=== PATIENT | male | born 1950 | race African-American/Black ===

== ENCOUNTER 2022-03-29 02:35 | Inpatient (IN) ==
[2022-03-29 03:00] VITALS: BMI 19.9
--- NOTE | 2022-03-29 03:08 | DR.SOBA ---
HPI Time Seen Time Seen by Provider: 03/29/22 03:04 Primary Care Physician Primary Care Physician: KEI Complaints Chief Complaint Doctors Comments: 72 y/o male presents with recurrent hiccups over the past 2-3 weeks. Pt ast seen here 01/2022, by me, diagnosed with a left lung mass. Pt has since undergone radiation therapy, scheduled for chemotherapy. WAs on steroids for awhile. Was on pantoprazole, taken off. Npo significant reflux. Pt was on baclofan, helped for a bit, but stopped helping past 2 days. Pt now with non stop hiccups over the past two days. Associated with sensation of dyspnea. Denies cough, fever, vomiting, diarrhea. Chief Complaint:: HICCUPS FOR 2-3 WEEKS. PT STATES PCP HAD PRESCRIBED MEDS FOR CONDITION BUT THAT THEY STOPPED WORKING THIS WEEKEND AND HE STARTED FEELING LIKE HE WAS IN RESPIRATORY DISTRESS THIS AM. COVID-19 Coronavirus risk:travel/contact w/high risk person: No Has patient experienced Coronavirus symptoms: No Reviewed Nurses Notes Reviewed: Yes Source History Provided: Patient and EMS Mode of Arrival Mode of Arrival: Stretcher Timing Onset of Chief Complaint: 03/29/22 PMH PMH Past Medical History: Yes Past Medical History: Hypertension and Hypothyroidism Past Medical History Comment: LUNG CA Past Surgical History: Yes Surgical History: No History Family History History of Family Medical Conditions: Yes Family Medical History: [place], Coronary Artery Disease and Hypertension Social History Does patient currently use any type of tobacco product: No Have you used tobacco products in the last 12 months: No Type of Tobacco Use: None Does any household member use tobacco: No Alcohol Use: None Do you use any recreational Drugs:: Yes (MARIJUANA) Lives With: Spouse Lives Where: Home Travel Risk Coronavirus risk:travel/contact w/high risk person: No Has patient experienced Coronavirus symptoms: No Infectious screening In the last 2 months have you had wt loss of >10#?: NO Have you had fever, night sweats or hemotysis?: No Have you traveled outside the country in the last 6 months?: No Isolation: Standard ROS Review of Systems Constitutional: Weakness Eyes: No Symptoms Reported ENTM: No Symptoms Reported Respiratoy: Other (hiccups) Cardiovascular: No Symptoms Reported Gastrointestinal/Abdominal: No Symptoms Reported Genitourinary: No Symptoms Reported Neurological: Weakness Musculoskeletal: No Symptoms Reported Integumentary: No Symptoms Reported Hematologic/Lymphatic: No Symptoms Reported Psychiatric: No Symptoms Reported All Other Systems: Reviewed and Negative PE Vital Signs Vitals: Temperature 98.4 F Pulse Rate 76 Respiratory Rate 20 Blood Pressure [Right Arm] 152/68 Blood Pressure 115/55 O2 Sat by Pulse Oximetry 97 General General Appearance: Alert and Other (cachectic, + persistent hiccups) Eyes Eye exam: PERRL and EOMI ENT ENT Exam: Normal Exam and Mucous Membranes Moist Neck Neck Exam: Normal Inspection and Full ROM; negative Tenderness Respiratory Respiratory Exam: Normal Lung Sounds Bilat; negative Accessory Muscle Use or Respiratory Distress Cardiovascular Cardiovascular Exam: Regular Rate, Normal Rhythm and Normal Heart Sounds Abdominal Exam Abdominal Exam: Normal Bowel Sounds; negative Tenderness, Guarding or Rebound Extremities Extremities Exam: Normal Inspection; negative Edema Neurologic Neurological Exam: Alert, Oriented X3 and CN II-XII Intact; negative Motor Sensory Deficit Skin Skin Exam: Warm, Dry and Other (+ chronic sacral decubitus) COURSE Treatment Treatment: Pt with recurrent hiccups past 2-3 weeks. W/u initiated. Given IV fluids, IV protonix/PO carafate to start. 0439 - hiccups doing better. Labs show elevated WBC at 32k, sodium low at 126. No report of fever. Does have a chronic sacral decubitus, though leukocytosis possibly related to recent radiation treatments. Will check lactic acid, obtain blood cultures and cover with IV antibiotic for his sacral decubitus. Discussed with Dr Hart, covering for Dr Wolff. [facility] Labs Reviewed Laboratory Results Reviewed?: Yes Result Diagrams: 03/29/22 03:25 03/29/22 03:25 Laboratory: WBC 32.3 X10^3/uL (3.6-10.0) H* 03/29/22 03:25 RBC 3.25 X10^6/uL (4.7-6.0) L 03/29/22 03:25 Hgb 9.4 g/dL (13.5-18.0) L 03/29/22 03:25 Hct 27.4 % (42.0-54.0) L 03/29/22 03:25 MCV 84.5 fL (80.0-100.0) 03/29/22 03:25 MCH 28.9 pg (27.0-34.0) 03/29/22 03:25 MCHC 34.3 g/dL (33.0-35.0) 03/29/22 03:25 RDW 15.0 % (11.6-16.5) 03/29/22 03:25 Plt Count 403 X10^3/uL (150.0-450.0) 03/29/22 03:25 Plt Count Comment Adequate (ADEQUATE) 03/29/22 03:25 MPV 7.2 fL (7.4-11.0) L 03/29/22 03:25 Neut % (Auto) 90.6 % (42.0-75.0) H 03/29/22 03:25 Lymph % (Auto) 3.0 % (21.0-51.0) L 03/29/22 03:25 Alexander % (Auto) 5.9 % (0.0-13.0) 03/29/22 03:25 Eos % (Auto) 0.2 % (0.9-2.9) L 03/29/22 03:25 Baso % (Auto) 0.3 % (0.2-1.0) 03/29/22 03:25 Neut # (Auto) 29.3 x10^3/uL (2.2-4.8) H 03/29/22 03:25 Lymph # (Auto) 1.0 X10^3/uL (1.3-2.9) L 03/29/22 03:25 Alexander # (Auto) 1.9 x10^3/uL (0.3-0.8) H 03/29/22 03:25 Eos # (Auto) 0.1 x10^3/uL (0.0-0.2) 03/29/22 03:25 Baso # (Auto) 0.1 X10^3/uL (0.0-0.1) 03/29/22 03:25 Absolute Nucleated RBC 0.0 /100WBC 03/29/22 03:25 Total Counted 100 03/29/22 03:25 Neutrophils % (Manual) 87 % (39-76) H 03/29/22 03:25 Band Neutrophils % 4 % (0-10) 03/29/22 03:25 Lymphocytes % (Manual) 5 % (13-43) L 03/29/22 03:25 Monocytes % (Manual) 3 % (4-9) L 03/29/22 03:25 Metamyelocytes % 1 03/29/22 03:25 Plt Morphology Comment Normal (NORMAL) 03/29/22 03:25 RBC Morphology Abnormal (NORMAL) 03/29/22 03:25 Hypochromasia Slight A 03/29/22 03:25 Sodium 126 mmol/L (136-145) L 03/29/22 03:25 Corrected Sodium TNP 03/29/22 03:25 Potassium 4.3 mmol/L (3.5-5.1) 03/29/22 03:25 Chloride 93 mmol/L (98-107) L 03/29/22 03:25 Carbon Dioxide 26.2 mmol/L (21-32) 03/29/22 03:25 BUN 35 mg/dL (7-18) H 03/29/22 03:25 Creatinine 1.00 mg/dL (0.70-1.30) 03/29/22 03:25 Est GFR (MDRD) Af Amer > 60 (>60) 03/29/22 03:25 Est GFR (MDRD) Non-Af > 60 (>60) 03/29/22 03:25 Glucose 102 mg/dL (65-99) H 03/29/22 03:25 Calcium 8.5 mg/dL (8.5-10.1) 03/29/22 03:25 Corrected Calcium 10.7 mg/dL (8.5-10.1) H 03/29/22 03:25 Total Bilirubin 0.50 mg/dL (0.2-1.0) 03/29/22 03:25 AST 32 Units/L (15-37) 03/29/22 03:25 ALT 35 Units/L (12-78) 03/29/22 03:25 Alkaline Phosphatase 193 Units/L (46-116) H 03/29/22 03:25 Troponin I High Sens 5.4 ng/L (4.0-60.0) 03/29/22 03:25 B-Natriuretic Peptide 19.7 pg/mL (0-79) 03/29/22 03:25 Total Protein 5.9 g/dL (6.4-8.2) L 03/29/22 03:25 Albumin 1.3 g/dL (3.4-5.0) L 03/29/22 03:25 Globulin 4.6 g/dL (2.5-4.5) H 03/29/22 03:25 Albumin/Globulin Ratio 0.3 Ratio (1.1-2.1) L 03/29/22 03:25 WBC 32K, + degree of anemia. Sodium low at 126. Opioid Opioid Risk Tool Age (Tino box if 16-45): No History of Preadolescent Sexual Abuse: No Total: 0 Total Score Risk Category: Low Risk Copyright: Mykel KERR predicting aberrant behaviors Discharge Plan Diagnosis Discharge Problem: Acute hyponatremia, Leukocytosis, Hiccups Discharge Plan Patient Disposition: ADMITTED INPATIENT Condition: Stable
[2022-03-29] MEDS ORDERED: PROTONIX INJ 40 MG VIAL IVP ONE (03:15)
[2022-03-29] MEDS ORDERED: NS 500 ML IV 500 ML IV ONE ×2 (03:16→03:20)
[2022-03-29] MEDS ORDERED: CARAFATE ORAL SUSP PO ONE ×3 (03:17→08:10)
[2022-03-29] MEDS ORDERED: PROTONIX INJ 40 MG VIAL ONE (03:20)
[2022-03-29 03:46] LABS: BASOPHILS # (AUTO) 0.1 X10^3/uL (0.0-0.1); BASOPHILS % (AUTO) 0.3 % (0.2-1.0); EOSINOPHILS # (AUTO) 0.1 x10^3/uL (0.0-0.2); EOSINOPHILS % (AUTO) 0.2 % (0.9-2.9); HEMATOCRIT 27.4 % (42.0-54.0); HEMOGLOBIN 9.4 g/dL (13.5-18.0); MEAN CORPUSCULAR HEMOGLOBIN 28.9 pg (27.0-34.0); MEAN CORPUSCULAR HGB CONC 34.3 g/dL (33.0-35.0); MEAN CORPUSCULAR VOLUME 84.5 fL (80.0-100.0); MEAN PLATELET VOLUME 7.2 fL (7.4-11.0); MONOCYTES # (AUTO) 1.9 x10^3/uL (0.3-0.8); MONOCYTES % (AUTO) 5.9 % (0.0-13.0); NEUTROPHILS # (AUTO) 29.3 x10^3/uL (2.2-4.8); NEUTROPHILS % (AUTO) 90.6 % (42.0-75.0); RED BLOOD COUNT 3.25 X10^6/uL (4.7-6.0)
[2022-03-29 03:47] LABS: ALANINE AMINOTRANSFERASE 35 Units/L (12-78); ALBUMIN 1.3 g/dL (3.4-5.0); ALKALINE PHOSPHATASE 193 Units/L (46-116); ASPARTATE AMINO TRANSFERASE 32 Units/L (15-37); BLOOD UREA NITROGEN 35 mg/dL (7-18); CALCIUM 8.5 mg/dL (8.5-10.1); CARBON DIOXIDE 26.2 mmol/L (21-32); CHLORIDE 93 mmol/L (98-107); COR CA(FOR HYPOALB) 10.7 mg/dL (8.5-10.1); SODIUM 126 mmol/L (136-145); TOTAL PROTEIN 5.9 g/dL (6.4-8.2); eGFR NON BLACK RACES > 60 (>60)
[2022-03-29 03:53] LABS: WHITE BLOOD COUNT 32.3 X10^3/uL (3.6-10.0)
--- NOTE | 2022-03-29 03:55 | RAD ---
STUDY: FRONTAL VIEW CHESTCOMPARISON: 02/02/2022HISTORY: SOB, HICCUPSFINDINGS:Subsegmental atelectasis is noted.No focal consolidation is seen.The heart size is within normal limits.The mediastinum is unremarkable.There is no evidence of pleural effusion or gross pneumothorax.The trachea is midline.IMPRESSION:1. No focal consolidation is seen.2. The heart size is normal.Electronically signed by: Pawel Sousa (Mar 29, 2022 03:54:18)
[2022-03-29 03:58] LABS: BAND NEUTROPHILS % 4 % (0-10); HYPOCHROMASIA SLIGHT; METAMYELOCYTES % 1; PLATELET MORPHOLOGY COMMENT NORMAL (NORMAL)
[2022-03-29] MEDS ORDERED: NS 100 ML IV 100 ML ONE (05:03)
[2022-03-29] MEDS ORDERED: ZOSYN VIAL 2.25 GRAMS ONE (05:03)
[2022-03-29] MEDS: ZOSYN VIAL 2.25 GRAMS 2.25 G in NS 100 ML IV 100 ML IV SCH ×4 (05:15→22:17)
[2022-03-29] MEDS ORDERED: ZOFRAN INJ 4 MG VIAL IVP PRN (05:44)
[2022-03-29] MEDS ORDERED: PROTONIX TAB 40 MG PO ONE (08:10)
[2022-03-29] MEDS ORDERED: NORVASC TAB 5 MG ONE (08:10)
[2022-03-29] MEDS ORDERED: NS 1,000 ML IV 1,000 ML ONE (08:11)
[2022-03-29] MEDS: NS 1,000 ML IV 1,000 ML IV SCH ×2 (08:16→14:50)
[2022-03-29] MEDS: PROTONIX TAB 40 MG PO SCH (08:17)
[2022-03-29] MEDS: NORVASC TAB 10 MG PO SCH ×2 (08:17→10:35)
[2022-03-29] MEDS: CARAFATE ORAL SUSP PO SCH ×4 (08:18→20:33)
[2022-03-29] MEDS ORDERED: PHARMACY CONSULT - TPN XX SCH (10:00)
[2022-03-29] MEDS: SYNTHROID 50 mcg TAB PO SCH (10:35)
[2022-03-29] MEDS: COZAAR PO SCH (10:36)
[2022-03-29] MEDS: ALBUMIN HUMAN 25%- 100 ML 100 ML IV SCH (10:37)
[2022-03-29] MEDS: LOVENOX INJ 40 MG SYR SC SCH (10:40)
[2022-03-29 11:05] LABS: BILIRUBIN,URINE NEGATIVE (NEGATIVE); BLOOD/HEMOGLOBIN,URINE NEGATIVE (NEGATIVE); GLUCOSE, URINE NEGATIVE (NEGATIVE); KETONES,URINE NEGATIVE (NEGATIVE); LEUKOCYTE ESTERASE ,URINE 1+ (NEGATIVE); NITRITES,URINE NEGATIVE (NEGATIVE); PROTEIN,URINE 1+ (NEGATIVE); UROBILINOGEN,URINE NORMAL (NORMAL)
[2022-03-29 11:16] LABS: APPEARANCE,URINE CLEAR (CLEAR); COLOR,URINE YELLOW (YELLOW); RBC,URINE NONE SEEN /HPF (0-3); SQUAMOUS EPITHELIAL CELL,UR RARE /HPF (NEGATIVE)
[2022-03-29 11:17] LABS: BACTERIA,URINE NEGATIVE /HPF (NEGATIVE)
[2022-03-29] MEDS: TPN ELECTROLYTES IV SCH ×2 (12:40)
[2022-03-29] MEDS: CLINIMIX IV SCH ×2 (12:40)
[2022-03-29] MEDS: OSIMERTINIB 80 MG PO SCH (12:41)
[2022-03-29] MEDS: PERCOCET TAB 5/325 MG PO PRN (18:21)
[2022-03-29] MEDS: COLACE CAP 100 MG PO SCH (20:33)
[2022-03-29] MEDS: MILK OF MAGNESIA PO SCH (20:33)
[2022-03-30] MEDS: NS 1,000 ML IV 1,000 ML IV SCH ×4 (00:49→23:09)
[2022-03-30] MEDS: ZOSYN VIAL 2.25 GRAMS 2.25 G in NS 100 ML IV 100 ML IV SCH ×3 (06:04→21:50)
[2022-03-30] MEDS: CARAFATE ORAL SUSP PO SCH ×4 (06:04→21:44)
[2022-03-30 06:19] LABS: BASOPHILS # (AUTO) 0.1 X10^3/uL (0.0-0.1); BASOPHILS % (AUTO) 0.3 % (0.2-1.0); EOSINOPHILS # (AUTO) 0.1 x10^3/uL (0.0-0.2); EOSINOPHILS % (AUTO) 0.6 % (0.9-2.9); HEMATOCRIT 24.5 % (42.0-54.0); HEMOGLOBIN 8.5 g/dL (13.5-18.0); LYMPHOCYTES # (AUTO) 1.4 X10^3/uL (1.3-2.9); LYMPHOCYTES % (AUTO) 5.7 % (21.0-51.0); MEAN CORPUSCULAR HEMOGLOBIN 29.6 pg (27.0-34.0); MEAN CORPUSCULAR HGB CONC 34.5 g/dL (33.0-35.0); MEAN CORPUSCULAR VOLUME 85.7 fL (80.0-100.0); MEAN PLATELET VOLUME 7.4 fL (7.4-11.0); MONOCYTES # (AUTO) 1.5 x10^3/uL (0.3-0.8); MONOCYTES % (AUTO) 6.3 % (0.0-13.0); NEUTROPHILS # (AUTO) 21.2 x10^3/uL (2.2-4.8); NEUTROPHILS % (AUTO) 87.1 % (42.0-75.0); RED BLOOD COUNT 2.86 X10^6/uL (4.7-6.0); RED CELL DISTRIBUTION WIDTH 14.9 % (11.6-16.5); WHITE BLOOD COUNT 24.3 X10^3/uL (3.6-10.0)
[2022-03-30 06:30] LABS: ALANINE AMINOTRANSFERASE 30 Units/L (12-78); ALBUMIN 1.4 g/dL (3.4-5.0); ALKALINE PHOSPHATASE 173 Units/L (46-116); ASPARTATE AMINO TRANSFERASE 30 Units/L (15-37); BLOOD UREA NITROGEN 23 mg/dL (7-18); CALCIUM 8.2 mg/dL (8.5-10.1); CHLORIDE 101 mmol/L (98-107); COR CA(FOR HYPOALB) 10.3 mg/dL (8.5-10.1); COR NA(FOR HYPERGLY) 134 mmol/L (136-145); CREATININE 0.81 mg/dL (0.70-1.30); SODIUM 133 mmol/L (136-145); TOTAL PROTEIN 5.5 g/dL (6.4-8.2); eGFR NON BLACK RACES > 60 (>60)
[2022-03-30 06:47] LABS: BAND NEUTROPHILS % 7 % (0-10)
[2022-03-30 06:48] LABS: PLATELET MORPHOLOGY COMMENT NORMAL (NORMAL)
[2022-03-30] MEDS: PROTONIX TAB 40 MG PO SCH (09:27)
[2022-03-30] MEDS: ALBUMIN HUMAN 25%- 100 ML 100 ML IV SCH (09:27)
[2022-03-30] MEDS: COZAAR PO SCH (09:27)
[2022-03-30] MEDS: SYNTHROID 50 mcg TAB PO SCH (09:28)
[2022-03-30] MEDS: NORVASC TAB 10 MG PO SCH (09:28)
[2022-03-30] MEDS: LOVENOX INJ 40 MG SYR SC SCH (09:31)
[2022-03-30] MEDS: OSIMERTINIB 80 MG PO SCH (09:33)
--- NOTE | 2022-03-30 09:59 | DR.H&P ---
H&P - History & Physical for Day of: H&P Date: 03/29/22 - Chief Complaint Chief Complaint: INTRACTABLE HICCUPS, SOB - History of Present Illness History of Present Illness: IS A 72 YEAR OLD PATIENT OF OURS. HE PRESENTED TO THE ER WITH COMPLAINTS OF INTRACTABLE HICCUPS OVER THE PAST 2-3 WEEKS. PATIENT WAS ON BACLOFAN FOR A WHILE. HE REPORTS THAT THE BACLOFAN HELPED WITH THE HICCUPS FOR A BIT, HOWEVER, IT HAS PROGRESSIVELY GOTTEN WORSE FOR THE PAST 2-3 DAYS. HE HAS ASSOCIATED DYSPNEA, BUT DENIES COUGH, FEVER, VOMITING, OR DIARRHEA. PATIENT WAS DIAGNOSED WITH A LEFT LUNG MASS IN JANUARY OF 2022. HE HAS SINCE UNDERGONE RADIATION THERAPY AND WILL START A CHEMOTHERAPY PILL SOON. OTHER PMH INCLUDES: HTN, HYPOTHYROIDISM, AND GERD. PATIENTS SPOUSE REPORTS THAT PATIENT IS NON-AMBULATORY. EXAMINATION REVEALED MULTIPLE WOUNDS TO THE SACRUM, BUTTOCK, AND UPPER LEGS (SEE WOUND ASSESSMENT). ON ARRIVAL TO THE ER, HIS VITALS WERE: 98.4-85-20-95%-115/56. LABS WERE OBTAINED. WBC 32.3, RBC 3.25, HGB 9.4, HCT 27.4, PLT COUNT 403, SODIUM 126, POTASSIUM 4.3, CHLORIDE 93, CARBON DIOXIDE 26.2, BUN 35, CREATININE 1.00, GLUCOSE 102, CALCIUM 8.5, TOTAL BILI 0.50, AST 32, ALT 35, ALK PHOS 193, TROPONIN 5.4, BNP 19.7, TOTAL PROTEIN 5.9, ALBUMIN 1.3. A URINALYSIS WAS OBTAINED AND WAS UNREMARKABLE. BLOOD AND URINE CULTURES WERE SET UP. WOUND CULTURES OF PRESSURE ULCER OR THE BUTTOCK WERE ALSO SET UP. A CHEST XRAY WAS OBTAINED AND REVEALED: Subsegmental atelectasis is noted. No focal consolidation is seen. The heart size is within normal limits. The mediastinum is unremarkable. There is no evidence of pleural effusion or gross pneumothorax. The trachea is midline. IN THE ER, HE WAS GIVEN PROTONIX 40MG IV X 1 DOSE, A NORMAL SALINE BOLUS, CARAFATE 1G PO X 1. HE WAS ADMITTED TO THE HOSPITAL INPATIENT STATUS FOR FURTHER EVALUATION AND TREATMENT OF LEUKOCYTOSIS, ACUTE HYPONATREMIA, INTRACTABLE HICCUPS, MULTIPLE DECUBITUS ULCERS, ANEMIA, PROTEIN-CALORIE MALNUTRITION, AND LEFT LUNG MASS. HE WAS STARTED ON NORMAL SALINE AT 80 ML/HR, ZOSYN 2.25G IV TID, TPN, ALBUMIN 25% IV DAILY, ZOFRAN 4MG IV Q6H PRN, LOVENOX 40MG SC DAILY, MILK OF MAGNESIA 30ML HS, COLACE 100MG PO HS, CARAFATE 1G PO ACHS, AND HEIS HOME MEDICATIONS WERE RESUMED. HOME MEDICATIONS INCLUDE: NORVASC, DURAGESIC PATCH, TAGRISSO, SYNTHROID, COZAAR, PERCOCET, PROTONIX. WE WILL HAVE CONSULT WITH PATIENT FOR POSSIBLE DEBRIDEMENT OF DECUBITUS ULCERS. OTHERWISE, WE WILL FOLLOW-UP WITH AM LABS AND CONTINUE TO MONITOR. TIME SPENT ON CLINICAL ASSESSMENT, REVIWING LABS AND IMAGING, DECISION MAKING, AND DOCUMENTATION GREATER THAN 75 MINUTES. - Past Medical History Past Medical History: Hypertension, Hypothyroidism Additional Medical History: LEFT LUNG MASS - Past Surgical History Surgical History: No History - Family History Family Medical History: [place], Coronary Artery Disease, Hypertension - Social History Does patient currently use any type of tobacco product: No Have you used tobacco products in the last 12 months: No Type of Tobacco Use: None Does any household member use tobacco: No Alcohol Use: None Drug Use: Marijuana - Medications Home Medications: No Known Allergies Allergy (Verified 03/29/22 03:04) CONTINUE taking the following medications baclofen 10 mg tablet 1 tab PO TID PRN hiccoughs 03/29/22 [History] fentanyl 25 mcg/hr transdermal patch 1 patch Q3D 03/29/22 [History] ondansetron HCl 8 mg tablet 1 tab PO BID PRN 03/29/22 [History] oxycodone-acetaminophen 10 mg-325 mg tablet 1 tab PO TID PRN 03/29/22 [History] - Review of Systems Constitutional: Weakness Eyes: No Symptoms Reported ENT: No Symptoms Reported Respiratory: Shortness of Breath Cardiovascular: No Symptoms Reported Gastrointestinal: No Symptoms Reported Genitourinary: No Symptoms Reported Skin: Wound (SACRAL, BUTTOCK, AND UPPER LEG DECUBITUS ULCERS ) Neurological: Weakness - Physical Exam Vital Signs: Temperature 98.2 F Pulse Rate [Left] 74 Pulse Rate 71 Respiratory Rate 19 Blood Pressure [Right Arm] 120/58 Blood Pressure 110/53 O2 Sat by Pulse Oximetry 97 Oriented: Normal Eyes: Normal Ear: Normal Nose: Normal Throat: Normal Respiratory: Diminished Throughout Cardiovascular: Normal : Normal Auscultation: Bowel Sounds: Normal Palpation: Normal Tenderness: Normal Skin: Wound Musculoskeletal: Normal Psychiatric: Normal Mood Description: Calm Affect: Normal Speech Pattern: Clear - Assessment/Plan (1) Leukocytosis Qualifiers: Leukocytosis type: unspecified Qualified Code(s): D72.829 - Elevated white blood cell count, unspecified Status: Acute Plan: ADMIT, NORMAL SALINE AT 80 ML/HR, ZOSYN 2.25G IV TID, TPN, ALBUMIN 25% IV DAILY, ZOFRAN 4MG IV Q6H PRN, LOVENOX 40MG SC DAILY, MILK OF MAGNESIA 30ML HS, COLACE 100MG PO HS, CARAFATE 1G PO ACHS, AND HEIS HOME MEDICATIONS WERE RESUMED. HOME MEDICATIONS INCLUDE: NORVASC, DURAGESIC PATCH, TAGRISSO, SYNTHROID, COZAAR, PERCOCET, PROTONIX. SURGICAL CONSULT FOR DEBRIDEMENT OF WOUNDS (2) Acute hyponatremia Status: Acute (3) Protein-calorie malnutrition, moderate Status: Acute (4) Decubitus ulcer Qualifiers: Pressure injury location: sacral region Status: Acute (5) Hiccups Status: Acute (6) Anemia Qualifiers: Anemia type: unspecified type Qualified Code(s): D64.9 - Anemia, unspecified Status: Acute (7) Mass of left lung Status: Acute (8) HTN (hypertension) Qualifiers: Hypertension type: primary hypertension Qualified Code(s): I10 - Essential (primary) hypertension Status: Chronic (9) GERD (gastroesophageal reflux disease) Qualifiers: Esophagitis presence: esophagitis presence not specified Qualified Code(s): K21.9 - Gastro-esophageal reflux disease without esophagitis Status: Chronic (10) Hypothyroidism Qualifiers: Hypothyroidism type: acquired Qualified Code(s): E03.9 - Hypothyroidism, unspecified Status: Chronic - Allergies Allergies/Adverse Reactions: Allergies Allergy/AdvReac Type Severity Reaction Status Date / Time No Known Allergies Allergy Verified 03/29/22 03:04
[2022-03-30] MEDS: CLINIMIX IV SCH ×2 (11:26)
[2022-03-30] MEDS: TPN ELECTROLYTES IV SCH ×2 (11:26)
[2022-03-30] MEDS: BENTYL CAP 10 MG PO SCH ×4 (11:31→21:45)
[2022-03-30] MEDS: LEVSIN/MAALOX/LIDOC VISC PO SCH ×4 (11:32→21:45)
[2022-03-30] MEDS: PERCOCET TAB 5/325 MG PO PRN ×2 (15:10→23:29)
[2022-03-30] MEDS: THORAZINE TAB 25 MG PO SCH (21:44)
[2022-03-30] MEDS: MILK OF MAGNESIA PO SCH (21:44)
[2022-03-30] MEDS: COLACE CAP 100 MG PO SCH (21:44)
[2022-03-31] MEDS ORDERED: NS 100 ML IV 100 ML ONE ×2 (04:37→11:53)
[2022-03-31] MEDS: ZOSYN VIAL 2.25 GRAMS 2.25 G in NS 100 ML IV 100 ML IV SCH ×3 (05:10→21:08)
[2022-03-31] MEDS: CARAFATE ORAL SUSP PO SCH ×4 (05:33→21:08)
[2022-03-31] MEDS: NS 1,000 ML IV 1,000 ML IV SCH ×4 (05:33→21:05)
[2022-03-31] MEDS: THORAZINE TAB 25 MG PO SCH ×3 (05:33→21:06)
[2022-03-31 05:46] LABS: BASOPHILS # (AUTO) 0.1 X10^3/uL (0.0-0.1); BASOPHILS % (AUTO) 0.7 % (0.2-1.0); EOSINOPHILS # (AUTO) 0.2 x10^3/uL (0.0-0.2); EOSINOPHILS % (AUTO) 0.9 % (0.9-2.9); HEMATOCRIT 23.6 % (42.0-54.0); HEMOGLOBIN 8.1 g/dL (13.5-18.0); LYMPHOCYTES # (AUTO) 1.7 X10^3/uL (1.3-2.9); LYMPHOCYTES % (AUTO) 7.6 % (21.0-51.0); MEAN CORPUSCULAR HEMOGLOBIN 29.2 pg (27.0-34.0); MEAN CORPUSCULAR HGB CONC 34.2 g/dL (33.0-35.0); MEAN CORPUSCULAR VOLUME 85.5 fL (80.0-100.0); MONOCYTES # (AUTO) 1.3 x10^3/uL (0.3-0.8); MONOCYTES % (AUTO) 6.1 % (0.0-13.0); NEUTROPHILS # (AUTO) 18.8 x10^3/uL (2.2-4.8); NEUTROPHILS % (AUTO) 84.7 % (42.0-75.0); RED BLOOD COUNT 2.76 X10^6/uL (4.7-6.0); RED CELL DISTRIBUTION WIDTH 14.7 % (11.6-16.5); WHITE BLOOD COUNT 22.2 X10^3/uL (3.6-10.0)
[2022-03-31 05:58] LABS: ALANINE AMINOTRANSFERASE 31 Units/L (12-78); ALBUMIN 1.6 g/dL (3.4-5.0); ALKALINE PHOSPHATASE 254 Units/L (46-116); ASPARTATE AMINO TRANSFERASE 29 Units/L (15-37); BLOOD UREA NITROGEN 20 mg/dL (7-18); CALCIUM 8.4 mg/dL (8.5-10.1); CARBON DIOXIDE 28.1 mmol/L (21-32); CHLORIDE 101 mmol/L (98-107); COR CA(FOR HYPOALB) 10.3 mg/dL (8.5-10.1); CREATININE 0.81 mg/dL (0.70-1.30); SODIUM 133 mmol/L (136-145); TOTAL PROTEIN 5.4 g/dL (6.4-8.2); eGFR NON BLACK RACES > 60 (>60)
[2022-03-31 06:10] LABS: BAND NEUTROPHILS % 3 % (0-10); METAMYELOCYTES % 1
[2022-03-31 06:11] LABS: PLATELET MORPHOLOGY COMMENT NORMAL (NORMAL)
[2022-03-31] MEDS: ALBUMIN HUMAN 25%- 100 ML 100 ML IV SCH (08:35)
[2022-03-31] MEDS: LOVENOX INJ 40 MG SYR SC SCH (09:00)
[2022-03-31] MEDS: TPN ELECTROLYTES IV SCH ×4 (09:00→14:39)
[2022-03-31] MEDS: CLINIMIX IV SCH ×4 (09:00→14:39)
[2022-03-31] MEDS: LEVSIN/MAALOX/LIDOC VISC PO SCH ×4 (09:00→21:07)
[2022-03-31] MEDS: LEVAQUIN PREMIX IV 500 MG 500 MG/100 ML BAG IV SCH (10:00)
--- NOTE | 2022-03-31 10:28 | PCM.PROG ---
Progress Note - Progress Note for Day of Date of Exam: 03/30/22 - Subjective Subjective: IS CURRENTLY INPATIENT STATUS FOR TREATMENT OF LEUKOCYTOSIS, ACUTE HYPONATREMIA, PROTEIN-CALORIE MALNUTRITION, MULTIPLE NONHEALING DECUBITUS ULCERS, INTRACTABLE HICCUPS, ANEMIA. HE HAS A PRESENT HISTORY OF LEFT LUNG MASS, HTN, GERD, AND HYPOTHYROIDISM. TODAY, HE IS ALERT AND ORIENTED, LYING IN BED ON MORNING ROUNDS. HE CONTINUES TO COMPLAIN OF INTRACTABLE HICCUPS, OCCASIONAL SHORTNESS OF BREATH, AND GENERALIZED WEAKNESS. HE REPORTS DISCOMFORT TO BUTTOCKS FROM WOUNDS. ON EXAMINATION TODAY, HEART IS REGULAR IN RATE AND RHYTHM. BILATERAL LUNGS ARE NOTED WITH DIMINISHED LUNG SOUND S THROUGHOUT. ABDOMEN IS ROUND, SOFT, AND NON-TENDER WITH NORMAL BOWEL SOUNDS NOTED IN ALL QUADRANTS. THERE ARE MULTIPLE WOUNDS TO THE BUTTOCKS, SACRUM, AND UPPER THIGH AREA. ALL ARE NOTED WITH DRESSINGS TO BE DRY AND INTACT. HAS BEEN CONSULTED FOR POSSIBLE DEBRIDEMENT OF WOUNDS. DECREASED MOVEMENT AND WEAKNESS NOTED TO LOWER EXTREMITIES. NO UPPER OR LOWER EXTREMITY EDEMA NOTED. HIS VITALS THIS MORNING ARE: 98.5-72-18-95%-116/56. LABS WERE OBTAINED. WBC 24.3, RBC 2.86, HGB 8.5, HCT 24.5, PLT COUNT 289, SODIUM 133, POTASSIUM 4.4, CHLORIDE 101, BUN 23, CREATININE 0.81, GLUCOSE 124, CALCIUM 8.2, AST 30, ALT 30, ALK PHOS 173, TOTAL PROTEIN 5.5, ALBUMIN 1.4. BLOOD, URINE, AND WOUND CULTURES ARE PENDING. HE IS CURRENTLY RECEIVING NORMAL SALINE AT 80 ML/HR, ZOSYN 2.25G IV TID, TPN, ALBUMIN 25% IV DAILY, ZOFRAN 4MG IV Q6H PRN, LOVENOX 40MG SC DAILY, MILK OF MAGNESIA 30ML HS, COLACE 100MG PO HS, CARAFATE 1G PO ACHS, AND HIS HOME MEDICATIONS WERE RESUMED. HOME MEDICATIONS INCLUDE: NORVASC, DURAGESIC PATCH, TAGRISSO, SYNTHROID, COZAAR, PERCOCET, PROTONIX. TODAY, WE WILL ADD BENTYL 20MG QID, GI COCKTAIL 15ML QID, AND THORAZINE 25MG PO TID FOR HICCUPS. PLANS FOR DEBRIDEMENT OF WOUNDS TOMORROW. WE ARE IN AGREEMENT WITH PLANS. WE WILL CONTINUE WITH WOUND CARE TODAY AND HAVE PHYSICAL THERAPY WORK WITH HIM. OTHERWISE, WE WILL FOLLOW-UP WITH AM LABS AND CONTINUE TO MONITOR. TIME SPENT ON CLINICAL ASSESSMENT, REVIWING LABS AND IMAGING, DECISION MAKING, AND DOCUMENTATION GREATER THAN 75 MINUTES. - Past Medical Family Social History Past Med/Fam/Surg Hx: No changes since H&P Allergies: Allergies No Known Allergies Allergy (Verified 03/29/22 03:04) - Review of Systems ROS: No change since H&P - Vital Signs and I&O's Vital Signs: Temperature 99.0 F Pulse Rate [Left] 67 Pulse Rate 71 Respiratory Rate 18 Blood Pressure [Right Arm] 120/58 Blood Pressure 110/53 O2 Sat by Pulse Oximetry 94 Intake and Output: Intake & Output 03/28/22 03/29/22 03/30/22 03/31/22 11:59 11:59 11:59 11:59 Intake Total 630 / 630 3122 / 3122 4011 / 4011 Output Total 400 / 400 2990 / 2990 2175 / 2175 Balance 230 / 230 132 / 132 1836 / 1836 - Physical Exam Oriented: Normal Eyes: Normal Ear: Normal Nose: Normal Throat: Normal Respiratory: Generalized, Diminished Cardiovascular: Normal : Normal Auscultation: Bowel Sounds: Normal Palpation: Normal Tenderness: Normal Skin: Wound Musculoskeletal: Normal, Instability (WEAKESS OF LOWER EXTREMITIES. PATIENT IS NON-AMBULATORY ) Psychiatric: Normal Mood Description: Calm Affect: Normal Speech Pattern: Clear, Appropriate - Laboratory and Diagnostics Result Diagrams: 03/31/22 05:23 03/31/22 05:23 Labs: 03/29/22 17:30 Buttock Wound Gram Stain - Final 03/29/22 17:30 Buttock Wound Culture - Preliminary 03/29/22 10:51 Urine,Clean Catch Urine Culture - Final Enterococcus Faecalis Laboratory WBC 22.2 X10^3/uL (3.6-10.0) H 03/31/22 05: RBC 2.76 X10^6/uL (4.7-6.0) L 03/31/22 05:23 Hgb 8.1 g/dL (13.5-18.0) L 03/31/22 05: Hct 23.6 % (42.0-54.0) L 03/31/22 05:23 MCV 85.5 fL (80.0-100.0) 03/31/22 05:23 MCH 29.2 pg (27.0-34.0) 03/31/22 05: MCHC 34.2 g/dL (33.0-35.0) 03/31/22 05: RDW 14.7 % (11.6-16.5) 03/31/22 05:23 Plt Count 378 X10^3/uL (150.0-450.0) 03/31/22 05:23 Plt Count Comment Adequate (ADEQUATE) 03/31/22 05:23 MPV 7.0 fL (7.4-11.0) L 03/31/22 05:23 Neut % (Auto) 84.7 % (42.0-75.0) H 03/31/22 05:23 Lymph % (Auto) 7.6 % (21.0-51.0) L 03/31/22 05:23 [place] % (Auto) 6.1 % (0.0-13.0) 03/31/22 05:23 Eos % (Auto) 0.9 % (0.9-2.9) 03/31/22 05:23 Baso % (Auto) 0.7 % (0.2-1.0) 03/31/22 05:23 Neut # (Auto) 18.8 x10^3/uL (2.2-4.8) H 03/31/22 05:23 Lymph # (Auto) 1.7 X10^3/uL (1.3-2.9) 03/31/22 05:23 [place] # (Auto) 1.3 x10^3/uL (0.3-0.8) H 03/31/22 05:23 Eos # (Auto) 0.2 x10^3/uL (0.0-0.2) 03/31/22 05:23 Baso # (Auto) 0.1 X10^3/uL (0.0-0.1) 03/31/22 05:23 Absolute Nucleated RBC 0.0 /100WBC 03/31/22 05:23 Total Counted 100 03/31/22 05:23 Neutrophils % (Manual) 80 % (39-76) H 03/31/22 05:23 Band Neutrophils % 3 % (0-10) 03/31/22 05:23 Lymphocytes % (Manual) 5 % (13-43) L 03/31/22 05:23 Monocytes % (Manual) 10 % (4-9) H 03/31/22 05:23 Eosinophils % (Manual) 1 % (0-6) 03/31/22 05:23 Metamyelocytes % 1 03/31/22 05:23 Plt Morphology Comment Normal (NORMAL) 03/31/22 05:23 RBC Morphology Normal (NORMAL) 03/31/22 05:23 Hypochromasia Slight A 03/29/22 03:25 Sodium 133 mmol/L (136-145) L 03/31/22 05:23 Corrected Sodium TNP 03/31/22 05:23 Potassium 4.7 mmol/L (3.5-5.1) 03/31/22 05:23 Chloride 101 mmol/L (98-107) 03/31/22 05:23 Carbon Dioxide 28.1 mmol/L (21-32) 03/31/22 05:23 BUN 20 mg/dL (7-18) H 03/31/22 05:23 Creatinine 0.81 mg/dL (0.70-1.30) 03/31/22 05:23 Est GFR (MDRD) Af Amer > 60 (>60) 03/31/22 05:23 Est GFR (MDRD) Non-Af > 60 (>60) 03/31/22 05:23 Glucose 104 mg/dL (65-99) H 03/31/22 05:23 POC Glucose (mg/dL) 156 mg/dL (65-99) H 03/30/22 19:25 Lactic Acid 1.2 mmol/L (0.4-2.0) 03/29/22 04:55 Calcium 8.4 mg/dL (8.5-10.1) L 03/31/22 05:23 Corrected Calcium 10.3 mg/dL (8.5-10.1) H 03/31/22 05:23 Total Bilirubin 0.30 mg/dL (0.2-1.0) 03/31/22 05:23 AST 29 Units/L (15-37) 03/31/22 05:23 ALT 31 Units/L (12-78) 03/31/22 05:23 Alkaline Phosphatase 254 Units/L (46-116) H 03/31/22 05:23 Troponin I High Sens 5.4 ng/L (4.0-60.0) 03/29/22 03:25 C-Reactive Protein 96.20 mg/L (0-3.0) H 03/31/22 05:23 B-Natriuretic Peptide 19.7 pg/mL (0-79) 03/29/22 03:25 Total Protein 5.4 g/dL (6.4-8.2) L 03/31/22 05:23 Albumin 1.6 g/dL (3.4-5.0) L 03/31/22 05:23 Globulin 3.8 g/dL (2.5-4.5) 03/31/22 05: Albumin/Globulin Ratio 0.4 Ratio (1.1-2.1) L 03/31/22 05:23 Specimen Type Random urine 03/29/22 10:51 Urine Color Yellow (YELLOW) 03/29/22 10:51 Urine Appearance Clear (CLEAR) 03/29/22 10:51 Urine pH 5.0 (5.0 - 8.0) 03/29/22 10:51 Ur Specific [place] 1.010 (1.000-1.030) 03/29/22 10:51 Urine Protein 1+ (NEGATIVE) 03/29/22 10:51 Urine Glucose (UA) Negative (NEGATIVE) 03/29/22 10:51 Urine Ketones Negative (NEGATIVE) 03/29/22 10:51 Urine Blood Negative (NEGATIVE) 03/29/22 10:51 Urine Nitrite Negative (NEGATIVE) 03/29/22 10:51 Urine Bilirubin Negative (NEGATIVE) 03/29/22 10:51 Urine Urobilinogen Normal (NORMAL) 03/29/22 10:51 Ur Leukocyte Esterase 1+ (NEGATIVE) 03/29/22 10:51 Urine RBC None seen /HPF (0-3) 03/29/22 10:51 Urine WBC 0-2 /HPF (0-5) 03/29/22 10:51 Ur Squamous Epith Cells Rare /HPF (NEGATIVE) 03/29/22 10:51 Amorphous Sediment Trace /HPF (NEGATIVE) 03/29/22 10:51 Urine Bacteria Negative /HPF (NEGATIVE) 03/29/22 10:51 Ur Culture Indicated? No/not indicated 03/29/22 10:51 - Plan (1) Leukocytosis Status: Acute Qualifiers: Leukocytosis type: unspecified Qualified Code(s): D72.829 - Elevated white blood cell count, unspecified Plan: NORMAL SALINE AT 80 ML/HR, ZOSYN 2.25G IV TID, TPN, ALBUMIN 25% IV DAILY, ZOFRAN 4MG IV Q6H PRN, LOVENOX 40MG SC DAILY, MILK OF MAGNESIA 30ML HS, COLACE 100MG PO HS, CARAFATE 1G PO ACHS, GI COCKTAIL QID, THORAZINE 25MG TID, BENTYL 20MG QID, AND HIS HOME MEDICATIONS WERE RESUMED. HOME MEDICATIONS INCLUDE: NORVASC, DURAGESIC PATCH, TAGRISSO, SYNTHROID, COZAAR, PERCOCET, PROTONIX. SURGICAL CONSULT FOR DEBRIDEMENT OF WOUNDS (2) Acute hyponatremia Status: Acute (3) Protein-calorie malnutrition, moderate Status: Acute (4) Decubitus ulcer Status: Acute Qualifiers: Pressure injury location: sacral region Pressure injury stage: unspecified pressure injury stage Qualified Code(s): L89.159 - Pressure ulcer of sacral region, unspecified stage Plan: DEBRIDEMENT OF WOUNDS (5) Hiccups Status: Acute (6) Anemia Status: Acute Qualifiers: Anemia type: unspecified type Qualified Code(s): D64.9 - Anemia, unspecified (7) Mass of left lung Status: Acute (8) HTN (hypertension) Status: Chronic Qualifiers: Hypertension type: primary hypertension Qualified Code(s): I10 - Essential (primary) hypertension (9) GERD (gastroesophageal reflux disease) Status: Chronic Qualifiers: Esophagitis presence: esophagitis presence not specified Qualified Code(s): K21.9 - Gastro-esophageal reflux disease without esophagitis (10) Hypothyroidism Status: Chronic Qualifiers: Hypothyroidism type: acquired Qualified Code(s): E03.9 - Hypothyroidism, unspecified
[2022-03-31] MEDS: BENTYL CAP 10 MG PO SCH ×4 (11:36→21:07)
[2022-03-31] MEDS: PROTONIX TAB 40 MG PO SCH (11:38)
[2022-03-31] MEDS: SYNTHROID 50 mcg TAB PO SCH (11:39)
[2022-03-31] MEDS ORDERED: ANCEF VIAL 1 GRAM ONE (11:53)
[2022-03-31] MEDS ORDERED: LR 1,000 ML IV 1,000 ML IV ONE (11:53)
--- NOTE | 2022-03-31 12:37 | PCM.PROG ---
Progress Note - Progress Note for Day of Date of Exam: 03/31/22 - Subjective Subjective: IS CURRENTLY INPATIENT STATUS FOR TREATMENT OF LEUKOCYTOSIS, ACUTE HYPONATREMIA, PROTEIN-CALORIE MALNUTRITION, MULTIPLE NONHEALING DECUBITUS ULCERS, INTRACTABLE HICCUPS, ANEMIA. HE HAS A PRESENT HISTORY OF LEFT LUNG MASS, HTN, GERD, AND HYPOTHYROIDISM. TODAY, HE IS ALERT AND ORIENTED, LYING IN BED ON MORNING ROUNDS. HE CONTINUES TO COMPLAIN OF GENERALIZED WEAKNESS AND PAIN TO THE BUTTOCKS. HE REPORTS IMPROVEMENT IN HICCUPS SINCE YESTERDAY. ON EXAMINATION TODAY, HEART IS REGULAR IN RATE AND RHYTHM. BILATERAL LUNGS ARE NOTED WITH DIMINISHED LUNG SOUNDS THROUGHOUT. ABDOMEN IS ROU ND, SOFT, AND NON-TENDER WITH NORMAL BOWEL SOUNDS NOTED IN ALL QUADRANTS. THERE ARE MULTIPLE WOUNDS TO THE BUTTOCKS, SACRUM, AND UPPER THIGH AREA. ALL ARE NOTED WITH DRESSINGS TO BE DRY AND INTACT. HAS BEEN CONSULTED FOR POSSIBLE DEBRIDEMENT OF WOUNDS. DECREASED MOVEMENT AND WEAKNESS NOTED TO LOWER EXTREMITIES. NO UPPER OR LOWER EXTREMITY EDEMA NOTED. HIS VITALS THIS MORNING ARE: 98.8-70-18-94%-125/58. LABS WERE OBTAINED. WBC 22.2, RBC 2.76, HGB 8.1, HCT 23.6, PLT COUNT 378, SODIUM 133, POTASSIUM 4.7, CHLORIDE 101, CARBON DIOXIDE 28.1, BUN 20, CREATININE 0.81, GLUCOSE 104, CALCIUM 8.4, AST 29, ALT 31, ALK PHOS 254, CRP 96.20, TOTAL PROTEIN 5.4, ALBUMIN 1.6. BLOOD AND WOUND CULTURES ARE PENDING. URINE CULTURE IS POSITIVE FOR GROWTH OF ENTEROCOCCUS FAECALIS. HE IS CURRENTLY RECEIVING NORMAL SALINE AT 80 ML/HR, ZOSYN 2.25G IV TID, TPN, ALBUMIN 25% IV DAILY, ZOFRAN 4MG IV Q6H PRN, LOVENOX 40MG SC DAILY, MILK OF MAGNESIA 30ML HS, COLACE 100MG PO HS, CARAFATE 1G PO ACHS, BENTYL 20MG QID, GI COCKTAIL 15ML QID, THORAZINE 25MG PO TID FOR HICCUPS AND HIS HOME MEDICATIONS WERE RESUMED. HOME MEDICATIONS INCLUDE: NORVASC, DURAGESIC PATCH, TAGRISSO, SYNTHROID, COZAAR, PERCOCET, PROTONIX. PLANS FOR DEBRIDEMENT OF WOUNDS TODAY. WE ARE IN AGREEMENT WITH PLANS. WE WILL ADD LEVAQUIN 500MG IV DAILY. WE WILL ALSO CONTINUE WITH WOUND CARE TODAY AND HAVE PHYSICAL THERAPY WORK WITH HIM. OTHERWISE, WE WILL FOLLOW-UP WITH AM LABS AND CONTINUE TO MONITOR. TIME SPENT ON CLINICAL ASSESSMENT, REVIWING LABS AND IMAGING, DECISION MAKING, AND DOCUMENTATION GREATER THAN 45 MINUTES. - Past Medical Family Social History Past Med/Fam/Surg Hx: No changes since H&P Allergies: Allergies No Known Allergies Allergy (Verified 03/29/22 03:04) - Review of Systems ROS: No change since H&P - Vital Signs and I&O's Vital Signs: Temperature 98.8 F Pulse Rate [Left] 70 Pulse Rate 71 Respiratory Rate 18 Blood Pressure [Right Arm] 125/58 Blood Pressure 110/53 O2 Sat by Pulse Oximetry 94 Intake and Output: Intake & Output 03/29/22 03/30/22 03/31/22 04/01/22 11:59 11:59 11:59 11:59 Intake Total 630 / 630 3122 / 3122 4011 / 4011 Output Total 400 / 400 2990 / 2990 2175 / 2175 Balance 230 / 230 132 / 132 1836 / 1836 - Physical Exam Oriented: Normal Eyes: Normal Ear: Normal Nose: Normal Throat: Normal Respiratory: Generalized, Diminished Cardiovascular: Normal : Normal Auscultation: Bowel Sounds: Normal Palpation: Normal Tenderness: Normal Skin: Wound Musculoskeletal: Normal, Instability (WEAKESS OF LOWER EXTREMITIES. PATIENT IS NON-AMBULATORY ) Psychiatric: Normal Mood Description: Calm Affect: Normal Speech Pattern: Clear, Appropriate - Laboratory and Diagnostics Result Diagrams: 03/31/22 05:23 03/31/22 05:23 Labs: 03/29/22 04:55 Blood Blood Culture - Preliminary 03/29/22 04:50 Blood Blood Culture - Preliminary 03/29/22 17:30 Buttock Wound Gram Stain - Final 03/29/22 17:30 Buttock Wound Culture - Preliminary 03/29/22 10:51 Urine,Clean Catch Urine Culture - Final Enterococcus Faecalis Laboratory WBC 22.2 X10^3/uL (3.6-10.0) H 03/31/22 05:23 RBC 2.76 X10^6/uL (4.7-6.0) L 03/31/22 05:23 Hgb 8.1 g/dL (13.5-18.0) L 03/31/22 05:23 Hct 23.6 % (42.0-54.0) L 03/31/22 05:23 MCV 85.5 fL (80.0-100.0) 03/31/22 05: MCH 29.2 pg (27.0-34.0) 03/31/22 05: MCHC 34.2 g/dL (33.0-35.0) 03/31/22 05: RDW 14.7 % (11.6-16.5) 03/31/22 05: Plt Count 378 X10^3/uL (150.0-450.0) 03/31/22 05: Plt Count Comment Adequate (ADEQUATE) 03/31/22 05: MPV 7.0 fL (7.4-11.0) L 03/31/22 05:23 Neut % (Auto) 84.7 % (42.0-75.0) H 03/31/22 05:23 Lymph % (Auto) 7.6 % (21.0-51.0) L 03/31/22 05:23 [place] % (Auto) 6.1 % (0.0-13.0) 03/31/22 05: Eos % (Auto) 0.9 % (0.9-2.9) 03/31/22 05: Baso % (Auto) 0.7 % (0.2-1.0) 03/31/22 05:23 Neut # (Auto) 18.8 x10^3/uL (2.2-4.8) H 03/31/22 05:23 Lymph # (Auto) 1.7 X10^3/uL (1.3-2.9) 03/31/22 05:23 [place] # (Auto) 1.3 x10^3/uL (0.3-0.8) H 03/31/22 05:23 Eos # (Auto) 0.2 x10^3/uL (0.0-0.2) 03/31/22 05: Baso # (Auto) 0.1 X10^3/uL (0.0-0.1) 03/31/22 05:23 Absolute Nucleated RBC 0.0 /100WBC 03/31/22 05:23 Total Counted 100 03/31/22 05:23 Neutrophils % (Manual) 80 % (39-76) H 03/31/22 05:23 Band Neutrophils % 3 % (0-10) 03/31/22 05:23 Lymphocytes % (Manual) 5 % (13-43) L 03/31/22 05:23 Monocytes % (Manual) 10 % (4-9) H 03/31/22 05:23 Eosinophils % (Manual) 1 % (0-6) 03/31/22 05:23 Metamyelocytes % 1 03/31/22 05:23 Plt Morphology Comment Normal (NORMAL) 03/31/22 05:23 RBC Morphology Normal (NORMAL) 03/31/22 05:23 Hypochromasia Slight A 03/29/22 03:25 Sodium 133 mmol/L (136-145) L 03/31/22 05:23 Corrected Sodium TNP 03/31/22 05:23 Potassium 4.7 mmol/L (3.5-5.1) 03/31/22 05:23 Chloride 101 mmol/L (98-107) 03/31/22 05:23 Carbon Dioxide 28.1 mmol/L (21-32) 03/31/22 05:23 BUN 20 mg/dL (7-18) H 03/31/22 05:23 Creatinine 0.81 mg/dL (0.70-1.30) 03/31/22 05:23 Est GFR (MDRD) Af Amer > 60 (>60) 03/31/22 05:23 Est GFR (MDRD) Non-Af > 60 (>60) 03/31/22 05:23 Glucose 104 mg/dL (65-99) H 03/31/22 05:23 POC Glucose (mg/dL) 156 mg/dL (65-99) H 03/30/22 19:25 Lactic Acid 1.2 mmol/L (0.4-2.0) 03/29/22 04:55 Calcium 8.4 mg/dL (8.5-10.1) L 03/31/22 05:23 Corrected Calcium 10.3 mg/dL (8.5-10.1) H 03/31/22 05:23 Total Bilirubin 0.30 mg/dL (0.2-1.0) 03/31/22 05:23 AST 29 Units/L (15-37) 03/31/22 05:23 ALT 31 Units/L (12-78) 03/31/22 05:23 Alkaline Phosphatase 254 Units/L (46-116) H 03/31/22 05:23 Troponin I High Sens 5.4 ng/L (4.0-60.0) 03/29/22 03:25 C-Reactive Protein 96.20 mg/L (0-3.0) H 03/31/22 05:23 B-Natriuretic Peptide 19.7 pg/mL (0-79) 03/29/22 03:25 Total Protein 5.4 g/dL (6.4-8.2) L 03/31/22 05: Albumin 1.6 g/dL (3.4-5.0) L 03/31/22 05: Globulin 3.8 g/dL (2.5-4.5) 03/31/22 05: Albumin/Globulin Ratio 0.4 Ratio (1.1-2.1) L 03/31/22 05:23 Specimen Type Random urine 03/29/22 10:51 Urine Color Yellow (YELLOW) 03/29/22 10:51 Urine Appearance Clear (CLEAR) 03/29/22 10:51 Urine pH 5.0 (5.0 - 8.0) 03/29/22 10:51 Ur Specific [place] 1.010 (1.000-1.030) 03/29/22 10:51 Urine Protein 1+ (NEGATIVE) 03/29/22 10:51 Urine Glucose (UA) Negative (NEGATIVE) 03/29/22 10:51 Urine Ketones Negative (NEGATIVE) 03/29/22 10:51 Urine Blood Negative (NEGATIVE) 03/29/22 10:51 Urine Nitrite Negative (NEGATIVE) 03/29/22 10:51 Urine Bilirubin Negative (NEGATIVE) 03/29/22 10:51 Urine Urobilinogen Normal (NORMAL) 03/29/22 10:51 Ur Leukocyte Esterase 1+ (NEGATIVE) 03/29/22 10:51 Urine RBC None seen /HPF (0-3) 03/29/22 10:51 Urine WBC 0-2 /HPF (0-5) 03/29/22 10:51 Ur Squamous Epith Cells Rare /HPF (NEGATIVE) 03/29/22 10:51 Amorphous Sediment Trace /HPF (NEGATIVE) 03/29/22 10:51 Urine Bacteria Negative /HPF (NEGATIVE) 03/29/22 10:51 Ur Culture Indicated? No/not indicated 03/29/22 10:51 - Plan (1) Leukocytosis Status: Acute Qualifiers: Leukocytosis type: unspecified Qualified Code(s): D72.829 - Elevated white blood cell count, unspecified Plan: NORMAL SALINE AT 80 ML/HR, ZOSYN 2.25G IV TID, TPN, LEVAQUIN 500MG IV DAILY, ALBUMIN 25% IV DAILY, ZOFRAN 4MG IV Q6H PRN, LOVENOX 40MG SC DAILY, MILK OF MAGNESIA 30ML HS, COLACE 100MG PO HS, CARAFATE 1G PO ACHS, GI COCKTAIL QID, THORAZINE 25MG TID, BENTYL 20MG QID, AND HIS HOME MEDICATIONS WERE RESUMED. HOME MEDICATIONS INCLUDE: NORVASC, DURAGESIC PATCH, TAGRISSO, SYNTHROID, COZAAR, PERCOCET, PROTONIX. DEBRIDEMENT OF WOUNDS (2) Acute hyponatremia Status: Acute (3) Protein-calorie malnutrition, moderate Status: Acute (4) Decubitus ulcer Status: Acute Qualifiers: Pressure injury location: sacral region Pressure injury stage: unspecified pressure injury stage Qualified Code(s): L89.159 - Pressure ulcer of sacral region, unspecified stage Plan: DEBRIDEMENT OF WOUNDS (5) Hiccups Status: Acute (6) Anemia Status: Acute Qualifiers: Anemia type: unspecified type Qualified Code(s): D64.9 - Anemia, unspeci fied (7) Mass of left lung Status: Acute (8) HTN (hypertension) Status: Chronic Qualifiers: Hypertension type: primary hypertension Qualified Code(s): I10 - Essential (primary) hypertension (9) GERD (gastroesophageal reflux disease) Status: Chronic Qualifiers: Esophagitis presence: esophagitis presence not specified Qualified Code(s): K21.9 - Gastro-esophageal reflux disease without esophagitis (10) Hypothyroidism Status: Chronic Qualifiers: Hypothyroidism type: acquired Qualified Code(s): E03.9 - Hypothyroidism, unspecified
[2022-03-31] MEDS ORDERED: BETADINE SOLN ONE ×2 (12:39→12:59)
[2022-03-31] MEDS ORDERED: VERSED ONE (12:48)
[2022-03-31] MEDS ORDERED: DIPRIVAN VIAL 20 ML ONE (12:48)
[2022-03-31] MEDS ORDERED: FENTANYL VIAL INJ 250 mcg ONE (12:48)
[2022-03-31] MEDS ORDERED: FENTANYL VIAL INJ 100 mcg ONE (12:50)
[2022-03-31] MEDS ORDERED: XYLOCAINE 1 % (PLAIN) ONE (13:03)
[2022-03-31] MEDS ORDERED: POLYMYXIN B SULFATE IR ONE (13:43)
[2022-03-31 14:19] LABS: EOSINOPHILS # (AUTO) 0.2 x10^3/uL (0.0-0.2); EOSINOPHILS % (AUTO) 0.9 % (0.9-2.9); RED BLOOD COUNT 2.91 X10^6/uL (4.7-6.0)
[2022-03-31 14:22] LABS: BASOPHILS # (AUTO) 0.1 X10^3/uL (0.0-0.1); BASOPHILS % (AUTO) 0.4 % (0.2-1.0); HEMATOCRIT 25.2 % (42.0-54.0); HEMOGLOBIN 8.6 g/dL (13.5-18.0); LYMPHOCYTES # (AUTO) 1.5 X10^3/uL (1.3-2.9); LYMPHOCYTES % (AUTO) 7.9 % (21.0-51.0); MEAN CORPUSCULAR HEMOGLOBIN 29.4 pg (27.0-34.0); MEAN CORPUSCULAR VOLUME 86.7 fL (80.0-100.0); MEAN PLATELET VOLUME 6.8 fL (7.4-11.0); MONOCYTES # (AUTO) 1.2 x10^3/uL (0.3-0.8); MONOCYTES % (AUTO) 6.2 % (0.0-13.0); NEUTROPHILS # (AUTO) 15.7 x10^3/uL (2.2-4.8); NEUTROPHILS % (AUTO) 84.6 % (42.0-75.0); RED CELL DISTRIBUTION WIDTH 14.8 % (11.6-16.5); WHITE BLOOD COUNT 18.6 X10^3/uL (3.6-10.0)
[2022-03-31 14:34] LABS: METAMYELOCYTES % 2; MYELOCYTES % 1; PLATELET MORPHOLOGY COMMENT NORMAL (NORMAL)
[2022-03-31] MEDS: NORVASC TAB 10 MG PO SCH (15:41)
[2022-03-31] MEDS: COZAAR PO SCH (15:41)
[2022-03-31] MEDS: PERCOCET TAB 5/325 MG PO PRN (16:47)
[2022-03-31] MEDS: COLACE CAP 100 MG PO SCH (21:06)
[2022-03-31] MEDS: MILK OF MAGNESIA PO SCH (21:07)
[2022-04-01] MEDS: ZOSYN VIAL 2.25 GRAMS 2.25 G in NS 100 ML IV 100 ML IV SCH ×3 (05:53→21:16)
[2022-04-01] MEDS: NS 1,000 ML IV 1,000 ML IV SCH ×2 (05:53→16:22)
[2022-04-01] MEDS: THORAZINE TAB 25 MG PO SCH ×3 (05:53→21:15)
[2022-04-01] MEDS: CARAFATE ORAL SUSP PO SCH ×5 (05:54→21:15)
[2022-04-01 06:25] LABS: BASOPHILS # (AUTO) 0.1 X10^3/uL (0.0-0.1); BASOPHILS % (AUTO) 0.5 % (0.2-1.0); EOSINOPHILS # (AUTO) 0.2 x10^3/uL (0.0-0.2); EOSINOPHILS % (AUTO) 1.3 % (0.9-2.9); HEMATOCRIT 21.6 % (42.0-54.0); HEMOGLOBIN 7.4 g/dL (13.5-18.0); LYMPHOCYTES # (AUTO) 1.7 X10^3/uL (1.3-2.9); LYMPHOCYTES % (AUTO) 9.6 % (21.0-51.0); MEAN CORPUSCULAR HEMOGLOBIN 29.5 pg (27.0-34.0); MEAN CORPUSCULAR HGB CONC 34.3 g/dL (33.0-35.0); MEAN PLATELET VOLUME 7.2 fL (7.4-11.0); MONOCYTES # (AUTO) 1.1 x10^3/uL (0.3-0.8); MONOCYTES % (AUTO) 6.4 % (0.0-13.0); NEUTROPHILS # (AUTO) 14.3 x10^3/uL (2.2-4.8); NEUTROPHILS % (AUTO) 82.2 % (42.0-75.0); RED BLOOD COUNT 2.51 X10^6/uL (4.7-6.0); RED CELL DISTRIBUTION WIDTH 15.3 % (11.6-16.5); WHITE BLOOD COUNT 17.4 X10^3/uL (3.6-10.0)
[2022-04-01 06:55] LABS: BAND NEUTROPHILS % 5 % (0-10); PLATELET MORPHOLOGY COMMENT NORMAL (NORMAL)
[2022-04-01 07:14] LABS: ALANINE AMINOTRANSFERASE 36 Units/L (12-78); ALBUMIN 1.8 g/dL (3.4-5.0); ALKALINE PHOSPHATASE 157 Units/L (46-116); ASPARTATE AMINO TRANSFERASE 38 Units/L (15-37); BLOOD UREA NITROGEN 18 mg/dL (7-18); CALCIUM 8.8 mg/dL (8.5-10.1); CARBON DIOXIDE 27.6 mmol/L (21-32); CHLORIDE 102 mmol/L (98-107); COR CA(FOR HYPOALB) 10.6 mg/dL (8.5-10.1); CREATININE 0.72 mg/dL (0.70-1.30); SODIUM 137 mmol/L (136-145); TOTAL PROTEIN 5.5 g/dL (6.4-8.2); eGFR NON BLACK RACES > 60 (>60)
[2022-04-01] MEDS: ALBUMIN HUMAN 25%- 100 ML 100 ML IV SCH (08:33)
--- NOTE | 2022-04-01 08:51 | DR.PROGNOT ---
HOSPITAL PROGRESS NOTE Progress Note for Day of: Progress Note Date: 04/01/22 Chief Complaint Chief Complaint: po excisional debridement of large ulcers bot legs and Lt upper thigh . Hgb 7.4 . WBC 17.4 afebrile Past Medical Family Social History Past Med/Fam/Surg Hx: No changes since H&P Allergies: Allergies No Known Allergies Allergy (Verified 03/29/22 03:04) Review Of Systems ROS: No change since H&P Vital Signs Vital Signs: Temperature 98.5 F Pulse Rate [Left] 88 Pulse Rate 95 Respiratory Rate 18 Blood Pressure [Right Arm] 133/62 Blood Pressure 110/53 O2 Sat by Pulse Oximetry 94 Physical Exam Oriented: Normal Eyes: Normal Ear: Normal Nose: Normal Throat: Normal Respiratory: Generalized and Diminished Cardiovascular: Normal : Normal GI:Auscultation: Normal GI:Palpation: Normal GI: Tenderness: Normal Skin: Wound Musculoskeletal: Normal and Instability (WEAKESS OF LOWER EXTREMITIES. PATIENT IS NON-AMBULATORY ) Psychiatric: Normal Mood Description: Calm Affect: Normal Speech Pattern: Clear and Appropriate Laboratory and Diagnostics Result Diagrams: 04/01/22 05:34 04/01/22 05:34 Labs: 03/31/22 13:24 Thigh - Left Wound Gram Stain - Final 03/29/22 04:55 Blood Blood Culture - Preliminary 03/29/22 04:50 Blood Blood Culture - Preliminary 03/29/22 17:30 Buttock Wound Gram Stain - Final 03/29/22 17:30 Buttock Wound Culture - Preliminary 03/29/22 10:51 Urine,Clean Catch Urine Culture - Final Enterococcus Faecalis Laboratory WBC 17.4 X10^3/uL (3.6-10.0) H 04/01/22 05:34 RBC 2.51 X10^6/uL (4.7-6.0) L 04/01/22 05:34 Hgb 7.4 g/dL (13.5-18.0) L 04/01/22 05:34 Hct 21.6 % (42.0-54.0) L 04/01/22 05:34 MCV 86.0 fL (80.0-100.0) 04/01/22 05:34 MCH 29.5 pg (27.0-34.0) 04/01/22 05:34 MCHC 34.3 g/dL (33.0-35.0) 04/01/22 05:34 RDW 15.3 % (11.6-16.5) 04/01/22 05:34 Plt Count 361 X10^3/uL (150.0-450.0) 04/01/22 05:34 Plt Count Comment Adequate (ADEQUATE) 04/01/22 05:34 MPV 7.2 fL (7.4-11.0) L 04/01/22 05:34 Neut % (Auto) 82.2 % (42.0-75.0) H 04/01/22 05:34 Lymph % (Auto) 9.6 % (21.0-51.0) L 04/01/22 05:34 [place] % (Auto) 6.4 % (0.0-13.0) 04/01/22 05:34 Eos % (Auto) 1.3 % (0.9-2.9) 04/01/22 05:34 Baso % (Auto) 0.5 % (0.2-1.0) 04/01/22 05:34 Neut # (Auto) 14.3 x10^3/uL (2.2-4.8) H 04/01/22 05:34 Lymph # (Auto) 1.7 X10^3/uL (1.3-2.9) 04/01/22 05:34 [place] # (Auto) 1.1 x10^3/uL (0.3-0.8) H 04/01/22 05:34 Eos # (Auto) 0.2 x10^3/uL (0.0-0.2) 04/01/22 05:34 Baso # (Auto) 0.1 X10^3/uL (0.0-0.1) 04/01/22 05:34 Absolute Nucleated RBC 0.0 /100WBC 04/01/22 05:34 Total Counted 100 04/01/22 05:34 Neutrophils % (Manual) 74 % (39-76) 04/01/22 05:34 Band Neutrophils % 5 % (0-10) 04/01/22 05:34 Lymphocytes % (Manual) 12 % (13-43) L 04/01/22 05:34 Monocytes % (Manual) 8 % (4-9) 04/01/22 05:34 Eosinophils % (Manual) 1 % (0-6) 04/01/22 05:34 Metamyelocytes % 2 03/31/22 14:07 Myelocytes % 1 03/31/22 14:07 Plt Morphology Comment Normal (NORMAL) 04/01/22 05:34 RBC Morphology Normal (NORMAL) 04/01/22 05:34 Hypochromasia Slight A 03/29/22 03:25 Sodium 137 mmol/L (136-145) 04/01/22 05:34 Corrected Sodium TNP 04/01/22 05:34 Potassium 4.6 mmol/L (3.5-5.1) 04/01/22 05:34 Chloride 102 mmol/L (98-107) 04/01/22 05:34 Carbon Dioxide 27.6 mmol/L (21-32) 04/01/22 05:34 BUN 18 mg/dL (7-18) 04/01/22 05:34 Creatinine 0.72 mg/dL (0.70-1.30) 04/01/22 05:34 Est GFR (MDRD) Af Amer > 60 (>60) 04/01/22 05:34 Est GFR (MDRD) Non-Af > 60 (>60) 04/01/22 05:34 Glucose 102 mg/dL (65-99) H 04/01/22 05:34 POC Glucose (mg/dL) 156 mg/dL (65-99) H 03/30/22 19:25 Lactic Acid 1.2 mmol/L (0.4-2.0) 03/29/22 04:55 Calcium 8.8 mg/dL (8.5-10.1) 04/01/22 05:34 Corrected Calcium 10.6 mg/dL (8.5-10.1) H 04/01/22 05:34 Total Bilirubin 0.20 mg/dL (0.2-1.0) 04/01/22 05:34 AST 38 Units/L (15-37) H 04/01/22 05:34 ALT 36 Units/L (12-78) 04/01/22 05:34 Alkaline Phosphatase 157 Units/L (46-116) H 04/01/22 05:34 Troponin I High Sens 5.4 ng/L (4.0-60.0) 03/29/22 03:25 C-Reactive Protein 92.90 mg/L (0-3.0) H 04/01/22 05:34 B-Natriuretic Peptide 19.7 pg/mL (0-79) 03/29/22 03:25 Total Protein 5.5 g/dL (6.4-8.2) L 04/01/22 05:34 Albumin 1.8 g/dL (3.4-5.0) L 04/01/22 05:34 Globulin 3.7 g/dL (2.5-4.5) 04/01/22 05:34 Albumin/Globulin Ratio 0.5 Ratio (1.1-2.1) L 04/01/22 05:34 Specimen Type Random urine 03/29/22 10:51 Urine Color Yellow (YELLOW) 03/29/22 10:51 Urine Appearance Clear (CLEAR) 03/29/22 10:51 Urine pH 5.0 (5.0 - 8.0) 03/29/22 10:51 Ur Specific [place] 1.010 (1.000-1.030) 03/29/22 10:51 Urine Protein 1+ (NEGATIVE) 03/29/22 10:51 Urine Glucose (UA) Negative (NEGATIVE) 03/29/22 10:51 Urine Ketones Negative (NEGATIVE) 03/29/22 10:51 Urine Blood Negative (NEGATIVE) 03/29/22 10:51 Urine Nitrite Negative (NEGATIVE) 03/29/22 10:51 Urine Bilirubin Negative (NEGATIVE) 03/29/22 10:51 Urine Urobilinogen Normal (NORMAL) 03/29/22 10:51 Ur Leukocyte Esterase 1+ (NEGATIVE) 03/29/22 10:51 Urine RBC None seen /HPF (0-3) 03/29/22 10:51 Urine WBC 0-2 /HPF (0-5) 03/29/22 10:51 Ur Squamous Epith Cells Rare /HPF (NEGATIVE) 03/29/22 10:51 Amorphous Sediment Trace /HPF (NEGATIVE) 03/29/22 10:51 Urine Bacteria Negative /HPF (NEGATIVE) 03/29/22 10:51 Ur Culture Indicated? No/not indicated 03/29/22 10:51 Tissue Pathology To follow 03/31/22 13:24 Assessment and Plan 1: multiple large infected leg ulcers with necrosis and abscess formation both legs and upper thigh 2: s/p excisional debridement 3: lung ca 4: confinement to bed . same local care , IV ABT . transfusion as needed . poor prognosis .. Problem Patient Problems: Patient Problems (Updated 03/31/22 @ 10:28 by Shiva Wolff) Hypothyroidism (Chronic) E03.9 Mass of left lung (Acute) R91.8 Acute hyponatremia (Acute) E87.1 Leukocytosis (Acute) D72.829 Hiccups (Acute) R06.6 Anemia (Acute) D64.9 Protein-calorie malnutrition, moderate (Acute) E44.0 Decubitus ulcer (Acute) L89.90 HTN (hypertension) (Chronic) I10 GERD (gastroesophageal reflux disease) (Chronic) K21.9
[2022-04-01] MEDS: BENTYL CAP 10 MG PO SCH ×5 (08:59→21:14)
[2022-04-01] MEDS: SYNTHROID 50 mcg TAB PO SCH (09:00)
[2022-04-01] MEDS: PROTONIX TAB 40 MG PO SCH (09:00)
[2022-04-01] MEDS: COZAAR PO SCH (09:01)
[2022-04-01] MEDS: LEVAQUIN PREMIX IV 500 MG 500 MG/100 ML BAG IV SCH (09:01)
[2022-04-01] MEDS: NORVASC TAB 10 MG PO SCH (09:02)
[2022-04-01] MEDS: PERCOCET TAB 5/325 MG PO PRN ×2 (09:03→19:23)
[2022-04-01] MEDS: LOVENOX INJ 40 MG SYR SC SCH (09:04)
[2022-04-01] MEDS: LEVSIN/MAALOX/LIDOC VISC PO SCH ×4 (09:04→21:15)
[2022-04-01] MEDS ORDERED: DRUG FILTER EXTENSION SET ONE (15:15)
[2022-04-01] MEDS: CLINIMIX 4.25%-5% 1,000 ML IV SCH (15:30)
[2022-04-01] MEDS: COLACE CAP 100 MG PO SCH (21:15)
[2022-04-01] MEDS: MILK OF MAGNESIA PO SCH (21:15)
[2022-04-02] MEDS: NS 1,000 ML IV 1,000 ML IV SCH ×4 (01:16→23:03)
[2022-04-02] MEDS: THORAZINE TAB 25 MG PO SCH ×3 (05:14→21:23)
[2022-04-02] MEDS: ZOSYN VIAL 2.25 GRAMS 2.25 G in NS 100 ML IV 100 ML IV SCH ×3 (05:15→21:23)
[2022-04-02] MEDS: CARAFATE ORAL SUSP PO SCH ×4 (05:44→20:47)
[2022-04-02 06:23] LABS: BASOPHILS # (AUTO) 0.1 X10^3/uL (0.0-0.1); BASOPHILS % (AUTO) 0.7 % (0.2-1.0); EOSINOPHILS # (AUTO) 0.3 x10^3/uL (0.0-0.2); EOSINOPHILS % (AUTO) 1.9 % (0.9-2.9); HEMATOCRIT 21.5 % (42.0-54.0); HEMOGLOBIN 7.4 g/dL (13.5-18.0); LYMPHOCYTES # (AUTO) 1.8 X10^3/uL (1.3-2.9); LYMPHOCYTES % (AUTO) 11.6 % (21.0-51.0); MEAN CORPUSCULAR HEMOGLOBIN 29.5 pg (27.0-34.0); MEAN CORPUSCULAR HGB CONC 34.2 g/dL (33.0-35.0); MEAN CORPUSCULAR VOLUME 86.3 fL (80.0-100.0); MEAN PLATELET VOLUME 7.3 fL (7.4-11.0); MONOCYTES # (AUTO) 0.8 x10^3/uL (0.3-0.8); MONOCYTES % (AUTO) 4.8 % (0.0-13.0); NEUTROPHILS # (AUTO) 12.6 x10^3/uL (2.2-4.8); RED CELL DISTRIBUTION WIDTH 15.2 % (11.6-16.5); WHITE BLOOD COUNT 15.5 X10^3/uL (3.6-10.0)
[2022-04-02 06:37] LABS: ALANINE AMINOTRANSFERASE 43 Units/L (12-78); ALBUMIN 1.9 g/dL (3.4-5.0); ALKALINE PHOSPHATASE 162 Units/L (46-116); ASPARTATE AMINO TRANSFERASE 43 Units/L (15-37); BLOOD UREA NITROGEN 14 mg/dL (7-18); CALCIUM 8.7 mg/dL (8.5-10.1); CARBON DIOXIDE 26.3 mmol/L (21-32); CHLORIDE 101 mmol/L (98-107); COR CA(FOR HYPOALB) 10.4 mg/dL (8.5-10.1); CREATININE 0.78 mg/dL (0.70-1.30); SODIUM 135 mmol/L (136-145); TOTAL PROTEIN 5.6 g/dL (6.4-8.2); eGFR NON BLACK RACES > 60 (>60)
[2022-04-02 07:21] LABS: BAND NEUTROPHILS % 3 % (0-10)
[2022-04-02 07:23] LABS: PLATELET MORPHOLOGY COMMENT NORMAL (NORMAL)
[2022-04-02] MEDS: LEVAQUIN PREMIX IV 500 MG 500 MG/100 ML BAG IV SCH (08:54)
[2022-04-02] MEDS: LOVENOX INJ 40 MG SYR SC SCH (08:54)
[2022-04-02] MEDS: ALBUMIN HUMAN 25%- 100 ML 100 ML IV SCH (08:54)
[2022-04-02] MEDS: COZAAR PO SCH (08:55)
[2022-04-02] MEDS: LEVSIN/MAALOX/LIDOC VISC PO SCH ×4 (08:55→20:47)
[2022-04-02] MEDS: CLINIMIX 4.25%-5% 1,000 ML IV SCH ×2 (08:56→14:11)
[2022-04-02] MEDS: BENTYL CAP 10 MG PO SCH ×4 (08:56→20:48)
[2022-04-02] MEDS: SYNTHROID 50 mcg TAB PO SCH (08:56)
[2022-04-02] MEDS: PROTONIX TAB 40 MG PO SCH (08:56)
[2022-04-02] MEDS: NORVASC TAB 10 MG PO SCH (08:56)
[2022-04-02] MEDS: MILK OF MAGNESIA PO SCH (20:48)
[2022-04-02] MEDS: COLACE CAP 100 MG PO SCH (20:49)
[2022-04-02] MEDS: PERCOCET TAB 5/325 MG PO PRN (23:00)
[2022-04-03] MEDS: ZOSYN VIAL 2.25 GRAMS 2.25 G in NS 100 ML IV 100 ML IV SCH ×3 (05:48→21:10)
[2022-04-03] MEDS: CARAFATE ORAL SUSP PO SCH ×4 (05:48→21:09)
[2022-04-03] MEDS: THORAZINE TAB 25 MG PO SCH ×3 (05:48→21:08)
[2022-04-03 05:56] LABS: BASOPHILS # (AUTO) 0.1 X10^3/uL (0.0-0.1); BASOPHILS % (AUTO) 0.5 % (0.2-1.0); EOSINOPHILS # (AUTO) 0.2 x10^3/uL (0.0-0.2); EOSINOPHILS % (AUTO) 1.7 % (0.9-2.9); HEMATOCRIT 21.4 % (42.0-54.0); HEMOGLOBIN 7.4 g/dL (13.5-18.0); LYMPHOCYTES # (AUTO) 1.6 X10^3/uL (1.3-2.9); LYMPHOCYTES % (AUTO) 11.9 % (21.0-51.0); MEAN CORPUSCULAR HEMOGLOBIN 29.5 pg (27.0-34.0); MEAN CORPUSCULAR HGB CONC 34.5 g/dL (33.0-35.0); MEAN CORPUSCULAR VOLUME 85.6 fL (80.0-100.0); MEAN PLATELET VOLUME 6.9 fL (7.4-11.0); MONOCYTES % (AUTO) 7.5 % (0.0-13.0); NEUTROPHILS # (AUTO) 10.4 x10^3/uL (2.2-4.8); NEUTROPHILS % (AUTO) 78.4 % (42.0-75.0); WHITE BLOOD COUNT 13.2 X10^3/uL (3.6-10.0)
[2022-04-03] MEDS: NS 1,000 ML IV 1,000 ML IV SCH ×3 (06:10→22:00)
[2022-04-03 06:17] LABS: ALANINE AMINOTRANSFERASE 39 Units/L (12-78); ALKALINE PHOSPHATASE 159 Units/L (46-116); ASPARTATE AMINO TRANSFERASE 37 Units/L (15-37); BLOOD UREA NITROGEN 17 mg/dL (7-18); CALCIUM 8.7 mg/dL (8.5-10.1); CARBON DIOXIDE 26.5 mmol/L (21-32); CHLORIDE 103 mmol/L (98-107); COR CA(FOR HYPOALB) 10.3 mg/dL (8.5-10.1); CREATININE 0.81 mg/dL (0.70-1.30); SODIUM 136 mmol/L (136-145); TOTAL PROTEIN 5.7 g/dL (6.4-8.2); eGFR NON BLACK RACES > 60 (>60)
--- NOTE | 2022-04-03 08:55 | DR.PROGNOT ---
HOSPITAL PROGRESS NOTE Progress Note for Day of: Progress Note Date: 04/03/22 Chief Complaint Chief Complaint: po excisional debridement of large ulcers bot legs and Lt upper thigh . Hgb 7.4 . WBC 17.4 afebrile Past Medical Family Social History Past Med/Fam/Surg Hx: No changes since H&P Allergies: Allergies No Known Allergies Allergy (Verified 03/29/22 03:04) Review Of Systems ROS: No change since H&P Vital Signs Vital Signs: Temperature 97.8 F Pulse Rate [Left] 68 Pulse Rate 95 Respiratory Rate 20 Blood Pressure [Right Arm] 95/50 Blood Pressure 110/53 O2 Sat by Pulse Oximetry 95 Physical Exam Oriented: Normal Eyes: Normal Ear: Normal Nose: Normal Throat: Normal Respiratory: Generalized and Diminished Cardiovascular: Normal : Normal GI:Auscultation: Normal GI:Palpation: Normal GI: Tenderness: Normal Skin: Wound Musculoskeletal: Normal and Instability (WEAKESS OF LOWER EXTREMITIES. PATIENT IS NON-AMBULATORY ) Psychiatric: Normal Mood Description: Calm Affect: Normal Speech Pattern: Clear and Appropriate Laboratory and Diagnostics Result Diagrams: 04/03/22 05:36 04/03/22 05:36 Labs: 03/29/22 17:30 Buttock Wound Gram Stain - Final 03/29/22 17:30 Buttock Wound Culture - Final Morganella Morganii Strep Agalactiae - (Group B) Acinetobacter Baumanii/Haemoly 03/31/22 13:24 Thigh - Left Wound Gram Stain - Final 03/31/22 13:24 Thigh - Left Wound Culture - Preliminary Morganella Morganii 03/29/22 04:55 Blood Blood Culture - Preliminary 03/29/22 04:50 Blood Blood Culture - Preliminary 03/29/22 10:51 Urine,Clean Catch Urine Culture - Final Enterococcus Faecalis Laboratory WBC 13.2 X10^3/uL (3.6-10.0) H 04/03/22 05:36 RBC 2.50 X10^6/uL (4.7-6.0) L 04/03/22 05:36 Hgb 7.4 g/dL (13.5-18.0) L 04/03/22 05:36 Hct 21.4 % (42.0-54.0) L 04/03/22 05:36 MCV 85.6 fL (80.0-100.0) 04/03/22 05:36 MCH 29.5 pg (27.0-34.0) 04/03/22 05:36 MCHC 34.5 g/dL (33.0-35.0) 04/03/22 05:36 RDW 15.0 % (11.6-16.5) 04/03/22 05:36 Plt Count 367 X10^3/uL (150.0-450.0) 04/03/22 05:36 Plt Count Comment Adequate (ADEQUATE) 04/02/22 05:16 MPV 6.9 fL (7.4-11.0) L 04/03/22 05:36 Neut % (Auto) 78.4 % (42.0-75.0) H 04/03/22 05:36 Lymph % (Auto) 11.9 % (21.0-51.0) L 04/03/22 05:36 [place] % (Auto) 7.5 % (0.0-13.0) 04/03/22 05:36 Eos % (Auto) 1.7 % (0.9-2.9) 04/03/22 05:36 Baso % (Auto) 0.5 % (0.2-1.0) 04/03/22 05:36 Neut # (Auto) 10.4 x10^3/uL (2.2-4.8) H 04/03/22 05:36 Lymph # (Auto) 1.6 X10^3/uL (1.3-2.9) 04/03/22 05:36 [place] # (Auto) 1.0 x10^3/uL (0.3-0.8) H 04/03/22 05:36 Eos # (Auto) 0.2 x10^3/uL (0.0-0.2) 04/03/22 05:36 Baso # (Auto) 0.1 X10^3/uL (0.0-0.1) 04/03/22 05:36 Absolute Nucleated RBC 0.0 /100WBC 04/03/22 05:36 Total Counted 100 04/02/22 05:16 Neutrophils % (Manual) 83 % (39-76) H 04/02/22 05:16 Band Neutrophils % 3 % (0-10) 04/02/22 05:16 Lymphocytes % (Manual) 8 % (13-43) L 04/02/22 05:16 Monocytes % (Manual) 6 % (4-9) 04/02/22 05:16 Eosinophils % (Manual) 1 % (0-6) 04/01/22 05:34 Metamyelocytes % 2 03/31/22 14:07 Myelocytes % 1 03/31/22 14:07 Plt Morphology Comment Normal (NORMAL) 04/02/22 05:16 RBC Morphology Normal (NORMAL) 04/02/22 05:16 Hypochromasia Slight A 03/29/22 03:25 Sodium 136 mmol/L (136-145) 04/03/22 05:36 Corrected Sodium TNP 04/03/22 05:36 Potassium 4.1 mmol/L (3.5-5.1) 04/03/22 05:36 Chloride 103 mmol/L (98-107) 04/03/22 05:36 Carbon Dioxide 26.5 mmol/L (21-32) 04/03/22 05:36 BUN 17 mg/dL (7-18) 04/03/22 05:36 Creatinine 0.81 mg/dL (0.70-1.30) 04/03/22 05:36 Est GFR (MDRD) Af Amer > 60 (>60) 04/03/22 05:36 Est GFR (MDRD) Non-Af > 60 (>60) 04/03/22 05:36 Glucose 103 mg/dL (65-99) H 04/03/22 05:36 POC Glucose (mg/dL) 109 mg/dL (65-99) H 04/03/22 06:42 Lactic Acid 1.2 mmol/L (0.4-2.0) 03/29/22 04:55 Calcium 8.7 mg/dL (8.5-10.1) 04/03/22 05:36 Corrected Calcium 10.3 mg/dL (8.5-10.1) H 04/03/22 05:36 Total Bilirubin 0.20 mg/dL (0.2-1.0) 04/03/22 05:36 AST 37 Units/L (15-37) 04/03/22 05:36 ALT 39 Units/L (12-78) 04/03/22 05:36 Alkaline Phosphatase 159 Units/L (46-116) H 04/03/22 05:36 Troponin I High Sens 5.4 ng/L (4.0-60.0) 03/29/22 03:25 C-Reactive Protein 73.00 mg/L (0-3.0) H 04/03/22 05:36 B-Natriuretic Peptide 19.7 pg/mL (0-79) 03/29/22 03:25 Total Protein 5.7 g/dL (6.4-8.2) L 04/03/22 05:36 Albumin 2.0 g/dL (3.4-5.0) L 04/03/22 05:36 Globulin 3.7 g/dL (2.5-4.5) 04/03/22 05:36 Albumin/Globulin Ratio 0.5 Ratio (1.1-2.1) L 04/03/22 05:36 Specimen Type Random urine 03/29/22 10:51 Urine Color Yellow (YELLOW) 03/29/22 10:51 Urine Appearance Clear (CLEAR) 03/29/22 10:51 Urine pH 5.0 (5.0 - 8.0) 03/29/22 10:51 Ur Specific [place] 1.010 (1.000-1.030) 03/29/22 10:51 Urine Protein 1+ (NEGATIVE) 03/29/22 10:51 Urine Glucose (UA) Negative (NEGATIVE) 03/29/22 10:51 Urine Ketones Negative (NEGATIVE) 03/29/22 10:51 Urine Blood Negative (NEGATIVE) 03/29/22 10:51 Urine Nitrite Negative (NEGATIVE) 03/29/22 10:51 Urine Bilirubin Negative (NEGATIVE) 03/29/22 10:51 Urine Urobilinogen Normal (NORMAL) 03/29/22 10:51 Ur Leukocyte Esterase 1+ (NEGATIVE) 03/29/22 10:51 Urine RBC None seen /HPF (0-3) 03/29/22 10:51 Urine WBC 0-2 /HPF (0-5) 03/29/22 10:51 Ur Squamous Epith Cells Rare /HPF (NEGATIVE) 03/29/22 10:51 Amorphous Sediment Trace /HPF (NEGATIVE) 03/29/22 10:51 Urine Bacteria Negative /HPF (NEGATIVE) 03/29/22 10:51 Ur Culture Indicated? No/not indicated 03/29/22 10:51 Tissue Pathology To follow 03/31/22 13:24 Assessment and Plan 1: multiple large infected leg ulcers with necrosis and abscess formation both legs and upper thigh 2: s/p excisional debridement 3: lung ca 4: confinement to bed . same local care , IV ABT . transfusion as needed . poor prognosis .. Problem Patient Problems: Patient Problems (Updated 03/31/22 @ 10:28 by Shiva Wolff) Hypothyroidism (Chronic) E03.9 Mass of left lung (Acute) R91.8 Acute hyponatremia (Acute) E87.1 Leukocytosis (Acute) D72.829 Hiccups (Acute) R06.6 Anemia (Acute) D64.9 Protein-calorie malnutrition, moderate (Acute) E44.0 Decubitus ulcer (Acute) L89.90 HTN (hypertension) (Chronic) I10 GERD (gastroesophageal reflux disease) (Chronic) K21.9
[2022-04-03] MEDS: BENTYL CAP 10 MG PO SCH ×4 (09:43→21:08)
[2022-04-03] MEDS: ALBUMIN HUMAN 25%- 100 ML 100 ML IV SCH (09:43)
[2022-04-03] MEDS: COZAAR PO SCH (09:43)
[2022-04-03] MEDS: LEVSIN/MAALOX/LIDOC VISC PO SCH ×4 (09:44→21:07)
[2022-04-03] MEDS: LEVAQUIN PREMIX IV 500 MG 500 MG/100 ML BAG IV SCH (11:04)
[2022-04-03] MEDS: PROTONIX TAB 40 MG PO SCH (11:04)
[2022-04-03] MEDS: NORVASC TAB 10 MG PO SCH (11:05)
[2022-04-03] MEDS: SYNTHROID 50 mcg TAB PO SCH (11:05)
[2022-04-03] MEDS: LOVENOX INJ 40 MG SYR SC SCH (11:05)
[2022-04-03] MEDS ORDERED: DRUG FILTER EXTENSION SET ONE (11:12)
[2022-04-03] MEDS: CLINIMIX 4.25%-5% 1,000 ML IV SCH (13:47)
[2022-04-03] MEDS: PERCOCET TAB 5/325 MG PO PRN (15:03)
[2022-04-03] MEDS: COLACE CAP 100 MG PO SCH (21:08)
[2022-04-03] MEDS: MILK OF MAGNESIA PO SCH (21:09)
[2022-04-04] MEDS: NS 1,000 ML IV 1,000 ML IV SCH ×3 (05:41→22:51)
[2022-04-04] MEDS: CARAFATE ORAL SUSP PO SCH ×4 (05:41→21:35)
[2022-04-04] MEDS: THORAZINE TAB 25 MG PO SCH ×3 (05:41→21:36)
[2022-04-04] MEDS: ZOSYN VIAL 2.25 GRAMS 2.25 G in NS 100 ML IV 100 ML IV SCH ×3 (05:41→21:36)
[2022-04-04 06:29] LABS: BASOPHILS # (AUTO) 0.1 X10^3/uL (0.0-0.1); BASOPHILS % (AUTO) 0.7 % (0.2-1.0); EOSINOPHILS # (AUTO) 0.2 x10^3/uL (0.0-0.2); EOSINOPHILS % (AUTO) 1.8 % (0.9-2.9); HEMATOCRIT 22.1 % (42.0-54.0); HEMOGLOBIN 7.3 g/dL (13.5-18.0); LYMPHOCYTES # (AUTO) 1.9 X10^3/uL (1.3-2.9); LYMPHOCYTES % (AUTO) 15.5 % (21.0-51.0); MEAN CORPUSCULAR HGB CONC 33.3 g/dL (33.0-35.0); MEAN PLATELET VOLUME 6.7 fL (7.4-11.0); MONOCYTES # (AUTO) 0.8 x10^3/uL (0.3-0.8); MONOCYTES % (AUTO) 6.4 % (0.0-13.0); NEUTROPHILS # (AUTO) 9.2 x10^3/uL (2.2-4.8); NEUTROPHILS % (AUTO) 75.6 % (42.0-75.0); RED BLOOD COUNT 2.54 X10^6/uL (4.7-6.0); RED CELL DISTRIBUTION WIDTH 15.4 % (11.6-16.5); WHITE BLOOD COUNT 12.1 X10^3/uL (3.6-10.0)
[2022-04-04 06:44] LABS: ALANINE AMINOTRANSFERASE 37 Units/L (12-78); ALBUMIN 2.1 g/dL (3.4-5.0); ALKALINE PHOSPHATASE 150 Units/L (46-116); ASPARTATE AMINO TRANSFERASE 33 Units/L (15-37); BLOOD UREA NITROGEN 17 mg/dL (7-18); CALCIUM 8.8 mg/dL (8.5-10.1); CARBON DIOXIDE 26.7 mmol/L (21-32); CHLORIDE 103 mmol/L (98-107); COR CA(FOR HYPOALB) 10.3 mg/dL (8.5-10.1); CREATININE 0.76 mg/dL (0.70-1.30); SODIUM 137 mmol/L (136-145); TOTAL PROTEIN 5.6 g/dL (6.4-8.2); eGFR NON BLACK RACES > 60 (>60)
[2022-04-04] MEDS: LOVENOX INJ 40 MG SYR SC SCH (09:10)
[2022-04-04] MEDS: ALBUMIN HUMAN 25%- 100 ML 100 ML IV SCH (09:10)
[2022-04-04] MEDS: COZAAR PO SCH (09:26)
[2022-04-04] MEDS: BENTYL CAP 10 MG PO SCH ×4 (09:26→21:36)
[2022-04-04] MEDS: PROTONIX TAB 40 MG PO SCH (09:26)
[2022-04-04] MEDS: SYNTHROID 50 mcg TAB PO SCH (09:26)
[2022-04-04] MEDS: NORVASC TAB 10 MG PO SCH (09:27)
--- NOTE | 2022-04-04 10:37 | PCM.PROG ---
Progress Note Progress Note for Day of Date of Exam: 04/03/22 Subjective Subjective: PT IS A 72 YEAR OLD MALE ADMITTED FOR TREATMENT OF LEUKOCYTOSIS, ACUTE HYPONATREMIA, PROTEIN-CALORIE MALNUTRITION, MULTIPLE NONHEALING DECUBITUS ULCERS, INTRACTABLE HICCUPS, ANEMIA. HE HAS A PRESENT HISTORY OF LEFT LUNG MASS, HTN, GERD, AND HYPOTHYROIDISM. GENERAL SURGERY DR. TATE HAS BEEN FOLLOWING AND PATIENT IS S/P EXCISIONAL DEBRIDEMENT OF LARGE ULCERS BOTH LEGS AND LEFT UPPER THIGH. LABS WERE OBTAINED. WBC 13.2, HGB 7.4, PLT 367, NA 136, K 4.1, CREATININE 0.81, GLUCOSE 103, URINE CULTURE IS POSITIVE FOR GROWTH OF ENTEROCOCCUS FAECALIS. HE IS CURRENTLY RECEIVING NORMAL SALINE AT 80 ML/HR, ZOSYN 2.25G IV TID, LEVAQUIN 500MG IV DAILY, TPN, ALBUMIN 25% IV DAILY, ZOFRAN 4MG IV Q6H PRN, LOVENOX 40MG SC DAILY, MILK OF MAGNESIA 30ML HS, COLACE 100MG PO HS, CARAFATE 1G PO ACHS, BENTYL 20MG QID, GI COCKTAIL 15ML QID, THORAZINE 25MG PO TID FOR HICCUPS AND HIS HOME MEDICATIONS WERE RESUMED. HOME MEDICATIONS INCLUDE: NORVASC, DURAGESIC PATCH, TAGRISSO, SYNTHROID, COZAAR, PERCOCET, P ROTONIX. WE WILL ALSO CONTINUE WITH WOUND CARE TODAY AND HAVE PHYSICAL THERAPY WORK WITH HIM. PT HAS BEEN CONSTIPATED, WILL ORDER SOAP SUDS ENEMA. OTHERWISE, WE WILL FOLLOW-UP WITH AM LABS AND CONTINUE TO MONITOR. Past Medical Family Social History Past Med/Fam/Surg Hx: No changes since H&P Allergies: Allergies No Known Allergies Allergy (Verified 03/29/22 03:04) Review of Systems ROS: No change since H&P ROS changes noted: SEE HPI Vital Signs and I&O's Vital Signs: Temperature 98.6 F Pulse Rate [Left] 74 Pulse Rate 95 Respiratory Rate 20 Blood Pressure [Right Arm] 110/58 Blood Pressure 110/53 O2 Sat by Pulse Oximetry 95 Intake and Output: Intake & Output 04/01/22 04/02/22 04/03/22 04/04/22 23:59 23:59 23:59 23:59 Intake Total 1700 / 1700 5132 / 5132 3854 / 3854 935 / 935 Output Total 2100 / 2099 2550 / 2550 3625 / 3625 1500 / 1500 Balance -400 / -400 2582 / 2582 229 / 229 -565 / -565 Physical Exam Oriented: Normal Eyes: Normal Ear: Normal Nose: Normal Throat: Normal Respiratory: Generalized and Diminished Cardiovascular: Normal : Normal Auscultation: Bowel Sounds: Normal Tenderness: Normal Skin: Wound Musculoskeletal: Normal and Instability (WEAKESS OF LOWER EXTREMITIES. PATIENT IS NON-AMBULATORY ) Psychiatric: Normal Mood Description: Calm Affect: Normal Speech Pattern: Clear and Appropriate Laboratory and Diagnostics Result Diagrams: 04/04/22 06:06 04/04/22 06:06 Labs: 03/29/22 04:55 Blood Blood Culture - Final 03/29/22 04:50 Blood Blood Culture - Final 03/31/22 13:24 Thigh - Left Wound Gram Stain - Final 03/31/22 13:24 Thigh - Left Wound Culture - Final Morganella Morganii Strep Agalactiae - (Group B) 03/29/22 17:30 Buttock Wound Gram Stain - Final 03/29/22 17:30 Buttock Wound Culture - Final Morganella Morganii Strep Agalactiae - (Group B) Acinetobacter Baumanii/Haemoly 03/29/22 10:51 Urine,Clean Catch Urine Culture - Final Enterococcus Faecalis Laboratory WBC 12.1 X10^3/uL (3.6-10.0) H 04/04/22 06:06 RBC 2.54 X10^6/uL (4.7-6.0) L 04/04/22 06:06 Hgb 7.3 g/dL (13.5-18.0) L 04/04/22 06:06 Hct 22.1 % (42.0-54.0) L 04/04/22 06:06 MCV 87.0 fL (80.0-100.0) 04/04/22 06:06 MCH 29.0 pg (27.0-34.0) 04/04/22 06:06 MCHC 33.3 g/dL (33.0-35.0) 04/04/22 06:06 RDW 15.4 % (11.6-16.5) 04/04/22 06:06 Plt Count 362 X10^3/uL (150.0-450.0) 04/04/22 06:06 Plt Count Comment Adequate (ADEQUATE) 04/02/22 05:16 MPV 6.7 fL (7.4-11.0) L 04/04/22 06:06 Neut % (Auto) 75.6 % (42.0-75.0) H 04/04/22 06:06 Lymph % (Auto) 15.5 % (21.0-51.0) L 04/04/22 06:06 [place] % (Auto) 6.4 % (0.0-13.0) 04/04/22 06:06 Eos % (Auto) 1.8 % (0.9-2.9) 04/04/22 06:06 Baso % (Auto) 0.7 % (0.2-1.0) 04/04/22 06:06 Neut # (Auto) 9.2 x10^3/uL (2.2-4.8) H 04/04/22 06:06 Lymph # (Auto) 1.9 X10^3/uL (1.3-2.9) 04/04/22 06:06 [place] # (Auto) 0.8 x10^3/uL (0.3-0.8) 04/04/22 06:06 Eos # (Auto) 0.2 x10^3/uL (0.0-0.2) 04/04/22 06:06 Baso # (Auto) 0.1 X10^3/uL (0.0-0.1) 04/04/22 06:06 Absolute Nucleated RBC 0.0 /100WBC 04/04/22 06:06 Total Counted 100 04/02/22 05:16 Neutrophils % (Manual) 83 % (39-76) H 04/02/22 05:16 Band Neutrophils % 3 % (0-10) 04/02/22 05:16 Lymphocytes % (Manual) 8 % (13-43) L 04/02/22 05:16 Monocytes % (Manual) 6 % (4-9) 04/02/22 05:16 Eosinophils % (Manual) 1 % (0-6) 04/01/22 05:34 Metamyelocytes % 2 03/31/22 14:07 Myelocytes % 1 03/31/22 14:07 Plt Morphology Comment Normal (NORMAL) 04/02/22 05:16 RBC Morphology Normal (NORMAL) 04/02/22 05:16 Hypochromasia Slight A 03/29/22 03:25 Sodium 137 mmol/L (136-145) 04/04/22 06:06 Corrected Sodium TNP 04/04/22 06:06 Potassium 3.9 mmol/L (3.5-5.1) 04/04/22 06:06 Chloride 103 mmol/L (98-107) 04/04/22 06:06 Carbon Dioxide 26.7 mmol/L (21-32) 04/04/22 06:06 BUN 17 mg/dL (7-18) 04/04/22 06:06 Creatinine 0.76 mg/dL (0.70-1.30) 04/04/22 06:06 Est GFR (MDRD) Af Amer > 60 (>60) 04/04/22 06:06 Est GFR (MDRD) Non-Af > 60 (>60) 04/04/22 06:06 Glucose 110 mg/dL (65-99) H 04/04/22 06:06 POC Glucose (mg/dL) 109 mg/dL (65-99) H 04/03/22 06:42 Lactic Acid 1.2 mmol/L (0.4-2.0) 03/29/22 04:55 Calcium 8.8 mg/dL (8.5-10.1) 04/04/22 06:06 Corrected Calcium 10.3 mg/dL (8.5-10.1) H 04/04/22 06:06 Total Bilirubin 0.20 mg/dL (0.2-1.0) 04/04/22 06:06 AST 33 Units/L (15-37) 04/04/22 06:06 ALT 37 Units/L (12-78) 04/04/22 06:06 Alkaline Phosphatase 150 Units/L (46-116) H 04/04/22 06:06 Troponin I High Sens 5.4 ng/L (4.0-60.0) 03/29/22 03:25 C-Reactive Protein 69.20 mg/L (0-3.0) H 04/04/22 06:06 B-Natriuretic Peptide 19.7 pg/mL (0-79) 03/29/22 03:25 Total Protein 5.6 g/dL (6.4-8.2) L 04/04/22 06:06 Albumin 2.1 g/dL (3.4-5.0) L 04/04/22 06:06 Globulin 3.5 g/dL (2.5-4.5) 04/04/22 06:06 Albumin/Globulin Ratio 0.6 Ratio (1.1-2.1) L 04/04/22 06:06 Specimen Type Random urine 03/29/22 10:51 Urine Color Yellow (YELLOW) 03/29/22 10:51 Urine Appearance Clear (CLEAR) 03/29/22 10:51 Urine pH 5.0 (5.0 - 8.0) 03/29/22 10:51 Ur Specific [place] 1.010 (1.000-1.030) 03/29/22 10:51 Urine Protein 1+ (NEGATIVE) 03/29/22 10:51 Urine Glucose (UA) Negative (NEGATIVE) 03/29/22 10:51 Urine Ketones Negative (NEGATIVE) 03/29/22 10:51 Urine Blood Negative (NEGATIVE) 03/29/22 10:51 Urine Nitrite Negative (NEGATIVE) 03/29/22 10:51 Urine Bilirubin Negative (NEGATIVE) 03/29/22 10:51 Urine Urobilinogen Normal (NORMAL) 03/29/22 10:51 Ur Leukocyte Esterase 1+ (NEGATIVE) 03/29/22 10:51 Urine RBC None seen /HPF (0-3) 03/29/22 10:51 Urine WBC 0-2 /HPF (0-5) 03/29/22 10:51 Ur Squamous Epith Cells Rare /HPF (NEGATIVE) 03/29/22 10:51 Amorphous Sediment Trace /HPF (NEGATIVE) 03/29/22 10:51 Urine Bacteria Negative /HPF (NEGATIVE) 03/29/22 10:51 Ur Culture Indicated? No/not indicated 03/29/22 10:51 Tissue Pathology To follow 03/31/22 13:24 Plan (1) Leukocytosis: Status: Acute Qualifiers: Leukocytosis type: unspecified Qualified Code(s): D72.829 - Elevated white blood cell count, unspecified Plan: NORMAL SALINE AT 80 ML/HR, ZOSYN 2.25G IV TID, TPN, LEVAQUIN 500MG IV DAILY, ALBUMIN 25% IV DAILY, ZOFRAN 4MG IV Q6H PRN, LOVENOX 40MG SC DAILY, MILK OF MAGNESIA 30ML HS, COLACE 100MG PO HS, CARAFATE 1G PO ACHS, GI COCKTAIL QID, THORAZINE 25MG TID, BENTYL 20MG QID, AND HIS HOME MEDICATIONS WERE RESUMED. HOME MEDICATIONS INCLUDE: NORVASC, DURAGESIC PATCH, TAGRISSO, SYNTHROID, COZAAR, PERCOCET, PROTONIX. DEBRIDEMENT OF WOUNDS (2) Acute hyponatremia: Status: Acute (3) Protein-calorie malnutrition, moderate: Status: Acute (4) Decubitus ulcer: Status: Acute Qualifiers: Pressure injury location: sacral region Pressure injury stage: unspecified pressure injury stage Qualified Code(s): L89.159 - Pressure ulcer of sacral region, unspecified stage Plan: DEBRIDEMENT OF WOUNDS (5) Hiccups: Status: Acute (6) Anemia: Status: Acute Qualifiers: Anemia type: unspecified type Qualified Code(s): D64.9 - Anemia, unspecified (7) Mass of left lung: Status: Acute (8) HTN (hypertension): Status: Chronic Qualifiers: Hypertension type: primary hypertension Qualified Code(s): I10 - Essential (primary) hypertension (9) GERD (gastroesophageal reflux disease): Status: Chronic Qualifiers: Esophagitis presence: esophagitis presence not specified Qualified Code(s): K21.9 - Gastro-esophageal reflux disease without esophagitis (10) Hypothyroidism: Status: Chronic Qualifiers: Hypothyroidism type: acquired Qualified Code(s): E03.9 - Hypothyroidism, unspecified
[2022-04-04] MEDS: LEVSIN/MAALOX/LIDOC VISC PO SCH ×4 (10:53→21:33)
[2022-04-04] MEDS: LEVAQUIN PREMIX IV 500 MG 500 MG/100 ML BAG IV SCH (10:54)
--- NOTE | 2022-04-04 12:11 | PCM.PROG ---
Progress Note Progress Note for Day of Date of Exam: 04/04/22 Subjective Subjective: PT IS A 72 YEAR OLD MALE ADMITTED FOR TREATMENT OF LEUKOCYTOSIS, ACUTE HYPONATREMIA, PROTEIN-CALORIE MALNUTRITION, MULTIPLE NONHEALING DECUBITUS ULCERS, INTRACTABLE HICCUPS, ANEMIA. HE HAS A PRESENT HISTORY OF LEFT LUNG MASS, HTN, GERD, AND HYPOTHYROIDISM. GENERAL SURGERY DR. TATE HAS BEEN FOLLOWING AND PATIENT IS S/P EXCISIONAL DEBRIDEMENT OF LARGE ULCERS BOTH LEGS AND LEFT UPPER THIGH. PT IS RESTING COMFORTABLY IN BED THIS MORNING. NO ACUTE EVENTS OVERNIGHT. LABS WERE OBTAINED. WBC 12.1, HGB 7.3, PLT 362, NA 137, K 3.9, CREATININE 0.76, GLUCOSE 110, URINE CULTURE IS POSITIVE FOR GROWTH OF ENTEROCOCCUS FAECALIS. HE IS CURRENTLY RECEIVING NORMAL SALINE AT 80 ML/HR, ZOSYN 2.25G IV TID, LEVAQUIN 500MG IV DAILY, TPN, ALBUMIN 25% IV DAILY, ZOFRAN 4MG IV Q6H PRN, LOVENOX 40MG SC DAILY, MILK OF MAGNESIA 30ML HS, COLACE 100MG PO HS, CARAFATE 1G PO ACHS, BENTYL 20MG QID, GI COCKTAIL 15ML QID, THORAZINE 25MG PO TID FOR HICCUPS AND HIS HOME MEDICATIONS WERE RESUMED. HOME MEDICATIONS INCLUDE: NORVASC, DURAGESIC PATCH, TAGRISSO, SYNTHROID, COZAAR, PERCOCET, PROTONIX. WE WILL ALSO CONTINUE WITH WOUND CARE TODAY AND HAVE PHYSICAL THERAPY WORK WITH HIM. OTHERWISE, WE WILL CONTINUE WITH CURRENT TREATMENT PLAN. CONTINUE TO MONITOR AND FOLLOW-UP WITH AM LABS. Past Medical Family Social History Past Med/Fam/Surg Hx: No changes since H&P Allergies: Allergies No Known Allergies Allergy (Verified 03/29/22 03:04) Review of Systems ROS: No change since H&P Vital Signs and I&O's Vital Signs: Temperature 98.3 F Pulse Rate [Left] 73 Pulse Rate 95 Respiratory Rate 20 Blood Pressure [Right Arm] 122/58 Blood Pressure 110/53 O2 Sat by Pulse Oximetry 98 Intake and Output: Intake & Output 04/01/22 04/02/22 04/03/22 04/04/22 23:59 23:59 23:59 23:59 Intake Total 1700 / 1700 5132 / 5132 3854 / 3854 935 / 935 Output Total 2100 / 2100 2550 / 2550 3625 / 3625 1500 / 1500 Balance -400 / -400 2582 / 2582 229 / 229 -565 / -565 Physical Exam Oriented: Normal Eyes: Normal Ear: Normal Nose: Normal Throat: Normal Respiratory: Generalized and Diminished Cardiovascular: Normal : Normal Auscultation: Bowel Sounds: Normal Tenderness: Normal Skin: Wound Musculoskeletal: Normal and Instability (WEAKESS OF LOWER EXTREMITIES. PATIENT IS NON-AMBULATORY ) Psychiatric: Normal Mood Description: Calm Affect: Normal Speech Pattern: Clear and Appropriate Laboratory and Diagnostics Result Diagrams: 04/04/22 06:06 04/04/22 06:06 Labs: 03/29/22 04:55 Blood Blood Culture - Final 03/29/22 04:50 Blood Blood Culture - Final 03/31/22 13:24 Thigh - Left Wound Gram Stain - Final 03/31/22 13:24 Thigh - Left Wound Culture - Final Morganella Morganii Strep Agalactiae - (Group B) 03/29/22 17:30 Buttock Wound Gram Stain - Final 03/29/22 17:30 Buttock Wound Culture - Final Morganella Morganii Strep Agalactiae - (Group B) Acinetobacter Baumanii/Haemoly 03/29/22 10:51 Urine,Clean Catch Urine Culture - Final Enterococcus Faecalis Laboratory WBC 12.1 X10^3/uL (3.6-10.0) H 04/04/22 06:06 RBC 2.54 X10^6/uL (4.7-6.0) L 04/04/22 06:06 Hgb 7.3 g/dL (13.5-18.0) L 04/04/22 06:06 Hct 22.1 % (42.0-54.0) L 04/04/22 06:06 MCV 87.0 fL (80.0-100.0) 04/04/22 06:06 MCH 29.0 pg (27.0-34.0) 04/04/22 06:06 MCHC 33.3 g/dL (33.0-35.0) 04/04/22 06:06 RDW 15.4 % (11.6-16.5) 04/04/22 06:06 Plt Count 362 X10^3/uL (150.0-450.0) 04/04/22 06:06 Plt Count Comment Adequate (ADEQUATE) 04/02/22 05:16 MPV 6.7 fL (7.4-11.0) L 04/04/22 06:06 Neut % (Auto) 75.6 % (42.0-75.0) H 04/04/22 06:06 Lymph % (Auto) 15.5 % (21.0-51.0) L 04/04/22 06:06 [place] % (Auto) 6.4 % (0.0-13.0) 04/04/22 06:06 Eos % (Auto) 1.8 % (0.9-2.9) 04/04/22 06:06 Baso % (Auto) 0.7 % (0.2-1.0) 04/04/22 06:06 Neut # (Auto) 9.2 x10^3/uL (2.2-4.8) H 04/04/22 06:06 Lymph # (Auto) 1.9 X10^3/uL (1.3-2.9) 04/04/22 06:06 [place] # (Auto) 0.8 x10^3/uL (0.3-0.8) 04/04/22 06:06 Eos # (Auto) 0.2 x10^3/uL (0.0-0.2) 04/04/22 06:06 Baso # (Auto) 0.1 X10^3/uL (0.0-0.1) 04/04/22 06:06 Absolute Nucleated RBC 0.0 /100WBC 04/04/22 06:06 Total Counted 100 04/02/22 05:16 Neutrophils % (Manual) 83 % (39-76) H 04/02/22 05:16 Band Neutrophils % 3 % (0-10) 04/02/22 05:16 Lymphocytes % (Manual) 8 % (13-43) L 04/02/22 05:16 Monocytes % (Manual) 6 % (4-9) 04/02/22 05:16 Eosinophils % (Manual) 1 % (0-6) 04/01/22 05:34 Metamyelocytes % 2 03/31/22 14:07 Myelocytes % 1 03/31/22 14:07 Plt Morphology Comment Normal (NORMAL) 04/02/22 05:16 RBC Morphology Normal (NORMAL) 04/02/22 05:16 Hypochromasia Slight A 03/29/22 03:25 Sodium 137 mmol/L (136-145) 04/04/22 06:06 Corrected Sodium TNP 04/04/22 06:06 Potassium 3.9 mmol/L (3.5-5.1) 04/04/22 06:06 Chloride 103 mmol/L (98-107) 04/04/22 06:06 Carbon Dioxide 26.7 mmol/L (21-32) 04/04/22 06:06 BUN 17 mg/dL (7-18) 04/04/22 06:06 Creatinine 0.76 mg/dL (0.70-1.30) 04/04/22 06:06 Est GFR (MDRD) Af Amer > 60 (>60) 04/04/22 06:06 Est GFR (MDRD) Non-Af > 60 (>60) 04/04/22 06:06 Glucose 110 mg/dL (65-99) H 04/04/22 06:06 POC Glucose (mg/dL) 109 mg/dL (65-99) H 04/03/22 06:42 Lactic Acid 1.2 mmol/L (0.4-2.0) 03/29/22 04:55 Calcium 8.8 mg/dL (8.5-10.1) 04/04/22 06:06 Corrected Calcium 10.3 mg/dL (8.5-10.1) H 04/04/22 06:06 Total Bilirubin 0.20 mg/dL (0.2-1.0) 04/04/22 06:06 AST 33 Units/L (15-37) 04/04/22 06:06 ALT 37 Units/L (12-78) 04/04/22 06:06 Alkaline Phosphatase 150 Units/L (46-116) H 04/04/22 06:06 Troponin I High Sens 5.4 ng/L (4.0-60.0) 03/29/22 03:25 C-Reactive Protein 69.20 mg/L (0-3.0) H 04/04/22 06:06 B-Natriuretic Peptide 19.7 pg/mL (0-79) 03/29/22 03:25 Total Protein 5.6 g/dL (6.4-8.2) L 04/04/22 06:06 Albumin 2.1 g/dL (3.4-5.0) L 04/04/22 06:06 Globulin 3.5 g/dL (2.5-4.5) 04/04/22 06:06 Albumin/Globulin Ratio 0.6 Ratio (1.1-2.1) L 04/04/22 06:06 Specimen Type Random urine 03/29/22 10:51 Urine Color Yellow (YELLOW) 03/29/22 10:51 Urine Appearance Clear (CLEAR) 03/29/22 10:51 Urine pH 5.0 (5.0 - 8.0) 03/29/22 10:51 Ur Specific [place] 1.010 (1.000-1.030) 03/29/22 10:51 Urine Protein 1+ (NEGATIVE) 03/29/22 10:51 Urine Glucose (UA) Negative (NEGATIVE) 03/29/22 10:51 Urine Ketones Negative (NEGATIVE) 03/29/22 10:51 Urine Blood Negative (NEGATIVE) 03/29/22 10:51 Urine Nitrite Negative (NEGATIVE) 03/29/22 10:51 Urine Bilirubin Negative (NEGATIVE) 03/29/22 10:51 Urine Urobilinogen Normal (NORMAL) 03/29/22 10:51 Ur Leukocyte Esterase 1+ (NEGATIVE) 03/29/22 10:51 Urine RBC None seen /HPF (0-3) 03/29/22 10:51 Urine WBC 0-2 /HPF (0-5) 03/29/22 10:51 Ur Squamous Epith Cells Rare /HPF (NEGATIVE) 03/29/22 10:51 Amorphous Sediment Trace /HPF (NEGATIVE) 03/29/22 10:51 Urine Bacteria Negative /HPF (NEGATIVE) 03/29/22 10:51 Ur Culture Indicated? No/not indicated 03/29/22 10:51 Tissue Pathology To follow 03/31/22 13:24 Plan (1) Leukocytosis: Status: Acute Qualifiers: Leukocytosis type: unspecified Qualified Code(s): D72.829 - Elevated white blood cell count, unspecified Plan: NORMAL SALINE AT 80 ML/HR, ZOSYN 2.25G IV TID, TPN, LEVAQUIN 500MG IV DAILY, ALBUMIN 25% IV DAILY, ZOFRAN 4MG IV Q6H PRN, LOVENOX 40MG SC DAILY, MILK OF MAGNESIA 30ML HS, COLACE 100MG PO HS, CARAFATE 1G PO ACHS, GI COCKTAIL QID, THORAZINE 25MG TID, BENTYL 20MG QID, AND HIS HOME MEDICATIONS WERE RESUMED. HOME MEDICATIONS INCLUDE: NORVASC, DURAGESIC PATCH, TAGRISSO, SYNTHROID, COZAAR, PERCOCET, PROTONIX. DEBRIDEMENT OF WOUNDS (2) Acute hyponatremia: Status: Acute (3) Protein-calorie malnutrition, moderate: Status: Acute (4) Decubitus ulcer: Status: Acute Qualifiers: Pressure injury location: sacral region Pressure injury stage: unspecified pressure injury stage Qualified Code(s): L89.159 - Pressure ulcer of sacral region, unspecified stage Plan: DEBRIDEMENT OF WOUNDS (5) Hiccups: Status: Acute (6) Anemia: Status: Acute Qualifiers: Anemia type: unspecified type Qualified Code(s): D64.9 - Anemia, unspecified (7) Mass of left lung: Status: Acute (8) HTN (hypertension): Status: Chronic Qualifiers: Hypertension type: primary hypertension Qualified Code(s): I10 - Essential (primary) hypertension (9) GERD (gastroesophageal reflux disease): Status: Chronic Qualifiers: Esophagitis presence: esophagitis presence not specified Qualified Code(s): K21.9 - Gastro-esophageal reflux disease without esophagitis (10) Hypothyroidism: Status: Chronic Qualifiers: Hypothyroidism type: acquired Qualified Code(s): E03.9 - Hypothyroidis m, unspecified
[2022-04-04] MEDS: CLINIMIX 4.25%-5% 1,000 ML IV SCH (15:00)
[2022-04-04] MEDS ORDERED: DRUG FILTER EXTENSION SET ONE (15:02)
[2022-04-04] MEDS: PERCOCET TAB 5/325 MG PO PRN (17:51)
[2022-04-04] MEDS: TPN ELECTROLYTES IV SCH ×2 (21:29)
[2022-04-04] MEDS: CLINIMIX IV SCH ×2 (21:29)
[2022-04-04] MEDS: MILK OF MAGNESIA PO SCH (21:34)
[2022-04-04] MEDS: COLACE CAP 100 MG PO SCH (21:36)
[2022-04-05] MEDS: ZOSYN VIAL 2.25 GRAMS 2.25 G in NS 100 ML IV 100 ML IV SCH ×3 (05:36→21:34)
[2022-04-05] MEDS: THORAZINE TAB 25 MG PO SCH ×3 (05:36→21:35)
[2022-04-05] MEDS: CARAFATE ORAL SUSP PO SCH ×4 (05:37→21:35)
[2022-04-05] MEDS: NS 1,000 ML IV 1,000 ML IV SCH ×3 (05:59→23:17)
[2022-04-05 06:14] LABS: BASOPHILS # (AUTO) 0.1 X10^3/uL (0.0-0.1); BASOPHILS % (AUTO) 0.5 % (0.2-1.0); EOSINOPHILS # (AUTO) 0.2 x10^3/uL (0.0-0.2); HEMATOCRIT 22.4 % (42.0-54.0); HEMOGLOBIN 7.7 g/dL (13.5-18.0); LYMPHOCYTES # (AUTO) 1.5 X10^3/uL (1.3-2.9); MEAN CORPUSCULAR HGB CONC 34.6 g/dL (33.0-35.0); MEAN CORPUSCULAR VOLUME 86.6 fL (80.0-100.0); MEAN PLATELET VOLUME 7.2 fL (7.4-11.0); MONOCYTES # (AUTO) 0.6 x10^3/uL (0.3-0.8); MONOCYTES % (AUTO) 5.6 % (0.0-13.0); NEUTROPHILS # (AUTO) 8.5 x10^3/uL (2.2-4.8); NEUTROPHILS % (AUTO) 77.9 % (42.0-75.0); RED BLOOD COUNT 2.58 X10^6/uL (4.7-6.0); RED CELL DISTRIBUTION WIDTH 15.4 % (11.6-16.5); WHITE BLOOD COUNT 10.9 X10^3/uL (3.6-10.0)
[2022-04-05 06:19] LABS: ALANINE AMINOTRANSFERASE 42 Units/L (12-78); ALBUMIN 2.3 g/dL (3.4-5.0); ALKALINE PHOSPHATASE 158 Units/L (46-116); ASPARTATE AMINO TRANSFERASE 37 Units/L (15-37); BLOOD UREA NITROGEN 16 mg/dL (7-18); CALCIUM 8.8 mg/dL (8.5-10.1); CARBON DIOXIDE 27.1 mmol/L (21-32); CHLORIDE 104 mmol/L (98-107); COR CA(FOR HYPOALB) 10.2 mg/dL (8.5-10.1); CREATININE 0.77 mg/dL (0.70-1.30); SODIUM 138 mmol/L (136-145); TOTAL PROTEIN 5.9 g/dL (6.4-8.2); eGFR NON BLACK RACES > 60 (>60)
[2022-04-05] MEDS: CLINIMIX 4.25%-5% 1,000 ML IV SCH (08:54)
[2022-04-05] MEDS: LEVAQUIN PREMIX IV 500 MG 500 MG/100 ML BAG IV SCH (09:18)
[2022-04-05] MEDS: ALBUMIN HUMAN 25%- 100 ML 100 ML IV SCH (09:18)
[2022-04-05] MEDS: LOVENOX INJ 40 MG SYR SC SCH (09:23)
[2022-04-05] MEDS: BENTYL CAP 10 MG PO SCH ×4 (09:24→21:35)
[2022-04-05] MEDS: NORVASC TAB 10 MG PO SCH (09:25)
[2022-04-05] MEDS: COZAAR PO SCH (09:25)
[2022-04-05] MEDS: SYNTHROID 50 mcg TAB PO SCH (09:26)
[2022-04-05] MEDS: PROTONIX TAB 40 MG PO SCH (09:26)
[2022-04-05] MEDS: LEVSIN/MAALOX/LIDOC VISC PO SCH ×4 (09:29→21:35)
--- NOTE | 2022-04-05 12:19 | PCM.PROG ---
Progress Note - Progress Note for Day of Date of Exam: 04/01/22 - Subjective Subjective: IS CURRENTLY INPATIENT STATUS FOR TREATMENT OF LEUKOCYTOSIS, ACUTE HYPONATREMIA, URINARY TRACT INFECTION, PROTEIN-CALORIE MALNUTRITION, MULTIPLE NONHEALING DECUBITUS ULCERS, INTRACTABLE HICCUPS, AND ANEMIA. HE HAS A PRESENT/PAST HISTORY OF CURRENT LEFT LUNG MASS (RECENT RADIATION AND NOW ON CHEMO), HTN, GERD, AND HYPOTHYROIDISM. TODAY, HE IS ALERT AND ORIENTED, LYING IN BED ON MORNING ROUNDS. HE CONTINUES TO COMPLAIN OF GENERALIZED WEAKNESS AND PAIN TO THE BUTTOCKS. PAIN IS DESCRIBED DULL AND INTERMITTENT. HE RATES PAIN A 2/10 AT THE PRESENT TIME AND REPORTS THAT IT IS TOLERABLE. HE REPORTS IMPROVEMENT IN HICCUPS SINCE STARTING THE THORAZINE. PATIENT IS POST OP DEBRIDEMENT OF WOUNDS OF THE LEGS AND LEFT UPPER THIGH BY . ON EXAMINATION TODAY, HEART IS REGULAR IN RATE AND RHYTHM. BILATERAL LUNGS ARE NOTED WITH DIMINISHED LUNG SOUNDS THROUGHOUT. ABDOMEN IS ROUND, SOFT, AND NON-TENDER WITH NORMAL BOWEL SOUNDS NOTED IN ALL QUADRANTS. THERE ARE MULTIPLE WOUNDS TO THE BUTTOCKS, SACRUM, BILATERAL LEGS AND LEFT UPPER THIGH AREA. ALL ARE NOTED WITH DRESSINGS TO BE DRY AND INTACT. DECREASED MOVEMENT AND WEAKNESS NOTED TO LOWER EXTREMITIES. NO UPPER OR LOWER EXTREMITY EDEMA NOTED. PATIENT IS NON-AMBULATORY. HIS VITALS THIS MORNING ARE: 98.5-88-18-94%-133/62. HE IS ON ROOM AIR. LABS WERE OBTAINED. WBC 17.4, RBC 2.51, HGB 7.4, HCT 21.6, PLT COUNT 361, SODIUM 137, POTASSIUM 4.6, CHLORIDE 102, BUN 18, CREATININE 0.72, CALCIUM 8.8, TOTAL BILI 0.20, AST 38, ALT 36, ALK PHOS 157, CRP 92.90, TOTAL PROTEIN 5.5, ALBUMIN 1.8. LEFT THIGH WOUND CULTURE IS POSITIVE FOR GROWTH OF MORGANELLA MORGANII AND STREP AGALACTIAE (GROUP B). WOUND CULTURE OF THE BUTTOCK IS POSITIVE FOR GROWTH OF MORGANELLA MORGANII, STREP AGALACTIAE (GROUP B), AND ACINETOBACTER BAUMANII/HAEMOLY. URINE CULTURE IS POSITIVE FOR GROWTH OF ENTEROCOCCUS FAECALIS. HE IS CURRENTLY RECEIVING NORMAL SALINE AT 80 ML/HR, ZOSYN 2.25G IV TID, TPN, LEVAQUIN 500MG IV DAILY, ALBUMIN 25% IV DAILY, ZOFRAN 4MG IV Q6H PRN, LOVENOX 40MG SC DAILY, MILK OF MAGNESIA 30ML HS, COLACE 100MG PO HS, CARAFATE 1G PO ACHS, BENTYL 20MG QID, GI COCKTAIL 15ML QID, THORAZINE 25MG PO TID FOR HICCUPS AND HIS HOME MEDICATIONS WERE RESUMED. HOME MEDICATIONS INCLUDE: NORVASC, DURAGESIC PATCH, TAGRISSO, SYNTHROID, COZAAR, PERCOCET, PROTONIX. WILL CONTINUE TO FOLLOW PATIENT FOR WOUND CARE. PHYSICAL THERAPY WILL CONTINUE TO WORK WITH HIM WELL. OTHERWISE, WE WILL FOLLOW-UP WITH AM LABS AND CONTINUE TO MONITOR. TIME SPENT ON CLINICAL ASSESSMENT, REVIWING LABS AND IMAGING, DECISION MAKING, AND DOCUMENTATION GREATER THAN 45 MINUTES. - Past Medical Family Social History Past Med/Fam/Surg Hx: No changes since H&P Allergies: Allergies No Known Allergies Allergy (Verified 03/29/22 03:04) - Review of Systems ROS: No change since H&P - Vital Signs and I&O's Vital Signs: Temperature 98.6 F Pulse Rate [Left] 69 Pulse Rate 73 Respiratory Rate 20 Blood Pressure [Left Arm] 125/59 Blood Pressure [Right Arm] 122/58 Blood Pressure 110/53 O2 Sat by Pulse Oximetry 97 Intake and Output: Intake & Output 04/03/22 04/04/22 04/05/22 04/06/22 11:59 11:59 11:59 11:59 Intake Total 3948 / 3948 4569 / 4569 2843 / 2843 Output Total 3425 / 3425 3750 / 3750 1480 / 1480 Balance 523 / 523 819 / 819 1363 / 1363 - Physical Exam Oriented: Normal Eyes: Normal Ear: Normal Nose: Normal Throat: Normal Respiratory: Generalized, Diminished Cardiovascular: Normal : Normal Auscultation: Bowel Sounds: Normal Palpation: Normal Tenderness: Normal Skin: Wound (SEE WOUND ASSESSMENT ) Musculoskeletal: Normal, Back:Lumbar, Tender, Instability (WEAKESS OF LOWER EXTREMITIES. PATIENT IS NON-AMBULATORY) Psychiatric: Normal Mood Description: Calm Affect: Normal Speech Pattern: Clear, Appropriate - Laboratory and Diagnostics Result Diagrams: 04/05/22 05:22 04/05/22 05:22 Labs: 03/29/22 04:55 Blood Blood Culture - Final 03/29/22 04:50 Blood Blood Culture - Final 03/31/22 13:24 Thigh - Left Wound Gram Stain - Final 03/31/22 13:24 Thigh - Left Wound Culture - Final Morganella Morganii Strep Agalactiae - (Group B) 03/29/22 17:30 Buttock Wound Gram Stain - Final 03/29/22 17:30 Buttock Wound Culture - Final Morganella Morganii Strep Agalactiae - (Group B) Acinetobacter Baumanii/Haemoly 03/29/22 10:51 Urine,Clean Catch Urine Culture - Final Enterococcus Faecalis Laboratory WBC 10.9 X10^3/uL (3.6-10.0) H 04/05/22 05:22 RBC 2.58 X10^6/uL (4.7-6.0) L 04/05/22 05:22 Hgb 7.7 g/dL (13.5-18.0) L 04/05/22 05:22 Hct 22.4 % (42.0-54.0) L 04/05/22 05:22 MCV 86.6 fL (80.0-100.0) 04/05/22 05:22 MCH 30.0 pg (27.0-34.0) 04/05/22 05:22 MCHC 34.6 g/dL (33.0-35.0) 04/05/22 05:22 RDW 15.4 % (11.6-16.5) 04/05/22 05:22 Plt Count 416 X10^3/uL (150.0-450.0) 04/05/22 05:22 Plt Count Comment Adequate (ADEQUATE) 04/02/22 05:16 MPV 7.2 fL (7.4-11.0) L 04/05/22 05:22 Neut % (Auto) 77.9 % (42.0-75.0) H 04/05/22 05:22 Lymph % (Auto) 14.0 % (21.0-51.0) L 04/05/22 05:22 [place] % (Auto) 5.6 % (0.0-13.0) 04/05/22 05:22 Eos % (Auto) 2.0 % (0.9-2.9) 04/05/22 05:22 Baso % (Auto) 0.5 % (0.2-1.0) 04/05/22 05:22 Neut # (Auto) 8.5 x10^3/uL (2.2-4.8) H 04/05/22 05:22 Lymph # (Auto) 1.5 X10^3/uL (1.3-2.9) 04/05/22 05:22 [place] # (Auto) 0.6 x10^3/uL (0.3-0.8) 04/05/22 05:22 Eos # (Auto) 0.2 x10^3/uL (0.0-0.2) 04/05/22 05:22 Baso # (Auto) 0.1 X10^3/uL (0.0-0.1) 04/05/22 05:22 Absolute Nucleated RBC 0.1 /100WBC 04/05/22 05:22 Total Counted 100 04/02/22 05:16 Neutrophils % (Manual) 83 % (39-76) H 04/02/22 05:16 Band Neutrophils % 3 % (0-10) 04/02/22 05:16 Lymphocytes % (Manual) 8 % (13-43) L 04/02/22 05:16 Monocytes % (Manual) 6 % (4-9) 04/02/22 05:16 Eosinophils % (Manual) 1 % (0-6) 04/01/22 05:34 Metamyelocytes % 2 03/31/22 14:07 Myelocytes % 1 03/31/22 14:07 Plt Morphology Comment Normal (NORMAL) 04/02/22 05:16 RBC Morphology Normal (NORMAL) 04/02/22 05:16 Hypochromasia Slight A 03/29/22 03:25 Sodium 138 mmol/L (136-145) 04/05/22 05:22 Corrected Sodium TNP 04/05/22 05:22 Potassium 3.8 mmol/L (3.5-5.1) 04/05/22 05:22 Chloride 104 mmol/L (98-107) 04/05/22 05:22 Carbon Dioxide 27.1 mmol/L (21-32) 04/05/22 05:22 BUN 16 mg/dL (7-18) 04/05/22 05:22 Creatinine 0.77 mg/dL (0.70-1.30) 04/05/22 05:22 Est GFR (MDRD) Af Amer > 60 (>60) 04/05/22 05:22 Est GFR (MDRD) Non-Af > 60 (>60) 04/05/22 05:22 Glucose 102 mg/dL (65-99) H 04/05/22 05:22 POC Glucose (mg/dL) 125 mg/dL (65-99) H 04/05/22 11:03 Lactic Acid 1.2 mmol/L (0.4-2.0) 03/29/22 04:55 Calcium 8.8 mg/dL (8.5-10.1) 04/05/22 05:22 Corrected Calcium 10.2 mg/dL (8.5-10.1) H 04/05/22 05:22 Total Bilirubin 0.20 mg/dL (0.2-1.0) 04/05/22 05:22 AST 37 Units/L (15-37) 04/05/22 05:22 ALT 42 Units/L (12-78) 04/05/22 05:22 Alkaline Phosphatase 158 Units/L (46-116) H 04/05/22 05:22 Troponin I High Sens 5.4 ng/L (4.0-60.0) 03/29/22 03:25 C-Reactive Protein 69.20 mg/L (0-3.0) H 04/04/22 06:06 B-Natriuretic Peptide 19.7 pg/mL (0-79) 03/29/22 03:25 Total Protein 5.9 g/dL (6.4-8.2) L 04/05/22 05:22 Albumin 2.3 g/dL (3.4-5.0) L 04/05/22 05:22 Globulin 3.6 g/dL (2.5-4.5) 04/05/22 05:22 Albumin/Globulin Ratio 0.6 Ratio (1.1-2.1) L 04/05/22 05:22 Specimen Type Random urine 03/29/22 10:51 Urine Color Yellow (YELLOW) 03/29/22 10:51 Urine Appearance Clear (CLEAR) 03/29/22 10:51 Urine pH 5.0 (5.0 - 8.0) 03/29/22 10:51 Ur Specific [place] 1.010 (1.000-1.030) 03/29/22 10:51 Urine Protein 1+ (NEGATIVE) 03/29/22 10:51 Urine Glucose (UA) Negative (NEGATIVE) 03/29/22 10:51 Urine Ketones Negative (NEGATIVE) 03/29/22 10:51 Urine Blood Negative (NEGATIVE) 03/29/22 10:51 Urine Nitrite Negative (NEGATIVE) 03/29/22 10:51 Urine Bilirubin Negative (NEGATIVE) 03/29/22 10:51 Urine Urobilinogen Normal (NORMAL) 03/29/22 10:51 Ur Leukocyte Esterase 1+ (NEGATIVE) 03/29/22 10:51 Urine RBC None seen /HPF (0-3) 03/29/22 10:51 Urine WBC 0-2 /HPF (0-5) 03/29/22 10:51 Ur Squamous Epith Cells Rare /HPF (NEGATIVE) 03/29/22 10:51 Amorphous Sediment Trace /HPF (NEGATIVE) 03/29/22 10:51 Urine Bacteria Negative /HPF (NEGATIVE) 03/29/22 10:51 Ur Culture Indicated? No/not indicated 03/29/22 10:51 Tissue Pathology To follow 03/31/22 13:24 - Plan (1) Leukocytosis Status: Acute Qualifiers: Leukocytosis type: unspecified Qualified Code(s): D72.829 - Elevated white blood cell count, unspecified Plan: NORMAL SALINE AT 80 ML/HR, ZOSYN 2.25G IV TID, TPN, LEVAQUIN 500MG IV DAILY, ALBUMIN 25% IV DAILY, ZOFRAN 4MG IV Q6H PRN, LOVENOX 40MG SC DAILY, MILK OF MAGNESIA 30ML HS, COLACE 100MG PO HS, CARAFATE 1G PO ACHS, GI COCKTAIL QID, THORAZINE 25MG TID, BENTYL 20MG QID, AND HIS HOME MEDICATIONS WERE RESUMED. HOME MEDICATIONS INCLUDE: NORVASC, DURAGESIC PATCH, TAGRISSO, SYNTHROID, COZAAR, PERCOCET, PROTONIX. DEBRIDEMENT OF WOUNDS (2) Acute hyponatremia Status: Acute (3) Protein-calorie malnutrition, moderate Status: Acute (4) Decubitus ulcer Status: Acute Qualifiers: Pressure injury location: other site Pressure injury stage: unspecified pressure injury stage Qualified Code(s): L89.899 - Pressure ulcer of other site, unspecified stage Plan: S/P DEBRIDEMENT OF WOUNDS, DAILY WOUND CARE (5) Hiccups Status: Acute Plan: IMPROVING. CONTINUE THORAZINE (6) Anemia Status: Acute Qualifiers: Anemia type: unspecified type Qualified Code(s): D64.9 - Anemia, unspecified Plan: CONTINUE TO MONITOR (7) Mass of left lung Status: Acute Plan: CONTINUE CHEMO PILL (8) HTN (hypertension) Status: Chronic Qualifiers: Hypertension type: primary hypertension Qualified Code(s): I10 - Essential (primary) hypertension Plan: CONTINUE HOME MEDS (9) GERD (gastroesophageal reflux disease) Status: Chronic Qualifiers: Esophagitis presence: esophagitis presence not specified Qualified Code(s): K21.9 - Gastro-esophageal reflux disease without esophagitis Plan: CONTINUE HOME MEDS (10) Hypothyroidism Status: Chronic Qualifiers: Hypothyroidism type: acquired Qualified Code(s): E03.9 - Hypothyroidism, unspecified Plan: CONTINUE HOME MEDS
--- NOTE | 2022-04-05 12:33 | PCM.PROG ---
Progress Note - Progress Note for Day of Date of Exam: 04/02/22 - Subjective Subjective: IS CURRENTLY INPATIENT STATUS FOR TREATMENT OF LEUKOCYTOSIS, ACUTE HYPONATREMIA, URINARY TRACT INFECTION, PROTEIN-CALORIE MALNUTRITION, MULTIPLE NONHEALING DECUBITUS ULCERS, INTRACTABLE HICCUPS, AND ANEMIA. HE HAS A PRESENT/PAST HISTORY OF CURRENT LEFT LUNG MASS (RECENT RADIATION AND NOW ON CHEMO), HTN, GERD, AND HYPOTHYROIDISM. TODAY, HE IS ALERT AND ORIENTED, LYING IN BED ON MORNING ROUNDS. HE CONTINUES TO COMPLAIN OF GENERALIZED WEAKNESS AND PAIN TO THE BUTTOCKS. PAIN IS DESCRIBED DULL AND INTERMITTENT. HE RATES PAIN A 2/10 AT THE PRESENT TIME AND REPORTS THAT IT IS TOLERABLE. HE REPORTS IMPROVEMENT IN HICCUPS SINCE STARTING THE THORAZINE. PATIENT IS POST OP DEBRIDEMENT OF WOUNDS OF THE LEGS AND LEFT UPPER THIGH BY . ON EXAMINATION TODAY, HEART IS REGULAR IN RATE AND RHYTHM. BILATERAL LUNGS ARE NOTED WITH DIMINISHED LUNG SOUNDS THROUGHOUT. ABDOMEN IS ROUND, SOFT, AND NON-TENDER WITH NORMAL BOWEL SOUNDS NOTED IN ALL QUADRANTS. THERE ARE MULTIPLE WOUNDS TO THE BUTTOCKS, SACRUM, BILATERAL LEGS AND LEFT UPPER THIGH AREA. ALL ARE NOTED WITH DRESSINGS TO BE DRY AND INTACT. DECREASED MOVEMENT AND WEAKNESS NOTED TO LOWER EXTREMITIES. NO UPPER OR LOWER EXTREMITY EDEMA NOTED. PATIENT IS NON-AMBULATORY. HIS VITALS THIS MORNING ARE: 98.7-88-20-93%-130/63. HE IS ON ROOM AIR. LABS WERE OBTAINED. WBC 15.5, RBC 2.50, HGB 7.4, HCT 21.5, PLT COUNT 365, SODIUM 135, POTASSIUM 4.2, CHLORIDE 101, BUN 14, CREATININE 0.78, BUN 14, CREATININE 0.78, GLUCOSE 98, CALCIUM 8.7, AST 43, ALT 43, ALK PHOS 162, CRP 72.10, TOTAL PROTEIN 5.6, ALBUMIN 1.9. LEFT THIGH WOUND CULTURE IS POSITIVE FOR GROWTH OF MORGANELLA MORGANII AND STREP AGALACTIAE (GROUP B). WOUND CULTURE OF THE BUTTOCK IS POSITIVE FOR GROWTH OF MORGANELLA MORGANII, STREP AGALACTIAE (GROUP B), AND ACINETOBACTER BAUMANII/HAEMOLY. URINE CULTURE IS POSITIVE FOR GROWTH OF ENTEROCOCCUS FAECALIS. HE IS CURRENTLY RECEIVING NORMAL SALINE AT 80 ML/HR, ZOSYN 2.25G IV TID, TPN, LEVAQUIN 500MG IV DAILY, ALBUMIN 25% IV DAILY, ZOFRAN 4MG IV Q6H PRN, LOVENOX 40MG SC DAILY, MILK OF MAGNESIA 30ML HS, COLACE 100MG PO HS, CARAFATE 1G PO ACHS, BENTYL 20MG QID, GI COCKTAIL 15ML QID, THORAZINE 25MG PO TID FOR HICCUPS AND HIS HOME MEDICATIONS WERE RESUMED. HOME MEDICATIONS INCLUDE: NORVASC, DURAGESIC PATCH, TAGRISSO, SYNTHROID, COZAAR, PERCOCET, PROTONIX. WILL CONTINUE TO FOLLOW PATIENT FOR WOUND CARE. PHYSICAL THERAPY WILL CONTINUE TO WORK WITH HIM WELL. OTHERWISE, WE WILL FOLLOW-UP WITH AM LABS AND CONTINUE TO MONITOR. TIME SPENT ON CLINICAL ASSESSMENT, REVIWING LABS AND IMAGING, DECISION MAKING, AND DOCUMENTATION GREATER THAN 45 MINUTES. - Past Medical Family Social History Past Med/Fam/Surg Hx: No changes since H&P Allergies: Allergies No Known Allergies Allergy (Verified 03/29/22 03:04) - Review of Systems ROS: No change since H&P - Vital Signs and I&O's Vital Signs: Temperature 98.6 F Pulse Rate [Left] 69 Pulse Rate 73 Respiratory Rate 20 Blood Pressure [Left Arm] 125/59 Blood Pressure [Right Arm] 122/58 Blood Pressure 110/53 O2 Sat by Pulse Oximetry 97 Intake and Output: Intake & Output 04/03/22 04/04/22 04/05/22 04/06/22 11:59 11:59 11:59 11:59 Intake Total 3948 / 3948 4569 / 4569 2843 / 2843 Output Total 3425 / 3425 3750 / 3750 1480 / 1480 Balance 523 / 523 819 / 819 1363 / 1363 - Physical Exam Oriented: Normal Eyes: Normal Ear: Normal Nose: Normal Throat: Normal Respiratory: Generalized, Diminished Cardiovascular: Normal : Normal Auscultation: Bowel Sounds: Normal Tenderness: Normal Skin: Wound (SEE WOUND ASSESSMENT ) Musculoskeletal: Normal, Back:Lumbar, Tender, Instability (WEAKESS OF LOWER EXTREMITIES. PATIENT IS NON-AMBULATORY) Psychiatric: Normal Mood Description: Calm Affect: Normal Speech Pattern: Clear, Appropriate - Laboratory and Diagnostics Result Diagrams: 04/05/22 05:22 04/05/22 05:22 Labs: 03/29/22 04:55 Blood Blood Culture - Final 03/29/22 04:50 Blood Blood Culture - Final 03/31/22 13:24 Thigh - Left Wound Gram Stain - Final 03/31/22 13:24 Thigh - Left Wound Culture - Final Morganella Morganii Strep Agalactiae - (Group B) 03/29/22 17:30 Buttock Wound Gram Stain - Final 03/29/22 17:30 Buttock Wound Culture - Final Morganella Morganii Strep Agalactiae - (Group B) Acinetobacter Baumanii/Haemoly 03/29/22 10:51 Urine,Clean Catch Urine Culture - Final Enterococcus Faecalis Laboratory WBC 10.9 X10^3/uL (3.6-10.0) H 04/05/22 05:22 RBC 2.58 X10^6/uL (4.7-6.0) L 04/05/22 05:22 Hgb 7.7 g/dL (13.5-18.0) L 04/05/22 05:22 Hct 22.4 % (42.0-54.0) L 04/05/22 05:22 MCV 86.6 fL (80.0-100.0) 04/05/22 05:22 MCH 30.0 pg (27.0-34.0) 04/05/22 05:22 MCHC 34.6 g/dL (33.0-35.0) 04/05/22 05:22 RDW 15.4 % (11.6-16.5) 04/05/22 05:22 Plt Count 416 X10^3/uL (150.0-450.0) 04/05/22 05:22 Plt Count Comment Adequate (ADEQUATE) 04/02/22 05:16 MPV 7.2 fL (7.4-11.0) L 04/05/22 05:22 Neut % (Auto) 77.9 % (42.0-75.0) H 04/05/22 05:22 Lymph % (Auto) 14.0 % (21.0-51.0) L 04/05/22 05:22 [place] % (Auto) 5.6 % (0.0-13.0) 04/05/22 05:22 Eos % (Auto) 2.0 % (0.9-2.9) 04/05/22 05:22 Baso % (Auto) 0.5 % (0.2-1.0) 04/05/22 05:22 Neut # (Auto) 8.5 x10^3/uL (2.2-4.8) H 04/05/22 05:22 Lymph # (Auto) 1.5 X10^3/uL (1.3-2.9) 04/05/22 05:22 [place] # (Auto) 0.6 x10^3/uL (0.3-0.8) 04/05/22 05:22 Eos # (Auto) 0.2 x10^3/uL (0.0-0.2) 04/05/22 05:22 Baso # (Auto) 0.1 X10^3/uL (0.0-0.1) 04/05/22 05:22 Absolute Nucleated RBC 0.1 /100WBC 04/05/22 05:22 Total Counted 100 04/02/22 05:16 Neutrophils % (Manual) 83 % (39-76) H 04/02/22 05:16 Band Neutrophils % 3 % (0-10) 04/02/22 05:16 Lymphocytes % (Manual) 8 % (13-43) L 04/02/22 05:16 Monocytes % (Manual) 6 % (4-9) 04/02/22 05:16 Eosinophils % (Manual) 1 % (0-6) 04/01/22 05:34 Metamyelocytes % 2 03/31/22 14:07 Myelocytes % 1 03/31/22 14:07 Plt Morphology Comment Normal (NORMAL) 04/02/22 05:16 RBC Morphology Normal (NORMAL) 04/02/22 05:16 Hypochromasia Slight A 03/29/22 03:25 Sodium 138 mmol/L (136-145) 04/05/22 05:22 Corrected Sodium TNP 04/05/22 05:22 Potassium 3.8 mmol/L (3.5-5.1) 04/05/22 05:22 Chloride 104 mmol/L (98-107) 04/05/22 05:22 Carbon Dioxide 27.1 mmol/L (21-32) 04/05/22 05:22 BUN 16 mg/dL (7-18) 04/05/22 05:22 Creatinine 0.77 mg/dL (0.70-1.30) 04/05/22 05:22 Est GFR (MDRD) Af Amer > 60 (>60) 04/05/22 05:22 Est GFR (MDRD) Non-Af > 60 (>60) 04/05/22 05:22 Glucose 102 mg/dL (65-99) H 04/05/22 05:22 POC Glucose (mg/dL) 125 mg/dL (65-99) H 04/05/22 11:03 Lactic Acid 1.2 mmol/L (0.4-2.0) 03/29/22 04:55 Calcium 8.8 mg/dL (8.5-10.1) 04/05/22 05:22 Corrected Calcium 10.2 mg/dL (8.5-10.1) H 04/05/22 05:22 Total Bilirubin 0.20 mg/dL (0.2-1.0) 04/05/22 05:22 AST 37 Units/L (15-37) 04/05/22 05:22 ALT 42 Units/L (12-78) 04/05/22 05:22 Alkaline Phosphatase 158 Units/L (46-116) H 04/05/22 05:22 Troponin I High Sens 5.4 ng/L (4.0-60.0) 03/29/22 03:25 C-Reactive Protein 69.20 mg/L (0-3.0) H 04/04/22 06:06 B-Natriuretic Peptide 19.7 pg/mL (0-79) 03/29/22 03:25 Total Protein 5.9 g/dL (6.4-8.2) L 04/05/22 05:22 Albumin 2.3 g/dL (3.4-5.0) L 04/05/22 05:22 Globulin 3.6 g/dL (2.5-4.5) 04/05/22 05:22 Albumin/Globulin Ratio 0.6 Ratio (1.1-2.1) L 04/05/22 05:22 Specimen Type Random urine 03/29/22 10:51 Urine Color Yellow (YELLOW) 03/29/22 10:51 Urine Appearance Clear (CLEAR) 03/29/22 10:51 Urine pH 5.0 (5.0 - 8.0) 03/29/22 10:51 Ur Specific [place] 1.010 (1.000-1.030) 03/29/22 10:51 Urine Protein 1+ (NEGATIVE) 03/29/22 10:51 Urine Glucose (UA) Negative (NEGATIVE) 03/29/22 10:51 Urine Ketones Negative (NEGATIVE) 03/29/22 10:51 Urine Blood Negative (NEGATIVE) 03/29/22 10:51 Urine Nitrite Negative (NEGATIVE) 03/29/22 10:51 Urine Bilirubin Negative (NEGATIVE) 03/29/22 10:51 Urine Urobilinogen Normal (NORMAL) 03/29/22 10:51 Ur Leukocyte Esterase 1+ (NEGATIVE) 03/29/22 10:51 Urine RBC None seen /HPF (0-3) 03/29/22 10:51 Urine WBC 0-2 /HPF (0-5) 03/29/22 10:51 Ur Squamous Epith Cells Rare /HPF (NEGATIVE) 03/29/22 10:51 Amorphous Sediment Trace /HPF (NEGATIVE) 03/29/22 10:51 Urine Bacteria Negative /HPF (NEGATIVE) 03/29/22 10:51 Ur Culture Indicated? No/not indicated 03/29/22 10:51 Tissue Pathology To follow 03/31/22 13:24 - Plan (1) Leukocytosis Status: Acute Qualifiers: Leukocytosis type: unspecified Qualified Code(s): D72.829 - Elevated white blood cell count, unspecified Plan: NORMAL SALINE AT 80 ML/HR, ZOSYN 2.25G IV TID, TPN, LEVAQUIN 500MG IV DAILY, ALBUMIN 25% IV DAILY, ZOFRAN 4MG IV Q6H PRN, LOVENOX 40MG SC DAILY, MILK OF MAGNESIA 30ML HS, COLACE 100MG PO HS, CARAFATE 1G PO ACHS, GI COCKTAIL QID, THORAZINE 25MG TID, BENTYL 20MG QID, AND HIS HOME MEDICATIONS WERE RESUMED. HOME MEDICATIONS INCLUDE: NORVASC, DURAGESIC PATCH, TAGRISSO, SYNTHROID, COZAAR, PERCOCET, PROTONIX. DEBRIDEMENT OF WOUNDS (2) Acute hyponatremia Status: Acute (3) Protein-calorie malnutrition, moderate Status: Acute (4) Decubitus ulcer Status: Acute Qualifiers: Pressure injury location: other site Pressure injury stage: unspecified pressure injury stage Qualified Code(s): L89.899 - Pressure ulcer of other site, unspecified stage Plan: S/P DEBRIDEMENT OF WOUNDS, DAILY WOUND CARE (5) Hiccups Status: Acute Plan: IMPROVING. CONTINUE THORAZINE (6) Anemia Status: Acute Qualifiers: Anemia type: unspecified type Qualified Code(s): D64.9 - Anemia, unspecified Plan: CONTINUE TO MONITOR (7) Mass of left lung Status: Acute Plan: CONTINUE CHEMO PILL (8) HTN (hypertension) Status: Chronic Qualifiers: Hypertension type: primary hypertension Qualified Code(s): I10 - Essential (primary) hypertension Plan: CONTINUE HOME MEDS (9) GERD (gastroesophageal reflux disease) Status: Chronic Qualifiers: Esophagitis presence: esophagitis presence not specified Qualified Code(s): K21.9 - Gastro-esophageal reflux disease without esophagitis Plan: CONTINUE HOME MEDS (10) Hypothyroidism Status: Chronic Qualifiers: Hypothyroidism type: acquired Qualified Code(s): E03.9 - Hypothyroidism, unspecified Plan: CONTINUE HOME MEDS
--- NOTE | 2022-04-05 12:46 | PCM.PROG ---
Progress Note - Progress Note for Day of Date of Exam: 04/05/22 - Subjective Subjective: IS CURRENTLY INPATIENT STATUS FOR TREATMENT OF LEUKOCYTOSIS, ACUTE HYPONATREMIA, URINARY TRACT INFECTION, PROTEIN-CALORIE MALNUTRITION, MULTIPLE NONHEALING DECUBITUS ULCERS, INTRACTABLE HICCUPS, AND ANEMIA. HE HAS A PRESENT/PAST HISTORY OF CURRENT LEFT LUNG MASS (RECENT RADIATION AND NOW ON CHEMO), HTN, GERD, AND HYPOTHYROIDISM. TODAY, HE IS ALERT AND ORIENTED, LYING IN BED ON MORNING ROUNDS. HE CONTINUES TO COMPLAIN OF GENERALIZED WEAKNESS AND PAIN TO THE BUTTOCKS. PAIN IS DESCRIBED DULL AND INTERMITTENT. HE RATES PAIN A 2/10 AT THE PRESENT TIME AND REPORTS THAT IT IS TOLERABLE. ADDITIONALLY, HE COMPLAINS OF INTERMITTENT SHORTNESS OF BREATH. PATIENT IS POST OP DEBRIDEMENT OF WOUNDS OF THE LEGS AND LEFT UPPER THIGH BY . ON EXAMINATION TODAY, HEART IS REGULAR IN RATE AND RHYTHM. BILATERAL LUNGS ARE NOTED WITH DIMINISHED LUNG SOUNDS THROUGHOUT. ABDOMEN IS ROUND, SOFT, AND NON-TENDER WITH NORMAL BOWEL SOUNDS NOTED IN ALL QUADRANTS. THERE ARE MULTIPLE WOUNDS TO THE BUTTOCKS, SACRUM, BILATERAL LEGS AND LEFT UPPER THIGH AREA. ALL ARE NOTED WITH DRESSINGS TO BE DRY AND INTACT. DECREASED MOVEMENT AND WEAKNESS NOTED TO LOWER EXTREMITIES. NO UPPER OR LOWER EXTREMITY EDEMA NOTED. PATIENT IS NON-AMBULATORY. HIS VITALS THIS MORNING ARE: 98.6-69-16-97%-125/59. HE IS ON NASAL CANNULA AT 2 LPM. NURSING STAFF REPORTS THAT HIS OXYGEN SATURATIONS DROP INTO THE 80s WHEN HIS OXYGEN IS REMOVED. LABS WERE OBTAINED. WBC 10.9, RBC 2.58, HGB 7.7, HCT 22.4, PLT COUNT 416, SODIUM 138, POTASSIUM 3.8, CHLORIDE 104, BUN 16, CREATININE 0.77, GLUCOSE 102, CALCIUM 8.8, TOTAL BILI 0.20, AST 37, ALT 42, ALK PHOS 158, TOTAL PROTEIN 5.9, ALBUMIN 2.3. LEFT THIGH WOUND CULTURE IS POSITIVE FOR GROWTH OF MORGANELLA MORGANII AND STREP AGALACTIAE (GROUP B). WOUND CULTURE OF THE BUTTOCK IS POSITIVE FOR GROWTH OF MORGANELLA MORGANII, STREP AGALACTIAE (GROUP B), AND ACINETOBACTER BAUMANII/HAEMOLY. URINE CULTURE IS POSITIVE FOR GROWTH OF ENTEROCOCCUS FAECALIS. HE IS CURRENTLY RECEIVI NG NORMAL SALINE AT 80 ML/HR, ZOSYN 2.25G IV TID, TPN, LEVAQUIN 500MG IV DAILY, ALBUMIN 25% IV DAILY, ZOFRAN 4MG IV Q6H PRN, LOVENOX 40MG SC DAILY, MILK OF MAGNESIA 30ML HS, COLACE 100MG PO HS, CARAFATE 1G PO ACHS, BENTYL 20MG QID, GI COCKTAIL 15ML QID, THORAZINE 25MG PO TID FOR HICCUPS AND HIS HOME MEDICATIONS WERE RESUMED. HOME MEDICATIONS INCLUDE: NORVASC, DURAGESIC PATCH, TAGRISSO, SYNTHROID, COZAAR, PERCOCET, PROTONIX. WILL CONTINUE TO FOLLOW PATIENT FOR WOUND CARE. PHYSICAL THERAPY WILL CONTINUE TO WORK WITH HIM WELL. CASE MANAGEMENT WILL WORK ON ARRANGING HOME HEALTH FOR AFTER DISCHARGE. OTHERWISE, WE WILL FOLLOW-UP WITH AM LABS AND CONTINUE TO MONITOR. TIME SPENT ON CLINICAL ASSESSMENT, REVIWING LABS AND IMAGING, DECISION MAKING, AND DOCUMENTATION GREATER THAN 45 MINUTES. - Past Medical Family Social History Past Med/Fam/Surg Hx: No changes since H&P Allergies: Allergies No Known Allergies Allergy (Verified 03/29/22 03:04) - Review of Systems ROS: No change since H&P - Vital Signs and I&O's Vital Signs: Temperature 98.6 F Pulse Rate [Left] 69 Pulse Rate 73 Respiratory Rate 20 Blood Pressure [Left Arm] 125/59 Blood Pressure [Right Arm] 122/58 Blood Pressure 110/53 O2 Sat by Pulse Oximetry 97 Intake and Output: Intake & Output 04/03/22 04/04/22 04/05/22 04/06/22 11:59 11:59 11:59 11:59 Intake Total 3948 / 3948 4569 / 4569 2843 / 2843 Output Total 3425 / 3425 3750 / 3750 1480 / 1480 Balance 523 / 523 819 / 819 1363 / 1363 - Physical Exam Oriented: Normal Eyes: Normal Ear: Normal Nose: Normal Throat: Normal Respiratory: Generalized, Diminished Cardiovascular: Normal : Normal Auscultation: Bowel Sounds: Normal Palpation: Normal Tenderness: Normal Skin: Wound (SEE WOUND ASSESSMENT ) Musculoskeletal: Normal, Back:Lumbar, Tender, Instability (WEAKESS OF LOWER EXTREMITIES. PATIENT IS NON-AMBULATORY) Psychiatric: Normal Mood Description: Calm Affect: Normal Speech Pattern: Clear, Appropriate - Laboratory and Diagnostics Result Diagrams: 04/05/22 05:22 04/05/22 05:22 Labs: 03/29/22 04:55 Blood Blood Culture - Final 03/29/22 04:50 Blood Blood Culture - Final 03/31/22 13:24 Thigh - Left Wound Gram Stain - Final 03/31/22 13:24 Thigh - Left Wound Culture - Final Morganella Morganii Strep Agalactiae - (Group B) 03/29/22 17:30 Buttock Wound Gram Stain - Final 03/29/22 17:30 Buttock Wound Culture - Final Morganella Morganii Strep Agalactiae - (Group B) Acinetobacter Baumanii/Haemoly 03/29/22 10:51 Urine,Clean Catch Urine Culture - Final Enterococcus Faecalis Laboratory WBC 10.9 X10^3/uL (3.6-10.0) H 04/05/22 05:22 RBC 2.58 X10^6/uL (4.7-6.0) L 04/05/22 05:22 Hgb 7.7 g/dL (13.5-18.0) L 04/05/22 05:22 Hct 22.4 % (42.0-54.0) L 04/05/22 05:22 MCV 86.6 fL (80.0-100.0) 04/05/22 05:22 MCH 30.0 pg (27.0-34.0) 04/05/22 05:22 MCHC 34.6 g/dL (33.0-35.0) 04/05/22 05:22 RDW 15.4 % (11.6-16.5) 04/05/22 05:22 Plt Count 416 X10^3/uL (150.0-450.0) 04/05/22 05:22 Plt Count Comment Adequate (ADEQUATE) 04/02/22 05:16 MPV 7.2 fL (7.4-11.0) L 04/05/22 05:22 Neut % (Auto) 77.9 % (42.0-75.0) H 04/05/22 05:22 Lymph % (Auto) 14.0 % (21.0-51.0) L 04/05/22 05:22 [place] % (Auto) 5.6 % (0.0-13.0) 04/05/22 05:22 Eos % (Auto) 2.0 % (0.9-2.9) 04/05/22 05:22 Baso % (Auto) 0.5 % (0.2-1.0) 04/05/22 05:22 Neut # (Auto) 8.5 x10^3/uL (2.2-4.8) H 04/05/22 05:22 Lymph # (Auto) 1.5 X10^3/uL (1.3-2.9) 04/05/22 05:22 [place] # (Auto) 0.6 x10^3/uL (0.3-0.8) 04/05/22 05:22 Eos # (Auto) 0.2 x10^3/uL (0.0-0.2) 04/05/22 05:22 Baso # (Auto) 0.1 X10^3/uL (0.0-0.1) 04/05/22 05:22 Absolute Nucleated RBC 0.1 /100WBC 04/05/22 05:22 Total Counted 100 04/02/22 05:16 Neutrophils % (Manual) 83 % (39-76) H 04/02/22 05:16 Band Neutrophils % 3 % (0-10) 04/02/22 05:16 Lymphocytes % (Manual) 8 % (13-43) L 04/02/22 05:16 Monocytes % (Manual) 6 % (4-9) 04/02/22 05:16 Eosinophils % (Manual) 1 % (0-6) 04/01/22 05:34 Metamyelocytes % 2 03/31/22 14:07 Myelocytes % 1 03/31/22 14:07 Plt Morphology Comment Normal (NORMAL) 04/02/22 05:16 RBC Morphology Normal (NORMAL) 04/02/22 05:16 Hypochromasia Slight A 03/29/22 03:25 Sodium 138 mmol/L (136-145) 04/05/22 05:22 Corrected Sodium TNP 04/05/22 05:22 Potassium 3.8 mmol/L (3.5-5.1) 04/05/22 05:22 Chloride 104 mmol/L (98-107) 04/05/22 05:22 Carbon Dioxide 27.1 mmol/L (21-32) 04/05/22 05:22 BUN 16 mg/dL (7-18) 04/05/22 05:22 Creatinine 0.77 mg/dL (0.70-1.30) 04/05/22 05:22 Est GFR (MDRD) Af Amer > 60 (>60) 04/05/22 05:22 Est GFR (MDRD) Non-Af > 60 (>60) 04/05/22 05:22 Glucose 102 mg/dL (65-99) H 04/05/22 05:22 POC Glucose (mg/dL) 125 mg/dL (65-99) H 04/05/22 11:03 Lactic Acid 1.2 mmol/L (0.4-2.0) 03/29/22 04:55 Calcium 8.8 mg/dL (8.5-10.1) 04/05/22 05:22 Corrected Calcium 10.2 mg/dL (8.5-10.1) H 04/05/22 05:22 Total Bilirubin 0.20 mg/dL (0.2-1.0) 04/05/22 05:22 AST 37 Units/L (15-37) 04/05/22 05:22 ALT 42 Units/L (12-78) 04/05/22 05:22 Alkaline Phosphatase 158 Units/L (46-116) H 04/05/22 05:22 Troponin I High Sens 5.4 ng/L (4.0-60.0) 03/29/22 03:25 C-Reactive Protein 69.20 mg/L (0-3.0) H 04/04/22 06:06 B-Natriuretic Peptide 19.7 pg/mL (0-79) 03/29/22 03:25 Total Protein 5.9 g/dL (6.4-8.2) L 04/05/22 05:22 Albumin 2.3 g/dL (3.4-5.0) L 04/05/22 05:22 Globulin 3.6 g/dL (2.5-4.5) 04/05/22 05:22 Albumin/Globulin Ratio 0.6 Ratio (1.1-2.1) L 04/05/22 05:22 Specimen Type Random urine 03/29/22 10:51 Urine Color Yellow (YELLOW) 03/29/22 10:51 Urine Appearance Clear (CLEAR) 03/29/22 10:51 Urine pH 5.0 (5.0 - 8.0) 03/29/22 10:51 Ur Specific [place] 1.010 (1.000-1.030) 03/29/22 10:51 Urine Protein 1+ (NEGATIVE) 03/29/22 10:51 Urine Glucose (UA) Negative (NEGATIVE) 03/29/22 10:51 Urine Ketones Negative (NEGATIVE) 03/29/22 10:51 Urine Blood Negative (NEGATIVE) 03/29/22 10:51 Urine Nitrite Negative (NEGATIVE) 03/29/22 10:51 Urine Bilirubin Negative (NEGATIVE) 03/29/22 10:51 Urine Urobilinogen Normal (NORMAL) 03/29/22 10:51 Ur Leukocyte Esterase 1+ (NEGATIVE) 03/29/22 10:51 Urine RBC None seen /HPF (0-3) 03/29/22 10:51 Urine WBC 0-2 /HPF (0-5) 03/29/22 10:51 Ur Squamous Epith Cells Rare /HPF (NEGATIVE) 03/29/22 10:51 Amorphous Sediment Trace /HPF (NEGATIVE) 03/29/22 10:51 Urine Bacteria Negative /HPF (NEGATIVE) 03/29/22 10:51 Ur Culture Indicated? No/not indicated 03/29/22 10:51 Tissue Pathology To follow 03/31/22 13:24 - Plan (1) Leukocytosis Status: Acute Qualifiers: Leukocytosis type: unspecified Qualified Code(s): D72.829 - Elevated white blood cell count, unspecified Plan: NORMAL SALINE AT 80 ML/HR, ZOSYN 2.25G IV TID, TPN, LEVAQUIN 500MG IV DAILY, ALBUMIN 25% IV DAILY, ZOFRAN 4MG IV Q6H PRN, LOVENOX 40MG SC DAILY, MILK OF MAGNESIA 30ML HS, COLACE 100MG PO HS, CARAFATE 1G PO ACHS, GI COCKTAIL QID, THORAZINE 25MG TID, BENTYL 20MG QID, AND HIS HOME MEDICATIONS WERE RESUMED. HOME MEDICATIONS INCLUDE: NORVASC, DURAGESIC PATCH, TAGRISSO, SYNTHROID, COZAAR, PERCOCET, PROTONIX. DEBRIDEMENT OF WOUNDS (2) Acute hyponatremia Status: Acute (3) Protein-calorie malnutrition, moderate Status: Acute (4) Decubitus ulcer Status: Acute Qualifiers: Pressure injury location: other site Pressure injury stage: unspecified pressure injury stage Qualified Code(s): L89.899 - Pressure ulcer of other site, unspecified stage Plan: S/P DEBRIDEMENT OF WOUNDS, DAILY WOUND CARE (5) Hiccups Status: Acute Plan: IMPROVING. CONTINUE THORAZINE (6) Anemia Status: Acute Qualifiers: Anemia type: unspecified type Qualified Code(s): D64.9 - Anemia, unspecified Plan: CONTINUE TO MONITOR (7) Mass of left lung Status: Acute Plan: CONTINUE CHEMO PILL (8) HTN (hypertension) Status: Chronic Qualifiers: Hypertension type: primary hypertension Qualified Code(s): I10 - Essential (primary) hypertension Plan: CONTINUE HOME MEDS (9) GERD (gastroesophageal reflux disease) Status: Chronic Qualifiers: Esophagitis presence: esophagitis presence not specified Qualified Code(s): K21.9 - Gastro-esophageal reflux disease without esophagitis Plan: CONTINUE HOME MEDS (10) Hypothyroidism Status: Chronic Qualifiers: Hypothyroidism type: acquired Qualified Code(s): E03.9 - Hypothyroidism, unspecified Plan: CONTINUE HOME MEDS
[2022-04-05] MEDS: PERCOCET TAB 5/325 MG PO PRN (18:12)
[2022-04-05] MEDS: COLACE CAP 100 MG PO SCH (21:35)
[2022-04-05] MEDS: MILK OF MAGNESIA PO SCH (21:35)
[2022-04-06] MEDS: NS 1,000 ML IV 1,000 ML IV SCH ×4 (04:29→22:28)
[2022-04-06] MEDS: THORAZINE TAB 25 MG PO SCH ×3 (05:28→21:42)
[2022-04-06] MEDS: CARAFATE ORAL SUSP PO SCH ×4 (05:38→21:42)
[2022-04-06 05:56] LABS: BASOPHILS # (AUTO) 0.1 X10^3/uL (0.0-0.1); BASOPHILS % (AUTO) 0.6 % (0.2-1.0); EOSINOPHILS # (AUTO) 0.3 x10^3/uL (0.0-0.2); EOSINOPHILS % (AUTO) 2.1 % (0.9-2.9); HEMATOCRIT 21.6 % (42.0-54.0); HEMOGLOBIN 7.3 g/dL (13.5-18.0); LYMPHOCYTES # (AUTO) 1.6 X10^3/uL (1.3-2.9); LYMPHOCYTES % (AUTO) 12.8 % (21.0-51.0); MEAN CORPUSCULAR HEMOGLOBIN 29.2 pg (27.0-34.0); MEAN CORPUSCULAR HGB CONC 33.6 g/dL (33.0-35.0); MEAN CORPUSCULAR VOLUME 87.1 fL (80.0-100.0); MEAN PLATELET VOLUME 7.1 fL (7.4-11.0); MONOCYTES # (AUTO) 0.7 x10^3/uL (0.3-0.8); MONOCYTES % (AUTO) 5.6 % (0.0-13.0); NEUTROPHILS # (AUTO) 9.6 x10^3/uL (2.2-4.8); NEUTROPHILS % (AUTO) 78.9 % (42.0-75.0); RED BLOOD COUNT 2.48 X10^6/uL (4.7-6.0); RED CELL DISTRIBUTION WIDTH 15.6 % (11.6-16.5); WHITE BLOOD COUNT 12.2 X10^3/uL (3.6-10.0)
[2022-04-06] MEDS: ZOSYN VIAL 2.25 GRAMS 2.25 G in NS 100 ML IV 100 ML IV SCH ×3 (06:06→21:41)
[2022-04-06 06:11] LABS: ALANINE AMINOTRANSFERASE 39 Units/L (12-78); ALBUMIN 2.3 g/dL (3.4-5.0); ALKALINE PHOSPHATASE 145 Units/L (46-116); ASPARTATE AMINO TRANSFERASE 32 Units/L (15-37); BLOOD UREA NITROGEN 19 mg/dL (7-18); CALCIUM 8.6 mg/dL (8.5-10.1); CARBON DIOXIDE 28.3 mmol/L (21-32); CHLORIDE 103 mmol/L (98-107); CREATININE 0.76 mg/dL (0.70-1.30); SODIUM 137 mmol/L (136-145); TOTAL PROTEIN 5.6 g/dL (6.4-8.2); eGFR NON BLACK RACES > 60 (>60)
--- NOTE | 2022-04-06 07:54 | RAD ---
HISTORYShortness of breathSTUDYChest AP [id number]/23FINDINGSThe heart is enlarged. No definite congestive heart failure is noted. Diffuse interstitial lung changes are present not significantly different from the prior examination and likely chronic. No acute alveolar infiltrates or areas of consolidation are identified. A small right pleural effusion is likely present. Now visible is a nodular density in the right upper lobe measuring approximately [address] with contrast is recommended for further evaluation.IMPRESSIONNodular density projected over the right upper lung field possibly a parenchymal nodule. Chest CT with contrast is recommended for further evaluationStable chronic interstitial lung changesLikely small right pleural effusionElectronically signed by: SANTOSH NIKC (Apr 06, 2022 07:53:32)
[2022-04-06] MEDS: ALBUMIN HUMAN 25%- 100 ML 100 ML IV SCH (08:30)
[2022-04-06] MEDS: BENTYL CAP 10 MG PO SCH ×4 (09:51→21:42)
[2022-04-06] MEDS: CLINIMIX 4.25%-5% 1,000 ML IV SCH (09:52)
[2022-04-06] MEDS: COZAAR PO SCH (09:52)
[2022-04-06] MEDS: LEVSIN/MAALOX/LIDOC VISC PO SCH ×4 (09:53→21:43)
[2022-04-06] MEDS: LEVAQUIN PREMIX IV 500 MG 500 MG/100 ML BAG IV SCH (09:53)
[2022-04-06] MEDS: LOVENOX INJ 40 MG SYR SC SCH (09:54)
[2022-04-06] MEDS: NORVASC TAB 10 MG PO SCH (09:54)
[2022-04-06] MEDS: PROTONIX TAB 40 MG PO SCH (09:54)
[2022-04-06] MEDS: SYNTHROID 50 mcg TAB PO SCH (09:55)
[2022-04-06] MEDS: PERCOCET TAB 5/325 MG PO PRN (19:29)
[2022-04-06] MEDS: MILK OF MAGNESIA PO SCH (21:42)
[2022-04-06] MEDS: COLACE CAP 100 MG PO SCH (21:42)
--- NOTE | 2022-04-07 05:18 | RAD ---
PROCEDURE: Chest X-ray 1 View .HISTORY: Dyspnea.TECHNIQUE: AP portable done at 4:41 a.m..COMPARISON: 04/06/2022.TECHNICAL QUALITY: Satisfactory .FINDINGS:Normal size heart .Mediastinum and hilar regions show no masses or lymphadenopathy .Normal central vascularity .Mild increase in patchy pneumonia lung bases. Continued pleural fluid right base.No acute bony abnormality .IMPRESSION:Mild increase pneumonia bilaterally with small right pleural effusion.Electronically signed by: Triston Soto (Apr 07, 2022 05:17:09)
[2022-04-07] MEDS: NS 1,000 ML IV 1,000 ML IV SCH ×2 (05:19→13:10)
[2022-04-07] MEDS: THORAZINE TAB 25 MG PO SCH ×2 (05:39→14:41)
[2022-04-07] MEDS: CARAFATE ORAL SUSP PO SCH ×3 (05:39→17:11)
[2022-04-07] MEDS: ZOSYN VIAL 2.25 GRAMS 2.25 G in NS 100 ML IV 100 ML IV SCH ×2 (05:39→14:33)
[2022-04-07 06:55] LABS: BASOPHILS # (AUTO) 0.1 X10^3/uL (0.0-0.1); BASOPHILS % (AUTO) 1.2 % (0.2-1.0); EOSINOPHILS # (AUTO) 0.2 x10^3/uL (0.0-0.2); HEMATOCRIT 20.9 % (42.0-54.0); HEMOGLOBIN 7.1 g/dL (13.5-18.0); LYMPHOCYTES # (AUTO) 1.7 X10^3/uL (1.3-2.9); LYMPHOCYTES % (AUTO) 17.4 % (21.0-51.0); MEAN CORPUSCULAR HEMOGLOBIN 29.6 pg (27.0-34.0); MEAN CORPUSCULAR HGB CONC 34.2 g/dL (33.0-35.0); MEAN CORPUSCULAR VOLUME 86.5 fL (80.0-100.0); MONOCYTES # (AUTO) 0.7 x10^3/uL (0.3-0.8); MONOCYTES % (AUTO) 6.8 % (0.0-13.0); NEUTROPHILS # (AUTO) 7.1 x10^3/uL (2.2-4.8); NEUTROPHILS % (AUTO) 72.6 % (42.0-75.0); RED BLOOD COUNT 2.42 X10^6/uL (4.7-6.0); RED CELL DISTRIBUTION WIDTH 15.5 % (11.6-16.5); WHITE BLOOD COUNT 9.7 X10^3/uL (3.6-10.0)
[2022-04-07 07:14] LABS: ALANINE AMINOTRANSFERASE 37 Units/L (12-78); ALBUMIN 2.3 g/dL (3.4-5.0); ALKALINE PHOSPHATASE 139 Units/L (46-116); ASPARTATE AMINO TRANSFERASE 33 Units/L (15-37); BLOOD UREA NITROGEN 14 mg/dL (7-18); CALCIUM 8.8 mg/dL (8.5-10.1); CARBON DIOXIDE 27.2 mmol/L (21-32); CHLORIDE 105 mmol/L (98-107); COR CA(FOR HYPOALB) 10.2 mg/dL (8.5-10.1); CREATININE 0.71 mg/dL (0.70-1.30); SODIUM 139 mmol/L (136-145); TOTAL PROTEIN 5.6 g/dL (6.4-8.2); eGFR NON BLACK RACES > 60 (>60)
[2022-04-07] MEDS: LEVAQUIN PREMIX IV 500 MG 500 MG/100 ML BAG IV SCH (08:29)
[2022-04-07] MEDS: COZAAR PO SCH (08:30)
[2022-04-07] MEDS: ALBUMIN HUMAN 25%- 100 ML 100 ML IV SCH (08:30)
[2022-04-07] MEDS: NORVASC TAB 10 MG PO SCH (08:31)
[2022-04-07] MEDS: LOVENOX INJ 40 MG SYR SC SCH (08:31)
[2022-04-07] MEDS: SYNTHROID 50 mcg TAB PO SCH (08:31)
[2022-04-07] MEDS: PROTONIX TAB 40 MG PO SCH (08:31)
[2022-04-07] MEDS: BENTYL CAP 10 MG PO SCH ×3 (08:31→17:11)
[2022-04-07] MEDS: LEVSIN/MAALOX/LIDOC VISC PO SCH ×3 (08:33→17:11)
[2022-04-07] MEDS: CLINIMIX 4.25%-5% 1,000 ML IV SCH (08:33)
[2022-04-07] MEDS ORDERED: PROCRIT or EPOGEN VIAL 10,000 UNITS SC ONE (10:34)
[2022-04-07] MEDS ORDERED: BETADINE SOLN ONE (10:52)
[2022-04-07 12:13] VITALS: BP 126/59
== END 2022-04-07 17:13 | disposition home health service (06) | DRG 571 ==
LOC: ER 02:35 → MED/SURG 04:51
PROVIDERS: ADMIT Obstetrics & Gynecology Obstetrics; ATTEND Internal Medicine
DX: R06.02 Shortness of breath; K21.9 Gastro-esophageal reflux disease without esophagitis; D64.9 Anemia, unspecified; L89.152 Pressure ulcer of sacral region, stage 2; N39.0 Urinary tract infection, site not specified; E03.8 Other specified hypothyroidism; E87.1 Hypo-osmolality and hyponatremia; B96.89 Other specified bacterial agents as the cause of diseases classified elsewhere; L89.323 Pressure ulcer of left buttock, stage 3; B95.2 Enterococcus as the cause of diseases classified elsewhere; L89.313 Pressure ulcer of right buttock, stage 3; I10 Essential (primary) hypertension; R06.6 Hiccough; Z92.21 Personal history of antineoplastic chemotherapy; R26.89 Other abnormalities of gait and mobility; C34.90 Malignant neoplasm of unspecified part of unspecified bronchus or lung; R79.82 Elevated C-reactive protein (CRP); L89.893 Pressure ulcer of other site, stage 3; B95.1 Streptococcus, group B, as the cause of diseases classified elsewhere; B96.1 Klebsiella pneumoniae [K. pneumoniae] as the cause of diseases classified elsewhere

== ENCOUNTER 2022-08-25 20:29 | Inpatient (IN) ==
--- NOTE | 2022-08-25 21:46 | DR.EXTPAIN ---
HPI Time seen Time Seen by Provider: 08/25/22 21:46 PCP Primary Care Physician: KEI Complaint/Symptoms Chief Complaint Doctor Comments: Patient has lung cancer and stasis ulcers ( decubitus and on his Ble).The picc line was inserted on 08/13/2022.Patient received Invanz ( in am) and Vancomycin (8am -8pm) from 08/15/22 to 08/23/2022 for treatment of infection of his stasis ulcers. On 08/23/22 A nurse atempted to draw blood from the picc line for labs and no blood could be drawn. Daughter and spouse state that the LUE has been slowly swelling since the picc line was placed. Patient was scheduled for a doppler u/s of the LUE that was performed on 08/25/22 that was pos for Left subclavian and left axillary vein DVT. The Patient was called to go to the [facility] ED for further evaluation. Patient denies: headache,dizziness,extremity pain,extremity paresthesias,fever. Chief Complaint:: PT IN ED VIA WHEELCHAIR PER REQUEST FROM DR. LUCAS TO COME TO ER FOR ABNORMAL RADIOLOGY RESULTS. PT HAD OUTPT BILATERAL VENOUS DOPPLER OF UPPER EXTREMITIES TODAY. COVID-19 Coronavirus risk:travel/contact w/high risk person: No Has patient experienced Coronavirus symptoms: No Source History Provided: Patient Mode of arrival Mode of Arrival: Wheelchair Timing Onset of Chief Complaint: 08/25/22 PMH PMH Past Medical History: Yes Past Medical History: Anemia, GERD, Hypertension and Hypothyroidism Past Surgical History: No Surgical History: No History Family History History of Family Medical Conditions: Yes Family Medical History: Diabetes Mellitus, Cancer and Hypertension Social History Does patient currently use any type of tobacco product: No Have you used tobacco products in the last 12 months: No Type of Tobacco Use: None Does any household member use tobacco: No Alcohol Use: Occasionally Do you use any recreational Drugs:: Yes (MARIJUANA) Lives With: Spouse Lives Where: Home Travel Risk Coronavirus risk:travel/contact w/high risk person: No Has patient experienced Coronavirus symptoms: No Infectious screening In the last 2 months have you had wt loss of >10#?: NO Have you had fever, night sweats or hemotysis?: No Have you traveled outside the country in the last 6 months?: No Isolation: Standard ROS Review of Systems Constitutional: No Symptoms Reported Eyes: No Symptoms Reported ENTM: No Symptoms Reported Respiratoy: No Symptoms Reported Cardiovascular: negative Chest Pain, Palpitations or Syncope Gastrointestinal/Abdominal: No Symptoms Reported Genitourinary: No Symptoms Reported Neurological: No Symptoms Reported Musculoskeletal: No Symptoms Reported, Left, Arm (Edema), Forearm (Edema) and Hand (edema) Integumentary: No Symptoms Reported Hematologic/Lymphatic: Blood Clots (:Left subcklavian and axillary veins) Endocrine: No Symptoms Reported Psychiatric: No Symptoms Reported All Other Systems: Reviewed and Negative PE Vital Signs Vitals: Vital Signs Temperature 98.1 F Pulse Rate 80 Pulse Rate 66 Pulse Rate 71 Pulse Rate 75 Pulse Rate 69 Pulse Rate 70 Pulse Rate 66 Pulse Rate 65 Pulse Rate 66 Pulse Rate 66 Pulse Rate 66 Pulse Rate 64 Pulse Rate 67 Pulse Rate 65 Pulse Rate 65 Pulse Rate 69 Pulse Rate 68 Pulse Rate 67 Pulse Rate 71 Pulse Rate 72 Pulse Rate 79 Respiratory Rate 20 Blood Pressure 126/59 Blood Pressure 106/57 O2 Sat by Pulse Oximetry 100 O2 Sat by Pulse Oximetry 100 O2 Sat by Pulse Oximetry 100 O2 Sat by Pulse Oximetry 100 O2 Sat by Pulse Oximetry 100 O2 Sat by Pulse Oximetry 100 O2 Sat by Pulse Oximetry 95 O2 Sat by Pulse Oximetry 96 O2 Sat by Pulse Oximetry 98 O2 Sat by Pulse Oximetry 99 O2 Sat by Pulse Oximetry 100 O2 Sat by Pulse Oximetry 98 O2 Sat by Pulse Oximetry 99 O2 Sat by Pulse Oximetry 100 O2 Sat by Pulse Oximetry 99 O2 Sat by Pulse Oximetry 97 O2 Sat by Pulse Oximetry 100 O2 Sat by Pulse Oximetry 99 O2 Sat by Pulse Oximetry 99 O2 Sat by Pulse Oximetry 99 O2 Sat by Pulse Oximetry 97 General Limitations: No Limitations General Appearance: Alert and In No Apparent Distress Head Head Exam: Normal Inspection Eyes Eye exam: Normal Appearance ENT ENT Exam: Normal Exam Neck Neck Exam: Normal Inspection Chest Chest Inspection: Normal Inspection Respiratory Respiratory Exam: Normal Lung Sounds Bilat Respiratory Exam: Bilateral: Clear to Auscultation Cardiovascular Cardiovascular Exam: Regular Rate and Normal Rhythm Abdominal Exam Abdominal Exam: Normal Inspection, Normal Bowel Sounds and Soft Extremities Extremities Exam: Edema (Marked edema LUE( arm/forearm/hand)) Upper Extremities Shoulder Exam: Swelling ( Marked (Left Arm/forearm/hand)) Arm Exam: Swelling (left arm) Elbow Exam: Swelling (left elbow) Forearm Exam: Swelling (left forearm) Hand Exam: Swelling (left hand) Back Back Exam: Normal Inspection Neurological Neurological Exam: Alert, Oriented X3 and CN II-XII Intact Psychiatric Psychiatric Exam: Normal Affect and Normal Mood Skin Skin Exam: Warm, Dry, Intact and Normal Color MDM Differential Diagnosis Differential Diagnosis: Other (DVT left UE,CHF,Pneumonia,Extension of lung Ca,electrolyte abnormality) COURSE Treatment Treatment: Patient was brought to a monitored room and labs were drawn Chest CT w/ contrast was ordered because patient has a left lung malignancy and he states that he has intermittent chest pain.Chest CT revealed new RUL lesion,bilateral lowere lobe effusions,previously seen cavitary lesion. 23:[address] Lucas who states that he will admit the patient to his service. He would like the patient placed on heparin protocol. Patient has been stable in the ED. 01:45 Dr Mckeon inserted a Rt subclavian CVP line and Patient will be admitted inpatient to the ICU.Patient has been stabel in the Ed. and daughter have been updated.Patient has K 3.3 and was given Kdur 40meq po.Patient has a nml wbc and h/o anemia. ROR Labs Reviewed Laboratory Results Reviewed?: Yes Result Diagrams: 08/25/22 22:00 08/25/22 22:00 Laboratory: WBC 7.9 X10^3/uL (3.6-10.0) 08/25/22 22:00 RBC 3.70 X10^6/uL (4.7-6.0) L 08/25/22 22:00 Hgb 8.7 g/dL (13.5-18.0) L 08/25/22 22:00 Hct 27.4 % (42.0-54.0) L 08/25/22 22:00 MCV 73.9 fL (80.0-100.0) L 08/25/22 22:00 MCH 23.6 pg (27.0-34.0) L 08/25/22 22:00 MCHC 31.9 g/dL (33.0-35.0) L 08/25/22 22:00 RDW 23.0 % (11.6-16.5) H 08/25/22 22:00 Plt Count 149 X10^3/uL (150.0-450.0) L 08/25/22 22:00 Plt Count Comment Decreased (ADEQUATE) 08/25/22 22:00 MPV 7.7 fL (7.4-11.0) 08/25/22 22:00 Neut % (Auto) 72.0 % (42.0-75.0) 08/25/22 22:00 Lymph % (Auto) 21.8 % (21.0-51.0) 08/25/22 22:00 [place] % (Auto) 5.9 % (0.0-13.0) 08/25/22 22:00 Eos % (Auto) 0.2 % (0.9-2.9) L 08/25/22 22:00 Baso % (Auto) 0.1 % (0.2-1.0) L 08/25/22 22:00 Neut # (Auto) 5.7 x10^3/uL (2.2-4.8) H 08/25/22 22:00 Lymph # (Auto) 1.7 X10^3/uL (1.3-2.9) 08/25/22 22:00 [place] # (Auto) 0.5 x10^3/uL (0.3-0.8) 08/25/22 22:00 Eos # (Auto) 0.0 x10^3/uL (0.0-0.2) 08/25/22 22:00 Baso # (Auto) 0.0 X10^3/uL (0.0-0.1) 08/25/22 22:00 Absolute Nucleated RBC 0.0 /100WBC 08/25/22 22:00 Plt Morphology Comment Normal (NORMAL) 08/25/22 22:00 RBC Morphology Abnormal (NORMAL) 08/25/22 22:00 Hypochromasia 1+ A 08/25/22 22:00 Anisocytosis 2+ A 08/25/22 22:00 Microcytosis Slight A 08/25/22 22:00 Tear Drop Cells Present 08/25/22 22:00 Ovalocytes Present 08/25/22 22:00 PT 14.9 SECONDS (11.8-14.3) 08/25/22 22:00 INR Target Range - 08/25/22 22:00 INR 1.19 (0.8-1.3) 08/25/22 22:00 APTT 35.7 SECONDS (22.9-36.5) 08/25/22 22:00 PTT Comment - 08/25/22 22:00 Sodium 137 mmol/L (136-145) 08/25/22 22:00 Corrected Sodium 137 mmol/L (136-145) 08/25/22 22:00 Potassium 3.3 mmol/L (3.5-5.1) L 08/25/22 22:00 Chloride 99 mmol/L (98-107) 08/25/22 22:00 Carbon Dioxide 33.2 mmol/L (21-32) H 08/25/22 22:00 BUN 11 mg/dL (7-18) 08/25/22 22:00 Creatinine 0.74 mg/dL (0.70-1.30) 08/25/22 22:00 Est GFR (MDRD) Af Amer > 60 (>60) 08/25/22 22:00 Est GFR (MDRD) Non-Af > 60 (>60) 08/25/22 22:00 Glucose 117 mg/dL (65-99) H 08/25/22 22:00 Calcium 7.9 mg/dL (8.5-10.1) L 08/25/22 22:00 Corrected Calcium 10.1 mg/dL (8.5-10.1) 08/25/22 22:00 Total Bilirubin 0.20 mg/dL (0.2-1.0) 08/25/22 22:00 AST 15 Units/L (15-37) 08/25/22 22:00 ALT 7 Units/L (12-78) L 08/25/22 22:00 Alkaline Phosphatase 145 Units/L (46-116) H 08/25/22 22:00 Total Protein 6.0 g/dL (6.4-8.2) L 08/25/22 22:00 Albumin 1.3 g/dL (3.4-5.0) L 08/25/22 22:00 Globulin 4.7 g/dL (2.5-4.5) H 08/25/22 22:00 Albumin/Globulin Ratio 0.3 Ratio (1.1-2.1) L 08/25/22 22:00 XRAY XRAY Interpreted by: Radiologist Opioid Opioid Risk Tool Age (Tino box if 16-45): No History of Preadolescent Sexual Abuse: No Total: 0 Total Score Risk Category: Low Risk Copyright: Mykel KERR predicting aberrant behaviors Discharge Plan Diagnosis Discharge Problem: DVT of axillary vein, acute left Discharge Plan Patient Disposition: 09 ADMITTED INPATIENT Condition: Stable Prescriptions: No Action oxycodone-acetaminophen 10-325 mg tablet 1 tab PO TID PRN fentanyl 25 mcg/hr patch 72 hour 1 patch transdermal Q3D ascorbic acid (vitamin C) [Vitamin C With Geovanna Hips] 500 mg tablet 1 tab PO BID levothyroxine 50 mcg tablet 1 tab PO QDAY zinc sulfate 50 mg zinc (220 mg) capsule 1 cap PO QDAY Eliquis 5 mg tablet 2 tab PO BID Dakin's Solution 0.25 % solution 10 ml topical DIRECTED losartan 25 mg Tablet 25 mg PO QDAY Health Concerns: Post Hospitalization: new medications and changes needed to prevent readmission or further decline. Pt educated and given instructions on all concerns. Plan of Treatment: Continue with present treatment and follow up plan. Pt is to keep follow up appointment as instructed and take medications as ordered. Follow ups/Referrals Follow ups/Referrals: Shiva Wolff [Primary Care Provider] - 3 days
[2022-08-25 22:17] LABS: INR 1.19 (0.8-1.3)
[2022-08-25 22:22] LABS: ALANINE AMINOTRANSFERASE 7 Units/L (12-78); ALBUMIN 1.3 g/dL (3.4-5.0); ALKALINE PHOSPHATASE 145 Units/L (46-116); ASPARTATE AMINO TRANSFERASE 15 Units/L (15-37); BLOOD UREA NITROGEN 11 mg/dL (7-18); CALCIUM 7.9 mg/dL (8.5-10.1); CARBON DIOXIDE 33.2 mmol/L (21-32); CHLORIDE 99 mmol/L (98-107); COR CA(FOR HYPOALB) 10.1 mg/dL (8.5-10.1); COR NA(FOR HYPERGLY) 137 mmol/L (136-145); CREATININE 0.74 mg/dL (0.70-1.30); GLUCOSE 117 mg/dL (65-99); POTASSIUM 3.3 mmol/L (3.5-5.1); SODIUM 137 mmol/L (136-145); eGFR NON BLACK RACES > 60 (>60)
[2022-08-25 22:31] LABS: BASOPHILS % (AUTO) 0.1 % (0.2-1.0); EOSINOPHILS % (AUTO) 0.2 % (0.9-2.9); HEMATOCRIT 27.4 % (42.0-54.0); HEMOGLOBIN 8.7 g/dL (13.5-18.0); LYMPHOCYTES # (AUTO) 1.7 X10^3/uL (1.3-2.9); LYMPHOCYTES % (AUTO) 21.8 % (21.0-51.0); MEAN CORPUSCULAR HEMOGLOBIN 23.6 pg (27.0-34.0); MEAN CORPUSCULAR HGB CONC 31.9 g/dL (33.0-35.0); MEAN CORPUSCULAR VOLUME 73.9 fL (80.0-100.0); MEAN PLATELET VOLUME 7.7 fL (7.4-11.0); MONOCYTES # (AUTO) 0.5 x10^3/uL (0.3-0.8); MONOCYTES % (AUTO) 5.9 % (0.0-13.0); NEUTROPHILS # (AUTO) 5.7 x10^3/uL (2.2-4.8); PLATELET COUNT 149 X10^3/uL (150.0-450.0); WHITE BLOOD COUNT 7.9 X10^3/uL (3.6-10.0)
[2022-08-25 22:46] LABS: ANISOCYTOSIS 2+; HYPOCHROMASIA 1+; MICROCYTOSIS SLIGHT; OVALOCYTES PRESENT; PLATELET MORPHOLOGY COMMENT NORMAL (NORMAL); TEAR DROP CELLS PRESENT
--- NOTE | 2022-08-25 23:19 | CT ---
HISTORYPT HAD OUTPT BILATERAL VENOUS DOPPLER OF UPPER EXTREMITIES TODAY.STUDYCHEST W/O [id number]/27/2022.TECHNIQUEMultipl e axial images of the chest were obtained from the thoracic inlet to the upper abdomen without the administration of IV contrast. Dose reduction techniques including Automated Exposure Control (AEC) and adjustment of mA and kV were utilized.FINDINGSThere is a right apical pleural based soft tissue mass measuring 2.8 x 3.5 cm axial plane by 3.1 cm coronal plane. The appearance is suggestive of malignancy although it could simply be apical pleural parenchymal scarring. There is a spiculated lesion in the left upper lobe which measures 1.2 x 1.4 x 1.7 cm. This is also worrisome for malignancy. There is emphysema in the upper lobes bilaterally. There is stranding in the bilateral lower lobes and in the lingula suggestive of atelectasis. There is a small cavitation the left lower this was also present on earlier study from 02/03/2020. There is a small left pleural effusion and trace right effusion. The heart size is enlarged. The ascending aorta measures 4.1 cm in diameter. There are large renal cysts bilaterally. There are multiple blastic lesions the spine suggestive of metastases.IMPRESSION1. Right apical soft tissue mass measuring 2.8 x 3.5 x 3.1 cm.2. Left upper lobe 1.2 x 1.4 x 1.7 cm mass.3. Biapical emphysema and bibasilar atelectasis.4. Persistent cavitation in the left lower lobe.5. Small left and trace right pleural effusion.6. Fairly severe cardiomegaly.7. Metastatic bone disease.Electronically signed by: Flex Quiros (Aug 25, 2022 23:18:50)
[2022-08-26] MEDS ORDERED: HEPARIN SODIUM INJ 5000 UNITS IVP ONE (00:18)
[2022-08-26] MEDS ORDERED: HEPARIN SODIUM IN D5W 25,000 UNITS/500 ML BAG IV PRN (00:19)
[2022-08-26] MEDS ORDERED: HEPARIN SODIUM INJ 5000 UNITS ONE (00:21)
[2022-08-26] MEDS ORDERED: HEPARIN SODIUM IN D5W 25,000 UNITS/500 ML BAG ONE (00:21)
[2022-08-26] MEDS ORDERED: K-DUR TAB 20 MEQ PO ONE ×2 (01:55→01:59)
--- NOTE | 2022-08-26 02:10 | OR.IMMED ---
IMMEDIATE POST-OP NOTE Immediate Post-Op Note Pre-Op Diagnosis: Metastatic lung cancer, deep Venous Thrombosis left axillary a nd subclavian veins Post-Op Diagnosis: same Procedure: right subclavian vein triple Lumen catheter placement Description of Procedure: look at operative summary Surgeon/Hospital Attendant: Linda Findings: as above ,no IV access Estimated Blood Loss: minimal Complications: none Progress Notes: patient to be admitted to the ICU for Heparin drip. I will see you in consultation to consider thrombolysis of the clot of the left axillary and left subclavian veins. Post-procedure chest x-ray shows was good placement in the right innominate vein and no pneumothorax . Condition: Stable
--- NOTE | 2022-08-26 02:14 | RAD ---
HISTORYCENTRAL LINE PLACEMENT GERD, HTN, ANEMIASTUDYCHEST, 1 [id number] trachea is midline. Right central line tip in distal SVC. The cardiac silhouette is unremarkable. The lungs are clear without focal infiltrate or effusion. No pneumothorax. The bony thorax is unremarkable.IMPRESSIONRight central line tip in distal SVC.No active cardiopulmonary disease .Electronically signed by: Roman Woods (Aug 26, 2022 02:12:57)
--- NOTE | 2022-08-26 02:24 | DR.OPNOTE ---
OP NOTE Pre-Op Diagnosis: left axillary vein and left subclavian vein deep Venous Thrombosis Post-Op Diagnosis: same ,need for central venous access Procedure Date Date Of Procedure: 08/26/22 Procedure: PROCEDURE: right subclavian vein triple Lumen catheter placement NARRATIVE : Patient placed in Trendelenburg position and the right neck and right chest prepped and draped in sterile fashion. The skin underlying the right clavicle and the skin of the right chest infiltrated with 1% Xylocaine . 16 gauge needle used to puncture the right subclavian vein with aspiration of blood and placement of a 0.035 inch guidewire .incision made over the guide wire at the skin edge with a number 11 knife blade and a dilator placed over the wire into the right subclavian vein. The guide wire removed and the triple Lumen catheter placed over the guide wire into the right subclavian Vein. The wire removed. All ports were aspirated of blood and flushed with heparinized saline . The catheter secured to the Skin with interrupted 2-0 silk suture and biopatch placed around the catheter and dressing applied. Post-procedure chest x-ray showed good placement in the innominate vein and no pneumothorax. Type of Anesthesia: Local (1% Xylocaine ) Findings: as above. Post-procedure chest x-ray shows good placement in the innominate vein of the catheter with no pneumothorax Type of Fluids Used:: Normal Saline Total Amount of Fluid Infused:: minimal EBL: minimal Complications:: none ,post Labette chest x-ray shows good placement but no pneumothorax of the right subclavian vein catheter Needle/Sponge Count:: correct Disposition/Condition: Pt. tolerated procedure without difficulty. Patient to be taken to the ICU in stable condition for Heparin drip
[2022-08-26] MEDS ORDERED: STERILE WATER IRRIGATION IR ONE (04:21)
[2022-08-26 07:38] LABS: ALANINE AMINOTRANSFERASE < 6 Units/L (12-78); ALKALINE PHOSPHATASE 124 Units/L (46-116); ASPARTATE AMINO TRANSFERASE 13 Units/L (15-37); BLOOD UREA NITROGEN 10 mg/dL (7-18); CALCIUM 7.5 mg/dL (8.5-10.1); CARBON DIOXIDE 31.1 mmol/L (21-32); CHLORIDE 102 mmol/L (98-107); COR CA(FOR HYPOALB) 9.9 mg/dL (8.5-10.1); COR NA(FOR HYPERGLY) 137 mmol/L (136-145); CREATININE 0.56 mg/dL (0.70-1.30); GLUCOSE 114 mg/dL (65-99); POTASSIUM 3.4 mmol/L (3.5-5.1); SODIUM 137 mmol/L (136-145); TOTAL PROTEIN 5.1 g/dL (6.4-8.2); eGFR NON BLACK RACES > 60 (>60)
[2022-08-26 07:40] LABS: BASOPHILS % (AUTO) 0 % (0.2-1.0); EOSINOPHILS % (AUTO) 0.1 % (0.9-2.9); HEMATOCRIT 23.4 % (42.0-54.0); HEMOGLOBIN 7.5 g/dL (13.5-18.0); LYMPHOCYTES # (AUTO) 1.1 X10^3/uL (1.3-2.9); MEAN CORPUSCULAR HEMOGLOBIN 23.7 pg (27.0-34.0); MEAN CORPUSCULAR HGB CONC 32.1 g/dL (33.0-35.0); MEAN CORPUSCULAR VOLUME 73.9 fL (80.0-100.0); MEAN PLATELET VOLUME 7.6 fL (7.4-11.0); MONOCYTES # (AUTO) 0.5 x10^3/uL (0.3-0.8); MONOCYTES % (AUTO) 5.4 % (0.0-13.0); NEUTROPHILS # (AUTO) 7.6 x10^3/uL (2.2-4.8); NEUTROPHILS % (AUTO) 82.5 % (42.0-75.0); PLATELET COUNT 136 X10^3/uL (150.0-450.0); RED BLOOD COUNT 3.17 X10^6/uL (4.7-6.0); RED CELL DISTRIBUTION WIDTH 23.4 % (11.6-16.5); WHITE BLOOD COUNT 9.2 X10^3/uL (3.6-10.0)
[2022-08-26] MEDS ORDERED: CONSULT PHARMACY - POTASSIUM & MAGNESIUM XX SCH ×3 (07:52→09:00)
[2022-08-26] MEDS ORDERED: DAKINS SOLUTION HALF STRENGTH 0.25% EXT PRN (07:52)
[2022-08-26 08:10] LABS: ANISOCYTOSIS 2+; MICROCYTOSIS SLIGHT; PLATELET MORPHOLOGY COMMENT NORMAL (NORMAL)
--- NOTE | 2022-08-26 08:56 | EKG ---
Test Reason : SURGICAL PROCEDURE Blood Pressure : */* mmHG Vent. Rate : 69 BPM Atrial Rate : 69 BPM P-R Int : 140 ms QRS Dur : 94 ms QT Int : 454 ms P-R-T Axes : -31 -49 -8 degrees QTc Int : 486 ms Unusual P axis, possible ectopic atrial rhythm with occasional premature ventricular complexes Left anterior fascicular block Prolonged QT Abnormal ECG When compared with ECG of 02-FEB-2022 14:09, Ectopic atrial rhythm has replaced Sinus rhythm Left anterior fascicular block is now present Non-specific change in ST segment in Anterior leads Nonspecific T wave abnormality now evident in Inferior leads Nonspecific T wave abnormality no longer evident in Lateral leads Confirmed by Hakeem Cash ([id number]) on 08/28/2022 7:37:05 AM Referred By: Confirmed By: Hakeem Cash
[2022-08-26] MEDS ORDERED: K-DUR TAB 20 MEQ PO SCH (09:00)
[2022-08-26] MEDS: SYNTHROID 50 mcg TAB PO SCH (09:08)
[2022-08-26] MEDS: COZAAR PO SCH (09:08)
[2022-08-26] MEDS: PERCOCET TAB 5/325 MG PO PRN (17:30)
--- NOTE | 2022-08-26 20:33 | DR.H&P ---
H&P - History & Physical for Day of: H&P Date: 08/26/22 - Chief Complaint Chief Complaint: LEFT ARM PAIN AND SWELLING - History of Present Illness History of Present Illness: IS A 72 YEAR OLD PATIENT OF OURS. 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 OTHER PMH INCLUDES ANEMIA, GARCIA, HTN, AND HYPOTHYROIDISM. 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 PATIENTS SPOUSE REPORTS THAT HE HAD BEEN RECEIVING IV ANTIBIOTICS THROUGH A LEFT ARM PICC LINE FOR TREATMENT OF INFECTED ULCERS OF THE SACRUM AND BILATERAL LOWER EXTREMITIES. HIS SPOUSE REPORTS THAT THE HOME VISITING NURSE ATTEMPTED TO DRAW BLOOD FROM THE PICC LINE BUT WAS UNSUCCESSFUL. SHE REPORTS THAT SHE HAS NOTED SWELLING OF THE LEFT ARM FOR THE PAST SEVERAL DAYS. PATIENT DENIES HEADACHE, DIZZINESS, PAIN, PARESTHESIA, OR FEVER. HE WAS SEEN IN THE OFFICE ON 08/25/22 FOR EVALUATION. AN OUTPATIENT VENOUS DOPPLER WAS OBTAINED AND REVEALED: Extensive occlusive deep venous thrombosis of the left subclavian vein and left axillary vein. PATIENT WAS THEN SENT TO THE ER FOR FURTHER EVALUATION AND TREATMENT. ON ARRIVAL TO THE ER, HIS VITALS WERE: 98.1-79-20-97%-106/57. LABS WERE OBTAINED. WBC 7.9. RBC 3.70, HGB 8.7, HCT 27.4, PLT COUNT 149, PT 14.9, INR 1.19, SODIUM 137, POTASSIUM 3.3, CHLORIDE 99, BUN 11, CREATININE 0.74, GLUCOSE 117, CALCIUM 7.9, AST 15, ALT 7, ALK PHOS 145, TOTAL PROTEIN 6.0, ALBUMIN 1.3. BLOOD AND WOUND CULTURES OF THE SACRUM AND LOWER EXTREMITIES WERE SET UP. A CHEST CT WITHOUT CONTRAST WAS OBTAINED AND REVEALED: 1. Right apical soft tissue mass measuring 2.8 x 3.5 x 3.1 cm. 2. Left upper lobe 1.2 x 1.4 x 1.7 cm mass. 3. Biapical emphysema and bibasilar atelectasis. 4. Persistent cavitation in the left lower lobe. 5. Small left and trace right pleural effusion. 6. Fairly severe cardiomegaly. 7. Metastatic bone disease. A CHEST XRAY WAS OBTAINED AND REVEALED: Right central line tip in distal SVC. No active cardiopulmonary disease. PICC LINE WAS REMOVED AND A CENTRAL LINE WAS INSERTED BY . HE WAS GIVEN HEPARIN 4100 UNITS IV X 1 DOSE AND K-DUR 40MEQ PO X 1. HE WAS ADMITTED TO THE HOSPITAL FOR FURTHER EVALUATION AND TREATMENT OF DVT OF THE LEFT SUBCLAVIAN VEIN AND LEFT AXILLARY VEIN. HE WAS STARTED ON A HEPARIN DRIP, DURAGESIC 25MCG/HR PATCH, SYNTHROID 50MCG DAILY, COZAAR 25MG DAILY, PERCOCET 1 TAB TID PRN. WE WILL PROVIDE WOUND CARE TO WOUNDS OF THE SACRUM AND THE UPPER AND LOWER EXTREMITIES. OTHERWISE, WE WILL FOLLOW-UP WITH AM LABS AND CONTINUE TO MONITOR. TIME SPENT ON CLINICAL ASSESSMENT, REVIEWING LABS AND IMAGING, DECISION MAKING, AND DOCUMENTATION GREATER THAN 75 MINUTES. - Past Medical History Past Medical History: Hypertension, Hypothyroidism, Anemia, GERD Additional Medical History: LUNG CANCER WITH METS TO BONES - Past Surgical History Surgical History: No History - Family History Family Medical History: Cancer, Coronary Artery Disease, Hypertension - Social History Does patient currently use any type of tobacco product: No Have you used tobacco products in the last 12 months: Yes Type of Tobacco Use: None Does any household member use tobacco: No Alcohol Use: None Drug Use: Marijuana - Review of Systems Constitutional: Weakness Eyes: No Symptoms Reported ENT: No Symptoms Reported Respiratory: Shortness of Breath Cardiovascular: No Symptoms Reported Gastrointestinal: No Symptoms Reported Genitourinary: No Symptoms Reported Musculoskeletal: Arm Pain (LEFT ARM PAIN ) Skin: No Symptoms Reported Neurological: Weakness - Physical Exam Vital Signs: Vital Signs Pulse Rate 65 Pulse Rate 66 Pulse Rate 70 Pulse Rate 75 Pulse Rate 69 Pulse Rate 70 Pulse Rate 76 Pulse Rate 70 Pulse Rate 74 Pulse Rate 75 Pulse Rate 74 Pulse Rate 66 Pulse Rate 68 Pulse Rate 74 Pulse Rate 85 Pulse Rate 69 Pulse Rate 71 Pulse Rate 68 Pulse Rate 68 Pulse Rate 69 Pulse Rate 69 Pulse Rate 68 Pulse Rate 69 Pulse Rate 69 Pulse Rate 69 Respiratory Rate 20 Respiratory Rate 20 Respiratory Rate 24 Respiratory Rate 23 Respiratory Rate 20 Respiratory Rate 17 Respiratory Rate 18 Respiratory Rate 17 Respiratory Rate 19 Respiratory Rate 16 Respiratory Rate 20 Respiratory Rate 23 Respiratory Rate 16 Respiratory Rate 19 Respiratory Rate 16 Respiratory Rate 24 Respiratory Rate 24 Respiratory Rate 17 Respiratory Rate 16 Respiratory Rate 18 Respiratory Rate 15 Respiratory Rate 16 Respiratory Rate 17 Respiratory Rate 18 Respiratory Rate 19 Respiratory Rate 19 Respiratory Rate 20 Blood Pressure 114/68 Blood Pressure 110/59 Blood Pressure 113/55 Blood Pressure 116/61 Blood Pressure 115/60 O2 Sat by Pulse Oximetry 96 O2 Sat by Pulse Oximetry 99 O2 Sat by Pulse Oximetry 100 O2 Sat by Pulse Oximetry 99 O2 Sat by Pulse Oximetry 98 O2 Sat by Pulse Oximetry 98 O2 Sat by Pulse Oximetry 99 O2 Sat by Pulse Oximetry 95 O2 Sat by Pulse Oximetry 96 O2 Sat by Pulse Oximetry 94 O2 Sat by Pulse Oximetry 99 O2 Sat by Pulse Oximetry 97 O2 Sat by Pulse Oximetry 98 O2 Sat by Pulse Oximetry 98 O2 Sat by Pulse Oximetry 100 O2 Sat by Pulse Oximetry 80 O2 Sat by Pulse Oximetry 96 O2 Sat by Pulse Oximetry 98 O2 Sat by Pulse Oximetry 97 O2 Sat by Pulse Oximetry 97 O2 Sat by Pulse Oximetry 98 O2 Sat by Pulse Oximetry 98 O2 Sat by Pulse Oximetry 98 O2 Sat by Pulse Oximetry 98 O2 Sat by Pulse Oximetry 99 Oriented: Normal Eyes: Normal Ear: Normal Nose: Normal Throat: Normal Respiratory: Diminished Throughout Cardiovascular: Normal : Normal Auscultation: Bowel Sounds: Normal Palpation: Normal Tenderness: Normal Skin: Normal Musculoskeletal: Left, Arm, Swelling, Tender Psychiatric: Normal Mood Description: Calm Affect: Normal Speech Pattern: Clear - Assessment/Plan (1) DVT of axillary vein, acute left Status: Acute Plan: ADMIT, HEPARIN DRIP, CONTINUE HOME MEDS (2) Lung cancer metastatic to bone Status: Acute Plan: CONTINUE TIGRASSO (3) Anemia Qualifiers: Anemia type: unspecified type Qualified Code(s): D64.9 - Anemia, unspecified Status: Acute Plan: MONITOR H&H (4) Infected decubitus ulcer Qualifiers: Pressure injury stage: stage 4 Qualified Code(s): L89.94 - Pressure ulcer of unspecified site, stage 4; L08.9 - Local infection of the skin and subcutaneous tissue, unspecified Status: Acute Plan: WOUND CARE (5) Wounds, multiple open, lower extremity Qualifiers: Encounter type: subsequent encounter Laterality: unspecified laterality Qualified Code(s): S81.809D - Unspecified open wound, unspecified lower leg, subsequent encounter Status: Acute Plan: WOUND CARE (6) Hypothyroidism Qualifiers: Hypothyroidism type: acquired Qualified Code(s): E03.9 - Hypothyroidism, unspecified Status: Chronic Plan: CONTINUE SYNTHROID (7) HTN (hypertension) Qualifiers: Hypertension type: primary hypertension Qualified Code(s): I10 - Essential (primary) hypertension Status: Chronic Plan: CONTINUE COZAAR - Allergies Allergies/Adverse Reactions: Allergies Allergy/AdvReac Type Severity Reaction Status Date / Time No Known Allergies Allergy Verified 07/21/22 07:17 - Medications Home Medications: Home Medications Medication Instructions Recorded Confirmed losartan 25 mg tablet 25 mg PO QDAY 01/20/22 08/25/22 fentanyl 25 mcg/hr transdermal 1 patch transdermal Q3D 03/29/22 08/25/22 patch oxycodone-acetaminophen 10 mg-325 1 tab PO TID PRN 03/29/22 08/25/22 mg tablet apixaban 5 mg tablet (Eliquis) 2 tab PO BID 08/25/22 08/25/22 ascorbic acid (vitamin C) 500 mg 1 tab PO BID 08/25/22 08/25/22 tablet (Vitamin C With Geovanna Hips) levothyroxine 50 mcg tablet 1 tab PO QDAY 08/25/22 08/25/22 sodium hypochlorite 0.25 % 10 ml topical DIRECTED 08/25/22 08/25/22 solution (Dakin's Solution) zinc sulfate 50 mg zinc (220 mg) 1 cap PO QDAY 08/25/22 08/25/22 capsule
[2022-08-26] MEDS: ELIQUIS PO SCH (22:02)
[2022-08-27 05:37] LABS: BASOPHILS % (AUTO) 0.1 % (0.2-1.0); EOSINOPHILS % (AUTO) 0.2 % (0.9-2.9); LYMPHOCYTES # (AUTO) 1.1 X10^3/uL (1.3-2.9); LYMPHOCYTES % (AUTO) 15.5 % (21.0-51.0); MEAN CORPUSCULAR HEMOGLOBIN 23.4 pg (27.0-34.0); MEAN CORPUSCULAR VOLUME 73.2 fL (80.0-100.0); MEAN PLATELET VOLUME 7.6 fL (7.4-11.0); MONOCYTES # (AUTO) 0.4 x10^3/uL (0.3-0.8); MONOCYTES % (AUTO) 6.3 % (0.0-13.0); NEUTROPHILS # (AUTO) 5.5 x10^3/uL (2.2-4.8); NEUTROPHILS % (AUTO) 77.9 % (42.0-75.0); PLATELET COUNT 152 X10^3/uL (150.0-450.0); RED CELL DISTRIBUTION WIDTH 23.1 % (11.6-16.5); WHITE BLOOD COUNT 7.1 X10^3/uL (3.6-10.0)
[2022-08-27 05:39] LABS: ALANINE AMINOTRANSFERASE < 6 Units/L (12-78); ALBUMIN 1.1 g/dL (3.4-5.0); ALKALINE PHOSPHATASE 117 Units/L (46-116); ASPARTATE AMINO TRANSFERASE 13 Units/L (15-37); BLOOD UREA NITROGEN 8 mg/dL (7-18); CALCIUM 7.3 mg/dL (8.5-10.1); CARBON DIOXIDE 31.6 mmol/L (21-32); CHLORIDE 103 mmol/L (98-107); COR CA(FOR HYPOALB) 9.6 mg/dL (8.5-10.1); CREATININE 0.54 mg/dL (0.70-1.30); GLUCOSE 99 mg/dL (65-99); POTASSIUM 3.2 mmol/L (3.5-5.1); SODIUM 138 mmol/L (136-145); TOTAL PROTEIN 4.9 g/dL (6.4-8.2); eGFR NON BLACK RACES > 60 (>60)
[2022-08-27] MEDS ORDERED: CONSULT PHARMACY - POTASSIUM & MAGNESIUM XX SCH (06:00)
[2022-08-27 06:26] LABS: ANISOCYTOSIS 2+; HYPOCHROMASIA 1+; MICROCYTOSIS SLIGHT; OVALOCYTES SLIGHT; PLATELET MORPHOLOGY COMMENT NORMAL (NORMAL); SCHISTOCYTES SLIGHT; TARGET CELLS SLIGHT
[2022-08-27] MEDS: COZAAR PO SCH (09:12)
[2022-08-27] MEDS: ELIQUIS PO SCH ×2 (09:29→20:44)
[2022-08-27] MEDS: K-DUR TAB 20 MEQ PO SCH ×2 (09:29→09:30)
[2022-08-27] MEDS: SYNTHROID 50 mcg TAB PO SCH (09:30)
[2022-08-27] MEDS: MAG-OX TAB PO SCH (09:30)
[2022-08-27] MEDS: PERCOCET TAB 5/325 MG PO PRN ×2 (09:32→20:43)
[2022-08-27] MEDS ORDERED: BENADRYL INJ 50 MG VIAL IVP ONE (10:00)
[2022-08-27] MEDS ORDERED: TYLENOL 325 MG TAB PO PRN (10:00)
[2022-08-27 12:11] VITALS: BMI 22.6
[2022-08-27] MEDS ORDERED: BENADRYL INJ 50 MG VIAL ONE (13:18)
[2022-08-27] MEDS ORDERED: NS 250 ML IV 250 ML IV ONE ×2 (13:26→17:53)
--- NOTE | 2022-08-27 18:10 | PCM.PROG ---
Progress Note - Progress Note for Day of Date of Exam: 08/27/22 - Subjective Subjective: IS CURRENTLY INPATIENT STATUS FOR TREATMENT OF ACUTE DVT OF THE LEFT AXILLARY VEIN, ANEMIA, AND MULTIPLE INFECTED WOUNDS. 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 HE HAS A PMH OF HYPOTHYROIDISM AND HTN. TODAY, HE IS ALERT AND ORIENTED, LYING IN BED ON MORNING ROUNDS. HE CONTINUES TO COMPLAIN OF TENDERNESS OF THE LEFT ARM, BUT REPORTS SLIGHT IMPROVEMENT SINCE ADMISSION. HE HAS HAD AN UNEVENTFUL NIGHT AND DENIES ANY OTHER COMPLAINTS. ON EXAMINATION, HEART IS REGULAR IN RATE AND RHYTHM. BILATERAL LUNGS ARE NOTED WITH DIMINISHED LUNG SOUNDS THROUGHOUT. ABDOMEN IS ROUND, SOFT, AND NON-TENDER WITH NORMAL BOWEL SOUNDS NOTED IN ALL QUADRANTS. NO UPPER OR LOWER EXTREMITY EDEMA NOTED THIS MORNING. HIS VITALS THIS MORNING ARE: 97.7-72-14-95%-102/55. LABS WERE OBTAINED. WBC 7.1, RBC 3.00, HGB 7.0, HCT 22.0, PLT COUNT 152, SODIUM 138, POTASSIUM 3.2, CHLORIDE 103, BUN 8, CREATININE 0.54, GLUCOSE 99, CALCIUM 7.3, MAGNESIUM 1.7, TOTAL BILI 0.20, AST 13, ALT <6, ALK PHOS 117, TOTAL PROTEIN 4.9, ALBUMIN 1.1. BLOOD CULUTRES AND MULTIPLE WOUND CULTURES ARE PENDING. HE IS CURRENTLY RECEIVING ELIQUIS 50MG BID, DURAGESIC 25MCG/HR PATCH, SYNTHROID 50MCG DAILY, COZAAR 25MG DAILY, PERCOCET 1 TAB TID PRN. WE DISCONTINUED HIS HEPARIN LAST NIGHT DUE TO PATIENT REFUSING BLOOD DRAWS FOR PT/INR AND PTT. TODAY, WE WILL TYPE AND SCREEN, CROSSMATCH, AND TRANSFUSE TWO UNITS OF PACKED RED BLOOD CELLS. OTHERWISE, WE WILL CONTINUE WITH CURRENT PLAN OF CARE. WE PLAN TO FOLLOW-UP WITH AM LABS AND CONTINUE TO MONITOR. TIME SPENT ON CLINICAL ASSESSMENT, REVIEWING LABS AND IMAGING, DECISION MAKING, AND DOCUMENTATION GREATER THAN 45 MINUTES. - Past Medical Family Social History Past Med/Fam/Surg Hx: No changes since H&P Allergies: Allergies No Known Allergies Allergy (Verified 07/21/22 07:17) - Review of Systems ROS: No change since H&P - Vital Signs and I&O's Vital Signs: Vital Signs Temperature 97.2 F Temperature 97.5 F Pulse Rate 83 Pulse Rate 80 Pulse Rate 78 Pulse Rate 86 Pulse Rate 80 Pulse Rate 68 Pulse Rate 65 Pulse Rate 71 Pulse Rate 67 Pulse Rate 69 Pulse Rate 72 Pulse Rate 73 Pulse Rate 75 Respiratory Rate 15 Respiratory Rate 21 Respiratory Rate 20 Respiratory Rate 22 Respiratory Rate 18 Respiratory Rate 16 Respiratory Rate 17 Respiratory Rate 22 Respiratory Rate 14 Respiratory Rate 23 Respiratory Rate 15 Respiratory Rate 16 Respiratory Rate 16 Respiratory Rate 18 Blood Pressure 128/65 Blood Pressure 118/63 Blood Pressure 116/60 Blood Pressure 109/63 Blood Pressure 110/60 Blood Pressure 120/64 Blood Pressure 117/71 O2 Sat by Pulse Oximetry 100 O2 Sat by Pulse Oximetry 97 O2 Sat by Pulse Oximetry 98 O2 Sat by Pulse Oximetry 97 O2 Sat by Pulse Oximetry 97 O2 Sat by Pulse Oximetry 97 O2 Sat by Pulse Oximetry 97 O2 Sat by Pulse Oximetry 95 O2 Sat by Pulse Oximetry 97 O2 Sat by Pulse Oximetry 96 O2 Sat by Pulse Oximetry 95 O2 Sat by Pulse Oximetry 95 O2 Sat by Pulse Oximetry 97 Intake and Output: Intake & Output 08/25/22 08/26/22 08/27/22 08/28/22 11:59 11:59 11:59 11:59 Intake Total 69 / 69 856 / 856 947 / 947 Output Total 200 / 200 275 / 275 Balance -131 / -131 856 / 856 672 / 672 - Physical Exam Oriented: Normal Eyes: Normal Ear: Normal Nose: Normal Throat: Normal Respiratory: Generalized, Diminished Cardiovascular: Normal : Normal Auscultation: Bowel Sounds: Normal Palpation: Normal Tenderness: Normal Skin: Normal Musculoskeletal: Left, Arm, Swelling, Tender Psychiatric: Normal Mood Description: Calm Affect: Normal Speech Pattern: Clear, Appropriate - Laboratory and Diagnostics Result Diagrams: 08/27/22 04:58 08/27/22 04:58 Labs: 08/26/22 15:00 Sacral - Preliminary 08/26/22 15:00 Sacral Wound Gram Stain - Final 08/26/22 15:00 Sacral Wound Culture - Preliminary 08/26/22 15:00 Foot - Left Wound Gram Stain - Final 08/26/22 15:00 Foot - Left Wound Culture - Preliminary 08/26/22 15:00 Leg - Left Wound Gram Stain - Final 08/26/22 15:00 Leg - Left Wound Culture - Preliminary 08/26/22 15:00 Leg - Right Wound Gram Stain - Final 08/26/22 15:00 Leg - Right Wound Culture - Preliminary 08/26/22 15:00 Sacral Gram Stain - Final 08/26/22 15:00 Sacral Gram Stain - Final Laboratory WBC 7.1 X10^3/uL (3.6-10.0) 08/27/22 04:58 RBC 3.00 X10^6/uL (4.7-6.0) L 08/27/22 04:58 Hgb 7.0 g/dL (13.5-18.0) L* 08/27/22 04:58 Hct 22.0 % (42.0-54.0) L 08/27/22 04:58 MCV 73.2 fL (80.0-100.0) L 08/27/22 04:58 MCH 23.4 pg (27.0-34.0) L 08/27/22 04:58 MCHC 32.0 g/dL (33.0-35.0) L 08/27/22 04:58 RDW 23.1 % (11.6-16.5) H 08/27/22 04:58 Plt Count 152 X10^3/uL (150.0-450.0) 08/27/22 04:58 Plt Count Comment Adequate (ADEQUATE) 08/27/22 04:58 MPV 7.6 fL (7.4-11.0) 08/27/22 04:58 Neut % (Auto) 77.9 % (42.0-75.0) H 08/27/22 04:58 Lymph % (Auto) 15.5 % (21.0-51.0) L 08/27/22 04:58 Charlton % (Auto) 6.3 % (0.0-13.0) 08/27/22 04:58 Eos % (Auto) 0.2 % (0.9-2.9) L 08/27/22 04:58 Baso % (Auto) 0.1 % (0.2-1.0) L 08/27/22 04:58 Neut # (Auto) 5.5 x10^3/uL (2.2-4.8) H 08/27/22 04:58 Lymph # (Auto) 1.1 X10^3/uL (1.3-2.9) L 08/27/22 04:58 Charlton # (Auto) 0.4 x10^3/uL (0.3-0.8) 08/27/22 04:58 Eos # (Auto) 0.0 x10^3/uL (0.0-0.2) 08/27/22 04:58 Baso # (Auto) 0.0 X10^3/uL (0.0-0.1) 08/27/22 04:58 Absolute Nucleated RBC 0.0 /100WBC 08/27/22 04:58 Plt Morphology Comment Normal (NORMAL) 08/27/22 04:58 RBC Morphology Abnormal (NORMAL) 08/27/22 04:58 Hypochromasia 1+ A 08/27/22 04:58 Anisocytosis 2+ A 08/27/22 04:58 Microcytosis Slight A 08/27/22 04:58 Target Cells Slight A 08/27/22 04:58 Tear Drop Cells Present 08/25/22 22:00 Ovalocytes Slight A 08/27/22 04:58 Schistocytes Slight A 08/27/22 04:58 PT 14.9 SECONDS (11.8-14.3) 08/25/22 22:00 INR Target Range - 08/25/22 22:00 INR 1.19 (0.8-1.3) 08/25/22 22:00 APTT 40.3 SECONDS (22.9-36.5) H 08/26/22 16:10 PTT Comment - 08/26/22 16:10 Sodium 138 mmol/L (136-145) 08/27/22 04:58 Corrected Sodium TNP 08/27/22 04:58 Potassium 3.2 mmol/L (3.5-5.1) L 08/27/22 04:58 Chloride 103 mmol/L (98-107) 08/27/22 04:58 Carbon Dioxide 31.6 mmol/L (21-32) 08/27/22 04:58 BUN 8 mg/dL (7-18) 08/27/22 04:58 Creatinine 0.54 mg/dL (0.70-1.30) L 08/27/22 04:58 Est GFR (MDRD) Af Amer > 60 (>60) 08/27/22 04:58 Est GFR (MDRD) Non-Af > 60 (>60) 08/27/22 04:58 Glucose 99 mg/dL (65-99) 08/27/22 04:58 Calcium 7.3 mg/dL (8.5-10.1) L 08/27/22 04:58 Corrected Calcium 9.6 mg/dL (8.5-10.1) 08/27/22 04:58 Magnesium 1.7 mg/dL (2.0-2.9) L 08/27/22 04:58 Total Bilirubin 0.20 mg/dL (0.2-1.0) 08/27/22 04:58 AST 13 Units/L (15-37) L 08/27/22 04:58 ALT < 6 Units/L (12-78) L 08/27/22 04:58 Alkaline Phosphatase 117 Units/L (46-116) H 08/27/22 04:58 Total Protein 4.9 g/dL (6.4-8.2) L 08/27/22 04:58 Albumin 1.1 g/dL (3.4-5.0) L 08/27/22 04:58 Globulin 3.8 g/dL (2.5-4.5) 08/27/22 04:58 Albumin/Globulin Ratio 0.3 Ratio (1.1-2.1) L 08/27/22 04:58 Blood Type AB POSITIVE 08/27/22 10:14 Antibody Screen Negative 08/27/22 10:14 Crossmatch See Detail 08/27/22 10:14 - Plan (1) DVT of axillary vein, acute left Status: Acute Plan: ELIQUIS 5MG BID, CONTINUE HOME MEDS (2) Lung cancer metastatic to bone Status: Acute Plan: CONTINUE TIGRASSO (3) Anemia Status: Acute Qualifiers: Anemia type: unspecified type Qualified Code(s): D64.9 - Anemia, unspecified Plan: MONITOR H&H (4) Infected decubitus ulcer Status: Acute Qualifiers: Pressure injury stage: stage 4 Qualified Code(s): L89.94 - Pressure ulcer of unspecified site, stage 4; L08.9 - Local infection of the skin and subcutaneous tissue, unspecified Plan: WOUND CARE (5) Wounds, multiple open, lower extremity Status: Acute Qualifiers: Encounter type: subsequent encounter Laterality: unspecified laterality Qualified Code(s): S81.809D - Unspecified open wound, unspecified lower leg, subsequent encounter Plan: WOUND CARE (6) Hypothyroidism Status: Chronic Qualifiers: Hypothyroidism type: acquired Qualified Code(s): E03.9 - Hypothyroidism, unspecified Plan: CONTINUE SYNTHROID (7) HTN (hypertension) Status: Chronic Qualifiers: Hypertension type: primary hypertension Qualified Code(s): I10 - Essential (primary) hypertension Plan: CONTINUE COZAAR
[2022-08-27] MEDS ORDERED: COLACE CAP 100 MG PO PRN (19:42)
[2022-08-27] MEDS ORDERED: MILK OF MAGNESIA PO PRN (19:42)
[2022-08-27 22:00] LABS: HEMOGLOBIN 10.3 g/dL (13.5-18.0)
[2022-08-28 05:11] LABS: BASOPHILS % (AUTO) 0.1 % (0.2-1.0); EOSINOPHILS % (AUTO) 0.1 % (0.9-2.9); HEMATOCRIT 28.5 % (42.0-54.0); HEMOGLOBIN 9.6 g/dL (13.5-18.0); LYMPHOCYTES # (AUTO) 1.5 X10^3/uL (1.3-2.9); LYMPHOCYTES % (AUTO) 16.8 % (21.0-51.0); MEAN CORPUSCULAR HEMOGLOBIN 25.5 pg (27.0-34.0); MEAN CORPUSCULAR HGB CONC 33.7 g/dL (33.0-35.0); MEAN CORPUSCULAR VOLUME 75.5 fL (80.0-100.0); MEAN PLATELET VOLUME 7.6 fL (7.4-11.0); MONOCYTES # (AUTO) 0.5 x10^3/uL (0.3-0.8); MONOCYTES % (AUTO) 5.5 % (0.0-13.0); NEUTROPHILS # (AUTO) 6.9 x10^3/uL (2.2-4.8); NEUTROPHILS % (AUTO) 77.5 % (42.0-75.0); PLATELET COUNT 141 X10^3/uL (150.0-450.0); RED BLOOD COUNT 3.77 X10^6/uL (4.7-6.0); RED CELL DISTRIBUTION WIDTH 20.9 % (11.6-16.5); WHITE BLOOD COUNT 8.9 X10^3/uL (3.6-10.0)
[2022-08-28 05:25] LABS: ALANINE AMINOTRANSFERASE 6 Units/L (12-78); ALBUMIN 1.1 g/dL (3.4-5.0); ALKALINE PHOSPHATASE 111 Units/L (46-116); ASPARTATE AMINO TRANSFERASE 14 Units/L (15-37); BLOOD UREA NITROGEN 7 mg/dL (7-18); CALCIUM 7.2 mg/dL (8.5-10.1); CHLORIDE 102 mmol/L (98-107); COR CA(FOR HYPOALB) 9.5 mg/dL (8.5-10.1); CREATININE 0.58 mg/dL (0.70-1.30); GLUCOSE 91 mg/dL (65-99); MAGNESIUM 1.9 mg/dL (2.0-2.9); POTASSIUM 3.5 mmol/L (3.5-5.1); SODIUM 139 mmol/L (136-145); TOTAL PROTEIN 4.8 g/dL (6.4-8.2); eGFR NON BLACK RACES > 60 (>60)
[2022-08-28] MEDS ORDERED: CONSULT PHARMACY - POTASSIUM & MAGNESIUM XX SCH (06:00)
[2022-08-28 06:15] LABS: ANISOCYTOSIS 1+; HYPOCHROMASIA SLIGHT; MICROCYTOSIS SLIGHT; OVALOCYTES SLIGHT; SCHISTOCYTES SLIGHT; TARGET CELLS SLIGHT
[2022-08-28 06:16] LABS: PLATELET MORPHOLOGY COMMENT NORMAL (NORMAL)
[2022-08-28] MEDS ORDERED: K-DUR TAB 20 MEQ PO SCH (07:00)
[2022-08-28] MEDS: COZAAR PO SCH (08:26)
[2022-08-28] MEDS: JUVEN PO SCH ×2 (09:00→20:28)
[2022-08-28] MEDS: MAG-OX TAB PO SCH ×2 (09:02→09:03)
[2022-08-28] MEDS: ELIQUIS PO SCH ×2 (09:02→20:20)
[2022-08-28] MEDS: SYNTHROID 50 mcg TAB PO SCH (09:03)
[2022-08-28] MEDS: PATIENT'S HOME MEDICATION PO SCH (10:40)
[2022-08-28] MEDS: PERCOCET TAB 5/325 MG PO PRN ×2 (12:50→20:43)
--- NOTE | 2022-08-28 17:33 | PCM.PROG ---
Progress Note - Progress Note for Day of Date of Exam: 08/28/22 - Subjective Subjective: IS CURRENTLY INPATIENT STATUS FOR TREATMENT OF ACUTE DVT OF THE LEFT AXILLARY VEIN, ANEMIA, AND MULTIPLE INFECTED WOUNDS. 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 HE HAS A PMH OF HYPOTHYROIDISM AND HTN. HE RECEIVED TWO UNITS OF PACKED RED BLOOD CELLS YESTERDAY. TODAY, HE IS ALERT AND ORIENTED, LYING IN BED ON MORNING ROUNDS. HE CONTINUES TO COMPLAIN OF TENDERNESS OF THE LEFT ARM, BUT REPORTS SLIGHT IMPROVEMENT SINCE ADMISSION. HE HAS HAD AN UNEVENTFUL NIGHT AND DENIES ANY OTHER COMPLAINTS. ON EXAMINATION, HEART IS REGULAR IN RATE AND RHYTHM. BILATERAL LUNGS ARE NOTED WITH DIMINISHED LUNG SOUNDS THROUGHOUT. ABDOMEN IS ROUND, SOFT, AND NON-TENDER WITH NORMAL BOWEL SOUNDS NOTED IN ALL QUADRANTS. NO UPPER OR LOWER EXTREMITY EDEMA NOTED THIS MORNING. HIS VITALS THIS MORNING ARE: 97.8-92-25-94%-102/56. LABS WERE OBTAINED. WBC 8.9, RBC 3.77, HGB 9.6, HCT 28.5, PLT COUNT 141, SODIUM 139, POTASSIUM 3.5, CHLORIDE 102, CARBON DIOXIDE 0.58, BUN 7, CREATININE 0.58, GLUCOSE 91, CALCIUM 7.2, MAGNESIUM 1.9, AST 14, ALT 6, ALK PHOS 111, TOTAL PROTEIN 4.8, ALBUMIN 1.1. BLOOD CULUTRES AND MULTIPLE WOUND CULTURES ARE PENDING. HE IS CURRENTLY RECEIVING ELIQUIS 50MG BID, DURAGESIC 25MCG/HR PATCH, SYNTHROID 50MCG DAILY, COZAAR 25MG DAILY, PERCOCET 1 TAB TID PRN. WE WILL ADD THE POTASSIUM AND MAGNESIUM PROTOCOL TODAY. OTHERWISE, WILL CONTINUE WITH CURRENT PLAN OF CARE TODAY. WE PLAN TO FOLLOW-UP WITH AM LABS AND CONTINUE TO MONITOR. TIME SPENT ON CLINICAL ASSESSMENT, REVIEWING LABS AND IMAGING, DECISION MAKING, AND DOCUMENTATION GREATER THAN 45 MINUTES. - Past Medical Family Social History Past Med/Fam/Surg Hx: No changes since H&P Allergies: Allergies No Known Allergies Allergy (Verified 07/21/22 07:17) - Review of Systems ROS: No change since H&P - Vital Signs and I&O's Vital Signs: Vital Signs Pulse Rate 73 Pulse Rate 78 Pulse Rate 86 Pulse Rate 80 Pulse Rate 82 Pulse Rate 84 Pulse Rate 77 Pulse Rate 79 Pulse Rate 72 Pulse Rate 78 Pulse Rate 72 Pulse Rate 87 Pulse Rate 84 Pulse Rate 79 Pulse Rate 83 Pulse Rate 70 Pulse Rate 70 Pulse Rate 73 Pulse Rate 74 Pulse Rate 72 Pulse Rate 73 Pulse Rate 74 Pulse Rate 81 Pulse Rate 82 Pulse Rate 75 Pulse Rate 74 Respiratory Rate 19 Respiratory Rate 27 Respiratory Rate 33 Respiratory Rate 39 Respiratory Rate 32 Respiratory Rate 33 Respiratory Rate 24 Respiratory Rate 18 Respiratory Rate 25 Respiratory Rate 27 Respiratory Rate 20 Respiratory Rate 26 Respiratory Rate 20 Respiratory Rate 19 Respiratory Rate 18 Respiratory Rate 16 Respiratory Rate 14 Respiratory Rate 14 Respiratory Rate 13 Respiratory Rate 14 Respiratory Rate 14 Respiratory Rate 14 Respiratory Rate 15 Respiratory Rate 16 Respiratory Rate 14 Respiratory Rate 16 Blood Pressure 105/58 Blood Pressure 110/63 Blood Pressure 109/59 Blood Pressure 106/61 Blood Pressure 106/58 Blood Pressure 104/57 Blood Pressure 102/58 O2 Sat by Pulse Oximetry 92 O2 Sat by Pulse Oximetry 94 O2 Sat by Pulse Oximetry 94 O2 Sat by Pulse Oximetry 94 O2 Sat by Pulse Oximetry 95 O2 Sat by Pulse Oximetry 95 O2 Sat by Pulse Oximetry 94 O2 Sat by Pulse Oximetry 95 O2 Sat by Pulse Oximetry 94 O2 Sat by Pulse Oximetry 94 O2 Sat by Pulse Oximetry 93 O2 Sat by Pulse Oximetry 93 O2 Sat by Pulse Oximetry 93 O2 Sat by Pulse Oximetry 96 O2 Sat by Pulse Oximetry 96 O2 Sat by Pulse Oximetry 94 O2 Sat by Pulse Oximetry 95 O2 Sat by Pulse Oximetry 95 O2 Sat by Pulse Oximetry 95 O2 Sat by Pulse Oximetry 95 O2 Sat by Pulse Oximetry 95 O2 Sat by Pulse Oximetry 96 O2 Sat by Pulse Oximetry 95 O2 Sat by Pulse Oximetry 96 O2 Sat by Pulse Oximetry 95 Intake and Output: Intake & Output 08/26/22 08/27/22 08/28/22 08/29/22 11:59 11:59 11:59 11:59 Intake Total 69 / 69 856 / 856 1936 / 1936 510 / 510 Output Total 200 / 200 625 / 625 300 / 300 Balance -131 / -131 856 / 856 1311 / 1311 210 / 210 - Physical Exam Oriented: Normal Eyes: Normal Ear: Normal Nose: Normal Throat: Normal Respiratory: Generalized, Diminished Cardiovascular: Normal : Normal Auscultation: Bowel Sounds: Normal Palpation: Normal Tenderness: Normal Skin: Normal Musculoskeletal: Left, Arm, Swelling, Tender Psychiatric: Normal Mood Description: Calm Affect: Normal Speech Pattern: Clear, Appropriate - Laboratory and Diagnostics Result Diagrams: 08/28/22 04:30 08/28/22 04:30 Labs: 08/26/22 16:10 Blood Blood Culture - Preliminary 08/26/22 10:34 Blood Blood Culture - Preliminary 08/26/22 15:00 Sacral - Preliminary 08/26/22 15:00 Sacral - Preliminary 08/26/22 15:00 Sacral Wound Gram Stain - Final 08/26/22 15:00 Sacral Wound Culture - Preliminary 08/26/22 15:00 Foot - Left Wound Gram Stain - Final 08/26/22 15:00 Foot - Left Wound Culture - Preliminary 08/26/22 15:00 Leg - Left Wound Gram Stain - Final 08/26/22 15:00 Leg - Left Wound Culture - Preliminary 08/26/22 15:00 Leg - Right Wound Gram Stain - Final 08/26/22 15:00 Leg - Right Wound Culture - Preliminary 08/26/22 15:00 Sacral Gram Stain - Final 08/26/22 15:00 Sacral Gram Stain - Final Laboratory WBC 8.9 X10^3/uL (3.6-10.0) 08/28/22 04:30 RBC 3.77 X10^6/uL (4.7-6.0) L 08/28/22 04:30 Hgb 9.6 g/dL (13.5-18.0) L 08/28/22 04:30 Hct 28.5 % (42.0-54.0) L 08/28/22 04:30 MCV 75.5 fL (80.0-100.0) L 08/28/22 04:30 MCH 25.5 pg (27.0-34.0) L 08/28/22 04:30 MCHC 33.7 g/dL (33.0-35.0) 08/28/22 04:30 RDW 20.9 % (11.6-16.5) H 08/28/22 04:30 Plt Count 141 X10^3/uL (150.0-450.0) L 08/28/22 04:30 Plt Count Comment Decreased (ADEQUATE) 08/28/22 04:30 MPV 7.6 fL (7.4-11.0) 08/28/22 04:30 Neut % (Auto) 77.5 % (42.0-75.0) H 08/28/22 04:30 Lymph % (Auto) 16.8 % (21.0-51.0) L 08/28/22 04:30 Douglas % (Auto) 5.5 % (0.0-13.0) 08/28/22 04:30 Eos % (Auto) 0.1 % (0.9-2.9) L 08/28/22 04:30 Baso % (Auto) 0.1 % (0.2-1.0) L 08/28/22 04:30 Neut # (Auto) 6.9 x10^3/uL (2.2-4.8) H 08/28/22 04:30 Lymph # (Auto) 1.5 X10^3/uL (1.3-2.9) 08/28/22 04:30 Douglas # (Auto) 0.5 x10^3/uL (0.3-0.8) 08/28/22 04:30 Eos # (Auto) 0.0 x10^3/uL (0.0-0.2) 08/28/22 04:30 Baso # (Auto) 0.0 X10^3/uL (0.0-0.1) 08/28/22 04:30 Absolute Nucleated RBC 0.0 /100WBC 08/28/22 04:30 Plt Morphology Comment Normal (NORMAL) 08/28/22 04:30 RBC Morphology Abnormal (NORMAL) 08/28/22 04:30 Hypochromasia Slight A 08/28/22 04:30 Anisocytosis 1+ A 08/28/22 04:30 Microcytosis Slight A 08/28/22 04:30 Target Cells Slight A 08/28/22 04:30 Tear Drop Cells Present 08/25/22 22:00 Ovalocytes Slight A 08/28/22 04:30 Schistocytes Slight A 08/28/22 04:30 PT 14.9 SECONDS (11.8-14.3) 08/25/22 22:00 INR Target Range - 08/25/22 22:00 INR 1.19 (0.8-1.3) 08/25/22 22:00 APTT 40.3 SECONDS (22.9-36.5) H 08/26/22 16:10 PTT Comment - 08/26/22 16:10 Sodium 139 mmol/L (136-145) 08/28/22 04:30 Corrected Sodium TNP 08/28/22 04:30 Potassium 3.5 mmol/L (3.5-5.1) 08/28/22 04:30 Chloride 102 mmol/L (98-107) 08/28/22 04:30 Carbon Dioxide 34.0 mmol/L (21-32) H 08/28/22 04:30 BUN 7 mg/dL (7-18) 08/28/22 04:30 Creatinine 0.58 mg/dL (0.70-1.30) L 08/28/22 04:30 Est GFR (MDRD) Af Amer > 60 (>60) 08/28/22 04:30 Est GFR (MDRD) Non-Af > 60 (>60) 08/28/22 04:30 Glucose 91 mg/dL (65-99) 08/28/22 04:30 Calcium 7.2 mg/dL (8.5-10.1) L 08/28/22 04:30 Corrected Calcium 9.5 mg/dL (8.5-10.1) 08/28/22 04:30 Magnesium 1.9 mg/dL (2.0-2.9) L 08/28/22 04:30 Total Bilirubin 0.30 mg/dL (0.2-1.0) 08/28/22 04:30 AST 14 Units/L (15-37) L 08/28/22 04:30 ALT 6 Units/L (12-78) L 08/28/22 04:30 Alkaline Phosphatase 111 Units/L (46-116) 08/28/22 04:30 Total Protein 4.8 g/dL (6.4-8.2) L 08/28/22 04:30 Albumin 1.1 g/dL (3.4-5.0) L 08/28/22 04:30 Globulin 3.7 g/dL (2.5-4.5) 08/28/22 04:30 Albumin/Globulin Ratio 0.3 Ratio (1.1-2.1) L 08/28/22 04:30 Blood Type AB POSITIVE 08/27/22 10:14 Antibody Screen Negative 08/27/22 10:14 Crossmatch See Detail 08/27/22 10:14 - Plan (1) DVT of axillary vein, acute left Status: Acute Plan: ELIQUIS 5MG BID, CONTINUE HOME MEDS (2) Lung cancer metastatic to bone Status: Acute Plan: CONTINUE TIGRASSO (3) Anemia Status: Acute Qualifiers: Anemia type: unspecified type Qualified Code(s): D64.9 - Anemia, unspecified Plan: MONITOR H&H (4) Infected decubitus ulcer Status: Acute Qualifiers: Pressure injury stage: stage 4 Qualified Code(s): L89.94 - Pressure ulcer of unspecified site, stage 4; L08.9 - Local infection of the skin and subcutaneous tissue, unspecified Plan: WOUND CARE (5) Wounds, multiple open, lower extremity Status: Acute Qualifiers: Encounter type: subsequent encounter Laterality: unspecified laterality Qualified Code(s): S81.809D - Unspecified open wound, unspecified lower leg, subsequent encounter Plan: WOUND CARE (6) Hypothyroidism Status: Chronic Qualifiers: Hypothyroidism type: acquired Qualified Code(s): E03.9 - Hypothyroidism, unspecified Plan: CONTINUE SYNTHROID (7) HTN (hypertension) Status: Chronic Qualifiers: Hypertension type: primary hypertension Qualified Code(s): I10 - Essential (primary) hypertension Plan: CONTINUE COZAAR (8) Hypomagnesemia Status: Acute Plan: MAGNESIUM PROTOCOL (9) Hypokalemia Status: Acute Plan: POTASSIUM PROTOCOL
[2022-08-28] MEDS ORDERED: STERILE WATER IRRIGATION IR ONE (19:33)
[2022-08-29 05:21] LABS: BASOPHILS % (AUTO) 0.1 % (0.2-1.0); EOSINOPHILS % (AUTO) 0.3 % (0.9-2.9); HEMATOCRIT 28.4 % (42.0-54.0); HEMOGLOBIN 9.7 g/dL (13.5-18.0); LYMPHOCYTES # (AUTO) 1.9 X10^3/uL (1.3-2.9); LYMPHOCYTES % (AUTO) 17.3 % (21.0-51.0); MEAN CORPUSCULAR HEMOGLOBIN 25.8 pg (27.0-34.0); MEAN CORPUSCULAR VOLUME 75.9 fL (80.0-100.0); MEAN PLATELET VOLUME 7.9 fL (7.4-11.0); MONOCYTES # (AUTO) 0.5 x10^3/uL (0.3-0.8); MONOCYTES % (AUTO) 4.6 % (0.0-13.0); NEUTROPHILS # (AUTO) 8.5 x10^3/uL (2.2-4.8); NEUTROPHILS % (AUTO) 77.7 % (42.0-75.0); PLATELET COUNT 131 X10^3/uL (150.0-450.0); RED BLOOD COUNT 3.74 X10^6/uL (4.7-6.0); RED CELL DISTRIBUTION WIDTH 21.6 % (11.6-16.5)
[2022-08-29 05:28] LABS: ALANINE AMINOTRANSFERASE < 6 Units/L (12-78); ALKALINE PHOSPHATASE 116 Units/L (46-116); ASPARTATE AMINO TRANSFERASE 16 Units/L (15-37); BLOOD UREA NITROGEN 10 mg/dL (7-18); CALCIUM 7.3 mg/dL (8.5-10.1); CARBON DIOXIDE 33.2 mmol/L (21-32); CHLORIDE 100 mmol/L (98-107); COR CA(FOR HYPOALB) 9.7 mg/dL (8.5-10.1); CREATININE 0.62 mg/dL (0.70-1.30); GLUCOSE 78 mg/dL (65-99); POTASSIUM 3.9 mmol/L (3.5-5.1); SODIUM 136 mmol/L (136-145); TOTAL PROTEIN 4.7 g/dL (6.4-8.2); eGFR NON BLACK RACES > 60 (>60)
[2022-08-29 05:52] LABS: ANISOCYTOSIS 1+; HYPOCHROMASIA SLIGHT; MICROCYTOSIS SLIGHT; OVALOCYTES SLIGHT; PLATELET MORPHOLOGY COMMENT NORMAL (NORMAL); SCHISTOCYTES SLIGHT
[2022-08-29] MEDS ORDERED: CONSULT PHARMACY - POTASSIUM & MAGNESIUM XX SCH (07:00)
[2022-08-29] MEDS ORDERED: MAG-OX TAB PO SCH (07:00)
[2022-08-29] MEDS: PATIENT'S HOME MEDICATION PO SCH ×2 (09:08→10:59)
[2022-08-29] MEDS: SYNTHROID 50 mcg TAB PO SCH (09:09)
[2022-08-29] MEDS: ELIQUIS PO SCH (09:10)
[2022-08-29] MEDS: JUVEN PO SCH (09:46)
[2022-08-29 10:06] VITALS: PULSE 77; RESP 18; TEMP 97.2; O2SAT 96
[2022-08-29] MEDS: COZAAR PO SCH (11:00)
[2022-08-29 11:05] VITALS: BP 115/58
== END 2022-08-29 13:55 | disposition home health service (06) | DRG 299 ==
LOC: ER 20:29 → ICU 08-26 02:14
PROVIDERS: ADMIT Family Medicine; ATTEND Internal Medicine

== ENCOUNTER 2022-09-04 18:36 | Inpatient (IN) ==
--- NOTE | 2022-09-04 21:19 | DR.EXTPAIN ---
HPI Time seen Time Seen by Provider: 09/04/22 21:19 PCP Primary Care Physician: KEI Complaint/Symptoms Chief Complaint Doctor Comments: 72 y/o male presents for evaluation. Pt with chronic sacral/decubitus wounds. Having increased low back pain. Denies fevr, chills, lightheadedness. No nausea, vomiting, diarrhea. Pt with recent hospitalization for L subclavian DVT. Had cultures of the wounds then, grew out multiple infective organisms.. Pt with h/o metastatic lung ca, to the bones, dx'd 7 months ago. Chief Complaint:: PATIENT RECOMMENDED TO ER BY DR. MANDEL NURSE DUE TO NEW ONSET FOUL SMELL OF CHRONIC SACRAL WOUNDS. PT STATES HIS BILATERAL LOWER EXTREMITY WOUNDS HAVE BEEN BLEEDING. PT NOTED TO BE ON BLOOD THINNERS DUE TO BLOOD CLOTS. COVID-19 Coronavirus risk:travel/contact w/high risk person: No Has patient experienced Coronavirus symptoms: No Nurses notes reviewed Nurses Notes Review: Yes Source History Provided: Patient and Significant Other Mode of arrival Mode of Arrival: Wheelchair Timing Onset of Chief Complaint: 09/03/22 PMH PMH Past Medical History: Yes Past Medical History: Anemia, GERD, Hypertension and Hypothyroidism Past Surgical History: Yes Surgical History: No History Family History History of Family Medical Conditions: Yes Family Medical History: Cancer, Coronary Artery Disease and Hypertension Social History Does patient currently use any type of tobacco product: No Have you used tobacco products in the last 12 months: No Type of Tobacco Use: None Does any household member use tobacco: No Alcohol Use: None Do you use any recreational Drugs:: No Lives With: Spouse Lives Where: Home Travel Risk Coronavirus risk:travel/contact w/high risk person: No Has patient experienced Coronavirus symptoms: No Infectious screening Have you traveled outside the country in the last 6 months?: No Isolation: Standard ROS Review of Systems Constitutional: No Symptoms Reported Eyes: No Symptoms Reported ENTM: No Symptoms Reported Respiratoy: No Symptoms Reported Cardiovascular: No Symptoms Reported Gastrointestinal/Abdominal: No Symptoms Reported Genitourinary: No Symptoms Reported Neurological: No Symptoms Reported Musculoskeletal: See HPI Integumentary: See HPI All Other Systems: Reviewed and Negative PE Vital Signs Vitals: Vital Signs Temperature 99.1 F Pulse Rate 88 Pulse Rate 88 Pulse Rate 88 Pulse Rate 88 Pulse Rate 85 Pulse Rate 83 Pulse Rate 102 Respiratory Rate 16 Respiratory Rate 20 Blood Pressure 113/57 Blood Pressure 98/56 O2 Sat by Pulse Oximetry 99 O2 Sat by Pulse Oximetry 99 O2 Sat by Pulse Oximetry 100 O2 Sat by Pulse Oximetry 97 O2 Sat by Pulse Oximetry 100 O2 Sat by Pulse Oximetry 99 O2 Sat by Pulse Oximetry 98 General General Appearance: Alert and In No Apparent Distress Eyes Eye exam: PERRL and EOMI ENT ENT Exam: Mucous Membranes Moist Neck Neck Exam: Normal Inspection Respiratory Respiratory Exam: Normal Lung Sounds Bilat; negative Accessory Muscle Use or Respiratory Distress Cardiovascular Cardiovascular Exam: Regular Rate, Normal Rhythm and Normal Heart Sounds Back Back Exam: Other (+ large, deep sacral deubitus, extended up thoracic region, + wounds contaminated with feces. St 4) Skin Skin Exam: Warm, Dry and Other (+ large deep L hip decubitus, st 4) COURSE Treatment Treatment: 72 y/o with worsening chroinc decubiti, with stool in sacral/lumbar wound. BP low on arrival, concerning for developing sepsis, W/u initiated. Pt given IV fluids, IV Zosyn after blood cultures obtained (multiple bacteria grew out of wounds recently, all seem sensitive to Zosyn). BP coming up. Labs overall acceptable. Recommend admission, discussed with Dr Shankar, accepts the admission. Will consult with surgery for his wounds. [facility] Labs Reviewed Laboratory Results Reviewed?: Yes 09/04/22 22:26 09/04/22 22: Laboratory: WBC 9.9 X10^3/uL (3.6-10.0) 09/04/22 22: RBC 4.30 X10^6/uL (4.7-6.0) L 09/04/22 22: Hgb 11.0 g/dL (13.5-18.0) L 09/04/22 22: Hct 33.7 % (42.0-54.0) L 09/04/22 22: MCV 78.4 fL (80.0-100.0) L 09/04/22 22: MCH 25.5 pg (27.0-34.0) L 09/04/22 22: MCHC 32.6 g/dL (33.0-35.0) L 09/04/22 22: RDW 22.0 % (11.6-16.5) H 09/04/22 22: Plt Count 180 X10^3/uL (150.0-450.0) 09/04/22 22: Plt Count Comment Adequate (ADEQUATE) 09/04/22 22: MPV 8.4 fL (7.4-11.0) 09/04/22 22: Neut % (Auto) 86.5 % (42.0-75.0) H 09/04/22 22: Lymph % (Auto) 9.1 % (21.0-51.0) L 09/04/22 22: [place] % (Auto) 4.2 % (0.0-13.0) 09/04/22 22: Eos % (Auto) 0.0 % (0.9-2.9) L 09/04/22 22: Baso % (Auto) 0.2 % (0.2-1.0) 09/04/22 22: Neut # (Auto) 8.6 x10^3/uL (2.2-4.8) H 09/04/22 22: Lymph # (Auto) 0.9 X10^3/uL (1.3-2.9) L 09/04/22 22: [place] # (Auto) 0.4 x10^3/uL (0.3-0.8) 09/04/22 22: Eos # (Auto) 0.0 x10^3/uL (0.0-0.2) 09/04/22 22: Baso # (Auto) 0.0 X10^3/uL (0.0-0.1) 09/04/22 22: Absolute Nucleated RBC 0.0 /100WBC 09/04/22 22: Plt Morphology Comment Normal (NORMAL) 09/04/22 22: RBC Morphology Abnormal (NORMAL) 09/04/22 22: Hypochromasia Slight A 09/04/22 22: Anisocytosis 1+ A 09/04/22 22: Microcytosis Slight A 09/04/22 22: Ovalocytes Present 09/04/22 22: Sodium 134 mmol/L (136-145) L 09/04/22 22: Corrected Sodium 135 mmol/L (136-145) L 09/04/22: Potassium 4.1 mmol/L (3.5-5.1) 09/04/22 22:26 Chloride 97 mmol/L (98-107) L 09/04/22 22:26 Carbon Dioxide 32.4 mmol/L (21-32) H 09/04/22 22:26 BUN 14 mg/dL (7-18) 09/04/22 22:26 Creatinine 0.90 mg/dL (0.70-1.30) 09/04/22 22:26 Est GFR (MDRD) Af Amer > 60 (>60) 09/04/22 22:26 Est GFR (MDRD) Non-Af > 60 (>60) 09/04/22 22:26 Glucose 127 mg/dL (65-99) H 09/04/22 22:26 Lactic Acid 2.5 mmol/L (0.4-2.0) H 09/04/22 22:26 Calcium 7.7 mg/dL (8.5-10.1) L 09/04/22 22:26 Corrected Calcium 9.9 mg/dL (8.5-10.1) 09/04/22 22:26 Total Bilirubin 0.30 mg/dL (0.2-1.0) 09/04/22 22:26 AST 17 Units/L (15-37) 09/04/22 22:26 ALT 8 Units/L (12-78) L 09/04/22 22:26 Alkaline Phosphatase 214 Units/L (46-116) H 09/04/22 22:26 Creatine Kinase 88 Units/L (39-308) 09/04/22 22:26 Total Protein 5.9 g/dL (6.4-8.2) L 09/04/22 22:26 Albumin 1.3 g/dL (3.4-5.0) L 09/04/22 22:26 Globulin 4.6 g/dL (2.5-4.5) H 09/04/22 22:26 Albumin/Globulin Ratio 0.3 Ratio (1.1-2.1) L 09/04/22 22:26 Specimen Type Catherized urine 09/04/22 22:15 Urine Color Dark yellow (YELLOW) 09/04/22 22:15 Urine Appearance Clear (CLEAR) 09/04/22 22:15 Urine pH 5.0 (5.0 - 8.0) 09/04/22 22:15 Ur Specific Thompson 1.025 (1.000-1.030) 09/04/22 22:15 Urine Protein 2+ (NEGATIVE) 09/04/22 22:15 Urine Glucose (UA) Negative (NEGATIVE) 09/04/22 22:15 Urine Ketones 1+ (NEGATIVE) 09/04/22 22:15 Urine Blood 5+ (NEGATIVE) 09/04/22 22:15 Urine Nitrite Negative (NEGATIVE) 09/04/22 22:15 Urine Bilirubin Negative (NEGATIVE) 09/04/22 22:15 Urine Urobilinogen 2+ (NORMAL) 09/04/22 22:15 Ur Leukocyte Esterase 1+ (NEGATIVE) 09/04/22 22:15 Urine RBC 10-20 /HPF (0-3) A 09/04/22 22:15 Urine WBC 0-2 /HPF (0-5) 09/04/22 22:15 Ur Squamous Epith Cells Rare /HPF (NEGATIVE) 09/04/22 22:15 Calcium Oxalate Crystal Few /HPF (NEGATIVE) 09/04/22 22:15 Amorphous Sediment 1+ /HPF (NEGATIVE) 09/04/22 22:15 Urine Bacteria Negative /HPF (NEGATIVE) 09/04/22 22:15 Urine Mucus Many /HPF (NEGATIVE) 09/04/22 22:15 Ur Culture Indicated? No/not indicated 09/04/22 22:15 Labs acceptable. Opioid Opioid Risk Tool Age (Tino box if 16-45): No History of Preadolescent Sexual Abuse: No Total: 0 Total Score Risk Category: Low Risk Copyright: Mykel KERR predicting aberrant behaviors Discharge Plan Diagnosis Discharge Problem: Infected decubitus ulcer Discharge Plan Patient Disposition: 09 ADMITTED INPATIENT Condition: Stable Orders to Discharge Patient Discharge Orders: Transfer (Routine); Ordered 09/04/22 Ordered By: Jason Graves
[2022-09-04] MEDS ORDERED: NS 1,000 ML IV 1,000 ML IV ONE (21:37)
[2022-09-04] MEDS ORDERED: NS 1,000 ML IV 1,000 ML ONE (22:51)
[2022-09-04] MEDS ORDERED: ZOSYN VIAL 3.375 GRAMS IV ONE (22:51)
[2022-09-04] MEDS ORDERED: NS 100 ML IV 100 ML ONE (22:52)
[2022-09-04] MEDS ORDERED: ZOSYN VIAL 3.375 GRAMS 3.375 G in NS 100 ML IV 100 ML IV ONE (22:54)
[2022-09-04 22:56] LABS: BASOPHILS % (AUTO) 0.2 % (0.2-1.0); HEMATOCRIT 33.7 % (42.0-54.0); LYMPHOCYTES # (AUTO) 0.9 X10^3/uL (1.3-2.9); LYMPHOCYTES % (AUTO) 9.1 % (21.0-51.0); MEAN CORPUSCULAR HEMOGLOBIN 25.5 pg (27.0-34.0); MEAN CORPUSCULAR HGB CONC 32.6 g/dL (33.0-35.0); MEAN CORPUSCULAR VOLUME 78.4 fL (80.0-100.0); MEAN PLATELET VOLUME 8.4 fL (7.4-11.0); MONOCYTES # (AUTO) 0.4 x10^3/uL (0.3-0.8); MONOCYTES % (AUTO) 4.2 % (0.0-13.0); NEUTROPHILS # (AUTO) 8.6 x10^3/uL (2.2-4.8); NEUTROPHILS % (AUTO) 86.5 % (42.0-75.0); PLATELET COUNT 180 X10^3/uL (150.0-450.0); WHITE BLOOD COUNT 9.9 X10^3/uL (3.6-10.0)
[2022-09-04 23:03] LABS: BILIRUBIN,URINE NEGATIVE (NEGATIVE); BLOOD/HEMOGLOBIN,URINE 5+ (NEGATIVE); GLUCOSE, URINE NEGATIVE (NEGATIVE); KETONES,URINE 1+ (NEGATIVE); LEUKOCYTE ESTERASE ,URINE 1+ (NEGATIVE); NITRITES,URINE NEGATIVE (NEGATIVE); PROTEIN,URINE 2+ (NEGATIVE); UROBILINOGEN,URINE 2+ (NORMAL)
[2022-09-04 23:05] LABS: ALANINE AMINOTRANSFERASE 8 Units/L (12-78); ALBUMIN 1.3 g/dL (3.4-5.0); ALKALINE PHOSPHATASE 214 Units/L (46-116); ASPARTATE AMINO TRANSFERASE 17 Units/L (15-37); BLOOD UREA NITROGEN 14 mg/dL (7-18); CALCIUM 7.7 mg/dL (8.5-10.1); CARBON DIOXIDE 32.4 mmol/L (21-32); CHLORIDE 97 mmol/L (98-107); COR CA(FOR HYPOALB) 9.9 mg/dL (8.5-10.1); COR NA(FOR HYPERGLY) 135 mmol/L (136-145); CREATINE KINASE 88 Units/L (39-308); GLUCOSE 127 mg/dL (65-99); POTASSIUM 4.1 mmol/L (3.5-5.1); SODIUM 134 mmol/L (136-145); TOTAL PROTEIN 5.9 g/dL (6.4-8.2); eGFR NON BLACK RACES > 60 (>60)
[2022-09-04 23:10] LABS: LACTIC ACID 2.5 mmol/L (0.4-2.0)
[2022-09-04 23:15] LABS: APPEARANCE,URINE CLEAR (CLEAR); COLOR,URINE DARK YELLOW (YELLOW)
[2022-09-04 23:16] LABS: BACTERIA,URINE NEGATIVE /HPF (NEGATIVE); CALCIUM OXALATE CRYSTALS,UR FEW /HPF (NEGATIVE); SQUAMOUS EPITHELIAL CELL,UR RARE /HPF (NEGATIVE)
[2022-09-04 23:23] LABS: PLATELET MORPHOLOGY COMMENT NORMAL (NORMAL)
[2022-09-04 23:24] LABS: ANISOCYTOSIS 1+; HYPOCHROMASIA SLIGHT; MICROCYTOSIS SLIGHT; OVALOCYTES PRESENT
[2022-09-05] MEDS ORDERED: PERCOCET TAB 5/325 MG ONE ×2 (00:21→17:52)
[2022-09-05] MEDS ORDERED: PERCOCET TAB 5/325 MG PO ONE (00:25)
[2022-09-05] MEDS ORDERED: STERILE WATER IRRIGATION IR ONE (00:55)
[2022-09-05] MEDS ORDERED: PATIENT'S HOME MEDICATION (Oxycodone-Acetaminophen 10-325 mg tablet) PO PRN (01:54)
[2022-09-05] MEDS ORDERED: CONSULT PHARMACY - POTASSIUM & MAGNESIUM XX SCH (01:54)
[2022-09-05] MEDS: D5 1/2 NS 1,000 ML 1,000 ML IV SCH ×4 (05:55→23:25)
[2022-09-05] MEDS: ZOSYN VIAL 3.375 GRAMS 3.375 G in NS 100 ML IV 100 ML IV SCH ×3 (05:56→21:09)
[2022-09-05 06:31] LABS: BASOPHILS % (AUTO) 0.2 % (0.2-1.0); HEMATOCRIT 26.4 % (42.0-54.0); HEMOGLOBIN 8.7 g/dL (13.5-18.0); LYMPHOCYTES % (AUTO) 9.8 % (21.0-51.0); MEAN CORPUSCULAR HEMOGLOBIN 25.4 pg (27.0-34.0); MEAN CORPUSCULAR HGB CONC 32.8 g/dL (33.0-35.0); MEAN CORPUSCULAR VOLUME 77.3 fL (80.0-100.0); MEAN PLATELET VOLUME 7.7 fL (7.4-11.0); MONOCYTES # (AUTO) 0.5 x10^3/uL (0.3-0.8); MONOCYTES % (AUTO) 5.4 % (0.0-13.0); NEUTROPHILS # (AUTO) 8.5 x10^3/uL (2.2-4.8); NEUTROPHILS % (AUTO) 84.6 % (42.0-75.0); PLATELET COUNT 146 X10^3/uL (150.0-450.0); RED BLOOD COUNT 3.41 X10^6/uL (4.7-6.0); RED CELL DISTRIBUTION WIDTH 21.9 % (11.6-16.5); WHITE BLOOD COUNT 10.1 X10^3/uL (3.6-10.0)
[2022-09-05 06:52] LABS: ALANINE AMINOTRANSFERASE 7 Units/L (12-78); ALKALINE PHOSPHATASE 172 Units/L (46-116); ASPARTATE AMINO TRANSFERASE 14 Units/L (15-37); BLOOD UREA NITROGEN 13 mg/dL (7-18); CALCIUM 7.1 mg/dL (8.5-10.1); CARBON DIOXIDE 28.1 mmol/L (21-32); CHLORIDE 100 mmol/L (98-107); COR CA(FOR HYPOALB) 9.5 mg/dL (8.5-10.1); COR NA(FOR HYPERGLY) 135 mmol/L (136-145); CREATININE 0.74 mg/dL (0.70-1.30); GLUCOSE 142 mg/dL (65-99); POTASSIUM 3.8 mmol/L (3.5-5.1); SODIUM 134 mmol/L (136-145); TOTAL PROTEIN 4.8 g/dL (6.4-8.2); eGFR NON BLACK RACES > 60 (>60)
[2022-09-05 07:00] LABS: PLATELET MORPHOLOGY COMMENT NORMAL (NORMAL)
[2022-09-05 07:01] LABS: HYPOCHROMASIA SLIGHT
[2022-09-05 07:02] LABS: ANISOCYTOSIS 1+; MICROCYTOSIS SLIGHT; OVALOCYTES PRESENT
[2022-09-05 07:03] LABS: SCHISTOCYTES SLIGHT
[2022-09-05] MEDS ORDERED: ELIQUIS PO SCH (09:00)
[2022-09-05] MEDS: ZINC SULFATE PO SCH (09:50)
[2022-09-05] MEDS: VITAMIN C PO SCH ×2 (09:50→21:10)
[2022-09-05] MEDS: SYNTHROID 50 mcg TAB PO SCH (09:50)
[2022-09-05] MEDS: COZAAR PO SCH (09:52)
[2022-09-05] MEDS: OSIMERTINIB 80 MG PO SCH (09:52)
[2022-09-05] MEDS ORDERED: K-DUR TAB 20 MEQ PO SCH (23:00)
--- NOTE | 2022-09-06 02:39 | RAD ---
PROCEDURE: Chest X-ray 1 View .HISTORY: Preoperative study.TECHNIQUE: AP portable upright done at 1:49 p.m..COMPARISON: 08/26/2022.TECHNICAL QUALITY: Satisfactory .FINDINGS:Heart size upper limits of normal and unchanged.Mediastinum and hilar regions show no masses or lymphadenopathy .Normal central vascularity .Consolidation lung bases that is appeared since previous study could represent pneumonia or edema. No pleural fluid.No acute bony abnormality .IMPRESSION:1. Interval appearance of bibasilar pneumonia or edema.2. Unchanged heart size upper limits of normal.Electronically signed by: Triston Soto (Sep 06, 2022 02:37:55)
--- NOTE | 2022-09-06 05:28 | EKG ---
Test Reason : PREOP Blood Pressure : */* mmHG Vent. Rate : 83 BPM Atrial Rate : 83 BPM P-R Int : 160 ms QRS Dur : 100 ms QT Int : 430 ms P-R-T Axes : 32 -5 33 degrees QTc Int : 505 ms Normal sinus rhythm Prolonged QT Abnormal ECG When compared with ECG of 26-AUG-2022 08:45, Sinus rhythm has replaced Ectopic atrial rhythm Left anterior fascicular block is no longer present Confirmed by Hakeem Cash ([id number]) on 09/07/2022 8:02:12 AM Referred By: Confirmed By: Hakeem Cash
[2022-09-06] MEDS: D5 1/2 NS 1,000 ML 1,000 ML IV SCH ×2 (05:35→18:56)
[2022-09-06] MEDS: ZOSYN VIAL 3.375 GRAMS 3.375 G in NS 100 ML IV 100 ML IV SCH ×4 (05:35→21:04)
[2022-09-06 06:28] LABS: ALKALINE PHOSPHATASE 157 Units/L (46-116); ASPARTATE AMINO TRANSFERASE 13 Units/L (15-37); BLOOD UREA NITROGEN 12 mg/dL (7-18); CALCIUM 7.1 mg/dL (8.5-10.1); CARBON DIOXIDE 25.9 mmol/L (21-32); CHLORIDE 99 mmol/L (98-107); COR CA(FOR HYPOALB) 9.5 mg/dL (8.5-10.1); COR NA(FOR HYPERGLY) 134 mmol/L (136-145); CREATININE 0.82 mg/dL (0.70-1.30); GLUCOSE 121 mg/dL (65-99); MAGNESIUM 1.8 mg/dL (2.0-2.9); POTASSIUM 3.7 mmol/L (3.5-5.1); SODIUM 133 mmol/L (136-145); TOTAL PROTEIN 4.9 g/dL (6.4-8.2); eGFR NON BLACK RACES > 60 (>60)
[2022-09-06 06:33] LABS: ALANINE AMINOTRANSFERASE < 6 Units/L (12-78)
[2022-09-06 06:42] LABS: BASOPHILS % (AUTO) 0.1 % (0.2-1.0); EOSINOPHILS % (AUTO) 0.2 % (0.9-2.9); HEMATOCRIT 27.5 % (42.0-54.0); HEMOGLOBIN 8.9 g/dL (13.5-18.0); LYMPHOCYTES # (AUTO) 1.2 X10^3/uL (1.3-2.9); LYMPHOCYTES % (AUTO) 13.1 % (21.0-51.0); MEAN CORPUSCULAR HEMOGLOBIN 25.1 pg (27.0-34.0); MEAN CORPUSCULAR HGB CONC 32.3 g/dL (33.0-35.0); MEAN CORPUSCULAR VOLUME 77.9 fL (80.0-100.0); MEAN PLATELET VOLUME 8.3 fL (7.4-11.0); MONOCYTES # (AUTO) 0.4 x10^3/uL (0.3-0.8); MONOCYTES % (AUTO) 4.1 % (0.0-13.0); NEUTROPHILS # (AUTO) 7.4 x10^3/uL (2.2-4.8); NEUTROPHILS % (AUTO) 82.5 % (42.0-75.0); PLATELET COUNT 147 X10^3/uL (150.0-450.0); RED BLOOD COUNT 3.53 X10^6/uL (4.7-6.0); RED CELL DISTRIBUTION WIDTH 21.6 % (11.6-16.5)
[2022-09-06] MEDS ORDERED: CONSULT PHARMACY - POTASSIUM & MAGNESIUM XX SCH ×2 (07:00)
[2022-09-06 07:17] LABS: PLATELET MORPHOLOGY COMMENT NORMAL (NORMAL)
[2022-09-06 07:18] LABS: ANISOCYTOSIS 1+; HYPOCHROMASIA SLIGHT; MICROCYTOSIS SLIGHT; OVALOCYTES SLIGHT; SCHISTOCYTES SLIGHT
[2022-09-06] MEDS: SYNTHROID 50 mcg TAB PO SCH (08:55)
[2022-09-06] MEDS: VITAMIN C PO SCH ×2 (08:55→21:04)
[2022-09-06] MEDS: COZAAR PO SCH (08:55)
[2022-09-06] MEDS: MAG-OX TAB PO SCH ×2 (08:56→11:50)
[2022-09-06] MEDS: OSIMERTINIB 80 MG PO SCH (08:58)
[2022-09-06] MEDS ORDERED: K-DUR TAB 20 MEQ PO SCH (09:00)
[2022-09-06] MEDS: PULMICORT NEB TX 0.5 MG NEB SCH ×2 (09:07→20:13)
[2022-09-06] MEDS: ZINC SULFATE PO SCH (09:22)
[2022-09-06] MEDS: ALBUMIN HUMAN 25%- 100 ML 100 ML IV SCH (11:51)
--- NOTE | 2022-09-06 12:02 | DR.H&P ---
H&P - History & Physical for Day of: H&P Date: 09/04/22 - Chief Complaint Chief Complaint: FOUL ODOR FROM WOUNDS - History of Present Illness History of Present Illness: IS A 72 YEAR OLD PATIENT OF OURS. 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 HE PRESENTED TO THE ER WITH COMPLAINTS OF A FOUL ODOR FROM CHRONIC SACRAL WOUNDS. PATIENT ALSO REPORTS THAT HIS BILATERAL LOWER EXTREMITY WOUNDS HAVE BEEN BLEEDING. HE DOES ADMIT TO BEING ON BLOOD THINNERS DUE TO LEFT SUBCLAVIAN DVT. HE DENIES FEVER, CHILLS, DIZZINESS, NAUSEA, VOMITING, OR DIARRHEA. HE DOES ADMIT TO INCREASED LOW BACK PAIN. HE WAS RECENTLY HOSPITALIZED FOR A LEFT SUBCLAVIAN DVT. HE WAS ALSO BEING TREATED FOR MULTIPLE ULCERS AT THAT TIME. WOUND CULTURES FROM 08/26/22 REVEALED GROWTH OF E.COLI, ACINETOBACTER B AUMANII/HAEMOLY, PROVIDENCIA RETTGERI, PROVIDENCIA RETTHERI #2, ENTEROBACTER CLOACAE, KELBSIELLA PNEUMONIAE. HE WAS DISCHARGED HOME WITH INSTRUCTIONS TO CONTINUE RECEIVING INVANZ 1G IV DAILY AND VANCOMYCIN IV, WHICH HE WAS ON PRIOR TO THAT ADMISSION. ON ARRIVAL TO THE ER ON 09/04/22, HIS VITALS WERE: 99.1-102-20-98%-98/56. LABS WERE OBTAINED. WBC 9.9, RBC 4.30, HGB 11.0, HCT 33.7, PLT COUNT 180, SODIUM 134, POTASSIUM 3.8, CHLORIDE 100, CARBON DIOXIDE 28.1, BUN 13, CREATININE 0.74, GLUCOSE 142, CALCIUM 7.1, TOTAL BILI 0.30, AST 14, ALT 7, ALK PHOS 172, TOTAL PROTEIN 4.8, ALBUMIN 1.0. URINALYSIS WAS OBTAINED AND REVEALED: WBC 0-2, RBC 10-20, BACTERIA NEGATIVE, LEUKOCYTES 1+. BLOOD CULTURES AND CULTURES OF THE BUTTOCK, SACRUM, LEFT FOOT, LEFT LEG, RIGHT FOOT, RIGHT LEG WERE SET UP. IN THE ER, HE WAS GIVEN PERCOCET 5/325MG (2) TABS. PATIENT WAS ADMITTED TO THE HOSPITAL FOR FURTHER EVALUATION AND TREATMENT OF INFECTED DECUBITUS ULCERS. HE WAS STARTED ON D51/2 NS AT 100 ML/HR, ZOSYN 3.375G IV TID, PULMICORT NEBS BID, ZOSYN 3.375G TID. WE WILL RESUME HIS HOME MEDICATIONS OF ZINC SULFATE, LOSARTAN, LEVOTHYROXINE, TAGRISSO, PERCOCET, DURAGESIC PATCH, AND ASCORBIC ACID. WE CONSULTED . HE PLANS FOR DEBRIDEMENT OF WOUNDS ON TUESDAY. WE WILL OBTAIN A CHEST XRAY AND EKG FOR SURGICAL CLEARANCE. OTHERWISE, WE WILL FOLLOW UP WITH AM LABS AND CONTINUE TO MONITOR. TIME SPENT ON CLINICAL ASSESSMENT, REVIEWING LABS AND IMAGING, DECISION MAKING, AND DOCUMENTATION GREATER THAN 75 MINUTES. - Past Medical History Past Medical History: Hypertension, Hypothyroidism, Anemia, GERD Additional Medical History: LUNG CANCER WITH METS TO BONES - Past Surgical History Surgical History: No History - Family History Family Medical History: Cancer, Coronary Artery Disease, Hypertension - Social History Does patient currently use any type of tobacco product: No Have you used tobacco products in the last 12 months: No Type of Tobacco Use: None Does any household member use tobacco: No Alcohol Use: None Drug Use: Marijuana - Review of Systems Constitutional: Weakness Eyes: No Symptoms Reported ENT: No Symptoms Reported Respiratory: Shortness of Breath Cardiovascular: No Symptoms Reported Gastrointestinal: No Symptoms Reported Genitourinary: No Symptoms Reported Musculoskeletal: Back Pain Skin: See HPI, Wound (MULTIPLE WOUNDS OVER BODY ) Neurological: Weakness - Physical Exam Vital Signs: Vital Signs Temperature 97.8 F Temperature 98 F Temperature 98 F Pulse Rate [Left Brachial] 75 Pulse Rate [Left Brachial] 78 Pulse Rate 78 Respiratory Rate 18 Respiratory Rate 18 Respiratory Rate 18 Blood Pressure [Left Arm] 112/66 Blood Pressure [Left Arm] 109/61 Blood Pressure 110/59 O2 Sat by Pulse Oximetry 97 O2 Sat by Pulse Oximetry 88 O2 Sat by Pulse Oximetry 97 O2 Sat by Pulse Oximetry 97 Oriented: Normal Eyes: Normal Ear: Normal Nose: Normal Throat: Normal Respiratory: Diminished Throughout Cardiovascular: Tachycardia : Normal Auscultation: Bowel Sounds: Normal Palpation: Normal Tenderness: Normal Skin: Tender, Wound (NUMEROUS WOUNDS ON THE BACK, SACRUM, AND LOWER EXTREMITIES ) Musculoskeletal: Normal Psychiatric: Normal Mood Description: Calm Affect: Normal Speech Pattern: Clear - Assessment/Plan (1) Infected decubitus ulcer Qualifiers: Pressure injury stage: unspecified pressure injury stage Qualified Code(s): L89.90 - Pressure ulcer of unspecified site, unspecified stage; L08.9 - Local infection of the skin and subcutaneous tissue, unspecified Status: Acute Plan: ADMIT, WOUND CARE, DEBRIDEMENT ON TUESDAY, D51/2 NS AT 100 ML/HR, ZOSYN 3.375G IV TID, PULMICORT NEBS BID, ZOSYN 3.375G TID. WE WILL RESUME HIS HOME MEDICATIONS OF ZINC SULFATE, LOSARTAN, LEVOTHYROXINE, TAGRISSO, PERCOCET, DURAGESIC PATCH, AND ASCORBIC ACID (2) Acute hyponatremia Status: Acute (3) Anemia Qualifiers: Anemia type: unspecified type Qualified Code(s): D64.9 - Anemia, unspecified Status: Acute (4) DVT of left axillary vein, chronic Status: Acute (5) Lung cancer metastatic to bone Status: Acute (6) Hypoalbuminemia due to protein-calorie malnutrition Status: Acute (7) HTN (hypertension) Qualifiers: Hypertension type: primary hypertension Qualified Code(s): I10 - Essential (primary) hypertension Status: Chronic (8) Hypothyroidism Qualifiers: Hypothyroidism type: acquired Qualified Code(s): E03.9 - Hypothyroidism, unspecified Status: Chronic (9) GERD (gastroesophageal reflux disease) Qualifiers: Esophagitis presence: esophagitis presence not specified Qualified Code(s): K21.9 - Gastro-esophageal reflux disease without esophagitis Status: Chronic - Allergies Allergies/Adverse Reactions: Allergies Allergy/AdvReac Type Severity Reaction Status Date / Time No Known Allergies Allergy Verified 07/21/22 07:17 - Medications Home Medications: Home Medications Medication Instructions Recorded Confirmed losartan 25 mg tablet 25 mg PO QDAY 01/20/22 09/04/22 fentanyl 25 mcg/hr transdermal 1 patch transdermal Q3D 03/29/22 09/04/22 patch oxycodone-acetaminophen 10 mg-325 1 tab PO TID PRN 03/29/22 09/04/22 mg tablet apixaban 5 mg tablet (Eliquis) 1 tab PO DAILY 08/25/22 09/04/22 ascorbic acid (vitamin C) 500 mg 500 mg PO BID 08/25/22 09/04/22 tablet (Vitamin C With Geovanna Hips) levothyroxine 50 mcg tablet 50 mcg PO QDAY 08/25/22 09/04/22 sodium hypochlorite 0.25 % 10 ml topical DIRECTED 08/25/22 09/04/22 solution (Dakin's Solution) zinc sulfate 50 mg zinc (220 mg) 50 mg PO QDAY 08/25/22 09/04/22 capsule osimertinib 80 mg tablet (Tagrisso) 80 mg PO QDAY 08/27/22 09/04/22
[2022-09-06] MEDS: XOPENEX 1.25 MG/3 ML NEBULE NEB SCH ×3 (12:08→18:29)
[2022-09-06] MEDS ORDERED: POLYMYXIN B SULFATE ONE (12:31)
[2022-09-06] MEDS ORDERED: LR 1,000 ML IV 1,000 ML IV ONE (12:44)
[2022-09-06] MEDS ORDERED: NS 100 ML IV 100 ML ONE (12:44)
[2022-09-06] MEDS ORDERED: FENTANYL VIAL INJ 100 mcg ONE (12:45)
[2022-09-06] MEDS ORDERED: VERSED ONE (12:45)
[2022-09-06] MEDS ORDERED: ANCEF VIAL 1 GRAM ONE (12:46)
[2022-09-06] MEDS ORDERED: DIPRIVAN VIAL 0 ML ONE (13:20)
--- NOTE | 2022-09-06 15:57 | DR.UPDATE ---
H&P Update Prescription drug monitoring program results: PDMP was not reviewed H&P Reviewed: Yes Any changes to H&P?: No Patient was examined?: Yes Procedures (ALL) - Central Line Placement PCM.CLCO: written consent Time out performed: Yes Patient placed pm monitor/pulse ox: Yes MD prep: mask, gown, gloves, other Centrial line prep: chlorhexidine scrub, sterile drapes applied Local anesthsia used: lidocane 1% Ultrasound used for placement: Yes (right cephalic id'd via u/s and cannulation visualized) Central line lumen ininserted: double (5.5fr arrowpicc, 50cm untrimmed catheter with 12cm exposed.) Post procedure: good blood return, all ports aspirated, flushed,capped, sterile dressing applied Post procedure xray: tip oc catheter in good position (appears svc), no pneumot horax seen Patient tolerated procedure: Yes Complications: none
--- NOTE | 2022-09-06 16:06 | RAD ---
CHEST, 1 VIEWHISTORY: Decreased saturation since PICC line placement.Study: Single view of the chest.Comparison:September 05, 2022Findings:Cardiomegaly.New right-sided central catheter overlying the distal SVC. New/worsening perihilar right lung opacities. New more dense consolidation with very circumscribed border within the left lung. New small left effusion. Osseous structures demonstrate no acute abnormality.IMPRESSION:1. New left lung opacity with well-defined border. This may represent a lobar collapse secondary to pneumothorax or possibly atelectasis from endobronchial obstruction. Strongly recommend CT of the chest with contrast.2. Worsening bilateral perihilar interstitial opacities which may represent worsening pulmonary edema.3. New right central catheter overlying the SVC.Electronically signed by: JAMIE PADRON (Sep 06, 2022 16:05:12)
[2022-09-06] MEDS ORDERED: OMNIPAQUE 350 mg/mL 100 mL BTL 100 ML ONE (16:21)
--- NOTE | 2022-09-06 16:58 | CT ---
CHEST W/O CONCLINICAL INDICATION: Decreased sats after PICC line placement.PROCEDURE: Noncontrast CT images were obtained through the chest. Dose reduction techniques including Automated Exposure Control (AEC) and adjustment of mA and kV were utlized.COMPARISON: [None]FINDINGS:The sensitivity for focal lesion detection within the mediastinum is diminished without the use of IV contrast.The heart is normal in size. Cardiomegaly. Severe coronary calcification. . There is complete atelectasis of left lower lobe and subtotal atelectasis of the right lower lobe. The left lower lobe bronchus appears to be occluded. Diffuse ground-glass through the aerated portions of the lungs otherwise. New bilateral moderate-sized pleural effusions. Patient's bilateral upper lobe nodules/masses are similar in appearance. No suspicious pulmonary nodules or masses.Limited images of the upper abdomen are unremarkable.No aggressive osseous lesions. Multifocal sclerotic metastatic disease of the spine.IMPRESSION:1. Total atelectasis left lower lobe with what appears to be obstruction of the left lower lobe bronchus. Bronchoscopy may be of use in this patient. There is also new diffuse interstitial and early alveolar opacities possibly representing edema with associated moderate bilateral effusions.Electronically signed by: JAMIE PADRON (Sep 06, 2022 16:57:22)
[2022-09-06 17:01] LABS: ABG BASE EXCESS 3.9 mmol/L (-2.0-2.0); ABG HCO3 27.7 mmol/L (22-26)
[2022-09-06 17:02] LABS: ABG ALLEN TEST POS
--- NOTE | 2022-09-06 19:44 | PCM.PROG ---
Progress Note - Progress Note for Day of Date of Exam: 09/06/22 - Subjective Subjective: IS CURRENTLY INPATIENT STATUS FOR TREATMENT OF INFECTED DECUBITUS ULCERS, ACUTE HYPONATREMIA, ANEMIA, AND HYPOALBUMINEMIA DUE TO PROTEIN CALORIE MALNUTRITION. HE IS CURRENTLY RECEIVING ORAL CHEMOTHERAPY FOR LUNG CANCER WITH METS TO THE BONES. HE WAS RECENTLY DIAGNOSED WITH A LEFT AXILLARY VEIN DVT. PMH INCLUDES HTN, HYPOTHYROIDISM, AND GERD. ON EXAMINATION TODAY, HEART IS REGULAR IN RATE AND RHYTHM. BILATERAL LUNGS ARE NOTED WITH DIMINISHED LUNG SOUNDS THROUGHOUT. ABDOMEN IS ROUND, SOFT, AND NON-TENDER WITH NORMAL BOWEL SOUNDS NOTED IN ALL QUADRANTS. GOOD MOVEMENT NOTED TO UPPER EXTREMITIES. NO UPPER OR LOWER EXTREMITY EDEMA NOTED. HIS VITALS THIS MORNING ARE: 97.8-75-18-88%-112/66. HE IS CURRENTLY ON OXYGEN VIA NASAL CANNULA AT 2 LPM. WHEN INCREASED TO 3 LPM, SATURATIONS INCREASED TO 97%. LABS WERE OBTAINED. WBC 9.0, RBC 3.53, HGB 8.9, HCT 27.5, PLT COUNT 147, SODIUM 133, POTASSIUM 3.7, CHLORIDE 99, CARBON DIOXIDE 25.9, BUN 12, CREATININE 0.82, GLUCOSE 121, CALCIUM 7.1, MAGNESIUM 1.8, AST 13, ALT <6, ALK PHOS 157, TOTAL PROTEIN 4.9, ALBUMIN 1.0. BLOOD AND WOUND CULTURES ARE PENDING. A CHEST XRAY WAS OBTAINED THIS MORNING. WE ORDERED A CHEST XRAY YESTERDAY. IT REVEALED: 1. Interval appearance of bibasilar pneumonia or edema. 2. Unchanged heart size upper limits of normal. HE IS CURRENTLY RECEIVING D51/2 NS AT 100 ML/HR, ZOSYN 3.375G IV TID, PULMICORT NEBS BID, XOPENEX NEBS Q6H, LOVENOX 30MG SC HS. WE WILL RESUME HIS HOME MEDICATIONS OF ZINC SULFATE, LOSARTAN, LEVOTHYROXINE, TAGRISSO, PERCOCET, DURAGESIC PATCH, AND ASCORBIC ACID. WE CONSULTED . HE PLANS FOR DEBRIDEMENT OF WOUNDS TODAY. WE WILL ADD ALBUMIN 25% IV DAILY. OTHERWISE, WE WILL FOLLOW UP WITH AM LABS AND CONTINUE TO MONITOR. TIME SPENT ON CLINICAL ASSESSMENT, REVIEWING LABS AND IMAGING, DECISION MAKING, AND DOCUMENTATION GREATER THAN 45 MINUTES. - Past Medical Family Social History Past Med/Fam/Surg Hx: No changes since H&P Allergies: Allergies No Known Allergies Allergy (Verified 07/21/22 07:17) - Review of Systems ROS: No change since H&P - Vital Signs and I&O's Vital Signs: Vital Signs Temperature 97.8 F Temperature 97.5 F Temperature 97.3 F Temperature 97.3 F Temperature 97.7 F Temperature 97.7 F Temperature 97.6 F Pulse Rate [Left Brachial] 97 Pulse Rate [Left Brachial] 88 Pulse Rate [Left Brachial] 95 Pulse Rate [Left Brachial] 87 Pulse Rate [Left Brachial] 77 Pulse Rate [Left Brachial] 83 Pulse Rate [Left Brachial] 82 Respiratory Rate 25 Respiratory Rate 18 Respiratory Rate 18 Respiratory Rate 18 Respiratory Rate 18 Respiratory Rate 16 Respiratory Rate 16 Respiratory Rate 20 Blood Pressure [Left Arm] 102/70 Blood Pressure [Left Arm] 105/65 Blood Pressure [Left Arm] 113/68 Blood Pressure [Left Arm] 95/70 Blood Pressure [Left Arm] 90/50 Blood Pressure [Left Arm] 87/50 Blood Pressure [Left Arm] 123/66 O2 Sat by Pulse Oximetry 85 O2 Sat by Pulse Oximetry 88 O2 Sat by Pulse Oximetry 92 O2 Sat by Pulse Oximetry 91 O2 Sat by Pulse Oximetry 89 O2 Sat by Pulse Oximetry 82 O2 Sat by Pulse Oximetry 88 O2 Sat by Pulse Oximetry 88 Intake and Output: Intake & Output 09/04/22 09/05/22 09/06/22 09/07/22 11:59 11:59 11:59 11:59 Intake Total 1498 / 1498 3594 / 3594 500 / 500 Output Total 800 / 800 1000 / 1000 Balance 1498 / 1498 2794 / 2794 -500 / -500 - Physical Exam Oriented: Normal Eyes: Normal Ear: Normal Nose: Normal Throat: Normal Respiratory: Generalized, Diminished Cardiovascular: Normal : Normal Auscultation: Bowel Sounds: Normal Palpation: Normal Tenderness: Normal Skin: Tender, Wound (NUMEROUS WOUNDS ON THE BACK, SACRUM, AND LOWER EXTREMITIES ) Musculoskeletal: Normal Psychiatric: Normal Mood Description: Calm Affect: Normal Speech Pattern: Clear - Laboratory and Diagnostics Result Diagrams: 09/06/22 05:48 09/06/22 05:48 Labs: 09/06/22 13:24 Sacral Wound Gram Stain - Final 09/04/22 22:43 Blood Blood Culture - Preliminary 09/05/22 16:40 Leg - Right Wound Gram Stain - Final 09/05/22 16:40 Leg - Right Wound Culture - Preliminary 09/05/22 16:45 Leg - Left Wound Gram Stain - Final 09/05/22 16:45 Leg - Left Wound Culture - Preliminary 09/05/22 17:00 Buttock Wound Gram Stain - Final 09/05/22 17:00 Buttock Wound Culture - Preliminary 09/05/22 16:35 Foot - Right Wound Gram Stain - Final 09/05/22 16:35 Foot - Right Wound Culture - Preliminary 09/05/22 16:50 Foot - Left Wound Gram Stain - Final 09/05/22 16:50 Foot - Left Wound Culture - Preliminary 09/05/22 16:55 Sacral Wound Gram Stain - Final 09/05/22 16:55 Sacral Wound Culture - Preliminary 09/05/22 17:00 Buttock Wound Gram Stain - Final 09/05/22 17:00 Buttock Wound Culture - Preliminary 09/04/22 22:26 Blood Blood Culture - Preliminary Laboratory WBC 9.0 X10^3/uL (3.6-10.0) 09/06/22 05:48 RBC 3.53 X10^6/uL (4.7-6.0) L 09/06/22 05:48 Hgb 8.9 g/dL (13.5-18.0) L 09/06/22 05:48 Hct 27.5 % (42.0-54.0) L 09/06/22 05:48 MCV 77.9 fL (80.0-100.0) L 09/06/22 05:48 MCH 25.1 pg (27.0-34.0) L 09/06/22 05:48 MCHC 32.3 g/dL (33.0-35.0) L 09/06/22 05:48 RDW 21.6 % (11.6-16.5) H 09/06/22 05:48 Plt Count 147 X10^3/uL (150.0-450.0) L 09/06/22 05:48 Plt Count Comment Decreased (ADEQUATE) 09/06/22 05:48 MPV 8.3 fL (7.4-11.0) 09/06/22 05:48 Neut % (Auto) 82.5 % (42.0-75.0) H 09/06/22 05:48 Lymph % (Auto) 13.1 % (21.0-51.0) L 09/06/22 05:48 [place] % (Auto) 4.1 % (0.0-13.0) 09/06/22 05:48 Eos % (Auto) 0.2 % (0.9-2.9) L 09/06/22 05:48 Baso % (Auto) 0.1 % (0.2-1.0) L 09/06/22 05:48 Neut # (Auto) 7.4 x10^3/uL (2.2-4.8) H 09/06/22 05:48 Lymph # (Auto) 1.2 X10^3/uL (1.3-2.9) L 09/06/22 05:48 [place] # (Auto) 0.4 x10^3/uL (0.3-0.8) 09/06/22 05:48 Eos # (Auto) 0.0 x10^3/uL (0.0-0.2) 09/06/22 05:48 Baso # (Auto) 0.0 X10^3/uL (0.0-0.1) 09/06/22 05:48 Absolute Nucleated RBC 0.0 /100WBC 09/06/22 05:48 Plt Morphology Comment Normal (NORMAL) 09/06/22 05:48 RBC Morphology Abnormal (NORMAL) 09/06/22 05:48 Hypochromasia Slight A 09/06/22 05:48 Anisocytosis 1+ A 09/06/22 05:48 Microcytosis Slight A 09/06/22 05:48 Ovalocytes Slight A 09/06/22 05:48 Schistocytes Slight A 09/06/22 05:48 Sample Site Rr 09/06/22 16:55 ABG pH 7.470 (7.35-7.45) H 09/06/22 16:55 ABG pCO2 38.0 mmHg (35.0-45.0) 09/06/22 16:55 ABG pO2 47.0 mmHg (80.0-100.0) L* 09/06/22 16:55 ABG HCO3 27.7 mmol/L (22-26) H 09/06/22 16:55 ABG O2 Saturation 85.0 % (90-100) L 09/06/22 16:55 ABG Base Excess 3.9 mmol/L (-2.0-2.0) H 09/06/22 16:55 [place]ador Test Pos 09/06/22 16:55 A-a Gradient 333.0 mmHg 09/06/22 16:55 FiO2 60.0 09/06/22 16:55 Blood Gas Comments Pt marivel well. cdn 09/06/22 16:55 Sodium 133 mmol/L (136-145) L 09/06/22 05:48 Corrected Sodium 134 mmol/L (136-145) L 09/06/22 05:48 Potassium 3.7 mmol/L (3.5-5.1) 09/06/22 05:48 Chloride 99 mmol/L (98-107) 09/06/22 05:48 Carbon Dioxide 25.9 mmol/L (21-32) 09/06/22 05:48 BUN 12 mg/dL (7-18) 09/06/22 05:48 Creatinine 0.82 mg/dL (0.70-1.30) 09/06/22 05:48 Est GFR (MDRD) Af Amer > 60 (>60) 09/06/22 05:48 Est GFR (MDRD) Non-Af > 60 (>60) 09/06/22 05:48 Glucose 121 mg/dL (65-99) H 09/06/22 05:48 POC Glucose (mg/dL) 98 mg/dL (65-99) 09/06/22 17:19 Lactic Acid 0.8 mmol/L (0.4-2.0) 09/05/22 01:36 Calcium 7.1 mg/dL (8.5-10.1) L 09/06/22 05:48 Corrected Calcium 9.5 mg/dL (8.5-10.1) 09/06/22 05:48 Magnesium 1.8 mg/dL (2.0-2.9) L 09/06/22 05:48 Total Bilirubin 0.20 mg/dL (0.2-1.0) 09/06/22 05:48 AST 13 Units/L (15-37) L 09/06/22 05:48 ALT < 6 Units/L (12-78) L 09/06/22 05:48 Alkaline Phosphatase 157 Units/L (46-116) H 09/06/22 05:48 Creatine Kinase 88 Units/L (39-308) 09/04/22 22:26 Total Protein 4.9 g/dL (6.4-8.2) L 09/06/22 05:48 Albumin 1.0 g/dL (3.4-5.0) L 09/06/22 05:48 Globulin 3.9 g/dL (2.5-4.5) 09/06/22 05:48 Albumin/Globulin Ratio 0.3 Ratio (1.1-2.1) L 09/06/22 05:48 Specimen Type Catherized urine 09/04/22 22:15 Urine Color Dark yellow (YELLOW) 09/04/22 22:15 Urine Appearance Clear (CLEAR) 09/04/22 22:15 Urine pH 5.0 (5.0 - 8.0) 09/04/22 22:15 Ur Specific [place] 1.025 (1.000-1.030) 09/04/22 22:15 Urine Protein 2+ (NEGATIVE) 09/04/22 22:15 Urine Glucose (UA) Negative (NEGATIVE) 09/04/22 22:15 Urine Ketones 1+ (NEGATIVE) 09/04/22 22:15 Urine Blood 5+ (NEGATIVE) 09/04/22 22:15 Urine Nitrite Negative (NEGATIVE) 09/04/22 22:15 Urine Bilirubin Negative (NEGATIVE) 09/04/22 22:15 Urine Urobilinogen 2+ (NORMAL) 09/04/22 22:15 Ur Leukocyte Esterase 1+ (NEGATIVE) 09/04/22 22:15 Urine RBC 10-20 /HPF (0-3) A 09/04/22 22:15 Urine WBC 0-2 /HPF (0-5) 09/04/22 22:15 Ur Squamous Epith Cells Rare /HPF (NEGATIVE) 09/04/22 22:15 Calcium Oxalate Crystal Few /HPF (NEGATIVE) 09/04/22 22:15 Amorphous Sediment 1+ /HPF (NEGATIVE) 09/04/22 22:15 Urine Bacteria Negative /HPF (NEGATIVE) 09/04/22 22:15 Urine Mucus Many /HPF (NEGATIVE) 09/04/22 22:15 Ur Culture Indicated? No/not indicated 09/04/22 22:15 - Plan (1) Infected decubitus ulcer Status: Acute Qualifiers: Pressure injury stage: unspecified pressure injury stage Qualified Code(s): L89.90 - Pressure ulcer of unspecified site, unspecified stage; L08.9 - Local infection of the skin and subcutaneous tissue, unspecified Plan: DEBRIDEMENT OF WOUNDS TODAY. D51/2 NS AT 100 ML/HR, ZOSYN 3.375G IV TID, PULMICORT NEBS BID, XOPENEX NEBS Q6H, LOVENOX 30MG SC HS. WE WILL RESUME HIS HOME MEDICATIONS OF ZINC SULFATE, LOSARTAN, LEVOTHYROXINE, TAGRISSO, PERCOCET, DURAGESIC PATCH, AND ASCORBIC ACID. (2) Pneumonia Status: Acute Qualifiers: Pneumonia type: due to unspecified organism Laterality: bilateral Lung location: lower lobe of lung Qualified Code(s): J18.9 - Pneumonia, unspecified organism (3) Acute hyponatremia Status: Acute (4) Anemia Status: Acute Qualifiers: Anemia type: unspecified type Qualified Code(s): D64.9 - Anemia, unspecified (5) DVT of left axillary vein, chronic Status: Acute (6) Lung cancer metastatic to bone Status: Acute (7) Hypoalbuminemia due to protein-calorie malnutrition Status: Acute (8) HTN (hypertension) Status: Chronic Qualifiers: Hypertension type: primary hypertension Qualified Code(s): I10 - Essential (primary) hypertension (9) Hypothyroidism Status: Chronic Qualifiers: Hypothyroidism type: acquired Qualified Code(s): E03.9 - Hypothyroidism, unspecified (10) GERD (gastroesophageal reflux disease) Status: Chronic Qualifiers: Esophagitis presence: esophagitis presence not specified Qualified Code(s): K21.9 - Gastro-esophageal reflux disease without esophagitis
[2022-09-06] MEDS: LOVENOX INJ 30 MG SYR SC SCH (21:04)
[2022-09-06] MEDS ORDERED: PERCOCET TAB 5/325 MG PO ONE (21:22)
[2022-09-07] MEDS: D5 1/2 NS 1,000 ML 1,000 ML IV SCH ×5 (00:36→18:07)
[2022-09-07 05:13] LABS: BASOPHILS % (AUTO) 0 % (0.2-1.0); HEMATOCRIT 24.5 % (42.0-54.0); HEMOGLOBIN 8.1 g/dL (13.5-18.0); LYMPHOCYTES # (AUTO) 1.1 X10^3/uL (1.3-2.9); LYMPHOCYTES % (AUTO) 9.3 % (21.0-51.0); MEAN CORPUSCULAR HEMOGLOBIN 25.4 pg (27.0-34.0); MEAN CORPUSCULAR HGB CONC 32.9 g/dL (33.0-35.0); MEAN CORPUSCULAR VOLUME 77.3 fL (80.0-100.0); MEAN PLATELET VOLUME 8.4 fL (7.4-11.0); MONOCYTES # (AUTO) 0.3 x10^3/uL (0.3-0.8); MONOCYTES % (AUTO) 2.8 % (0.0-13.0); NEUTROPHILS # (AUTO) 10.4 x10^3/uL (2.2-4.8); NEUTROPHILS % (AUTO) 87.9 % (42.0-75.0); PLATELET COUNT 172 X10^3/uL (150.0-450.0); RED BLOOD COUNT 3.18 X10^6/uL (4.7-6.0); RED CELL DISTRIBUTION WIDTH 21.3 % (11.6-16.5); WHITE BLOOD COUNT 11.8 X10^3/uL (3.6-10.0)
[2022-09-07] MEDS: ZOSYN VIAL 3.375 GRAMS 3.375 G in NS 100 ML IV 100 ML IV SCH ×3 (05:13→21:04)
[2022-09-07 05:21] LABS: ALANINE AMINOTRANSFERASE 7 Units/L (12-78); ALBUMIN 1.4 g/dL (3.4-5.0); ALKALINE PHOSPHATASE 156 Units/L (46-116); ASPARTATE AMINO TRANSFERASE 11 Units/L (15-37); BLOOD UREA NITROGEN 10 mg/dL (7-18); CALCIUM 7.3 mg/dL (8.5-10.1); CARBON DIOXIDE 30.4 mmol/L (21-32); COR CA(FOR HYPOALB) 9.4 mg/dL (8.5-10.1); CREATININE 0.69 mg/dL (0.70-1.30); GLUCOSE 110 mg/dL (65-99); TOTAL PROTEIN 5.1 g/dL (6.4-8.2); eGFR NON BLACK RACES > 60 (>60)
[2022-09-07 05:36] LABS: CHLORIDE 97 mmol/L (98-107); SODIUM 132 mmol/L (136-145)
[2022-09-07 05:38] LABS: ANISOCYTOSIS 1+; HYPOCHROMASIA SLIGHT; MICROCYTOSIS SLIGHT; PLATELET MORPHOLOGY COMMENT NORMAL (NORMAL)
[2022-09-07 05:39] LABS: OVALOCYTES PRESENT; SCHISTOCYTES PRESENT
[2022-09-07] MEDS: XOPENEX 1.25 MG/3 ML NEBULE NEB SCH ×4 (06:05→17:00)
--- NOTE | 2022-09-07 08:54 | DR.PROGNOT ---
HOSPITAL PROGRESS NOTE Progress Note for Day of: Progress Note Date: 10/08/22 Chief Complaint Chief Complaint: s/p debridement of multiple decubitus ulcers . placement of PIC line . c/o SOB this am . Past Medical Family Social History Past Med/Fam/Surg Hx: No changes since H&P Allergies: Allergies No Known Allergies Allergy (Verified 07/21/22 07:17) Review Of Systems ROS: No change since H&P Vital Signs Vital Signs: Vital Signs Temperature 97.5 F Pulse Rate 97 Pulse Rate 95 Pulse Rate 103 Pulse Rate 93 Pulse Rate 102 Pulse Rate 97 Respiratory Rate 17 Respiratory Rate 17 Respiratory Rate 18 Respiratory Rate 15 Respiratory Rate 26 Respiratory Rate 28 Blood Pressure 94/64 Blood Pressure 96/64 Blood Pressure 99/58 Blood Pressure 94/63 Blood Pressure 102/67 Blood Pressure 95/61 O2 Sat by Pulse Oximetry 100 O2 Sat by Pulse Oximetry 100 O2 Sat by Pulse Oximetry 100 O2 Sat by Pulse Oximetry 100 O2 Sat by Pulse Oximetry 99 O2 Sat by Pulse Oximetry 100 Physical Exam Oriented: Normal Eyes: Normal Ear: Normal Nose: Normal Throat: Normal Respiratory: Generalized and Diminished Cardiovascular: Normal : Normal GI:Auscultation: Normal GI:Palpation: Normal GI: Tenderness: Normal Skin: Tender, Wound (NUMEROUS WOUNDS ON THE BACK, SACRUM, AND LOWER EXTREMITIES ) and Other (see operative note .) Musculoskeletal: Normal Psychiatric: Normal Mood Description: Calm Affect: Normal Speech Pattern: Clear and Appropriate Laboratory and Diagnostics 09/07/22 04:21 09/07/22 04:21 Labs: 09/06/22 13:24 Sacral Wound Gram Stain - Final 09/04/22 22:43 Blood Blood Culture - Preliminary 09/05/22 16:40 Leg - Right Wound Gram Stain - Final 09/05/22 16:40 Leg - Right Wound Culture - Preliminary 09/05/22 16:45 Leg - Left Wound Gram Stain - Final 09/05/22 16:45 Leg - Left Wound Culture - Preliminary 09/05/22 17:00 Buttock Wound Gram Stain - Final 09/05/22 17:00 Buttock Wound Culture - Preliminary 09/05/22 16:35 Foot - Right Wound Gram Stain - Final 09/05/22 16:35 Foot - Right Wound Culture - Preliminary 09/05/22 16:50 Foot - Left Wound Gram Stain - Final 09/05/22 16:50 Foot - Left Wound Culture - Preliminary 09/05/22 16:55 Sacral Wound Gram Stain - Final 09/05/22 16:55 Sacral Wound Culture - Preliminary 09/05/22 17:00 Buttock Wound Gram Stain - Final 09/05/22 17:00 Buttock Wound Culture - Preliminary 09/04/22 22:26 Blood Blood Culture - Preliminary Laboratory WBC 11.8 X10^3/uL (3.6-10.0) H 09/07/22 04:21 RBC 3.18 X10^6/uL (4.7-6.0) L 09/07/22 04:21 Hgb 8.1 g/dL (13.5-18.0) L 09/07/22 04:21 Hct 24.5 % (42.0-54.0) L 09/07/22 04:21 MCV 77.3 fL (80.0-100.0) L 09/07/22 04:21 MCH 25.4 pg (27.0-34.0) L 09/07/22 04:21 MCHC 32.9 g/dL (33.0-35.0) L 09/07/22 04:21 RDW 21.3 % (11.6-16.5) H 09/07/22 04:21 Plt Count 172 X10^3/uL (150.0-450.0) 09/07/22 04:21 Plt Count Comment Adequate (ADEQUATE) 09/07/22 04:21 MPV 8.4 fL (7.4-11.0) 09/07/22 04:21 Neut % (Auto) 87.9 % (42.0-75.0) H 09/07/22 04:21 Lymph % (Auto) 9.3 % (21.0-51.0) L 09/07/22 04:21 [place] % (Auto) 2.8 % (0.0-13.0) 09/07/22 04:21 Eos % (Auto) 0.0 % (0.9-2.9) L 09/07/22 04:21 Baso % (Auto) 0 % (0.2-1.0) L 09/07/22 04:21 Neut # (Auto) 10.4 x10^3/uL (2.2-4.8) H 09/07/22 04:21 Lymph # (Auto) 1.1 X10^3/uL (1.3-2.9) L 09/07/22 04:21 [place] # (Auto) 0.3 x10^3/uL (0.3-0.8) 09/07/22 04:21 Eos # (Auto) 0.0 x10^3/uL (0.0-0.2) 09/07/22 04:21 Baso # (Auto) 0.0 X10^3/uL (0.0-0.1) 09/07/22 04:21 Absolute Nucleated RBC 0.0 /100WBC 09/07/22 04:21 Plt Morphology Comment Normal (NORMAL) 09/07/22 04:21 RBC Morphology Abnormal (NORMAL) 09/07/22 04:21 Hypochromasia Slight A 09/07/22 04:21 Anisocytosis 1+ A 09/07/22 04:21 Microcytosis Slight A 09/07/22 04:21 Ovalocytes Present 09/07/22 04:21 Schistocytes Present 09/07/22 04:21 Sample Site Rr 09/06/22 16:55 ABG pH 7.470 (7.35-7.45) H 09/06/22 16:55 ABG pCO2 38.0 mmHg (35.0-45.0) 09/06/22 16:55 ABG pO2 47.0 mmHg (80.0-100.0) L* 09/06/22 16:55 ABG HCO3 27.7 mmol/L (22-26) H 09/06/22 16:55 ABG O2 Saturation 85.0 % (90-100) L 09/06/22 16:55 ABG Base Excess 3.9 mmol/L (-2.0-2.0) H 09/06/22 16:55 Amador Test Pos 09/06/22 16:55 A-a Gradient 333.0 mmHg 09/06/22 16:55 FiO2 60.0 09/06/22 16:55 Blood Gas Comments Pt marivel well. cdn 09/06/22 16:55 Sodium 132 mmol/L (136-145) L 09/07/22 04:21 Corrected Sodium TNP 09/07/22 04:21 Potassium 4.0 mmol/L (3.5-5.1) 09/07/22 04:21 Chloride 97 mmol/L (98-107) L 09/07/22 04:21 Carbon Dioxide 30.4 mmol/L (21-32) 09/07/22 04:21 BUN 10 mg/dL (7-18) 09/07/22 04:21 Creatinine 0.69 mg/dL (0.70-1.30) L 09/07/22 04:21 Est GFR (MDRD) Af Amer > 60 (>60) 09/07/22 04:21 Est GFR (MDRD) Non-Af > 60 (>60) 09/07/22 04:21 Glucose 110 mg/dL (65-99) H 09/07/22 04:21 POC Glucose (mg/dL) 87 mg/dL (65-99) 09/06/22 20:00 Lactic Acid 0.8 mmol/L (0.4-2.0) 09/05/22 01:36 Calcium 7.3 mg/dL (8.5-10.1) L 09/07/22 04:21 Corrected Calcium 9.4 mg/dL (8.5-10.1) 09/07/22 04:21 Magnesium 1.8 mg/dL (2.0-2.9) L 09/06/22 05:48 Total Bilirubin 0.30 mg/dL (0.2-1.0) 09/07/22 04:21 AST 11 Units/L (15-37) L 09/07/22 04:21 ALT 7 Units/L (12-78) L 09/07/22 04:21 Alkaline Phosphatase 156 Units/L (46-116) H 09/07/22 04:21 Creatine Kinase 88 Units/L (39-308) 09/04/22 22:26 B-Natriuretic Peptide 1460 pg/mL (0-79) H* 09/07/22 04:21 Total Protein 5.1 g/dL (6.4-8.2) L 09/07/22 04:21 Albumin 1.4 g/dL (3.4-5.0) L 09/07/22 04:21 Globulin 3.7 g/dL (2.5-4.5) 09/07/22 04:21 Albumin/Globulin Ratio 0.4 Ratio (1.1-2.1) L 09/07/22 04:21 Specimen Type Catherized urine 09/04/22 22:15 Urine Color Dark yellow (YELLOW) 09/04/22 22:15 Urine Appearance Clear (CLEAR) 09/04/22 22:15 Urine pH 5.0 (5.0 - 8.0) 09/04/22 22:15 Ur Specific [place] 1.025 (1.000-1.030) 09/04/22 22:15 Urine Protein 2+ (NEGATIVE) 09/04/22 22:15 Urine Glucose (UA) Negative (NEGATIVE) 09/04/22 22:15 Urine Ketones 1+ (NEGATIVE) 09/04/22 22:15 Urine Blood 5+ (NEGATIVE) 09/04/22 22:15 Urine Nitrite Negative (NEGATIVE) 09/04/22 22:15 Urine Bilirubin Negative (NEGATIVE) 09/04/22 22:15 Urine Urobilinogen 2+ (NORMAL) 09/04/22 22:15 Ur Leukocyte Esterase 1+ (NEGATIVE) 09/04/22 22:15 Urine RBC 10-20 /HPF (0-3) A 09/04/22 22:15 Urine WBC 0-2 /HPF (0-5) 09/04/22 22:15 Ur Squamous Epith Cells Rare /HPF (NEGATIVE) 09/04/22 22:15 Calcium Oxalate Crystal Few /HPF (NEGATIVE) 09/04/22 22:15 Amorphous Sediment 1+ /HPF (NEGATIVE) 09/04/22 22:15 Urine Bacteria Negative /HPF (NEGATIVE) 09/04/22 22:15 Urine Mucus Many /HPF (NEGATIVE) 09/04/22 22:15 Ur Culture Indicated? No/not indicated 09/04/22 22:15 Assessment and Plan 1: multiple decubitus ulcers , sacrum, thighs, lower legs and feet . to change dressings every 3 days . use wet to dry dressings and follow with the wound clinic or other arrangement .. 2: metastatic lung ca and confinement to bed . Problem Patient Problems: Patient Problems (Updated 09/06/22 @ 19:43 by Shiva Wolff) Hypothyroidism (Chronic) E03.9 Acute hyponatremia (Acute) E87.1 Anemia (Acute) D64.9 HTN (hypertension) (Chronic) I10 GERD (gastroesophageal reflux disease) (Chronic) K21.9 Lung cancer metastatic to bone (Acute) C34.90, C79.51 Infected decubitus ulcer (Acute) L89.90, L08.9 DVT of left axillary vein, chronic (Acute) I82.A22 Hypoalbuminemia due to protein-calorie malnutrition (Acute) E88.09, E46 Pneumonia (Acute) J18.9
[2022-09-07] MEDS: PULMICORT NEB TX 0.5 MG NEB SCH ×2 (09:30→20:45)
[2022-09-07] MEDS: ALBUMIN HUMAN 25%- 100 ML 100 ML IV SCH (09:54)
[2022-09-07] MEDS: ATIVAN INJ 2 MG VIAL IVP PRN ×2 (10:58→23:38)
[2022-09-07] MEDS: MORPHINE SULFATE INJ 2 MG INJ IVP PRN ×2 (12:41→17:24)
[2022-09-07 13:14] LABS: ABG BASE EXCESS -0.2 mmol/L (-2.0-2.0); ABG HCO3 24.8 mmol/L (22-26)
[2022-09-07 13:15] LABS: ABG ALLEN TEST POS
[2022-09-07] MEDS: COZAAR PO SCH (14:53)
[2022-09-07] MEDS: SYNTHROID 50 mcg TAB PO SCH (14:54)
[2022-09-07] MEDS: SYNTHROID INJ 100 mcg VIAL IVP SCH (14:54)
[2022-09-07] MEDS: OSIMERTINIB 80 MG PO SCH (14:54)
[2022-09-07] MEDS: VITAMIN C PO SCH (19:11)
[2022-09-07] MEDS: ZINC SULFATE PO SCH (19:12)
[2022-09-07] MEDS: LOVENOX INJ 30 MG SYR SC SCH (21:04)
--- NOTE | 2022-09-07 23:29 | RAD ---
HISTORYPICC LINE REVERIFICATIONSTUDYCHEST, 1 VIEWCOMPARISONJuly 2022 chest x-rayTECHNIQUEA single frontal view of the chest was obtained.FINDINGSThere is a PICC line entering via the right arm with its tip overlying the lateral aspect of the right heart border. It is unclear if this is in the expected location of the superior vena cava or right atrium. Correlation with unhindered blood flow through the PICC line is recommended. There are multiple EKG leads and wires seen overlying the patient. The heart is normal in size. There is severe extensive right lung alveolar pneumonia with complete consolidation of the right lower lobe. Left lower lobe and left upper lobe alveolar infiltrates are also seen and show no significant improvement from the previous study.. There is no pneumothorax. The osseous structures are intact.IMPRESSIONThe PICC line position is suspect and draw back for free flowing blood is recommended to test the PICC line.Diffuse alveolar infiltrates noted throughout both lungs, worse within the right lung base, than the left.Electronically signed by: Cristin Felipe (Sep 07, 2022 23:28:20)
[2022-09-08] MEDS: XOPENEX 1.25 MG/3 ML NEBULE NEB SCH ×4 (00:15→17:00)
[2022-09-08] MEDS: D5 1/2 NS 1,000 ML 1,000 ML IV SCH ×4 (01:15→17:11)
[2022-09-08 05:21] LABS: ABG BASE EXCESS 0.3 mmol/L (-2.0-2.0); ABG HCO3 28.7 mmol/L (22-26)
[2022-09-08] MEDS: ZOSYN VIAL 3.375 GRAMS 3.375 G in NS 100 ML IV 100 ML IV SCH ×3 (05:39→21:36)
[2022-09-08 05:46] LABS: BLOOD UREA NITROGEN 14 mg/dL (7-18); CALCIUM 7.7 mg/dL (8.5-10.1); CHLORIDE 99 mmol/L (98-107); COR NA(FOR HYPERGLY) 135 mmol/L (136-145); GLUCOSE 185 mg/dL (65-99); POTASSIUM 4.1 mmol/L (3.5-5.1); SODIUM 133 mmol/L (136-145); eGFR NON BLACK RACES > 60 (>60)
[2022-09-08 05:47] LABS: BASOPHILS % (AUTO) 0.1 % (0.2-1.0); HEMATOCRIT 23.3 % (42.0-54.0); HEMOGLOBIN 7.6 g/dL (13.5-18.0); LYMPHOCYTES # (AUTO) 0.8 X10^3/uL (1.3-2.9); LYMPHOCYTES % (AUTO) 6.4 % (21.0-51.0); MEAN CORPUSCULAR HEMOGLOBIN 25.7 pg (27.0-34.0); MEAN CORPUSCULAR HGB CONC 32.7 g/dL (33.0-35.0); MEAN CORPUSCULAR VOLUME 78.4 fL (80.0-100.0); MEAN PLATELET VOLUME 8.4 fL (7.4-11.0); MONOCYTES # (AUTO) 0.3 x10^3/uL (0.3-0.8); MONOCYTES % (AUTO) 2.2 % (0.0-13.0); NEUTROPHILS # (AUTO) 10.9 x10^3/uL (2.2-4.8); NEUTROPHILS % (AUTO) 91.3 % (42.0-75.0); PLATELET COUNT 130 X10^3/uL (150.0-450.0); RED BLOOD COUNT 2.98 X10^6/uL (4.7-6.0); RED CELL DISTRIBUTION WIDTH 21.9 % (11.6-16.5)
[2022-09-08 06:05] LABS: BAND NEUTROPHILS % 5 % (0-10)
[2022-09-08 06:06] LABS: HYPOCHROMASIA 1+; PLATELET MORPHOLOGY COMMENT NORMAL (NORMAL)
[2022-09-08 06:07] LABS: ANISOCYTOSIS 1+; MICROCYTOSIS SLIGHT; OVALOCYTES PRESENT; SCHISTOCYTES PRESENT
[2022-09-08 06:11] LABS: ALANINE AMINOTRANSFERASE 7 Units/L (12-78); ALBUMIN 1.7 g/dL (3.4-5.0); ALKALINE PHOSPHATASE 188 Units/L (46-116); ASPARTATE AMINO TRANSFERASE 21 Units/L (15-37); COR CA(FOR HYPOALB) 9.5 mg/dL (8.5-10.1); TOTAL PROTEIN 5.1 g/dL (6.4-8.2)
[2022-09-08] MEDS: ALBUMIN HUMAN 25%- 100 ML 100 ML IV SCH (09:26)
[2022-09-08] MEDS: SYNTHROID INJ 100 mcg VIAL IVP SCH (09:30)
[2022-09-08] MEDS: PULMICORT NEB TX 0.5 MG NEB SCH ×2 (09:30→20:50)
[2022-09-08] MEDS: COZAAR PO SCH (12:24)
[2022-09-08] MEDS: OSIMERTINIB 80 MG PO SCH (12:24)
--- NOTE | 2022-09-08 12:30 | PCM.PROG ---
Progress Note - Progress Note for Day of Date of Exam: 09/07/22 - Subjective Subjective: ON EXAMINATION TODAY, HE CONTINUES TO UTILIZE THE BIPAP AT 100%. HE IS ABLE TO OPEN EYES AND RESPOND VERBALLY. HE IS ALERT AND ORIENTED. HEART IS REGULAR IN RATE AND RHYTHM. BILATERAL LUNGS ARE NOTED WITH RHONCHI THROUGHOUT. ABDOMEN IS ROUND, SOFT, AND NON-TENDER WITH NORMAL BOWEL SOUNDS NOTED IN ALL QUADRANTS. GOOD MOVEMENT NOTED TO UPPER EXTREMITIES. ATROPHY OF LOWER EXTREMITIES NOTED. NO UPPER OR LOWER EXTREMITY EDEMA NOTED. HIS VITALS THIS MORNING ARE: 97.8-75-18-88%-112/66. LABS WERE OBTAINED. WBC WBC 11.8, RBC 3.18, HGB 8.1, HCT 24.5, PLT COUNT 172, SODIUM 132, POTASSIUM 4.0, CHLORIDE 97, BUN 10, CREATININE 0.69, GLUCOSE 110, CALCIUM 7.3, AST 11, ALT 7, ALK PHOS 156, BNP 1460, TOTAL PROTEIN 5.1, ALBUMIN 1.4. BLOOD AND WOUND CULTURES ARE PENDING. A CHEST XRAY WAS OBTAINED THIS MORNING. WE ORDERED A CHEST XRAY YESTERDAY. HE IS CURRENTLY RECEIVING D51/2 NS AT 100 ML/HR, ALBUMIN 25% IV DAILY, ZOSYN 3.375G IV TID, PULMICORT NEBS BID, XOPENEX NEBS Q6H, LOVENOX 30MG SC HS. WE WILL RESUME HIS HOME MEDICATIONS OF ZINC SULFATE, LOSARTAN, LEVOTHYROXINE, TAGRISSO, PERCOCET, DURAGESIC PATCH, AND ASCORBIC ACID. WE WILL ADD ATIVAN 1MG IV Q8H PRN ANXIETY TODAY. WE DISCUSSED PATIENTS DECLINING CONDITION AND POOR PROGNOSIS WITH HIS FAMILY. THEY REPORT UNDERSTANDING. OTHERWISE, WE WILL FOLLOW UP WITH AM LABS AND CONTINUE TO MONITOR. TIME SPENT ON CLINICAL ASSESSMENT, REVIEWING LABS AND IMAGING, DECISION MAKING, AND DOCUMENTATION GREATER THAN 45 MINUTES. - Past Medical Family Social History Past Med/Fam/Surg Hx: No changes since H&P Allergies: Allergies No Known Allergies Allergy (Verified 07/21/22 07:17) - Review of Systems ROS: No change since H&P - Vital Signs and I&O's Vital Signs: Vital Signs Temperature 97.3 F Pulse Rate 77 Pulse Rate 82 Pulse Rate 90 Pulse Rate 79 Pulse Rate 79 Pulse Rate 80 Pulse Rate 81 Pulse Rate 80 Pulse Rate 79 Respiratory Rate 22 Respiratory Rate 82 Respiratory Rate 72 Respiratory Rate 33 Respiratory Rate 39 Respiratory Rate 41 Respiratory Rate 68 Blood Pressure 87/53 Blood Pressure 85/56 Blood Pressure 89/61 Blood Pressure 86/58 Blood Pressure 89/54 Blood Pressure 93/57 Blood Pressure 89/56 O2 Sat by Pulse Oximetry 99 O2 Sat by Pulse Oximetry 74 O2 Sat by Pulse Oximetry 96 O2 Sat by Pulse Oximetry 95 O2 Sat by Pulse Oximetry 94 O2 Sat by Pulse Oximetry 96 O2 Sat by Pulse Oximetry 98 O2 Sat by Pulse Oximetry 96 O2 Sat by Pulse Oximetry 91 Intake and Output: Intake & Output 09/06/22 09/07/22 09/08/22 09/09/22 11:59 11:59 11:59 11:59 Intake Total 3594 / 3594 2197 / 2197 3039 / 3039 Output Total 800 / 800 1170 / 1170 230 / 230 Balance 2794 / 2794 1027 / 1027 2809 / 2809 - Physical Exam Oriented: Normal Eyes: Normal Ear: Normal Nose: Normal Throat: Normal Respiratory: Generalized, Rhonchi Cardiovascular: Normal : Normal Auscultation: Bowel Sounds: Normal Palpation: Normal Tenderness: Normal Skin: Tender, Wound (NUMEROUS WOUNDS ON THE BACK, SACRUM, AND LOWER EXTREMITIES), Other (see operative note .) Musculoskeletal: Normal Psychiatric: Normal Mood Description: Calm Affect: Normal Speech Pattern: Clear, Appropriate - Laboratory and Diagnostics Result Diagrams: 09/08/22 05:06 09/08/22 05:06 Labs: 09/05/22 16:45 Leg - Left Wound Gram Stain - Final 09/05/22 16:45 Leg - Left Wound Culture - Preliminary 09/05/22 16:40 Leg - Right Wound Gram Stain - Final 09/05/22 16:40 Leg - Right Wound Culture - Final Providencia Rettgeri Acinetobacter Baumanii/Haemoly 09/06/22 13:24 Sacral Wound Gram Stain - Final 09/06/22 13:24 Sacral Wound Culture - Preliminary Providencia Rettgeri Escherichia Coli 09/05/22 16:35 Foot - Right Wound Gram Stain - Final 09/05/22 16:35 Foot - Right Wound Culture - Final Acinetobacter Baumanii/Haemoly Providencia Rettgeri 09/05/22 17:00 Buttock Wound Gram Stain - Final 09/05/22 17:00 Buttock Wound Culture - Final Klebsiella Pneumoniae Acinetobacter Baumanii/Haemoly 09/05/22 16:55 Sacral Wound Gram Stain - Final 09/05/22 16:55 Sacral Wound Culture - Final Escherichia Coli Acinetobacter Baumanii/Haemoly 09/05/22 16:50 Foot - Left Wound Gram Stain - Final 09/05/22 16:50 Foot - Left Wound Culture - Final Proteus Mirabilis Acinetobacter Baumanii/Haemoly 09/05/22 17:00 Buttock Wound Gram Stain - Final 09/05/22 17:00 Buttock Wound Culture - Final Klebsiella Pneumoniae Escherichia Coli 09/04/22 22:43 Blood Blood Culture - Final Staphylococcus Epidermidis 09/04/22 22:26 Blood Blood Culture - Final Morganella Morganii Laboratory WBC 12.0 X10^3/uL (3.6-10.0) H 09/08/22 05:06 RBC 2.98 X10^6/uL (4.7-6.0) L 09/08/22 05:06 Hgb 7.6 g/dL (13.5-18.0) L 09/08/22 05:06 Hct 23.3 % (42.0-54.0) L 09/08/22 05:06 MCV 78.4 fL (80.0-100.0) L 09/08/22 05:06 MCH 25.7 pg (27.0-34.0) L 09/08/22 05:06 MCHC 32.7 g/dL (33.0-35.0) L 09/08/22 05:06 RDW 21.9 % (11.6-16.5) H 09/08/22 05:06 Plt Count 130 X10^3/uL (150.0-450.0) L 09/08/22 05:06 Plt Count Comment Decreased (ADEQUATE) 09/08/22 05:06 MPV 8.4 fL (7.4-11.0) 09/08/22 05:06 Neut % (Auto) 91.3 % (42.0-75.0) H 09/08/22 05:06 Lymph % (Auto) 6.4 % (21.0-51.0) L 09/08/22 05:06 [place] % (Auto) 2.2 % (0.0-13.0) 09/08/22 05:06 Eos % (Auto) 0.0 % (0.9-2.9) L 09/08/22 05:06 Baso % (Auto) 0.1 % (0.2-1.0) L 09/08/22 05:06 Neut # (Auto) 10.9 x10^3/uL (2.2-4.8) H 09/08/22 05:06 Lymph # (Auto) 0.8 X10^3/uL (1.3-2.9) L 09/08/22 05:06 [place] # (Auto) 0.3 x10^3/uL (0.3-0.8) 09/08/22 05:06 Eos # (Auto) 0.0 x10^3/uL (0.0-0.2) 09/08/22 05:06 Baso # (Auto) 0.0 X10^3/uL (0.0-0.1) 09/08/22 05:06 Absolute Nucleated RBC 0.0 /100WBC 09/08/22 05:06 Total Counted 100 09/08/22 05:06 Neutrophils % (Manual) 80 % (39-76) H 09/08/22 05:06 Band Neutrophils % 5 % (0-10) 09/08/22 05:06 Lymphocytes % (Manual) 12 % (13-43) L 09/08/22 05:06 Monocytes % (Manual) 3 % (4-9) L 09/08/22 05:06 Plt Morphology Comment Normal (NORMAL) 09/08/22 05:06 RBC Morphology Abnormal (NORMAL) 09/08/22 05:06 Hypochromasia 1+ A 09/08/22 05:06 Anisocytosis 1+ A 09/08/22 05:06 Microcytosis Slight A 09/08/22 05:06 Ovalocytes Present 09/08/22 05:06 Schistocytes Present 09/08/22 05:06 Sample Site R bra 09/08/22 05:16 ABG pH 7.260 (7.35-7.45) L 09/08/22 05:16 ABG pCO2 64.0 mmHg (35.0-45.0) H* 09/08/22 05:16 ABG pO2 72.0 mmHg (80.0-100.0) L 09/08/22 05:16 ABG HCO3 28.7 mmol/L (22-26) H 09/08/22 05:16 ABG O2 Saturation 92.0 % (90-100) 09/08/22 05:16 ABG Base Excess 0.3 mmol/L (-2.0-2.0) 09/08/22 05:16 Amador Test N/a 09/08/22 05:16 A-a Gradient 561.0 mmHg 09/08/22 05:16 FiO2 100.0 09/08/22 05:16 Blood Gas Comments Pt marivel well mt 09/08/22 05:16 Sodium 133 mmol/L (136-145) L 09/08/22 05:06 Corrected Sodium 135 mmol/L (136-145) L 09/08/22 05:06 Potassium 4.1 mmol/L (3.5-5.1) 09/08/22 05:06 Chloride 99 mmol/L (98-107) 09/08/22 05:06 Carbon Dioxide 27.0 mmol/L (21-32) 09/08/22 05:06 BUN 14 mg/dL (7-18) 09/08/22 05:06 Creatinine 0.70 mg/dL (0.70-1.30) 09/08/22 05:06 Est GFR (MDRD) Af Amer > 60 (>60) 09/08/22 05:06 Est GFR (MDRD) Non-Af > 60 (>60) 09/08/22 05:06 Glucose 185 mg/dL (65-99) H 09/08/22 05:06 POC Glucose (mg/dL) 75 mg/dL (65-99) 09/08/22 11:11 Lactic Acid 0.8 mmol/L (0.4-2.0) 09/05/22 01:36 Calcium 7.7 mg/dL (8.5-10.1) L 09/08/22 05:06 Corrected Calcium 9.5 mg/dL (8.5-10.1) 09/08/22 05:06 Magnesium 1.8 mg/dL (2.0-2.9) L 09/06/22 05:48 Total Bilirubin 0.20 mg/dL (0.2-1.0) 09/08/22 05:06 AST 21 Units/L (15-37) 09/08/22 05:06 ALT 7 Units/L (12-78) L 09/08/22 05:06 Alkaline Phosphatase 188 Units/L (46-116) H 09/08/22 05:06 Creatine Kinase 88 Units/L (39-308) 09/04/22 22:26 B-Natriuretic Peptide 2850 pg/mL (0-79) H* 09/08/22 05:06 Total Protein 5.1 g/dL (6.4-8.2) L 09/08/22 05:06 Albumin 1.7 g/dL (3.4-5.0) L 09/08/22 05:06 Globulin 3.4 g/dL (2.5-4.5) 09/08/22 05:06 Albumin/Globulin Ratio 0.5 Ratio (1.1-2.1) L 09/08/22 05:06 Specimen Type Catherized urine 09/04/22 22:15 Urine Color Dark yellow (YELLOW) 09/04/22 22:15 Urine Appearance Clear (CLEAR) 09/04/22 22:15 Urine pH 5.0 (5.0 - 8.0) 09/04/22 22:15 Ur Specific [place] 1.025 (1.000-1.030) 09/04/22 22:15 Urine Protein 2+ (NEGATIVE) 09/04/22 22:15 Urine Glucose (UA) Negative (NEGATIVE) 09/04/22 22:15 Urine Ketones 1+ (NEGATIVE) 09/04/22 22:15 Urine Blood 5+ (NEGATIVE) 09/04/22 22:15 Urine Nitrite Negative (NEGATIVE) 09/04/22 22:15 Urine Bilirubin Negative (NEGATIVE) 09/04/22 22:15 Urine Urobilinogen 2+ (NORMAL) 09/04/22 22:15 Ur Leukocyte Esterase 1+ (NEGATIVE) 09/04/22 22:15 Urine RBC 10-20 /HPF (0-3) A 09/04/22 22:15 Urine WBC 0-2 /HPF (0-5) 09/04/22 22:15 Ur Squamous Epith Cells Rare /HPF (NEGATIVE) 09/04/22 22:15 Calcium Oxalate Crystal Few /HPF (NEGATIVE) 09/04/22 22:15 Amorphous Sediment 1+ /HPF (NEGATIVE) 09/04/22 22:15 Urine Bacteria Negative /HPF (NEGATIVE) 09/04/22 22:15 Urine Mucus Many /HPF (NEGATIVE) 09/04/22 22:15 Ur Culture Indicated? No/not indicated 09/04/22 22:15 Resp Viral Panel (PCR) See scanned report 09/06/22 07:20 - Plan (1) Infected decubitus ulcer Status: Acute Qualifiers: Pressure injury stage: unspecified pressure injury stage Qualified Code(s): L89.90 - Pressure ulcer of unspecified site, unspecified stage; L08.9 - Local infection of the skin and subcutaneous tissue, unspecified Plan: STATUS POST DEBRIDEMENT OF WOUNDS, D51/2 NS AT 100 ML/HR, ZOSYN 3.375G IV TID, PULMICORT NEBS BID, XOPENEX NEBS Q6H, LOVENOX 30MG SC HS. WE WILL RESUME HIS HOME MEDICATIONS OF ZINC SULFATE, LOSARTAN, LEVOTHYROXINE, TAGRISSO, PERCOCET, DURAGESIC PATCH, AND ASCORBIC ACID. (2) Pneumonia Status: Acute Qualifiers: Pneumonia type: due to unspecified organism Laterality: bilateral Lung location: lower lobe of lung Qualified Code(s): J18.9 - Pneumonia, unspecified organism (3) Respiratory failure with hypoxia Status: Acute Qualifiers: Chronicity: acute Qualified Code(s): J96.01 - Acute respiratory failure with hypoxia (4) Acute hyponatremia Status: Acute (5) Anemia Status: Acute Qualifiers: Anemia type: unspecified type Qualified Code(s): D64.9 - Anemia, unspecified (6) DVT of left axillary vein, chronic Status: Acute (7) Lung cancer metastatic to bone Status: Acute (8) Hypoalbuminemia due to protein-calorie malnutrition Status: Acute (9) HTN (hypertension) Status: Chronic Qualifiers: Hypertension type: primary hypertension Qualified Code(s): I10 - Essential (primary) hypertension (10) Hypothyroidism Status: Chronic Qualifiers: Hypothyroidism type: acquired Qualified Code(s): E03.9 - Hypothyroidism, unspecified (11) GERD (gastroesophageal reflux disease) Status: Chronic Qualifiers: Esophagitis presence: esophagitis presence not specified Qualified Code(s): K21.9 - Gastro-esophageal reflux disease without esophagitis
--- NOTE | 2022-09-08 12:36 | PCM.PROG ---
Progress Note - Progress Note for Day of Date of Exam: 09/08/22 - Subjective Subjective: IS CURRENTLY INPATIENT STATUS FOR TREATMENT OF INFECTED DECUBITUS ULCERS, PNEUMONIA, RESPIRATORY FAILURE WITH HYPOXIA, ACUTE HYPONATREMIA, ANEMIA, AND HYPOALBUMINEMIA DUE TO PROTEIN CALORIE MALNUTRITION. HE REMAINS IN THE INTENSIVE CARE UNIT TODAY. HE CONTINUES TO UTILIZE THE BIPAP AT 100%. NURSING STAFF REPORTS THAT HIS SATURATIONS DROPPED INTO THE 80s SEVERAL TIMES THROUGHOUT THE NIGHT, WHILE ON THE BIPAP. HE HAS ALSO BEEN HYPOTENSIVE. ON EXAMINATION, PATIENT AWAKENS TO VERBAL STIMULI. HE IS ABLE TO ANSWER QUESTION APPROPRIATELY. HEART IS REGULAR IN RATE AND RHYTHM. BILATERAL LUNGS ARE NOTED WITH RHONCHI THROUGHOUT. ABDOMEN IS ROUND, SOFT, AND NON-TENDER WITH NORMAL BOWEL SOUNDS NOTED IN ALL QUADRANTS. GOOD MOVEMENT NOTED TO UPPER EXTREMITIES. ATROPHY OF LOWER EXTREMITIES NOTED. NO UPPER OR LOWER EXTREMITY EDEMA NOTED. HIS VITALS THIS MORNING ARE: 97.3-80-33-96%-89/54. LABS WERE OBTAINED. WBC 12.0, RBC 2.98, HGB 7.6, HCT 23.3, PLT COUNT 130, SODIUM 133, POTASSIUM 4.1, CHLORIDE 99, BUN 14, CREATININE 0.70, GLUCOSE 185, CALCIUM 7.7, AST 21, ALT 7, ALK PHOS 188, BNP 2850, TOTAL PROTEIN 5.1, ALBUMIN 1.7. BLOOD AND WOUND CULTURES ARE PENDING. A CHEST XRAY WAS OBTAINED THIS MORNING. WE ORDERED A CHEST XRAY YESTERDAY. IT REVEALED: There is severe extensive right lung alveolar pneumonia with complete consolidation of the right lower lobe. Left lower lobe and left upper lobe alveolar infiltrates are also seen and show no significant improvement from the previous study. There is no pneumothorax. The osseous structures are intact. HE IS CURRENTLY RECEIVING D51/2 NS AT 100 ML/HR, ALBUMIN 25% IV DAILY, ZOSYN 3.375G IV TID, PULMICORT NEBS BID, XOPENEX NEBS Q6H, LOVENOX 30MG SC HS, ATIVAN 1MG IV Q8H PRN. WE WILL RESUME HIS HOME MEDICATIONS OF ZINC SULFATE, LOSARTAN, LEVOTHYROXINE, TAGRISSO, PERCOCET, DURAGESIC PATCH, AND ASCORBIC ACID. WE WILL HOLD HIS LOSARTAN TODAY. WE DISCUSSED PATIENTS DECLINING CONDITION AND POOR PROGNOSIS WITH HIS SPOUSE. SHE REPORTS UNDERSTANDING AND WILL DISCUSS WITH HER CHILDREN. OTHERWISE, WE WILL FOLLOW UP WITH AM LABS AND CONTINUE TO MONITOR. TIME SPENT ON CLINICAL ASSESSMENT, REVIEWING LABS AND IMAGING, DECISION MAKING, AND DOCUMENTATION GREATER THAN 45 MINUTES. - Past Medical Family Social History Past Med/Fam/Surg Hx: No changes since H&P Allergies: Allergies No Known Allergies Allergy (Verified 07/21/22 07:17) - Review of Systems ROS: No change since H&P - Vital Signs and I&O's Vital Signs: Vital Signs Temperature 97.3 F Pulse Rate 77 Pulse Rate 82 Pulse Rate 90 Pulse Rate 79 Pulse Rate 79 Pulse Rate 80 Pulse Rate 81 Pulse Rate 80 Pulse Rate 79 Respiratory Rate 22 Respiratory Rate 82 Respiratory Rate 72 Respiratory Rate 33 Respiratory Rate 39 Respiratory Rate 41 Respiratory Rate 68 Blood Pressure 87/53 Blood Pressure 85/56 Blood Pressure 89/61 Blood Pressure 86/58 Blood Pressure 89/54 Blood Pressure 93/57 Blood Pressure 89/56 O2 Sat by Pulse Oximetry 99 O2 Sat by Pulse Oximetry 74 O2 Sat by Pulse Oximetry 96 O2 Sat by Pulse Oximetry 95 O2 Sat by Pulse Oximetry 94 O2 Sat by Pulse Oximetry 96 O2 Sat by Pulse Oximetry 98 O2 Sat by Pulse Oximetry 96 O2 Sat by Pulse Oximetry 91 Intake and Output: Intake & Output 09/06/22 09/07/22 09/08/22 09/09/22 11:59 11:59 11:59 11:59 Intake Total 3594 / 3594 2197 / 2197 3039 / 3039 Output Total 800 / 800 1170 / 1170 230 / 230 Balance 2794 / 2794 1027 / 1027 2809 / 2809 - Physical Exam Oriented: Normal Eyes: Normal Ear: Normal Nose: Normal Throat: Normal Respiratory: Generalized, Rhonchi Cardiovascular: Normal : Normal Auscultation: Bowel Sounds: Normal Palpation: Normal Tenderness: Normal Skin: Tender, Wound (NUMEROUS WOUNDS ON THE BACK, SACRUM, AND LOWER EXTREMITIES), Other (see operative note .) Musculoskeletal: Normal Psychiatric: Normal Mood Description: Calm Affect: Normal Speech Pattern: Clear, Appropriate - Laboratory and Diagnostics Result Diagrams: 09/08/22 05:06 09/08/22 05:06 Labs: 09/05/22 16:45 Leg - Left Wound Gram Stain - Final 09/05/22 16:45 Leg - Left Wound Culture - Preliminary 09/05/22 16:40 Leg - Right Wound Gram Stain - Final 09/05/22 16:40 Leg - Right Wound Culture - Final Providencia Rettgeri Acinetobacter Baumanii/Haemoly 09/06/22 13:24 Sacral Wound Gram Stain - Final 09/06/22 13:24 Sacral Wound Culture - Preliminary Providencia Rettgeri Escherichia Coli 09/05/22 16:35 Foot - Right Wound Gram Stain - Final 09/05/22 16:35 Foot - Right Wound Culture - Final Acinetobacter Baumanii/Haemoly Providencia Rettgeri 09/05/22 17:00 Buttock Wound Gram Stain - Final 09/05/22 17:00 Buttock Wound Culture - Final Klebsiella Pneumoniae Acinetobacter Baumanii/Haemoly 09/05/22 16:55 Sacral Wound Gram Stain - Final 09/05/22 16:55 Sacral Wound Culture - Final Escherichia Coli Acinetobacter Baumanii/Haemoly 09/05/22 16:50 Foot - Left Wound Gram Stain - Final 09/05/22 16:50 Foot - Left Wound Culture - Final Proteus Mirabilis Acinetobacter Baumanii/Haemoly 09/05/22 17:00 Buttock Wound Gram Stain - Final 09/05/22 17:00 Buttock Wound Culture - Final Klebsiella Pneumoniae Escherichia Coli 09/04/22 22:43 Blood Blood Culture - Final Staphylococcus Epidermidis 09/04/22 22:26 Blood Blood Culture - Final Morganella Morganii Laboratory WBC 12.0 X10^3/uL (3.6-10.0) H 09/08/22 05:06 RBC 2.98 X10^6/uL (4.7-6.0) L 09/08/22 05:06 Hgb 7.6 g/dL (13.5-18.0) L 09/08/22 05:06 Hct 23.3 % (42.0-54.0) L 09/08/22 05:06 MCV 78.4 fL (80.0-100.0) L 09/08/22 05:06 MCH 25.7 pg (27.0-34.0) L 09/08/22 05:06 MCHC 32.7 g/dL (33.0-35.0) L 09/08/22 05:06 RDW 21.9 % (11.6-16.5) H 09/08/22 05:06 Plt Count 130 X10^3/uL (150.0-450.0) L 09/08/22 05:06 Plt Count Comment Decreased (ADEQUATE) 09/08/22 05:06 MPV 8.4 fL (7.4-11.0) 09/08/22 05:06 Neut % (Auto) 91.3 % (42.0-75.0) H 09/08/22 05:06 Lymph % (Auto) 6.4 % (21.0-51.0) L 09/08/22 05:06 [place] % (Auto) 2.2 % (0.0-13.0) 09/08/22 05:06 Eos % (Auto) 0.0 % (0.9-2.9) L 09/08/22 05:06 Baso % (Auto) 0.1 % (0.2-1.0) L 09/08/22 05:06 Neut # (Auto) 10.9 x10^3/uL (2.2-4.8) H 09/08/22 05:06 Lymph # (Auto) 0.8 X10^3/uL (1.3-2.9) L 09/08/22 05:06 [place] # (Auto) 0.3 x10^3/uL (0.3-0.8) 09/08/22 05:06 Eos # (Auto) 0.0 x10^3/uL (0.0-0.2) 09/08/22 05:06 Baso # (Auto) 0.0 X10^3/uL (0.0-0.1) 09/08/22 05:06 Absolute Nucleated RBC 0.0 /100WBC 09/08/22 05:06 Total Counted 100 09/08/22 05:06 Neutrophils % (Manual) 80 % (39-76) H 09/08/22 05:06 Band Neutrophils % 5 % (0-10) 09/08/22 05:06 Lymphocytes % (Manual) 12 % (13-43) L 09/08/22 05:06 Monocytes % (Manual) 3 % (4-9) L 09/08/22 05:06 Plt Morphology Comment Normal (NORMAL) 09/08/22 05:06 RBC Morphology Abnormal (NORMAL) 09/08/22 05:06 Hypochromasia 1+ A 09/08/22 05:06 Anisocytosis 1+ A 09/08/22 05:06 Microcytosis Slight A 09/08/22 05:06 Ovalocytes Present 09/08/22 05:06 Schistocytes Present 09/08/22 05:06 Sample Site R bra 09/08/22 05:16 ABG pH 7.260 (7.35-7.45) L 09/08/22 05:16 ABG pCO2 64.0 mmHg (35.0-45.0) H* 09/08/22 05:16 ABG pO2 72.0 mmHg (80.0-100.0) L 09/08/22 05:16 ABG HCO3 28.7 mmol/L (22-26) H 09/08/22 05:16 ABG O2 Saturation 92.0 % (90-100) 09/08/22 05:16 ABG Base Excess 0.3 mmol/L (-2.0-2.0) 09/08/22 05:16 [place] Test N/a 09/08/22 05:16 A-a Gradient 561.0 mmHg 09/08/22 05:16 FiO2 100.0 09/08/22 05:16 Blood Gas Comments Pt marivel well mt 09/08/22 05:16 Sodium 133 mmol/L (136-145) L 09/08/22 05:06 Corrected Sodium 135 mmol/L (136-145) L 09/08/22 05:06 Potassium 4.1 mmol/L (3.5-5.1) 09/08/22 05:06 Chloride 99 mmol/L (98-107) 09/08/22 05:06 Carbon Dioxide 27.0 mmol/L (21-32) 09/08/22 05:06 BUN 14 mg/dL (7-18) 09/08/22 05:06 Creatinine 0.70 mg/dL (0.70-1.30) 09/08/22 05:06 Est GFR (MDRD) Af Amer > 60 (>60) 09/08/22 05:06 Est GFR (MDRD) Non-Af > 60 (>60) 09/08/22 05:06 Glucose 185 mg/dL (65-99) H 09/08/22 05:06 POC Glucose (mg/dL) 75 mg/dL (65-99) 09/08/22 11:11 Lactic Acid 0.8 mmol/L (0.4-2.0) 09/05/22 01:36 Calcium 7.7 mg/dL (8.5-10.1) L 09/08/22 05:06 Corrected Calcium 9.5 mg/dL (8.5-10.1) 09/08/22 05:06 Magnesium 1.8 mg/dL (2.0-2.9) L 09/06/22 05:48 Total Bilirubin 0.20 mg/dL (0.2-1.0) 09/08/22 05:06 AST 21 Units/L (15-37) 09/08/22 05:06 ALT 7 Units/L (12-78) L 09/08/22 05:06 Alkaline Phosphatase 188 Units/L (46-116) H 09/08/22 05:06 Creatine Kinase 88 Units/L (39-308) 09/04/22 22:26 B-Natriuretic Peptide 2850 pg/mL (0-79) H* 09/08/22 05:06 Total Protein 5.1 g/dL (6.4-8.2) L 09/08/22 05:06 Albumin 1.7 g/dL (3.4-5.0) L 09/08/22 05:06 Globulin 3.4 g/dL (2.5-4.5) 09/08/22 05:06 Albumin/Globulin Ratio 0.5 Ratio (1.1-2.1) L 09/08/22 05:06 Specimen Type Catherized urine 09/04/22 22:15 Urine Color Dark yellow (YELLOW) 09/04/22 22:15 Urine Appearance Clear (CLEAR) 09/04/22 22:15 Urine pH 5.0 (5.0 - 8.0) 09/04/22 22:15 Ur Specific [place] 1.025 (1.000-1.030) 09/04/22 22:15 Urine Protein 2+ (NEGATIVE) 09/04/22 22:15 Urine Glucose (UA) Negative (NEGATIVE) 09/04/22 22:15 Urine Ketones 1+ (NEGATIVE) 09/04/22 22:15 Urine Blood 5+ (NEGATIVE) 09/04/22 22:15 Urine Nitrite Negative (NEGATIVE) 09/04/22 22:15 Urine Bilirubin Negative (NEGATIVE) 09/04/22 22:15 Urine Urobilinogen 2+ (NORMAL) 09/04/22 22:15 Ur Leukocyte Esterase 1+ (NEGATIVE) 09/04/22 22:15 Urine RBC 10-20 /HPF (0-3) A 09/04/22 22:15 Urine WBC 0-2 /HPF (0-5) 09/04/22 22:15 Ur Squamous Epith Cells Rare /HPF (NEGATIVE) 09/04/22 22:15 Calcium Oxalate Crystal Few /HPF (NEGATIVE) 09/04/22 22:15 Amorphous Sediment 1+ /HPF (NEGATIVE) 09/04/22 22:15 Urine Bacteria Negative /HPF (NEGATIVE) 09/04/22 22:15 Urine Mucus Many /HPF (NEGATIVE) 09/04/22 22:15 Ur Culture Indicated? No/not indicated 09/04/22 22:15 Resp Viral Panel (PCR) See scanned report 09/06/22 07:20 - Plan (1) Infected decubitus ulcer Status: Acute Qualifiers: Pressure injury stage: unspecified pressure injury stage Qualified Code(s): L89.90 - Pressure ulcer of unspecified site, unspecified stage; L08.9 - Local infection of the skin and subcutaneous tissue, unspecified Plan: STATUS POST DEBRIDEMENT OF WOUNDS, D51/2 NS AT 100 ML/HR, ZOSYN 3.375G IV TID, PULMICORT NEBS BID, XOPENEX NEBS Q6H, LOVENOX 30MG SC HS, ATIVAN 1MG IV Q8H PRN. WE WILL RESUME HIS HOME MEDICATIONS OF ZINC SULFATE, LEVOTHYROXINE, TAGRISSO, PERCOCET, DURAGESIC PATCH, AND ASCORBIC ACID. (2) Pneumonia Status: Acute Qualifiers: Pneumonia type: due to unspecified organism Laterality: bilateral Lung location: lower lobe of lung Qualified Code(s): J18.9 - Pneumonia, unspecified organism (3) Respiratory failure with hypoxia Status: Acute Qualifiers: Chronicity: acute Qualified Code(s): J96.01 - Acute respiratory failure with hypoxia (4) Acute hyponatremia Status: Acute (5) Anemia Status: Acute Qualifiers: Anemia type: unspecified type Qualified Code(s): D64.9 - Anemia, unspecified (6) DVT of left axillary vein, chronic Status: Acute (7) Lung cancer metastatic to bone Status: Acute (8) Hypoalbuminemia due to protein-calorie malnutrition Status: Acute (9) HTN (hypertension) Status: Chronic Qualifiers: Hypertension type: primary hypertension Qualified Code(s): I10 - Essential (primary) hypertension (10) Hypothyroidism Status: Chronic Qualifiers: Hypothyroidism type: acquired Qualified Code(s): E03.9 - Hypothyroidism, unspecified (11) GERD (gastroesophageal reflux disease) Status: Chronic Qualifiers: Esophagitis presence: esophagitis presence not specified Qualified Code(s): K21.9 - Gastro-esophageal reflux disease without esophagitis
[2022-09-08] MEDS: BACTRIM IV SCH ×2 (16:19→20:28)
[2022-09-08] MEDS: D5W IV SCH ×2 (16:19→20:28)
[2022-09-08] MEDS ORDERED: D5W 250 ML IV 0 ML IV ONE (20:16)
[2022-09-08] MEDS: LOVENOX INJ 30 MG SYR SC SCH (20:28)
[2022-09-09] MEDS: XOPENEX 1.25 MG/3 ML NEBULE NEB SCH ×4 (00:30→16:20)
[2022-09-09] MEDS: D5 1/2 NS 1,000 ML 1,000 ML IV SCH ×3 (01:12→23:23)
[2022-09-09] MEDS: BACTRIM IV SCH ×4 (02:21→20:12)
[2022-09-09] MEDS: D5W IV SCH ×4 (02:21→20:12)
[2022-09-09 05:09] LABS: BASOPHILS % (AUTO) 0.2 % (0.2-1.0); HEMATOCRIT 22.1 % (42.0-54.0); HEMOGLOBIN 7.1 g/dL (13.5-18.0); LYMPHOCYTES # (AUTO) 0.5 X10^3/uL (1.3-2.9); LYMPHOCYTES % (AUTO) 5.4 % (21.0-51.0); MEAN CORPUSCULAR HEMOGLOBIN 25.7 pg (27.0-34.0); MEAN CORPUSCULAR HGB CONC 32.2 g/dL (33.0-35.0); MEAN CORPUSCULAR VOLUME 79.9 fL (80.0-100.0); MEAN PLATELET VOLUME 8.3 fL (7.4-11.0); MONOCYTES # (AUTO) 0.3 x10^3/uL (0.3-0.8); MONOCYTES % (AUTO) 2.6 % (0.0-13.0); NEUTROPHILS # (AUTO) 9.1 x10^3/uL (2.2-4.8); NEUTROPHILS % (AUTO) 91.8 % (42.0-75.0); PLATELET COUNT 127 X10^3/uL (150.0-450.0); RED BLOOD COUNT 2.77 X10^6/uL (4.7-6.0); RED CELL DISTRIBUTION WIDTH 22.1 % (11.6-16.5); WHITE BLOOD COUNT 9.9 X10^3/uL (3.6-10.0)
[2022-09-09 05:17] LABS: ALANINE AMINOTRANSFERASE 23 Units/L (12-78); ALBUMIN 1.8 g/dL (3.4-5.0); ALKALINE PHOSPHATASE 204 Units/L (46-116); ASPARTATE AMINO TRANSFERASE 60 Units/L (15-37); BLOOD UREA NITROGEN 16 mg/dL (7-18); CALCIUM 7.3 mg/dL (8.5-10.1); CARBON DIOXIDE 27.9 mmol/L (21-32); CHLORIDE 95 mmol/L (98-107); COR CA(FOR HYPOALB) 9.1 mg/dL (8.5-10.1); COR NA(FOR HYPERGLY) 133 mmol/L (136-145); CREATININE 0.99 mg/dL (0.70-1.30); GLUCOSE 202 mg/dL (65-99); POTASSIUM 3.9 mmol/L (3.5-5.1); SODIUM 131 mmol/L (136-145); TOTAL PROTEIN 5.2 g/dL (6.4-8.2); eGFR NON BLACK RACES > 60 (>60)
[2022-09-09] MEDS: ZOSYN VIAL 3.375 GRAMS 3.375 G in NS 100 ML IV 100 ML IV SCH ×3 (05:19→22:08)
[2022-09-09 05:44] LABS: ANISOCYTOSIS 2+; BAND NEUTROPHILS % 3 % (0-10); HYPOCHROMASIA 1+; MICROCYTOSIS SLIGHT; OVALOCYTES PRESENT; PLATELET MORPHOLOGY COMMENT NORMAL (NORMAL)
[2022-09-09 06:31] LABS: ABG BASE EXCESS -2.9 mmol/L (-2.0-2.0); ABG HCO3 26.9 mmol/L (22-26)
[2022-09-09 06:34] LABS: ABG ALLEN TEST POS
--- NOTE | 2022-09-09 07:13 | RAD ---
HISTORYShortness of breathSTUDYChest AP [id number] ent is rotated to the left. There is a right-sided PICC line in good position. Diffuse bilateral perihilar alveolar filling is now present worsening on the left. Findings could be on the basis of bilateral pneumonia or cardiogenic or noncardiogenic edema. There is, however, improved aeration in the right lower lobe with improving infiltrate/atelectasis and decreasing pleural effusion. No definite left pleural effusion is identified. Bony thorax is unremarkable.IMPRESSIONWorsening bilateral upper lobe perihilar alveolar filling which could be on the basis of pneumonia or cardiogenic or noncardiogenic pulmonary edemaSignificantly improved aeration in the right lower lobe with improvement in the consolidation/atelectasis and decreased right pleural effusionElectronically signed by: SANTOSH NICK (Sep 09, 2022 07:12:00)
[2022-09-09] MEDS: PULMICORT NEB TX 0.5 MG NEB SCH ×2 (08:18→20:51)
[2022-09-09] MEDS: ALBUMIN HUMAN 25%- 100 ML 100 ML IV SCH (08:46)
[2022-09-09] MEDS: SYNTHROID INJ 100 mcg VIAL IVP SCH (08:48)
[2022-09-09] MEDS: STERILE WATER IRRIGATION IR SCH (09:00)
--- NOTE | 2022-09-09 11:45 | PCM.PROG ---
Progress Note - Progress Note for Day of Date of Exam: 09/09/22 - Subjective Subjective: IS CURRENTLY INPATIENT STATUS FOR TREATMENT OF SEPSIS, INFECTED DECUBITUS ULCERS, PNEUMONIA, RESPIRATORY FAILURE WITH HYPOXIA, ACUTE HYPONATREMIA, ANEMIA, AND HYPOALBUMINEMIA DUE TO PROTEIN CALORIE MALNUTRITION. HE REMAINS IN THE INTENSIVE CARE UNIT TODAY. HE CONTINUES TO UTILIZE THE BIPAP AT 100%. NURSING STAFF REPORTS THAT HIS SATURATIONS DROPPED INTO THE 70-80s SEVERAL TIMES THROUGHOUT THE NIGHT, WHILE ON THE BIPAP. HE ALSO CONTINUES TO BE HYPOTENSIVE. ON EXAMINATION, PATIENT IS LYING IN BED WITH EYES CLOSED ON MORNING ROUNDS. HE IS CURRENTLY UTILIZING THE BIPAP. HE IS DIFFICULT TO AROUSE THIS MORNING. HE IS BRADYCARDIC THIS MORNING WITH HR IN THE 50s. BILATERAL LUNGS ARE NOTED WITH RHONCHI THROUGHOUT. ABDOMEN IS ROUND, SOFT, AND NON-TENDER WITH NORMAL BOWEL SOUNDS NOTED IN ALL QUADRANTS. ATROPHY OF EXTREMITIES NOTED WITH TRACE LOWER EXTREMITY EDEMA. HIS VITALS THIS MORNING ARE: 97.2-58-21-96%-75/50. LABS WERE OBTAINED. WBC 9.9, RBC 2.77, HGB 7.1, HCT 22.1, PLT COUNT 127, SODIUM 131, POTASSIUM 3.9, BUN 16, CREATININE 0.99, GLUCOSE 202, CALCIUM 7.3, AST 60, ALT 23, ALK PHOS 204, BNP 2220, TOTAL PROTEIN 5.2, ALBUMIN 1.8. BLOOD CULTURES WERE POSITIVE FOR STAPHYLOCOCCUS EPIDERMIDIS AND MORGANELLA MORGANII. WOUND CULTURES ARE POSITIVE FOR ACINETOBACTER BAUMANII/HAEMOLY, PROVIDENCIA RETTGERI, PROTEUS MIRABILIS, E.COLI, AND KLEBSIELLA PNEUMONIAE. A CHEST XRAY WAS OBTAINED THIS MORNING. WE ORDERED A CHEST XRAY YESTERDAY. IT REVEALED: Worsening bilateral upper lobe perihilar alveolar filling which could be on the basis of pneumonia or cardiogenic or noncardiogenic pulmonary edema. Significantly improved aeration in the right lower lobe with improvement in the c onsolidation/atelectasis and decreased right pleural effusion. HE IS CURRENTLY RECEIVING D51/2 NS AT 100 ML/HR, ALBUMIN 25% IV DAILY, ZOSYN 3.375G IV TID, BACTRIM IV, PULMICORT NEBS BID, XOPENEX NEBS Q6H, LOVENOX 30MG SC HS, ATIVAN 1MG IV Q8H PRN, SYNTHROID IV, MORPHINE 2MG IV Q4H PRN, AND A DURAGESIC 25MCG/HR PATCH. WE WILL HOLD HIS ORAL MEDICATIONS. WE DISCUSSED PATIENTS DECLINING CONDITION AND POOR PROGNOSIS WITH HIS SPOUSE. SHE HAS DISCUSSED IT WITH HER CHILDREN AND THEY WISH TO CONTINUE CURRENT TREATEMENT FOR NOW, HOWEVER, THEY DID MAKE PATIENT A FULL DNR. SHOULD HE CONTINUE TO DECLINE, THEY WISH TO KEEP HIM COMFORTABLE. WE WILL CONTINUE WITH CURRENT PLAN OF CARE TODAY. WE WILL FOLLOW UP WITH AM LABS AND CONTINUE TO MONITOR. TIME SPENT ON CLINICAL ASSESSMENT, REVIEWING LABS AND IMAGING, DECISION MAKING, AND DOCUMENTATION GREATER THAN 45 MINUTES. - Past Medical Family Social History Past Med/Fam/Surg Hx: No changes since H&P Allergies: Allergies No Known Allergies Allergy (Verified 07/21/22 07:17) - Review of Systems ROS: No change since H&P - Vital Signs and I&O's Vital Signs: Vital Signs Temperature 97.2 F Pulse Rate 60 Pulse Rate 58 Pulse Rate 58 Pulse Rate 58 Pulse Rate 57 Pulse Rate 58 Pulse Rate 58 Pulse Rate 59 Pulse Rate 58 Pulse Rate 59 Pulse Rate 58 Pulse Rate 60 Pulse Rate 60 Pulse Rate 60 Pulse Rate 62 Pulse Rate 62 Pulse Rate 62 Respiratory Rate 21 Respiratory Rate 22 Respiratory Rate 22 Respiratory Rate 22 Respiratory Rate 22 Respiratory Rate 21 Respiratory Rate 22 Respiratory Rate 22 Respiratory Rate 20 Respiratory Rate 21 Respiratory Rate 21 Respiratory Rate 22 Respiratory Rate 23 Respiratory Rate 19 Respiratory Rate 23 Respiratory Rate 23 Blood Pressure 73/50 Blood Pressure 73/53 Blood Pressure 73/53 Blood Pressure 73/53 Blood Pressure 75/50 Blood Pressure 80/51 Blood Pressure 81/47 Blood Pressure 75/50 Blood Pressure 75/52 Blood Pressure 81/47 Blood Pressure 80/53 Blood Pressure 80/53 Blood Pressure 80/51 Blood Pressure 80/51 O2 Sat by Pulse Oximetry 95 O2 Sat by Pulse Oximetry 96 O2 Sat by Pulse Oximetry 96 O2 Sat by Pulse Oximetry 97 O2 Sat by Pulse Oximetry 94 O2 Sat by Pulse Oximetry 96 O2 Sat by Pulse Oximetry 90 O2 Sat by Pulse Oximetry 89 O2 Sat by Pulse Oximetry 95 O2 Sat by Pulse Oximetry 94 O2 Sat by Pulse Oximetry 95 O2 Sat by Pulse Oximetry 95 O2 Sat by Pulse Oximetry 79 O2 Sat by Pulse Oximetry 94 O2 Sat by Pulse Oximetry 90 O2 Sat by Pulse Oximetry 91 O2 Sat by Pulse Oximetry 90 Intake and Output: Intake & Output 07/31/23 09/07/22 09/08/22 09/09/22 11:59 11:59 11:59 11:59 Intake Total 3594 / 3594 2197 / 2197 3039 / 3039 1744 / 1744 Output Total 800 / 800 1170 / 1170 230 / 230 175 / 175 Balance 2794 / 2794 1027 / 1027 2809 / 2809 1569 / 1569 - Physical Exam Oriented: Unable to test Eyes: Normal Ear: Normal Nose: Normal Throat: Normal Respiratory: Generalized, Rhonchi Cardiovascular: Bradycardia : Normal Auscultation: Bowel Sounds: Normal Palpation: Normal Tenderness: Normal Skin: Tender, Wound (NUMEROUS WOUNDS ON THE BACK, SACRUM, AND LOWER EXTREMITIES), Other (see operative note .) Musculoskeletal: Normal Psychiatric: Normal Mood Description: Calm Affect: Normal Speech Pattern: Clear - Laboratory and Diagnostics Result Diagrams: 09/09/22 04:46 09/09/22 04:46 Labs: 09/06/22 13:24 Sacral Wound Gram Stain - Final 09/06/22 13:24 Sacral Wound Culture - Final Providencia Rettgeri Escherichia Coli 09/05/22 16:45 Leg - Left Wound Gram Stain - Final 09/05/22 16:45 Leg - Left Wound Culture - Final Acinetobacter Baumanii/Haemoly 09/05/22 16:40 Leg - Right Wound Gram Stain - Final 09/05/22 16:40 Leg - Right Wound Culture - Final Providencia Rettgeri Acinetobacter Baumanii/Haemoly 09/05/22 16:35 Foot - Right Wound Gram Stain - Final 09/05/22 16:35 Foot - Right Wound Culture - Final Acinetobacter Baumanii/Haemoly Providencia Rettgeri 09/05/22 17:00 Buttock Wound Gram Stain - Final 09/05/22 17:00 Buttock Wound Culture - Final Klebsiella Pneumoniae Acinetobacter Baumanii/Haemoly 09/05/22 16:55 Sacral Wound Gram Stain - Final 09/05/22 16:55 Sacral Wound Culture - Final Escherichia Coli Acinetobacter Baumanii/Haemoly 09/05/22 16:50 Foot - Left Wound Gram Stain - Final 09/05/22 16:50 Foot - Left Wound Culture - Final Proteus Mirabilis Acinetobacter Baumanii/Haemoly 09/05/22 17:00 Buttock Wound Gram Stain - Final 09/05/22 17:00 Buttock Wound Culture - Final Klebsiella Pneumoniae Escherichia Coli 09/04/22 22:43 Blood Blood Culture - Final Staphylococcus Epidermidis 09/04/22 22:26 Blood Blood Culture - Final Morganella Morganii Laboratory WBC 9.9 X10^3/uL (3.6-10.0) 09/09/22 04:46 RBC 2.77 X10^6/uL (4.7-6.0) L 09/09/22 04:46 Hgb 7.1 g/dL (13.5-18.0) L 09/09/22 04:46 Hct 22.1 % (42.0-54.0) L 09/09/22 04:46 MCV 79.9 fL (80.0-100.0) L 09/09/22 04:46 MCH 25.7 pg (27.0-34.0) L 09/09/22 04:46 MCHC 32.2 g/dL (33.0-35.0) L 09/09/22 04:46 RDW 22.1 % (11.6-16.5) H 09/09/22 04:46 Plt Count 127 X10^3/uL (150.0-450.0) L 09/09/22 04:46 Plt Count Comment Decreased (ADEQUATE) 09/09/22 04:46 MPV 8.3 fL (7.4-11.0) 09/09/22 04:46 Neut % (Auto) 91.8 % (42.0-75.0) H 09/09/22 04:46 Lymph % (Auto) 5.4 % (21.0-51.0) L 09/09/22 04:46 Holt % (Auto) 2.6 % (0.0-13.0) 09/09/22 04:46 Eos % (Auto) 0.0 % (0.9-2.9) L 09/09/22 04:46 Baso % (Auto) 0.2 % (0.2-1.0) 09/09/22 04:46 Neut # (Auto) 9.1 x10^3/uL (2.2-4.8) H 09/09/22 04:46 Lymph # (Auto) 0.5 X10^3/uL (1.3-2.9) L 09/09/22 04:46 Holt # (Auto) 0.3 x10^3/uL (0.3-0.8) 09/09/22 04:46 Eos # (Auto) 0.0 x10^3/uL (0.0-0.2) 09/09/22 04:46 Baso # (Auto) 0.0 X10^3/uL (0.0-0.1) 09/09/22 04:46 Absolute Nucleated RBC 0.1 /100WBC 09/09/22 04:46 Total Counted 100 09/09/22 04:46 Neutrophils % (Manual) 90 % (39-76) H 09/09/22 04:46 Band Neutrophils % 3 % (0-10) 09/09/22 04:46 Lymphocytes % (Manual) 6 % (13-43) L 09/09/22 04:46 Monocytes % (Manual) 1 % (4-9) L 09/09/22 04:46 Plt Morphology Comment Normal (NORMAL) 09/09/22 04:46 RBC Morphology Abnormal (NORMAL) 09/09/22 04:46 Hypochromasia 1+ A 09/09/22 04:46 Anisocytosis 2+ A 09/09/22 04:46 Microcytosis Slight A 09/09/22 04:46 Ovalocytes Present 09/09/22 04:46 Schistocytes Present 09/08/22 05:06 Sample Site Rrad 09/09/22 06:25 ABG pH 7.180 (7.35-7.45) L* 09/09/22 06:25 ABG pCO2 72.0 mmHg (35.0-45.0) H* 09/09/22 06:25 ABG pO2 59.0 mmHg (80.0-100.0) L 09/09/22 06:25 ABG HCO3 26.9 mmol/L (22-26) H 09/09/22 06:25 ABG O2 Saturation 82.0 % (90-100) L* 09/09/22 06:25 ABG Base Excess -2.9 mmol/L (-2.0-2.0) L 09/09/22 06:25 Amador Test Pos 09/09/22 06:25 A-a Gradient 564.0 mmHg 09/09/22 06:25 FiO2 100.0 09/09/22 06:25 Blood Gas Comments Brian abg well-mtf 09/09/22 06:25 Sodium 131 mmol/L (136-145) L 09/09/22 04:46 Corrected Sodium 133 mmol/L (136-145) L 09/09/22 04:46 Potassium 3.9 mmol/L (3.5-5.1) 09/09/22 04:46 Chloride 95 mmol/L (98-107) L 09/09/22 04:46 Carbon Dioxide 27.9 mmol/L (21-32) 09/09/22 04:46 BUN 16 mg/dL (7-18) 09/09/22 04:46 Creatinine 0.99 mg/dL (0.70-1.30) 09/09/22 04:46 Est GFR (MDRD) Af Amer > 60 (>60) 09/09/22 04:46 Est GFR (MDRD) Non-Af > 60 (>60) 09/09/22 04:46 Glucose 202 mg/dL (65-99) H 09/09/22 04:46 POC Glucose (mg/dL) 162 mg/dL (65-99) H 09/09/22 05:24 Lactic Acid 0.8 mmol/L (0.4-2.0) 09/05/22 01:36 Calcium 7.3 mg/dL (8.5-10.1) L 09/09/22 04:46 Corrected Calcium 9.1 mg/dL (8.5-10.1) 09/09/22 04:46 Magnesium 1.8 mg/dL (2.0-2.9) L 09/06/22 05:48 Total Bilirubin 0.20 mg/dL (0.2-1.0) 09/09/22 04:46 AST 60 Units/L (15-37) H 09/09/22 04:46 ALT 23 Units/L (12-78) 09/09/22 04:46 Alkaline Phosphatase 204 Units/L (46-116) H 09/09/22 04:46 Creatine Kinase 88 Units/L (39-308) 09/04/22 22:26 B-Natriuretic Peptide 2220 pg/mL (0-79) H* 09/09/22 04:46 Total Protein 5.2 g/dL (6.4-8.2) L 09/09/22 04:46 Albumin 1.8 g/dL (3.4-5.0) L 09/09/22 04:46 Globulin 3.4 g/dL (2.5-4.5) 09/09/22 04:46 Albumin/Globulin Ratio 0.5 Ratio (1.1-2.1) L 09/09/22 04:46 Specimen Type Catherized urine 09/04/22 22:15 Urine Color Dark yellow (YELLOW) 09/04/22 22:15 Urine Appearance Clear (CLEAR) 09/04/22 22:15 Urine pH 5.0 (5.0 - 8.0) 09/04/22 22:15 Ur Specific [place] 1.025 (1.000-1.030) 09/04/22 22:15 Urine Protein 2+ (NEGATIVE) 09/04/22 22:15 Urine Glucose (UA) Negative (NEGATIVE) 09/04/22 22:15 Urine Ketones 1+ (NEGATIVE) 09/04/22 22:15 Urine Blood 5+ (NEGATIVE) 09/04/22 22:15 Urine Nitrite Negative (NEGATIVE) 09/04/22 22:15 Urine Bilirubin Negative (NEGATIVE) 09/04/22 22:15 Urine Urobilinogen 2+ (NORMAL) 09/04/22 22:15 Ur Leukocyte Esterase 1+ (NEGATIVE) 09/04/22 22:15 Urine RBC 10-20 /HPF (0-3) A 09/04/22 22:15 Urine WBC 0-2 /HPF (0-5) 09/04/22 22:15 Ur Squamous Epith Cells Rare /HPF (NEGATIVE) 09/04/22 22:15 Calcium Oxalate Crystal Few /HPF (NEGATIVE) 09/04/22 22:15 Amorphous Sediment 1+ /HPF (NEGATIVE) 09/04/22 22:15 Urine Bacteria Negative /HPF (NEGATIVE) 09/04/22 22:15 Urine Mucus Many /HPF (NEGATIVE) 09/04/22 22:15 Ur Culture Indicated? No/not indicated 09/04/22 22:15 Resp Viral Panel (PCR) See scanned report 09/06/22 07:20 - Plan (1) Sepsis Status: Acute Qualifiers: Sepsis type: sepsis due to unspecified organism Sepsis acute organ dysfunction status: with acute organ dysfunction Severe sepsis acute organ dysfunction type: acute respiratory failure Acute respiratory failure type: with hypoxia Severe sepsis shock status: with septic shock Qualified Code(s): A41.9 - Sepsis, unspecified organism; R65.21 - Severe sepsis with septic shock; J96.01 - Acute respiratory failure with hypoxia Plan: D51/2 NS AT 100 ML/HR, ALBUMIN 25% IV DAILY, ZOSYN 3.375G IV TID, BACTRIM IV, PULMICORT NEBS BID, XOPENEX NEBS Q6H, LOVENOX 30MG SC HS, ATIVAN 1MG IV Q8H PRN, SYNTHROID IV, MORPHINE 2MG IV Q4H PRN, AND A DURAGESIC 25MCG/HR PATCH. WOUND CARE (2) Infected decubitus ulcer Status: Acute Qualifiers: Pressure injury stage: unspecified pressure injury stage Qualified Code(s): L89.90 - Pressure ulcer of unspecified site, unspecified stage; L08.9 - Local infection of the skin and subcutaneous tissue, unspecified (3) Pneumonia Status: Acute Qualifiers: Pneumonia type: due to unspecified organism Laterality: bilateral Lung location: lower lobe of lung Qualified Code(s): J18.9 - Pneumonia, unspecified organism (4) Respiratory failure with hypoxia Status: Acute Qualifiers: Chronicity: acute Qualified Code(s): J96.01 - Acute respiratory failure with hypoxia (5) Acute hyponatremia Status: Acute (6) Anemia Status: Acute Qualifiers: Anemia type: unspecified type Qualified Code(s): D64.9 - Anemia, unspecified (7) DVT of left axillary vein, chronic Status: Acute (8) Lung cancer metastatic to bone Status: Acute (9) Hypoalbuminemia due to protein-calorie malnutrition Status: Acute (10) HTN (hypertension) Status: Chronic Qualifiers: Hypertension type: primary hypertension Qualified Code(s): I10 - Essential (primary) hypertension (11) Hypothyroidism Status: Chronic Qualifiers: Hypothyroidism type: acquired Qualified Code(s): E03.9 - Hypothyroidism, unspecified (12) GERD (gastroesophageal reflux disease) Status: Chronic Qualifiers: Esophagitis presence: esophagitis presence not specified Qualified Code(s): K21.9 - Gastro-esophageal reflux disease without esophagitis
[2022-09-09] MEDS ORDERED: D50W ABBOJECT SYR IV ONE (12:19)
[2022-09-09] MEDS ORDERED: D50W ABBOJECT SYR ONE (12:24)
[2022-09-10] MEDS: XOPENEX 1.25 MG/3 ML NEBULE NEB SCH ×5 (00:40→17:03)
[2022-09-10] MEDS: D5W IV SCH ×4 (02:03→20:44)
[2022-09-10] MEDS: BACTRIM IV SCH ×4 (02:03→20:44)
[2022-09-10] MEDS: D5 1/2 NS 1,000 ML 1,000 ML IV SCH ×2 (03:45→09:42)
[2022-09-10 05:20] LABS: ALANINE AMINOTRANSFERASE 22 Units/L (12-78); ALBUMIN 2.1 g/dL (3.4-5.0); ALKALINE PHOSPHATASE 168 Units/L (46-116); ASPARTATE AMINO TRANSFERASE 36 Units/L (15-37); BASOPHILS # (AUTO) 0.1 X10^3/uL (0.0-0.1); BASOPHILS % (AUTO) 0.6 % (0.2-1.0); BLOOD UREA NITROGEN 18 mg/dL (7-18); CARBON DIOXIDE 25.7 mmol/L (21-32); CHLORIDE 94 mmol/L (98-107); COR CA(FOR HYPOALB) 8.5 mg/dL (8.5-10.1); COR NA(FOR HYPERGLY) 129 mmol/L (136-145); CREATININE 1.29 mg/dL (0.70-1.30); GLUCOSE 117 mg/dL (65-99); HEMATOCRIT 21.3 % (42.0-54.0); LYMPHOCYTES # (AUTO) 0.5 X10^3/uL (1.3-2.9); LYMPHOCYTES % (AUTO) 5.1 % (21.0-51.0); MEAN CORPUSCULAR HEMOGLOBIN 25.8 pg (27.0-34.0); MEAN CORPUSCULAR HGB CONC 32.3 g/dL (33.0-35.0); MEAN CORPUSCULAR VOLUME 79.9 fL (80.0-100.0); MEAN PLATELET VOLUME 8.4 fL (7.4-11.0); MONOCYTES # (AUTO) 0.3 x10^3/uL (0.3-0.8); MONOCYTES % (AUTO) 2.9 % (0.0-13.0); NEUTROPHILS # (AUTO) 8.7 x10^3/uL (2.2-4.8); NEUTROPHILS % (AUTO) 91.4 % (42.0-75.0); PLATELET COUNT 92 X10^3/uL (150.0-450.0); POTASSIUM 3.6 mmol/L (3.5-5.1); RED BLOOD COUNT 2.67 X10^6/uL (4.7-6.0); RED CELL DISTRIBUTION WIDTH 21.6 % (11.6-16.5); SODIUM 129 mmol/L (136-145); TOTAL PROTEIN 5.3 g/dL (6.4-8.2); WHITE BLOOD COUNT 9.5 X10^3/uL (3.6-10.0); eGFR NON BLACK RACES 58 (>60)
[2022-09-10 05:28] LABS: HEMOGLOBIN 6.9 g/dL (13.5-18.0)
[2022-09-10] MEDS: ZOSYN VIAL 3.375 GRAMS 3.375 G in NS 100 ML IV 100 ML IV SCH ×3 (05:29→23:01)
[2022-09-10 05:32] LABS: ANISOCYTOSIS 1+; BAND NEUTROPHILS % 3 % (0-10); HYPOCHROMASIA SLIGHT; METAMYELOCYTES % 1; OVALOCYTES SLIGHT; PLATELET MORPHOLOGY COMMENT NORMAL (NORMAL); SCHISTOCYTES SLIGHT
--- NOTE | 2022-09-10 06:02 | RAD ---
HISTORYSOB Relevant Clinical InformationSTUDYCHEST, 1 [id number] trachea is midline. Right PICC line unchanged. The cardiac silhouette is unremarkable. Diffuse bilateral infiltrates again noted. No pneumothorax. The bony thorax is unremarkable.IMPRESSIONStable portable chest.Electronically signed by: Roman Woods (Sep 10, 2022 06:00:32)
[2022-09-10] MEDS ORDERED: CONSULT PHARMACY - POTASSIUM & MAGNESIUM XX SCH (07:00)
[2022-09-10] MEDS: SYNTHROID INJ 100 mcg VIAL IVP SCH ×2 (08:35→09:41)
[2022-09-10] MEDS ORDERED: K-DUR TAB 20 MEQ PO ONE (09:00)
[2022-09-10] MEDS: PULMICORT NEB TX 0.5 MG NEB SCH ×2 (09:06→20:05)
[2022-09-10] MEDS: STERILE WATER IRRIGATION IR SCH (09:32)
[2022-09-10] MEDS ORDERED: VERSED 100 MG in NS 100 ML IV 80 ML IV PRN (09:40)
[2022-09-10] MEDS: ALBUMIN HUMAN 25%- 100 ML 100 ML IV SCH (09:41)
--- NOTE | 2022-09-10 10:31 | PCM.PROG ---
Progress Note - Progress Note for Day of Date of Exam: 09/10/22 - Subjective Subjective: IS CURRENTLY INPATIENT STATUS FOR TREATMENT OF SEPSIS, INFECTED DECUBITUS ULCERS, PNEUMONIA, RESPIRATORY FAILURE WITH HYPOXIA, ACUTE HYPONATREMIA, ANEMIA, AND HYPOALBUMINEMIA DUE TO PROTEIN CALORIE MALNUTRITION. HE REMAINS IN THE INTENSIVE CARE UNIT TODAY. HE CONTINUES TO UTILIZE THE BIPAP AT 100%. NURSING STAFF REPORTS THAT HIS SATURATIONS QUICKLY DROP INTO THE 70s WHENEVER BIPAP IS REMOVED. THEY ALSO DROP INTO THE 80s AT TIMES WHEN HE IS WEARING THE BIPAP. HE ALSO CONTINUES TO BE HYPOTENSIVE. ON EXAMINATION, PATIENT IS LYING IN BED WITH EYES CLOSED ON MORNING ROUNDS. HE IS CURRENTLY UTILIZING THE BIPAP. HE IS DIFFICULT TO AROUSE THIS MORNING. NURSING STAFF REPORTS THAT HE DOES GET AGITATED AT TIMES AND TRIES TO REMOVE THE BIPAP. HE IS BRADYCARDIC THIS MORNING WITH HR IN THE 50s. BILATERAL LUNGS ARE NOTED WITH RHONCHI THROUGHOUT. ABDOMEN IS ROUND, SOFT, AND NON-TENDER WITH NORMAL BOWEL SOUNDS NOTED IN ALL QUADRANTS. ATROPHY OF EXTREMITIES NOTED WITH TRACE LOWER EXTREMITY EDEMA. HIS VITALS THIS MORNING ARE: 97.4-59-16-89%-78/52. LABS WERE OBTAINED. WBC 9.5, RBC 2.67, HGB 6.9, HCT 21.3, PLT COUNT 92, SODIUM 129, POTASSIUM 3.6, CHLORIDE 94, BUN 18, CREATININE 1.29, GLUCOSE 117, CALCIUM 7.0, TOTAL BILI 0.20, AST 36, ALT 22, ALK PHOS 168, BNP 2250, TOTAL PROTEIN 5.3, ALBUMIN 2.1. BLOOD CULTURES WERE POSITIVE FOR STAPHYLOCOCCUS EPIDERMIDIS AND MORGANELLA MORGANII. WOUND CULTURES ARE POSITIVE FOR ACINETOBACTER BAUMANII/HAEMOLY, PROVIDENCIA RETTGERI, PROTEUS MIRABILIS, E.COLI, AND KLEBSIELLA PNEUMONIAE. A CHEST XRAY WAS OBTAINED THIS MORNING. WE REPEATED A CHEST XRAY THIS MORNING. IT WAS STABLE AND UNCHANGED. HE IS CURRENTLY RECEIVING D51/2 NS AT 100 ML/HR, ALBUMIN 25% IV DAILY, ZOSYN 3.375G IV TID, BACTRIM IV, PULMICORT NEBS BID, XOPENEX NEBS Q6H, LOVENOX 30MG SC HS, ATIVAN 1MG IV Q8H PRN, SYNTHROID IV, MORPHINE 2MG IV Q4H PRN, AND A DURAGESIC 25MCG/HR PATCH. WE WILL HOLD HIS ORAL MEDICATIONS. WE DISCUSSED PATIENTS DECLINING CONDITION AND POOR PROGNOSIS WITH HIS SPOUSE. SHE HAS DISCUSSED IT WITH HER CHILDREN AND THEY WISH TO CONTINUE CURRENT TREATEMENT FOR NOW, HOWEVER, THEY DID MAKE PATIENT A FULL DNR. THEY DO NOT WISH TO TRANSFUSE PRBC FOR ANEMIA. SHOULD HE CONTINUE TO DECLINE, THEY WISH TO KEEP HIM COMFORTABLE. WE WILL CONTINUE WITH CURRENT PLAN OF CARE TODAY AND ADD VERSED 2MG/HR DRIP. OTHERWISE, WE WILL FOLLOW UP WITH AM LABS AND CONTINUE TO MONITOR. TIME SPENT ON CLINICAL ASSESSMENT, REVIEWING LABS AND IMAGING, DECISION MAKING, AND DOCUMENTATION GREATER THAN 45 MINUTES. - Past Medical Family Social History Past Med/Fam/Surg Hx: No changes since H&P Allergies: Allergies No Known Allergies Allergy (Verified 07/21/22 07:17) - Review of Systems ROS: No change since H&P - Vital Signs and I&O's Vital Signs: Vital Signs Temperature 94.7 F Temperature 89.3 F Pulse Rate 61 Pulse Rate 60 Pulse Rate 60 Pulse Rate 59 Pulse Rate 57 Pulse Rate 60 Pulse Rate 56 Pulse Rate 57 Pulse Rate 58 Pulse Rate 59 Pulse Rate 57 Pulse Rate 55 Pulse Rate 57 Pulse Rate 56 Pulse Rate 60 Pulse Rate 59 Pulse Rate 60 Pulse Rate 58 Respiratory Rate 17 Respiratory Rate 14 Respiratory Rate 17 Respiratory Rate 16 Respiratory Rate 17 Respiratory Rate 13 Respiratory Rate 17 Respiratory Rate 19 Respiratory Rate 14 Respiratory Rate 20 Respiratory Rate 19 Respiratory Rate 18 Respiratory Rate 59 Respiratory Rate 53 Respiratory Rate 33 Respiratory Rate 34 Respiratory Rate 36 Respiratory Rate 33 Blood Pressure 83/54 Blood Pressure 89/51 Blood Pressure 78/52 Blood Pressure 79/53 Blood Pressure 79/50 Blood Pressure 79/50 Blood Pressure 79/50 Blood Pressure 85/53 Blood Pressure 65/48 Blood Pressure 65/48 Blood Pressure 76/49 Blood Pressure 76/49 O2 Sat by Pulse Oximetry 100 O2 Sat by Pulse Oximetry 92 O2 Sat by Pulse Oximetry 93 O2 Sat by Pulse Oximetry 89 O2 Sat by Pulse Oximetry 92 O2 Sat by Pulse Oximetry 90 O2 Sat by Pulse Oximetry 100 O2 Sat by Pulse Oximetry 94 O2 Sat by Pulse Oximetry 92 O2 Sat by Pulse Oximetry 98 O2 Sat by Pulse Oximetry 98 O2 Sat by Pulse Oximetry 97 O2 Sat by Pulse Oximetry 98 O2 Sat by Pulse Oximetry 100 O2 Sat by Pulse Oximetry 100 O2 Sat by Pulse Oximetry 100 O2 Sat by Pulse Oximetry 97 Intake and Output: Intake & Output 08/01/23 08/02/23 08/03/23 08/04/23 11:59 11:59 11:59 11:59 Intake Total 2197 / 2197 3039 / 3039 1744 / 1744 2902 / 2902 Output Total 1170 / 1170 230 / 230 175 / 175 Balance 1027 / 1027 2809 / 2809 1569 / 1569 2892 / 2892 - Physical Exam Oriented: Unable to test Eyes: Normal Ear: Normal Nose: Normal Throat: Normal Respiratory: Generalized, Rhonchi Cardiovascular: Bradycardia : Normal Auscultation: Bowel Sounds: Normal Palpation: Normal Tenderness: Normal Skin: Tender, Wound (NUMEROUS WOUNDS ON THE BACK, SACRUM, AND LOWER EXTREMITIES), Other (see operative note .) Musculoskeletal: Normal Psychiatric: Normal Mood Description: Calm Affect: Normal Speech Pattern: Clear - Laboratory and Diagnostics Result Diagrams: 09/10/22 04:40 09/10/22 04:40 Labs: 09/06/22 13:24 Sacral Wound Gram Stain - Final 09/06/22 13:24 Sacral Wound Culture - Final Providencia Rettgeri Escherichia Coli 09/05/22 16:45 Leg - Left Wound Gram Stain - Final 09/05/22 16:45 Leg - Left Wound Culture - Final Acinetobacter Baumanii/Haemoly 09/05/22 16:40 Leg - Right Wound Gram Stain - Final 09/05/22 16:40 Leg - Right Wound Culture - Final Providencia Rettgeri Acinetobacter Baumanii/Haemoly 09/05/22 16:35 Foot - Right Wound Gram Stain - Final 09/05/22 16:35 Foot - Right Wound Culture - Final Acinetobacter Baumanii/Haemoly Providencia Rettgeri 09/05/22 17:00 Buttock Wound Gram Stain - Final 09/05/22 17:00 Buttock Wound Culture - Final Klebsiella Pneumoniae Acinetobacter Baumanii/Haemoly 09/05/22 16:55 Sacral Wound Gram Stain - Final 09/05/22 16:55 Sacral Wound Culture - Final Escherichia Coli Acinetobacter Baumanii/Haemoly 09/05/22 16:50 Foot - Left Wound Gram Stain - Final 09/05/22 16:50 Foot - Left Wound Culture - Final Proteus Mirabilis Acinetobacter Baumanii/Haemoly 09/05/22 17:00 Buttock Wound Gram Stain - Final 09/05/22 17:00 Buttock Wound Culture - Final Klebsiella Pneumoniae Escherichia Coli 09/04/22 22:43 Blood Blood Culture - Final Staphylococcus Epidermidis 09/04/22 22:26 Blood Blood Culture - Final Morganella Morganii Laboratory WBC 9.5 X10^3/uL (3.6-10.0) 09/10/22 04:40 RBC 2.67 X10^6/uL (4.7-6.0) L 09/10/22 04:40 Hgb 6.9 g/dL (13.5-18.0) L* 09/10/22 04:40 Hct 21.3 % (42.0-54.0) L 09/10/22 04:40 MCV 79.9 fL (80.0-100.0) L 09/10/22 04:40 MCH 25.8 pg (27.0-34.0) L 09/10/22 04:40 MCHC 32.3 g/dL (33.0-35.0) L 09/10/22 04:40 RDW 21.6 % (11.6-16.5) H 09/10/22 04:40 Plt Count 92 X10^3/uL (150.0-450.0) L 09/10/22 04:40 Plt Count Comment Decreased (ADEQUATE) 09/10/22 04:40 MPV 8.4 fL (7.4-11.0) 09/10/22 04:40 Neut % (Auto) 91.4 % (42.0-75.0) H 09/10/22 04:40 Lymph % (Auto) 5.1 % (21.0-51.0) L 09/10/22 04:40 [place] % (Auto) 2.9 % (0.0-13.0) 09/10/22 04:40 Eos % (Auto) 0.0 % (0.9-2.9) L 09/10/22 04:40 Baso % (Auto) 0.6 % (0.2-1.0) 09/10/22 04:40 Neut # (Auto) 8.7 x10^3/uL (2.2-4.8) H 09/10/22 04:40 Lymph # (Auto) 0.5 X10^3/uL (1.3-2.9) L 09/10/22 04:40 [place] # (Auto) 0.3 x10^3/uL (0.3-0.8) 09/10/22 04:40 Eos # (Auto) 0.0 x10^3/uL (0.0-0.2) 09/10/22 04:40 Baso # (Auto) 0.1 X10^3/uL (0.0-0.1) 09/10/22 04:40 Absolute Nucleated RBC 0.1 /100WBC 09/10/22 04:40 Total Counted 100 09/10/22 04:40 Neutrophils % (Manual) 88 % (39-76) H 09/10/22 04:40 Band Neutrophils % 3 % (0-10) 09/10/22 04:40 Lymphocytes % (Manual) 6 % (13-43) L 09/10/22 04:40 Monocytes % (Manual) 2 % (4-9) L 09/10/22 04:40 Metamyelocytes % 1 09/10/22 04:40 Plt Morphology Comment Normal (NORMAL) 09/10/22 04:40 RBC Morphology Abnormal (NORMAL) 09/10/22 04:40 Hypochromasia Slight A 09/10/22 04:40 Anisocytosis 1+ A 09/10/22 04:40 Microcytosis Slight A 09/09/22 04:46 Ovalocytes Slight A 09/10/22 04:40 Schistocytes Slight A 09/10/22 04:40 Sample Site Rrad 09/09/22 06:25 ABG pH 7.180 (7.35-7.45) L* 09/09/22 06:25 ABG pCO2 72.0 mmHg (35.0-45.0) H* 09/09/22 06:25 ABG pO2 59.0 mmHg (80.0-100.0) L 09/09/22 06:25 ABG HCO3 26.9 mmol/L (22-26) H 09/09/22 06:25 ABG O2 Saturation 82.0 % (90-100) L* 09/09/22 06:25 ABG Base Excess -2.9 mmol/L (-2.0-2.0) L 09/09/22 06:25 Amador Test Pos 09/09/22 06:25 A-a Gradient 564.0 mmHg 09/09/22 06:25 FiO2 100.0 09/09/22 06:25 Blood Gas Comments Brian abg well-mtf 09/09/22 06:25 Sodium 129 mmol/L (136-145) L 09/10/22 04:40 Corrected Sodium 129 mmol/L (136-145) L 09/10/22 04:40 Potassium 3.6 mmol/L (3.5-5.1) 09/10/22 04:40 Chloride 94 mmol/L (98-107) L 09/10/22 04:40 Carbon Dioxide 25.7 mmol/L (21-32) 09/10/22 04:40 BUN 18 mg/dL (7-18) 09/10/22 04:40 Creatinine 1.29 mg/dL (0.70-1.30) 09/10/22 04:40 Est GFR (MDRD) Af Amer > 60 (>60) 09/10/22 04:40 Est GFR (MDRD) Non-Af 58 (>60) L 09/10/22 04:40 Glucose 117 mg/dL (65-99) H 09/10/22 04:40 POC Glucose (mg/dL) 187 mg/dL (65-99) H 09/09/22 20:01 Lactic Acid 0.8 mmol/L (0.4-2.0) 09/05/22 01:36 Calcium 7.0 mg/dL (8.5-10.1) L 09/10/22 04:40 Corrected Calcium 8.5 mg/dL (8.5-10.1) 09/10/22 04:40 Magnesium 2.0 mg/dL (2.0-2.9) 09/10/22 04:40 Total Bilirubin 0.20 mg/dL (0.2-1.0) 09/10/22 04:40 AST 36 Units/L (15-37) 09/10/22 04:40 ALT 22 Units/L (12-78) 09/10/22 04:40 Alkaline Phosphatase 168 Units/L (46-116) H 09/10/22 04:40 Creatine Kinase 88 Units/L (39-308) 09/04/22 22:26 B-Natriuretic Peptide 2250 pg/mL (0-79) H* 09/10/22 04:40 Total Protein 5.3 g/dL (6.4-8.2) L 09/10/22 04:40 Albumin 2.1 g/dL (3.4-5.0) L 09/10/22 04:40 Globulin 3.2 g/dL (2.5-4.5) 09/10/22 04:40 Albumin/Globulin Ratio 0.7 Ratio (1.1-2.1) L 09/10/22 04:40 Specimen Type Catherized urine 09/04/22 22:15 Urine Color Dark yellow (YELLOW) 09/04/22 22:15 Urine Appearance Clear (CLEAR) 09/04/22 22:15 Urine pH 5.0 (5.0 - 8.0) 09/04/22 22:15 Ur Specific [place] 1.025 (1.000-1.030) 09/04/22 22:15 Urine Protein 2+ (NEGATIVE) 09/04/22 22:15 Urine Glucose (UA) Negative (NEGATIVE) 09/04/22 22:15 Urine Ketones 1+ (NEGATIVE) 09/04/22 22:15 Urine Blood 5+ (NEGATIVE) 09/04/22 22:15 Urine Nitrite Negative (NEGATIVE) 09/04/22 22:15 Urine Bilirubin Negative (NEGATIVE) 09/04/22 22:15 Urine Urobilinogen 2+ (NORMAL) 09/04/22 22:15 Ur Leukocyte Esterase 1+ (NEGATIVE) 09/04/22 22:15 Urine RBC 10-20 /HPF (0-3) A 09/04/22 22:15 Urine WBC 0-2 /HPF (0-5) 09/04/22 22:15 Ur Squamous Epith Cells Rare /HPF (NEGATIVE) 09/04/22 22:15 Calcium Oxalate Crystal Few /HPF (NEGATIVE) 09/04/22 22:15 Amorphous Sediment 1+ /HPF (NEGATIVE) 09/04/22 22:15 Urine Bacteria Negative /HPF (NEGATIVE) 09/04/22 22:15 Urine Mucus Many /HPF (NEGATIVE) 09/04/22 22:15 Ur Culture Indicated? No/not indicated 09/04/22 22:15 Resp Viral Panel (PCR) See scanned report 09/06/22 07:20 - Plan (1) Sepsis Status: Acute Qualifiers: Sepsis type: sepsis due to unspecified organism Sepsis acute organ dysfunction status: with acute organ dysfunction Severe sepsis acute organ dysfunction type: acute respiratory failure Acute respiratory failure type: with hypoxia Severe sepsis shock status: with septic shock Qualified Code(s): A41.9 - Sepsis, unspecified organism; R65.21 - Severe sepsis with septic shock; J96.01 - Acute respiratory failure with hypoxia Plan: D51/2 NS AT 100 ML/HR, VERSED 2MG/HR DRIP, ALBUMIN 25% IV DAILY, ZOSYN 3.375G IV TID, BACTRIM IV, PULMICORT NEBS BID, XOPENEX NEBS Q6H, LOVENOX 30MG SC HS, ATIVAN 1MG IV Q8H PRN, SYNTHROID IV, MORPHINE 2MG IV Q4H PRN, AND A DURAGESIC 25MCG/HR PATCH. WOUND CARE (2) Infected decubitus ulcer Status: Acute Qualifiers: Pressure injury stage: unspecified pressure injury stage Qualified Code(s): L89.90 - Pressure ulcer of unspecified site, unspecified stage; L08.9 - Local infection of the skin and subcutaneous tissue, unspecified Plan: STATUS POST DEBRIDEMENT OF WOUNDS. WOUND CARE (3) Pneumonia Status: Acute Qualifiers: Pneumonia type: due to unspecified organism Laterality: bilateral Lung location: lower lobe of lung Qualified Code(s): J18.9 - Pneumonia, unspecified organism (4) Respiratory failure with hypoxia Status: Acute Qualifiers: Chronicity: acute Qualified Code(s): J96.01 - Acute respiratory failure with hypoxia (5) Acute hyponatremia Status: Acute (6) Anemia Status: Acute Qualifiers: Anemia type: unspecified type Qualified Code(s): D64.9 - Anemia, unspecified (7) DVT of left axillary vein, chronic Status: Acute (8) Lung cancer metastatic to bone Status: Acute (9) Hypoalbuminemia due to protein-calorie malnutrition Status: Acute (10) HTN (hypertension) Status: Chronic Qualifiers: Hypertension type: primary hypertension Qualified Code(s): I10 - Essential (primary) hypertension (11) Hypothyroidism Status: Chronic Qualifiers: Hypothyroidism type: acquired Qualified Code(s): E03.9 - Hypothyroidism, unspecified (12) GERD (gastroesophageal reflux disease) Status: Chronic Qualifiers: Esophagitis presence: esophagitis presence not specified Qualified Code(s): K21.9 - Gastro-esophageal reflux disease without esophagitis
[2022-09-11] MEDS: XOPENEX 1.25 MG/3 ML NEBULE NEB SCH ×4 (00:07→17:00)
[2022-09-11] MEDS: D5W IV SCH ×3 (03:34→15:07)
[2022-09-11] MEDS: BACTRIM IV SCH ×3 (03:34→15:07)
[2022-09-11] MEDS: ZOSYN VIAL 3.375 GRAMS 3.375 G in NS 100 ML IV 100 ML IV SCH ×2 (05:14→15:07)
[2022-09-11 05:30] LABS: ALANINE AMINOTRANSFERASE 16 Units/L (12-78); ALBUMIN 2.2 g/dL (3.4-5.0); ALKALINE PHOSPHATASE 134 Units/L (46-116); ASPARTATE AMINO TRANSFERASE 26 Units/L (15-37); BLOOD UREA NITROGEN 19 mg/dL (7-18); CARBON DIOXIDE 26.1 mmol/L (21-32); CHLORIDE 93 mmol/L (98-107); COR CA(FOR HYPOALB) 8.4 mg/dL (8.5-10.1); CREATININE 1.61 mg/dL (0.70-1.30); GLUCOSE 95 mg/dL (65-99); POTASSIUM 3.6 mmol/L (3.5-5.1); SODIUM 128 mmol/L (136-145); TOTAL PROTEIN 5.3 g/dL (6.4-8.2); eGFR NON BLACK RACES 45 (>60)
[2022-09-11 05:34] LABS: BASOPHILS % (AUTO) 0.1 % (0.2-1.0); EOSINOPHILS % (AUTO) 0.1 % (0.9-2.9); LYMPHOCYTES # (AUTO) 0.5 X10^3/uL (1.3-2.9); LYMPHOCYTES % (AUTO) 6.5 % (21.0-51.0); MEAN CORPUSCULAR HGB CONC 32.5 g/dL (33.0-35.0); MEAN CORPUSCULAR VOLUME 79.9 fL (80.0-100.0); MEAN PLATELET VOLUME 8.5 fL (7.4-11.0); MONOCYTES # (AUTO) 0.3 x10^3/uL (0.3-0.8); MONOCYTES % (AUTO) 4.1 % (0.0-13.0); NEUTROPHILS # (AUTO) 6.8 x10^3/uL (2.2-4.8); NEUTROPHILS % (AUTO) 89.2 % (42.0-75.0); PLATELET COUNT 67 X10^3/uL (150.0-450.0); RED BLOOD COUNT 2.46 X10^6/uL (4.7-6.0); RED CELL DISTRIBUTION WIDTH 21.3 % (11.6-16.5); WHITE BLOOD COUNT 7.7 X10^3/uL (3.6-10.0)
[2022-09-11 05:45] LABS: HEMOGLOBIN 6.4 g/dL (13.5-18.0)
[2022-09-11 05:46] LABS: HEMATOCRIT 19.6 % (42.0-54.0)
[2022-09-11 06:00] LABS: ANISOCYTOSIS 1+; BAND NEUTROPHILS % 4 % (0-10); HYPOCHROMASIA SLIGHT; PLATELET MORPHOLOGY COMMENT NORMAL (NORMAL)
[2022-09-11] MEDS ORDERED: CONSULT PHARMACY - POTASSIUM & MAGNESIUM XX SCH (06:00)
[2022-09-11 06:01] LABS: OVALOCYTES SLIGHT; SCHISTOCYTES SLIGHT
[2022-09-11] MEDS: D5 1/2 NS 1,000 ML 1,000 ML IV SCH ×4 (06:23→17:05)
[2022-09-11] MEDS: PULMICORT NEB TX 0.5 MG NEB SCH (08:24)
[2022-09-11] MEDS: ALBUMIN HUMAN 25%- 100 ML 100 ML IV SCH (08:28)
[2022-09-11] MEDS: SYNTHROID INJ 100 mcg VIAL IVP SCH (08:29)
[2022-09-11] MEDS: STERILE WATER IRRIGATION IR SCH (08:34)
[2022-09-11] MEDS ORDERED: K-DUR TAB 20 MEQ PO ONE (09:00)
--- NOTE | 2022-09-11 09:47 | RAD ---
HISTORYSOB lung cancerSTUDYAP chestCOMPARISONAugust 2022FINDINGSRe-demonstration of diffuse bilateral airspace pulmonary involvement, with interval progression of this process in the left lower lobe; the left diaphragm is now completely obscured. There is no evidence for complicating extrapulmonary air or large pleural effusion. Stable right PICC position.IMPRESSIONPersistent bilateral pulmonary infiltrates consistent with pneumonia/edema. Increasing opacification of the left lower lung, probably atelectasis as described on the chest CT 09/06/2022.Electronically signed by: ADARSH VELIZ (Sep 11, 2022 09:47:08)
--- NOTE | 2022-09-11 10:36 | PCM.PROG ---
Progress Note - Progress Note for Day of Date of Exam: 09/11/22 - Subjective Subjective: IS CURRENTLY INPATIENT STATUS FOR TREATMENT OF SEPSIS, INFECTED DECUBITUS ULCERS, PNEUMONIA, RESPIRATORY FAILURE WITH HYPOXIA, ACUTE HYPONATREMIA, ANEMIA, AND HYPOALBUMINEMIA DUE TO PROTEIN CALORIE MALNUTRITION. HE REMAINS IN THE INTENSIVE CARE UNIT TODAY. HE CONTINUES TO UTILIZE THE BIPAP AT 100%. NURSING STAFF REPORTS THAT HIS SATURATIONS QUICKLY DROP INTO THE 70s WHENEVER BIPAP IS REMOVED. THEY ALSO DROP INTO THE 80s AT TIMES WHEN HE IS WEARING THE BIPAP. HE ALSO CONTINUES TO BE HYPOTENSIVE. ON EXAMINATION, PATIENT IS LYING IN BED WITH EYES CLOSED ON MORNING ROUNDS. HE IS CURRENTLY UTILIZING THE BIPAP. HE IS DIFFICULT TO AROUSE THIS MORNING. NURSING STAFF REPORTS THAT HE DOES GET AGITATED AT TIMES AND TRIES TO REMOVE THE BIPAP. ON EXAMINATION, HEART IS REGULAR IN RATE AND RHYTHM. BILATERAL LUNGS ARE NOTED WITH RHONCHI THROUGHOUT. ABDOMEN IS ROUND, SOFT, AND NON-TENDER WITH NORMAL BOWEL SOUNDS NOTED IN ALL QUADRANTS. ATROPHY OF EXTREMITIES NOTED WITH TRACE LOWER EXTREMITY EDEMA. HIS VITALS THIS MORNING ARE: 97.4-71-18-92%-71/43. LABS WERE OBTAINED. WBC 7.7, RBC 2.46, HGB 6.4, HCT 19.6, PLT COUNT 67, SODIUM 128, POTASSIUM 3.6, CHLORIDE 93, BUN 19, CREATININE 1.61, GLUCOSE 95, CALCIUM 7.0, MAGNEISUM 2.0, AST 26, ALT 16, ALK PHOS 134, TOTAL PROTEIN 5.3, ALBUMIN 2.2. BLOOD CULTURES WERE POSITIVE FOR STAPHYLOCOCCUS EPIDERMIDIS AND MORGANELLA MORGANII. WOUND CULTURES ARE POSITIVE FOR ACINETOBACTER BAUMANII/HAEMOLY, PROVIDENCIA RETTGERI, PROTEUS MIRABILIS, E.COLI, AND KLEBSIELLA PNEUMONIAE. A CHEST XRAY WAS OBTAINED THIS MORNING. WE REPEATED A CHEST XRAY THIS MORNING. IT REVEALED: Persistent bilateral pulmonary infiltrates consistent with pneumonia/edema. Increasing opacification of the left lower lung, probably atelectasis as described on the chest CT 09/06/2022. HE IS CURRENTLY RECEIVING D51/2 NS AT 100 ML/HR, ALBUMIN 25% IV DAILY, ZOSYN 3.375G IV TID, BACTRIM IV, PULMICORT NEBS BID, XOPENEX NEBS Q6H, LOVENOX 30MG SC HS, ATIVAN 1MG IV Q8H PRN, SYNTHROID IV, MORPHINE 2MG IV Q4H PRN, AND A DURAGESIC 25MCG/HR PATCH. WE WILL STOP BLOOD GLUCOSE CHECKS AND LABS/XRAYS PER HIS SPOUSES REQUEST. WE DISCUSSED PATIENTS DECLINING CONDITION AND POOR PROGNOSIS WITH HIS SPOUSE. SHE HAS DISCUSSED IT WITH HER CHILDREN AND THEY WISH TO CONTINUE CURRENT TREATEMENT FOR NOW, HOWEVER, THEY DID MAKE PATIENT A FULL DNR. THEY DO NOT WISH TO TRANSFUSE PRBC FOR ANEMIA. SHOULD HE CONTINUE TO DECLINE, THEY WISH TO KEEP HIM COMFORTABLE. WE WILL CONTINUE WITH CURRENT PLAN OF CARE TODAY. OTHERWISE, WE WILL FOLLOW UP WITH AM LABS AND CONTINUE TO MONITOR. TIME SPENT ON CLINICAL ASSESSMENT, REVIEWING LABS AND IMAGING, DECISION MAKING, AND DOCUMENTATION GREATER THAN 45 MINUTES. - Past Medical Family Social History Past Med/Fam/Surg Hx: No changes since H&P Allergies: Allergies No Known Allergies Allergy (Verified 07/21/22 07:17) - Review of Systems ROS: No change since H&P - Vital Signs and I&O's Vital Signs: Vital Signs Pulse Rate 69 Pulse Rate 72 Pulse Rate 71 Pulse Rate 75 Pulse Rate 71 Pulse Rate 71 Pulse Rate 69 Pulse Rate 69 Pulse Rate 70 Pulse Rate 69 Pulse Rate 70 Pulse Rate 68 Pulse Rate 69 Pulse Rate 67 Pulse Rate 67 Pulse Rate 68 Pulse Rate 67 Pulse Rate 69 Pulse Rate 67 Pulse Rate 69 Respiratory Rate 16 Respiratory Rate 18 Respiratory Rate 18 Respiratory Rate 17 Respiratory Rate 14 Respiratory Rate 16 Respiratory Rate 15 Respiratory Rate 16 Respiratory Rate 14 Respiratory Rate 14 Respiratory Rate 14 Respiratory Rate 14 Respiratory Rate 16 Respiratory Rate 16 Respiratory Rate 16 Respiratory Rate 17 Respiratory Rate 16 Respiratory Rate 14 Respiratory Rate 15 Blood Pressure 70/46 Blood Pressure 71/43 Blood Pressure 85/54 Blood Pressure 69/50 Blood Pressure 73/50 Blood Pressure 77/51 Blood Pressure 68/50 Blood Pressure 72/51 Blood Pressure 72/51 Blood Pressure 78/53 Blood Pressure 78/53 Blood Pressure 71/46 Blood Pressure 71/46 Blood Pressure 69/46 Blood Pressure 72/52 Blood Pressure 72/52 Blood Pressure 70/47 Blood Pressure 75/50 Blood Pressure 75/50 O2 Sat by Pulse Oximetry 96 O2 Sat by Pulse Oximetry 92 O2 Sat by Pulse Oximetry 96 O2 Sat by Pulse Oximetry 96 O2 Sat by Pulse Oximetry 93 O2 Sat by Pulse Oximetry 94 O2 Sat by Pulse Oximetry 93 O2 Sat by Pulse Oximetry 96 O2 Sat by Pulse Oximetry 95 O2 Sat by Pulse Oximetry 95 O2 Sat by Pulse Oximetry 97 O2 Sat by Pulse Oximetry 95 O2 Sat by Pulse Oximetry 94 O2 Sat by Pulse Oximetry 93 O2 Sat by Pulse Oximetry 93 O2 Sat by Pulse Oximetry 93 O2 Sat by Pulse Oximetry 94 O2 Sat by Pulse Oximetry 94 O2 Sat by Pulse Oximetry 95 Intake and Output: Intake & Output 09/08/22 09/09/22 09/10/22 09/11/22 11:59 11:59 11:59 11:59 Intake Total 3039 / 3039 1744 / 1744 2902 / 2902 2635 / 2635 Output Total 230 / 230 175 / 175 10 0 / 0 Balance 2809 / 2809 1569 / 1569 2892 / 2892 2635 / 2635 - Physical Exam Oriented: Unable to test Eyes: Normal Ear: Normal Nose: Normal Throat: Normal Respiratory: Generalized, Rhonchi Cardiovascular: Bradycardia : Normal Auscultation: Bowel Sounds: Normal Tenderness: Normal Skin: Tender, Wound (NUMEROUS WOUNDS ON THE BACK, SACRUM, AND LOWER EXTREMITIES), Other (see operative note .) Musculoskeletal: Normal Psychiatric: Normal Mood Description: Calm Affect: Normal Speech Pattern: Clear - Laboratory and Diagnostics Result Diagrams: 09/11/22 04:50 09/11/22 04:50 Labs: 09/06/22 13:24 Sacral Wound Gram Stain - Final 09/06/22 13:24 Sacral Wound Culture - Final Providencia Rettgeri Escherichia Coli 09/05/22 16:45 Leg - Left Wound Gram Stain - Final 09/05/22 16:45 Leg - Left Wound Culture - Final Acinetobacter Baumanii/Haemoly 09/05/22 16:40 Leg - Right Wound Gram Stain - Final 09/05/22 16:40 Leg - Right Wound Culture - Final Providencia Rettgeri Acinetobacter Baumanii/Haemoly 09/05/22 16:35 Foot - Right Wound Gram Stain - Final 09/05/22 16:35 Foot - Right Wound Culture - Final Acinetobacter Baumanii/Haemoly Providencia Rettgeri 09/05/22 17:00 Buttock Wound Gram Stain - Final 09/05/22 17:00 Buttock Wound Culture - Final Klebsiella Pneumoniae Acinetobacter Baumanii/Haemoly 09/05/22 16:55 Sacral Wound Gram Stain - Final 09/05/22 16:55 Sacral Wound Culture - Final Escherichia Coli Acinetobacter Baumanii/Haemoly 09/05/22 16:50 Foot - Left Wound Gram Stain - Final 09/05/22 16:50 Foot - Left Wound Culture - Final Proteus Mirabilis Acinetobacter Baumanii/Haemoly 09/05/22 17:00 Buttock Wound Gram Stain - Final 09/05/22 17:00 Buttock Wound Culture - Final Klebsiella Pneumoniae Escherichia Coli 09/04/22 22:43 Blood Blood Culture - Final Staphylococcus Epidermidis 09/04/22 22:26 Blood Blood Culture - Final Morganella Morganii Laboratory WBC 7.7 X10^3/uL (3.6-10.0) 09/11/22 04:50 RBC 2.46 X10^6/uL (4.7-6.0) L 09/11/22 04:50 Hgb 6.4 g/dL (13.5-18.0) L* 09/11/22 04:50 Hct 19.6 % (42.0-54.0) L* 09/11/22 04:50 MCV 79.9 fL (80.0-100.0) L 09/11/22 04:50 MCH 26.0 pg (27.0-34.0) L 09/11/22 04:50 MCHC 32.5 g/dL (33.0-35.0) L 09/11/22 04:50 RDW 21.3 % (11.6-16.5) H 09/11/22 04:50 Plt Count 67 X10^3/uL (150.0-450.0) L 09/11/22 04:50 Plt Count Comment Decreased (ADEQUATE) 09/11/22 04:50 MPV 8.5 fL (7.4-11.0) 09/11/22 04:50 Neut % (Auto) 89.2 % (42.0-75.0) H 09/11/22 04:50 Lymph % (Auto) 6.5 % (21.0-51.0) L 09/11/22 04:50 Peach % (Auto) 4.1 % (0.0-13.0) 09/11/22 04:50 Eos % (Auto) 0.1 % (0.9-2.9) L 09/11/22 04:50 Baso % (Auto) 0.1 % (0.2-1.0) L 09/11/22 04:50 Neut # (Auto) 6.8 x10^3/uL (2.2-4.8) H 09/11/22 04:50 Lymph # (Auto) 0.5 X10^3/uL (1.3-2.9) L 09/11/22 04:50 Peach # (Auto) 0.3 x10^3/uL (0.3-0.8) 09/11/22 04:50 Eos # (Auto) 0.0 x10^3/uL (0.0-0.2) 09/11/22 04:50 Baso # (Auto) 0.0 X10^3/uL (0.0-0.1) 09/11/22 04:50 Absolute Nucleated RBC 0.2 /100WBC 09/11/22 04:50 Total Counted 100 09/11/22 04:50 Neutrophils % (Manual) 88 % (39-76) H 09/11/22 04:50 Band Neutrophils % 4 % (0-10) 09/11/22 04:50 Lymphocytes % (Manual) 5 % (13-43) L 09/11/22 04:50 Monocytes % (Manual) 3 % (4-9) L 09/11/22 04:50 Metamyelocytes % 1 09/10/22 04:40 Plt Morphology Comment Normal (NORMAL) 09/11/22 04:50 RBC Morphology Abnormal (NORMAL) 09/11/22 04:50 Hypochromasia Slight A 09/11/22 04:50 Anisocytosis 1+ A 09/11/22 04:50 Microcytosis Slight A 09/09/22 04:46 Ovalocytes Slight A 09/11/22 04:50 Schistocytes Slight A 09/11/22 04:50 Sample Site Rrad 09/09/22 06:25 ABG pH 7.180 (7.35-7.45) L* 09/09/22 06:25 ABG pCO2 72.0 mmHg (35.0-45.0) H* 09/09/22 06:25 ABG pO2 59.0 mmHg (80.0-100.0) L 09/09/22 06:25 ABG HCO3 26.9 mmol/L (22-26) H 09/09/22 06:25 ABG O2 Saturation 82.0 % (90-100) L* 09/09/22 06:25 ABG Base Excess -2.9 mmol/L (-2.0-2.0) L 09/09/22 06:25 [place]ador Test Pos 09/09/22 06:25 A-a Gradient 564.0 mmHg 09/09/22 06:25 FiO2 100.0 09/09/22 06:25 Blood Gas Comments Brian abg well-mtf 09/09/22 06:25 Sodium 128 mmol/L (136-145) L 09/11/22 04:50 Corrected Sodium TNP 09/11/22 04:50 Potassium 3.6 mmol/L (3.5-5.1) 09/11/22 04:50 Chloride 93 mmol/L (98-107) L 09/11/22 04:50 Carbon Dioxide 26.1 mmol/L (21-32) 09/11/22 04:50 BUN 19 mg/dL (7-18) H 09/11/22 04:50 Creatinine 1.61 mg/dL (0.70-1.30) H 09/11/22 04:50 Est GFR (MDRD) Af Amer 55 (>60) L 09/11/22 04:50 Est GFR (MDRD) Non-Af 45 (>60) L 09/11/22 04:50 Glucose 95 mg/dL (65-99) 09/11/22 04:50 POC Glucose (mg/dL) 187 mg/dL (65-99) H 09/09/22 20:01 Lactic Acid 0.8 mmol/L (0.4-2.0) 09/05/22 01:36 Calcium 7.0 mg/dL (8.5-10.1) L 09/11/22 04:50 Corrected Calcium 8.4 mg/dL (8.5-10.1) L 09/11/22 04:50 Magnesium 2.0 mg/dL (2.0-2.9) 09/11/22 04:50 Total Bilirubin 0.20 mg/dL (0.2-1.0) 09/11/22 04:50 AST 26 Units/L (15-37) 09/11/22 04:50 ALT 16 Units/L (12-78) 09/11/22 04:50 Alkaline Phosphatase 134 Units/L (46-116) H 09/11/22 04:50 Creatine Kinase 88 Units/L (39-308) 09/04/22 22:26 B-Natriuretic Peptide 2250 pg/mL (0-79) H* 09/10/22 04:40 Total Protein 5.3 g/dL (6.4-8.2) L 09/11/22 04:50 Albumin 2.2 g/dL (3.4-5.0) L 09/11/22 04:50 Globulin 3.1 g/dL (2.5-4.5) 09/11/22 04:50 Albumin/Globulin Ratio 0.7 Ratio (1.1-2.1) L 09/11/22 04:50 Specimen Type Catherized urine 09/04/22 22:15 Urine Color Dark yellow (YELLOW) 09/04/22 22:15 Urine Appearance Clear (CLEAR) 09/04/22 22:15 Urine pH 5.0 (5.0 - 8.0) 09/04/22 22:15 Ur Specific [place] 1.025 (1.000-1.030) 09/04/22 22:15 Urine Protein 2+ (NEGATIVE) 09/04/22 22:15 Urine Glucose (UA) Negative (NEGATIVE) 09/04/22 22:15 Urine Ketones 1+ (NEGATIVE) 09/04/22 22:15 Urine Blood 5+ (NEGATIVE) 09/04/22 22:15 Urine Nitrite Negative (NEGATIVE) 09/04/22 22:15 Urine Bilirubin Negative (NEGATIVE) 09/04/22 22:15 Urine Urobilinogen 2+ (NORMAL) 09/04/22 22:15 Ur Leukocyte Esterase 1+ (NEGATIVE) 09/04/22 22:15 Urine RBC 10-20 /HPF (0-3) A 09/04/22 22:15 Urine WBC 0-2 /HPF (0-5) 09/04/22 22:15 Ur Squamous Epith Cells Rare /HPF (NEGATIVE) 09/04/22 22:15 Calcium Oxalate Crystal Few /HPF (NEGATIVE) 09/04/22 22:15 Amorphous Sediment 1+ /HPF (NEGATIVE) 09/04/22 22:15 Urine Bacteria Negative /HPF (NEGATIVE) 09/04/22 22:15 Urine Mucus Many /HPF (NEGATIVE) 09/04/22 22:15 Ur Culture Indicated? No/not indicated 09/04/22 22:15 Resp Viral Panel (PCR) See scanned report 09/06/22 07:20 - Plan (1) Sepsis Status: Acute Qualifiers: Sepsis type: sepsis due to unspecified organism Sepsis acute organ dysfunction status: with acute organ dysfunction Severe sepsis acute organ dysfunction type: acute respiratory failure Acute respiratory failure type: with hypoxia Severe sepsis shock status: with septic shock Qualified Code(s): A41.9 - Sepsis, unspecified organism; R65.21 - Severe sepsis with septic shock; J96.01 - Acute respiratory failure with hypoxia Plan: D51/2 NS AT 100 ML/HR, VERSED 2MG/HR DRIP, ALBUMIN 25% IV DAILY, ZOSYN 3.375G IV TID, BACTRIM IV, PULMICORT NEBS BID, XOPENEX NEBS Q6H, LOVENOX 30MG SC HS, ATIVAN 1MG IV Q8H PRN, SYNTHROID IV, MORPHINE 2MG IV Q4H PRN, AND A DURAGESIC 25MCG/HR PATCH. WOUND CARE (2) Infected decubitus ulcer Status: Acute Qualifiers: Pressure injury stage: unspecified pressure injury stage Qualified Code(s): L89.90 - Pressure ulcer of unspecified site, unspecified stage; L08.9 - Local infection of the skin and subcutaneous tissue, unspecified Plan: STATUS POST DEBRIDEMENT OF WOUNDS. WOUND CARE (3) Pneumonia Status: Acute Qualifiers: Pneumonia type: due to unspecified organism Laterality: bilateral Lung location: lower lobe of lung Qualified Code(s): J18.9 - Pneumonia, unspecified organism (4) Respiratory failure with hypoxia Status: Acute Qualifiers: Chronicity: acute Qualified Code(s): J96.01 - Acute respiratory failure with hypoxia (5) Acute hyponatremia Status: Acute (6) Anemia Status: Acute Qualifiers: Anemia type: unspecified type Qualified Code(s): D64.9 - Anemia, unspecified (7) DVT of left axillary vein, chronic Status: Acute (8) Lung cancer metastatic to bone Status: Acute (9) Hypoalbuminemia due to protein-calorie malnutrition Status: Acute (10) HTN (hypertension) Status: Chronic Qualifiers: Hypertension type: primary hypertension Qualified Code(s): I10 - Essential (primary) hypertension (11) Hypothyroidism Status: Chronic Qualifiers: Hypothyroidism type: acquired Qualified Code(s): E03.9 - Hypothyroidism, unspecified (12) GERD (gastroesophageal reflux disease) Status: Chronic Qualifiers: Esophagitis presence: esophagitis presence not specified Qualified Code(s): K21.9 - Gastro-esophageal reflux disease without esophagitis
[2022-09-11 11:13] VITALS: BMI 23.0
[2022-09-11 15:02] VITALS: O2SAT 93
[2022-09-11] MEDS: MORPHINE SULFATE INJ 2 MG INJ IVP PRN ×2 (15:25→17:35)
[2022-09-11 17:41] VITALS: TEMP 96.7
[2022-09-11 19:30] VITALS: BP 49/32; PULSE 63; RESP 13
== END 2022-09-11 21:07 | disposition expired | DRG 853 ==
LOC: MED/SURG 18:41 → ER 18:41 → MED/SURG 09-05 00:45 → ICU 09-06 16:45
PROVIDERS: ADMIT Internal Medicine; ATTEND Internal Medicine
DX: B96.1 Klebsiella pneumoniae [K. pneumoniae] as the cause of diseases classified elsewhere; D64.89 Other specified anemias; L89.893 Pressure ulcer of other site, stage 3; C79.51 Secondary malignant neoplasm of bone; J18.8 Other pneumonia, unspecified organism; E03.8 Other specified hypothyroidism; E88.09 Other disorders of plasma-protein metabolism, not elsewhere classified; B96.4 Proteus (mirabilis) (morganii) as the cause of diseases classified elsewhere; I82.A22 Chronic embolism and thrombosis of left axillary vein; B96.89 Other specified bacterial agents as the cause of diseases classified elsewhere; B95.7 Other staphylococcus as the cause of diseases classified elsewhere; Z79.01 Long term (current) use of anticoagulants; B96.29 Other Escherichia coli [E. coli] as the cause of diseases classified elsewhere; Z66 Do not resuscitate; Z92.21 Personal history of antineoplastic chemotherapy; R06.02 Shortness of breath; I10 Essential (primary) hypertension; C34.90 Malignant neoplasm of unspecified part of unspecified bronchus or lung; L89.154 Pressure ulcer of sacral region, stage 4; Z73.89 Other problems related to life management difficulty; K21.9 Gastro-esophageal reflux disease without esophagitis; J96.01 Acute respiratory failure with hypoxia; A41.89 Other specified sepsis